=== PATIENT | male | born 1960 | race Caucasian/White ===

== ENCOUNTER 2017-12-24 01:37 | Inpatient (IN) | payer OTHER ==
[2017-12-24] MEDS ORDERED: FUROSEMIDE 40 MG/4 ML VIAL ONE ×2 (02:42→07:49)
[2017-12-24 03:15] LABS: Absolute Monocytes 1.4 K/uL (0.1-1.3); Absolute Neutrophil 9.8 K/uL (1.8-8.0); Basophils % 0.6 % (0-1.3); Eosinophils % 0.7 % (0-4.4); Hematocrit 43.9 % (39.6-49.0); Lymphocytes % 20.9 % (15.3-44.8); MPV 9.3 fL (7.6-11.3); RBC Red Blood Cell Count 5.04 M/uL (4.33-5.43)
[2017-12-24 03:17] LABS: Urine Blood TRACE (NEG); Urine Glucose 3+ (NEG); Urine Protein NEGATIVE (NEG)
[2017-12-24 03:20] LABS: Protime INR 2.37
[2017-12-24 03:31] LABS: Potassium 3.7 mmol/L (3.5-5.1)
[2017-12-24 03:34] LABS: Magnesium 1.3 mg/dL (1.8-2.4)
[2017-12-24] MEDS ORDERED: Magnesium Sulfate 2gm IVPB 2 G/50 ML BAG IV ONE (05:41)
--- NOTE | 2017-12-24 06:31 | EKG ---
Test Date: 2017-12-24 Test Time: 02:20:21 Slitter And Cutter Operator: KIA MEASUREMENT RESULTS: Intervals: Rate: 85 MA: 164 QRSD: 98 QT: 352 QTc: 418 [place]: P: 66 MA: 164 QRS: 75 T: 79 INTERPRETIVE STATEMENTS: Normal sinus rhythm Normal ECG Compared to ECG 06/19/2017 17:02:50 No significant changes Electronically Signed On 12-24-17 06:30:18 CDT by Frank Garza
--- NOTE | 2017-12-24 08:31 | ER ---
Nurse's Notes [facility] Name: Harvey Callahan Age: 57 yrs Sex: Male : 1960 Arrival Date: 12/24/2017 Time: 01:38 Bed 6 Private MD: Hubert Felder R Diagnosis: Dyspnea, unspecified Presentation: 12/24 01:48 Presenting complaint: Patient states: Increased leg swelling to bilateral legs x 5 lp1 days; Patient states weeping to bilateral lower legs; States shortness of breath when laying flat. Transition of care: patient was not received from another setting of care. Onset of symptoms was December 24, 2017. Risk Assessment: Do you want to hurt yourself or someone else? Patient reports no desire to harm self or others. Initial Sepsis Screen: Does the patient meet any 2 criteria? No. Patient's initial sepsis screen is negative. Does the patient have a suspected source of infection? No. Patient's initial sepsis screen is negative. Care prior to arrival: None. 01:48 Method Of Arrival: Wheelchair lp1 01:48 Acuity: DEYANIRA 3 lp1 Historical: - Allergies: 02:03 No Known Allergies; lp1 - Home Meds: 02:03 amiodarone 200 mg Oral tab 1 tab once daily [Active]; aspirin 81 mg Oral TbEC 1 tab lp1 once daily [Active]; atorvastatin 40 mg oral tab 1 tab once daily [Active]; carvedilol 6.25 mg oral tab 0.5 tab 2 times per day [Active]; furosemide 80 mg Oral tab 1 tab once daily [Active]; gabapentin 600 mg oral tab twice a day [Active]; insulin detemir subcutaneous subcutaneous 10 unit twice a day [Active]; levalbuterol tartrate inhalation 45 mcg inhalation 1 puff four times a day [Active]; lisinopril 5 mg Oral tab 1 tab once daily [Active]; metformin 1,000 mg Oral tab 1 tab 2 times per day [Active]; omeprazole 20 mg Oral cpDR 1 cap once daily [Active]; potassium chloride 20 mEq Oral TbER 1 tab once daily [Active]; Prednisone Oral See Instructions [Active]; sildenafil oral 100 mg tab oral 0.5 tab once daily [Active]; tiotropium bromide inhalation 18 mcg inhalation 1 cap once daily [Active]; varenicline oral 1 mg oral twice a day [Active]; warfarin 5 mg Oral tab 1 tab once daily [Active]; modafinil 200 mg oral tab twice a day [Active]; tramadol 50 mg Oral tab three times a day [Active]; - PMHx: 02:03 Arthritis; Diabetes - NIDDM; knee pain; lp1 02:31 CHF; Hyperlipidemia; Hypertension; lp1 - PSHx: 02:03 Cardiac Cath; lp1 - Immunization history:: Adult Immunizations up to date. - Social history:: Smoking status: Patient uses tobacco products, smokes two packs cigarettes per day. - Ebola Screening: : No symptoms or risks identified at this time. Screenin:24 Abuse screen: Denies threats or abuse. Denies injuries from another. Nutritional lp1 screening: No deficits noted. Tuberculosis screening: No symptoms or risk factors identified. Fall Risk None identified. Assessment: 02:20 General: Appears uncomfortable, Behavior is appropriate for age. Pain: Complains of lp1 pain in right leg and left leg Pain currently is 8 out of 10 on a pain scale. Quality of pain is described as sharp. Neuro: Level of Consciousness is awake, alert, obeys commands, Oriented to person, place, time, situation, Gait is steady. Cardiovascular: Patient's skin is warm and dry. Edema pitting to left midcalf, left ankle, left foot, left toes, right midcalf, right ankle, right foot and right toes. Respiratory: Reports shortness of breath when laying flat Airway is patent Respiratory effort is even, Respiratory pattern is regular, Breath sounds are clear bilaterally. Onset: The symptoms/episode began/occurred gradually. GI: Abdomen is obese. : No signs and/or symptoms were reported regarding the genitourinary system. EENT: No signs and/or symptoms were reported regarding the EENT system. Derm: Skin with poor turgor small skin tears to bilateral lower legs noted, minimal weeping Skin is dry, Skin is normal. Musculoskeletal: Circulation, motion, and sensation intact. 03:30 Reassessment: Patient is alert, oriented x 3, equal unlabored respirations, skin lp1 warm/dry/pink. Patient states discomfort and itching to bilateral lower legs; sitting up at bedside to relief discomfort of shoulder and back. 04:30 Reassessment: Patient sitting up in chair at bedside; resting, eyes closed, lp1 respirations unlabored. 05:30 Reassessment: Patient appears in no apparent distress at this time. No changes from lp1 previously documented assessment. Patient and/or family updated on plan of care and expected duration. Pain level reassessed. 06:38 Reassessment: Patient appears in no apparent distress at this time. No changes from lp1 previously documented assessment. 07:45 Reassessment: Patient appears in no apparent distress at this time. Patient and/or ph family updated on plan of care and expected duration. Pain level reassessed. Patient is alert, oriented x 3, equal unlabored respirations, skin warm/dry/pink. Pt asleep, sitting up in chair at bedside, awakens easily to verbal stimuli, states, " I can't sleep lying down and I kept sliding down in the bed." Stretcher removed from room and replaced with a recliner, pt now resting comfortably in recliner, VSS, awaiting possible transfer or admit to tele. 09:00 Reassessment: Patient appears in no apparent distress at this time. No changes from ph previously documented assessment. Patient and/or family updated on plan of care and expected duration. Pain level reassessed. Patient is alert, oriented x 3, equal unlabored respirations, skin warm/dry/pink. 10:35 Reassessment: Patient appears in no apparent distress at this time. Patient and/or ph family updated on plan of care and expected duration. Pain level reassessed. Patient is alert, oriented x 3, equal unlabored respirations, skin warm/dry/pink. ECHO at bedside, report called to REZA Reddy on second floor, awaiting completion of ECHO before pt transported to telemetry. Vital Signs: 01:50 BP 110 / 67; Pulse 104; Resp 18; Temp 98.6(O); Pulse Ox 96% on R/A; Weight 146.96 kg; lp1 Height 5 ft. 7 in. (170.18 cm); Pain 8/10; 02:30 BP 102 / 43; Pulse 92; Resp 16; Pulse Ox 96% on R/A; lp1 03:30 BP 117 / 79; Pulse 92; Resp 16; Pulse Ox 96% on R/A; lp1 04:30 BP 122 / 60; Pulse 91; Resp 15; Pulse Ox 94% on R/A; lp1 05:00 BP 100 / 40; Pulse 85; Resp 16; Pulse Ox 92% on R/A; lp1 05:59 BP 117 / 70; Pulse 76; Resp 19; Pulse Ox 93% on R/A; lp1 06:38 BP 111 / 81; Pulse 86; Resp 18; Pulse Ox 96% on R/A; lp1 07:30 BP 115 / 78; Pulse 81; Resp 16; Pulse Ox 98% on R/A; ph 08:21 BP 113 / 76; Pulse 87; Resp 15; Pulse Ox 96% on R/A; ph 09:30 BP 103 / 56; Pulse 77; Resp 16; Pulse Ox 98% on R/A; ph 10:16 BP 112 / 68; Pulse 80; Resp 16; Temp 98.0; Pulse Ox 97% on R/A; ph 01:50 Body Mass Index 50.75 (146.96 kg, 170.18 cm) lp1 ED Course: 01:38 Patient arrived in ED. ds1 01:39 Hubert Felder MD is Private Physician. ds1 01:48 Carly Valentino RN is Primary Nurse. lp1 01:50 Triage completed. lp1 01:50 Arm band placed on left wrist. lp1 02:16 Kristian Pal MD is Attending Physician. ps1 02:20 Inserted saline lock: 20 gauge in right antecubital area, using aseptic technique. lp1 Blood collected. 02:24 Patient has correct armband on for positive identification. Placed in gown. Bed in low lp1 position. Call light in reach. Side rails up X2. satellite project site monitor on. Pulse ox on. NIBP on. 03:14 X-ray completed. Portable x-ray completed in exam room. Patient tolerated procedure kw well. 03:15 XRAY Chest (1 view) In Process Unspecified. EDMS 05:59 No provider procedures requiring assistance completed. lp1 08:07 Primary Nurse role handed off by Carly Valentino RN ph 08:07 Esme Moran RN is Primary Nurse. ph 08:28 Attending Physician role handed off by Kristian Pal MD rn 08:28 Maulik Goodman MD is Attending Physician. rn 08:29 Hubert Felder MD is Hospitalizing Provider. rn 08:51 Santos Kramer DO is Hospitalizing Provider. rn 08:58 Primary Nurse role handed off by Esme Moran RN 09:14 Esme Moran RN is Primary Nurse. ph 10:10 Patient taken to ultrasound. via wheelchair. aa4 10:56 Patient admitted, IV remains in place. ph Administered Medications: 02:46 Not Given (Med unavailable): Bumex 1 mg IVP once lp1 02:46 Drug: Lasix 40 mg Route: IVP; Site: right antecubital; lp1 03:39 Follow up: Urine output 400 ml; Response: No adverse reaction lp1 05:45 Drug: Magnesium Sulfate 2 grams Route: IVPB; Infused Over: 2 hrs; Site: right mg2 antecubital; 06:53 Follow up: IV Status: Completed infusion lp1 08:00 Drug: Lasix 40 mg Route: IVP; Site: right antecubital; ph 10:56 Follow up: Response: No adverse reaction ph Output: 03:09 Urine: 200ml (Voided); Total: 200ml. lp1 03:30 Urine: 200ml (Voided); Total: 400ml. lp1 03:39 Urine: 400ml; Total: 800ml. lp1 05:00 Urine: 200ml (Voided); Total: 1000ml. lp1 08:00 Urine: 400ml (Voided); Total: 1400ml. ph 10:16 Urine: 400ml (Voided); Total: 1800ml. ph Outcome: 08:30 Decision to Hospitalize by Provider. rn 10:55 Admitted to Tele accompanied by tech, via wheelchair, with chart, Report called to doc Reddy RN 10:55 Condition: stable 10:55 Instructed on the need for admit. 10:56 Patient left the ED. Signatures: Dispatcher [employer] [facility] VelaArmida cruz ds1 Nataliia Peña aa4 Maulik Goodman MD MD rn Whitley, Kimberlee kw Pena, Laura, RN RN lp1 Irish Blackman Patricia, RN RN ph Singer, Phillip, MD MD ps1 [place]ose, Michele, RN RN mg2 Corrections: (The following items were deleted from the chart) 02:25 01:48 Acuity: DEYANIRA 2 lp1 lp1 02:29 02:20 Cardiovascular: Patient's skin is warm and dry. lp1 lp1
--- NOTE | 2017-12-24 08:31 | EDPHYS ---
Physician Documentation [facility] Name: Harvey Callahan Age: 57 yrs Sex: Male : 1960 Arrival Date: 12/24/2017 Time: 01:38 Bed 6 Private MD: Hubert Felder R ED Physician Maulik Goodman HPI: 12/24 02:34 This 57 yrs old Male presents to ER via Wheelchair with complaints of Leg ps1 Swelling and shortness of breath. 02:34 hx of CHF. [facility]. states that his legs have had increased swelling and pain. He ps1 states that his legs have open sores and fluid has been seeping from his wounds. He states additionally that he has had increased shortness of breath and pillow orthopnea. He reportedly takes lasix. No remitting factors otherwise. . Historical: - Allergies: 02:03 No Known Allergies; lp1 - Home Meds: 02:03 amiodarone 200 mg Oral tab 1 tab once daily [Active]; aspirin 81 mg Oral TbEC 1 tab lp1 once daily [Active]; atorvastatin 40 mg oral tab 1 tab once daily [Active]; carvedilol 6.25 mg oral tab 0.5 tab 2 times per day [Active]; furosemide 80 mg Oral tab 1 tab once daily [Active]; gabapentin 600 mg oral tab twice a day [Active]; insulin detemir subcutaneous subcutaneous 10 unit twice a day [Active]; levalbuterol tartrate inhalation 45 mcg inhalation 1 puff four times a day [Active]; lisinopril 5 mg Oral tab 1 tab once daily [Active]; metformin 1,000 mg Oral tab 1 tab 2 times per day [Active]; omeprazole 20 mg Oral cpDR 1 cap once daily [Active]; potassium chloride 20 mEq Oral TbER 1 tab once daily [Active]; Prednisone Oral See Instructions [Active]; sildenafil oral 100 mg tab oral 0.5 tab once daily [Active]; tiotropium bromide inhalation 18 mcg inhalation 1 cap once daily [Active]; varenicline oral 1 mg oral twice a day [Active]; warfarin 5 mg Oral tab 1 tab once daily [Active]; modafinil 200 mg oral tab twice a day [Active]; tramadol 50 mg Oral tab three times a day [Active]; - PMHx: 02:03 Arthritis; Diabetes - NIDDM; knee pain; lp1 02:31 CHF; Hyperlipidemia; Hypertension; lp1 - PSHx: 02:03 Cardiac Cath; lp1 - Immunization history:: Adult Immunizations up to date. - Social history:: Smoking status: Patient uses tobacco products, smokes two packs cigarettes per day. - Ebola Screening: : No symptoms or risks identified at this time. ROS: 02:38 Constitutional: Negative for fever, chills, and weight loss, Eyes: Negative for injury, ps1 pain, redness, and discharge, Cardiovascular: Negative for chest pain, palpitations, and edema, Abdomen/GI: Negative for abdominal pain, nausea, vomiting, diarrhea, and constipation, Back: Negative for injury and pain, MS/Extremity: Negative for injury and deformity, Neuro: Negative for headache, weakness, numbness, tingling, and seizure, Psych: Negative for depression, anxiety, suicide ideation, homicidal ideation, and hallucinations. 02:38 Respiratory: Positive for orthopnea, shortness of breath. 02:38 Skin: Positive for edema and weeping. Exam: 02:38 Constitutional: This is a well developed, well nourished patient who is awake, alert, ps1 and in no acute distress. Head/Face: Normocephalic, atraumatic. Eyes: Pupils equal round and reactive to light, extra-ocular motions intact. Lids and lashes normal. Conjunctiva and sclera are non-icteric and not injected. ENT: Nares patent. No nasal discharge, no septal abnormalities noted. Tympanic membranes are normal and external auditory canals are clear. Oropharynx with no redness, swelling, or masses, exudates, or evidence of obstruction, uvula midline. Mucous membranes moist. Chest/axilla: Normal chest wall appearance and motion. Nontender with no deformity. No lesions are appreciated. Cardiovascular: Regular rate and rhythm. No gallops, murmurs, or rubs. Normal PMI, no JVD. No pulse deficits. Respiratory: Lungs have equal breath sounds bilaterally, clear to auscultation and percussion. No rales, rhonchi or wheezes noted. No increased work of breathing, no retractions or nasal flaring. Abdomen/GI: Soft, non-tender, with normal bowel sounds. No distension or tympany. No guarding or rebound. No evidence of tenderness throughout. Neuro: Awake and alert, GCS 15, oriented to person, place, time, and situation. Cranial nerves II-XII grossly intact. Sensory grossly intact. Psych: Awake, alert, with orientation to person, place and time. Behavior, mood, and affect are within normal limits. 02:38 Skin: Appearance: Color: pink, Temperature: warm, swelling, noted on the left leg and right leg, serous weeping of small abrasions to anterior aspect of tibia. Vital Signs: 01:50 BP 110 / 67; Pulse 104; Resp 18; Temp 98.6(O); Pulse Ox 96% on R/A; Weight 146.96 kg; lp1 Height 5 ft. 7 in. (170.18 cm); Pain 8/10; 02:30 BP 102 / 43; Pulse 92; Resp 16; Pulse Ox 96% on R/A; lp1 03:30 BP 117 / 79; Pulse 92; Resp 16; Pulse Ox 96% on R/A; lp1 04:30 BP 122 / 60; Pulse 91; Resp 15; Pulse Ox 94% on R/A; lp1 05:00 BP 100 / 40; Pulse 85; Resp 16; Pulse Ox 92% on R/A; lp1 05:59 BP 117 / 70; Pulse 76; Resp 19; Pulse Ox 93% on R/A; lp1 06:38 BP 111 / 81; Pulse 86; Resp 18; Pulse Ox 96% on R/A; lp1 07:30 BP 115 / 78; Pulse 81; Resp 16; Pulse Ox 98% on R/A; ph 08:21 BP 113 / 76; Pulse 87; Resp 15; Pulse Ox 96% on R/A; ph 09:30 BP 103 / 56; Pulse 77; Resp 16; Pulse Ox 98% on R/A; ph 10:16 BP 112 / 68; Pulse 80; Resp 16; Temp 98.0; Pulse Ox 97% on R/A; ph 01:50 Body Mass Index 50.75 (146.96 kg, 170.18 cm) lp1 MDM: 03:11 Patient medically screened. ps1 07:53 ED course: Pt doing ok, sats down to 86% when sleeping, improves when awake, about 94%..rn 07:55 ED course: Pt here for > 6 hours, [facility], will rn have to keep here.. 08:28 Differential diagnosis: Anemia CHF exacerbation, Chronic Obstructive Pulmonary Disease rn Myocardial Infarction pneumonia, Pneumothorax pulmonary edema, reactive airway disease. Data reviewed: vital signs, nurses notes, lab test result(s), EKG, radiologic studies, plain films, and as a result, I will admit patient. Counseling: I had a detailed discussion with the patient and/or guardian regarding: the historical points, exam findings, and any diagnostic results supporting the discharge/admit diagnosis, lab results, radiology results, the need for further work-up and treatment in the hospital. 08:50 ED course: Dr. Felder called back, states hasn't seen pt in years, requests admitted to rn hospitalist service.. 12/24 02:34 Order name: Basic Metabolic Panel; Complete Time: 03:39 ps1 12/24 02:34 Order name: CBC with Diff; Complete Time: 03:39 ps1 12/24 02:34 Order name: Magnesium; Complete Time: 03:39 ps1 12/24 02:34 Order name: NT PRO-BNP; Complete Time: 03:39 ps1 12/24 02:34 Order name: PT-INR; Complete Time: 03:39 ps1 12/24 02:34 Order name: Troponin (emerg Dept Use Only); Complete Time: 03:39 ps1 12/24 02:34 Order name: XRAY Chest (1 view); Complete Time: 08:54 ps1 12/24 02:34 Order name: EKG; Complete Time: 02:35 ps1 12/24 02:34 Order name: Cardiac monitoring; Complete Time: 02:44 ps1 12/24 03:09 Order name: Urine Dipstick--Ancillary (enter results); Complete Time: 03:25 lp1 12/24 02:34 Order name: EKG - Nurse/Tech; Complete Time: 02:44 ps1 12/24 02:34 Order name: IV Saline Lock; Complete Time: 02:44 ps1 12/24 02:34 Order name: Labs collected and sent; Complete Time: 02:44 ps1 12/24 02:34 Order name: O2 Per Protocol; Complete Time: 02:45 ps1 12/24 02:34 Order name: O2 Sat Monitoring; Complete Time: 02:45 ps1 12/24 02:34 Order name: Urine Dipstick-Ancillary (obtain specimen); Complete Time: 03:09 ps1 Administered Medications: 02:46 Not Given (Med unavailable): Bumex 1 mg IVP once lp1 02:46 Drug: Lasix 40 mg Route: IVP; Site: right antecubital; lp1 03:39 Follow up: Urine output 400 ml; Response: No adverse reaction lp1 05:45 Drug: Magnesium Sulfate 2 grams Route: IVPB; Infused Over: 2 hrs; Site: right mg2 antecubital; 06:53 Follow up: IV Status: Completed infusion lp1 08:00 Drug: Lasix 40 mg Route: IVP; Site: right antecubital; ph 10:56 Follow up: Response: No adverse reaction ph Disposition: 12/24/17 08:30 Hospitalization ordered by Santos Kramer for Observation. Preliminary diagnosis is Dyspnea, unspecified. - Bed requested for Telemetry/MedSurg (observation). - Status is Observation. ph - Condition is Stable. - Problem is an ongoing problem. - Symptoms are unchanged. UTI on Admission? No Signatures: Dispatcher [employer] EDMS Maulik Goodman MD MD rn Pena, Laura, RN RN lp1 Irish Blackman Patricia, RN RN ph Kristian Pal MD MD ps1 Keagan Travis RN RN mg2 Corrections: (The following items were deleted from the chart) 08:51 08:30 Hospitalization Ordered by Hubert Felder MD for Observation. Preliminary diagnosis rn is Dyspnea, unspecified. Bed requested for Telemetry/MedSurg (observation). Status is Observation. Condition is Stable. Problem is an ongoing problem. Symptoms are unchanged. UTI on Admission? No. rn 09:23 08:51 12/24/2017 08:30 Hospitalization Ordered by Santos Kramer DO for Observation. rn Preliminary diagnosis is Dyspnea, unspecified. Bed requested for Telemetry/MedSurg (observation). Status is Observation. Condition is Stable. Problem is an ongoing problem. Symptoms are unchanged. UTI on Admission? No. 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 Preliminary diagnosis is Dyspnea, unspecified. Bed requested for Telemetry/MedSurg (observation). Status is Inpatient Admission. Condition is Stable. Problem is an ongoing problem. Symptoms are unchanged. UTI on Admission? No. rn 10:03 09:32 12/24/2017 08:30 Hospitalization Ordered by Santos Kramer DO for Observation. ag Preliminary diagnosis is Dyspnea, unspecified. Bed requested for Telemetry/MedSurg (observation). Status is Observation. Condition is Stable. Problem is an ongoing problem. Symptoms are unchanged. UTI on Admission? No. rn 10:56 10:03 12/24/2017 08:30 Hospitalization Ordered by Santos Kramer DO for Observation. ph Preliminary diagnosis is Dyspnea, unspecified. Bed requested for Telemetry/MedSurg (observation). Status is Observation. Condition is Stable. Problem is an ongoing problem. Symptoms are unchanged. UTI on Admission? No. ag
--- NOTE | 2017-12-24 08:54 | RAD REPORT ---
EXAM DESCRIPTION: RAD - Chest Single View - 12/24/2017 3:16 am CLINICAL HISTORY: chf Chest pain. COMPARISON: Chest Single View dated 06/19/2017; Chest Single View dated 06/10/2017; Chest Single View dated 06/07/2017; Chest Single View dated 06/06/2017 FINDINGS: Portable technique limits examination quality. Mild interstitial pulmonary edema is seen. The heart is moderately enlarged in size. Small pleural ef fusions are likely present. No displaced fractures. IMPRESSION: Mild CHF/ volume overload pattern suspected.
[2017-12-24] MEDS ORDERED: IPRATROPIUM BROM 0.5MG/2.5ML NEB PRN (09:40)
[2017-12-24] MEDS ORDERED: LEVALBUTEROL 1.25 MG/3 ML NEB NEB PRN (09:40)
[2017-12-24] MEDS ORDERED: D50W 25 GM/50 ML SYRINGE IV PRN (09:40)
[2017-12-24] MEDS ORDERED: ACETAMINOPHEN 500 MG TAB PO PRN (09:40)
[2017-12-24] MEDS ORDERED: GLUCAGON 1 MG/VIAL IM PRN (09:40)
[2017-12-24] MEDS ORDERED: ONDANSETRON 4 MG/2 ML VIAL IV PRN ×2 (09:40→10:56)
--- NOTE | 2017-12-24 10:02 | P.HP ---
Certification for Inpatient Patient admitted to: Observation With expected LOS: <2 Midnights Patient will require the following post-hospital care: Home Health Services Practitioner: I am a practitioner with admitting privileges, knowledge of patient current condition, hospital course, and medical plan of care. Services: Services provided to patient in accordance with Admission requirements found in Title 42 Section 412.3 of the Code of Federal Regulations Patient History Date of Service: 12/24/17 [facility] Reason for admission: Shortness of breath, edema History of Present Illness: 57-year-old male presented emergency room with increasing shortness of breath and edema to the lower extremities. Symptoms start to get worse over the last couple of days. Patient reports orthopnea, fatigue. No fever, chills noted. No cough noted. Patient with history of obstructive sleep apnea, systolic congestive heart failure, atrial fibrillation on Coumadin, hypertension , diabetes, morbid obesity, GERD, tobacco abuse and COPD. Patient is seen at the [facility]. He reports that his last evaluation for his heart was in June of 2017. He had a heart catheterization at that time. He reports no stent. Patient reports a history of congestive heart failure. No changes to his medications. In May of 2017 ejection fraction was 40%. At that time he was taking Eliquis. He now takes Coumadin. In the ER patient was most comfortable in a recliner. Oxygen saturations would desat to around 85% when with exertion. On lab white count 14.4, hemoglobin 14.6. Sodium 141, potassium 3.7. Magnesium 1.3, GFR 69. Urinalysis unremarkable. Troponin less than 0.02. BNP 21. Chest x-ray showed mild volume overload. EKG showed normal sinus rhythm 2.37. Due to nature the findings the patient was admitted for further evaluation and treatment. When I saw the patient ER, he appeared stable. He did not appear in any respiratory distress. He would desat whenever he over exerted himself. Patient on room air at this time. Edema to the lower extremities noted at bedside. Allergies No Known Allergies Allergy (Verified 06/06/17 22:23) Home medications list reviewed: Yes Home Medications: Metformin HCl [Glucophage*] 500 mg PO BIDWM 06/06/17 Apixaban [Eliquis] 5 mg PO BID #60 tablet 06/10/17 Cefuroxime Axetil [Cefuroxime] 500 mg PO BID #10 tab 06/10/17 Furosemide [Lasix] 40 mg PO DAILY #30 tab 06/10/17 Ipratropium Neb [Atrovent*] 0.5 mg NEB [id number] #60 amp 06/10/17 Levalbuterol [Xopenex*] 1.25 mg NEB [id number] PRN #60 vial 06/10/17 Lisinopril [Prinivil*] 10 mg PO DAILY #30 tab 06/10/17 Potassium Chloride 20 meq PO DAILY #30 tablet.er 06/10/17 Sotalol HCl [Betapace*] 80 mg PO TID #90 tab 06/10/17 predniSONE [Prednisone*] 10 mg PO BID #10 tab 06/10/17 - Past Medical/Surgical History Diabetic: Yes -: Diabetes mellitus type 2 -: Hypertension -: CAD -: Congestive heart failure, systolic dysfunction-EF 40% -: Obstructive sleep apnea -: Hypoventilation obesity syndrome -: Morbid obesity -: Hyperlipidemia -: COPD -: Tobacco abuse -: Atrial fibrillation, chronic anti coagulation-Coumadin -: Knee surgery -: Appendectomy -: Back surgery Psychosocial/ Personal History: Patient is a . He has 6 children. - Family History Mother -: Hypertension, Diabetes - Social History Smoking Status: Heavy Tobacco smoker (>10 cigarettes/day) Counseled patient to stop smoking for: less than 10 minutes Smoking therapy provided: Yes Patient receptive to therapy: Yes Alcohol use: Yes CD- Drugs: No Caffeine use: Yes Place of Residence: Home Review of Systems General: Weakness, Malaise, As per HPI Eyes: Unremarkable ENT: Unremarkable Respiratory: Shortness of Breath, SOB with Excertion, As per HPI Cardiovascular: Orthopnea, Paroxysmal Noc. Dyspnea, Edema, As per HPI Gastrointestinal: Unremarkable Genitourinary: Unremarkable Musculoskeletal: Back Pain, Pedal edema, As per HPI Integumentary: As per HPI Neurological: Weakness, As per HPI Lymphatics: Unremarkable Physical Examination - Physical Exam General: Alert, In no apparent distress, Oriented x3, Cooperative HEENT: Atraumatic, Normocephalic, PERRLA, Mucous membr. moist/pink Neck: Supple, No Thyromegaly Respiratory: Crackles/rales (Crackles to the bases bilateral), Expiratory wheezes (Mild wheezing bilateral) Cardiovascular: Normal pulses, Regular rate/rhythm Gastrointestinal: Normal bowel sounds, Soft and benign, Non-distended, No tenderness, No masses, No rebound, No guarding, Other (Morbid obesity) Musculoskeletal: No tenderness, No warmth Integumentary: Tenderness/swelling (2+ pitting edema to the lower extremities above the knee) Neurological: Normal speech, Normal strength at 5/5 x4 extr, Normal tone, Normal affect - Studies Laboratory Data (last 24 hrs) 12/24/17 02:15: PT 28.2 H, INR 2.37 12/24/17 02:15: WBC 14.4 H, Hgb 14.6, Hct 43.9, Plt Count 259 12/24/17 02:15: Sodium 141, Potassium 3.7, BUN 18, Creatinine 1.10, Glucose 220 H, Magnesium 1.3 L* Assessment and Plan - Problems (Diagnosis) (1) Dyspnea Current Visit: Yes Status: Acute Plan: Shortness of breath and edema likely CHF-systolic dysfunction. Will increase Lasix to 80 mg IV b.i.d.. Will place on a fluid restriction. Will continue his other home medications for atrial fibrillation, chronic anti coagulation therapy, hypertension, diabetes. Patient also morbidly obese likely with severe obstructive sleep apnea and obesity hyperventilation syndrome. Will maintain sats above 90%. Will provide CPAP at night. Will check pro calcitonin and obtain blood cultures to rule out infection. Cardiology consulted to further assess. Patient seen at [facility]. Previously had heart catheterization in June 2017 at the [facility]. No stents were placed at that time as reported by the patient. Will obtain medical records. Will discuss with cardiology about the possibility of changing his Coumadin to Eliquis as he was taking this in the past. Will treat his COPD. Patient may require home health and physical therapy at discharge. Qualifiers: Dyspnea type: shortness of breath Qualified Code(s): R06.02 - Shortness of breath; R06.00 - Dyspnea, unspecified; R06.01 - Orthopnea (2) Edema Current Visit: Yes Status: Acute Plan: Secondary to CHF. Will continue as above. Fluid restriction and IV Lasix initiated. Qualifiers: Edema type: unspecified Qualified Code(s): R60.9 - Edema, unspecified (3) CHF (congestive heart failure) Current Visit: Yes Status: Acute Plan: Acute on chronic systolic CHF noted. Previous echocardiogram in May 2017 showed an EF of 40%. Will check echocardiogram. Will continue IV Lasix and fluid restriction. Cardiology consulted. Qualifiers: Heart failure type: systolic Heart failure chronicity: acute on chronic Qualified Code(s): I50.23 - Acute on chronic systolic (congestive) heart failure (4) CAD (coronary artery disease) Current Visit: Yes Status: Chronic Plan: Patient with previous heart catheterization in June 2017 at the [facility]. Patient reports no stent placed at that time. Will obtain records. Will monitor cardiac enzymes. Echocardiogram ordered. Cardiology consulted. (5) Atrial fibrillation Current Visit: Yes Status: Chronic Plan: Patient currently on amiodarone. Will restart. Patient currently on Coumadin therapeutic at this time. Will continue Coumadin. Will discuss with cardiology about changing Coumadin to Eliquis as he was on Eliquis in the past. Qualifiers: Atrial fibrillation type: chronic Qualified Code(s): I48.2 - Chronic atrial fibrillation (6) Chronic anticoagulation Current Visit: Yes Status: Chronic Plan: Continue Coumadin. Patient therapeutic at this time. Will consider changing Coumadin to Eliquis. Will discuss with cardiology. (7) Diabetes mellitus Current Visit: Yes Status: Chronic Plan: Will check A1c. Will continue his basal insulin. Will provide sliding scale. 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 Patient taking carvedilol and lisinopril. Will monitor and adjust appropriately. (9) Hyperlipidemia Current Visit: Yes Status: Chronic Plan: Will check lipid panel. Will continue with Lipitor 80 mg. Qualifiers: Hyperlipidemia type: unspecified Qualified Code(s): E78.5 - Hyperlipidemia , unspecified (10) COPD (chronic obstructive pulmonary disease) Current Visit: Yes Status: Chronic Plan: Patient with history of COPD. Tobacco cessation addressed in detail. Patient still smokes about 1.5 packs per day. Will provide Brovana and Spiriva. Qualifiers: COPD type: chronic bronchitis Chronic bronchitis type: unspecified Qualified Code(s): J42 - Unspecified chronic bronchitis (11) Obstructive sleep apnea Current Visit: Yes Status: Suspected Plan: Suspect patient has severe obstructive sleep apnea. Patient will need sleep study as an outpatient for CPAP. (12) Obesity Current Visit: Yes Status: Chronic Plan: Will calculate BMI. Lifestyle modification education will be provided. (13) Hypomagnesemia Current Visit: Yes Status: Acute Plan: Will monitor and replace appropriately. Replacement protocol in place. (14) Obesity hypoventilation syndrome Onset Date: 11/12/16 Current Visit: No Status: Suspected Plan: Patient likely has obesity hypoventilation syndrome. Patient will need sleep study as an outpatient. Will monitor oxygen saturations. Patient may require home oxygen. Patient will likely need CPAP at night. (15) Tobacco abuse Current Visit: Yes Status: Acute Plan: Will provide nicotine patch. Tobacco cessation addressed in detail. Discharge Plan: Home Plan to discharge in: 48 Hours - Advance Directives Does patient have a Living Will: No Does patient have a Durable POA for Healthcare: No - Code Status/Comfort Care Code Status Assessed: Yes (Patient full code.) Time Spent Managing Pts Care (In Minutes): 55
[2017-12-24] MEDS ORDERED: ALBUTEROL 2.5 MG/3 ML NEB SOL NEB PRN (10:56)
--- NOTE | 2017-12-24 10:59 | RAD REPORT ---
EXAM DESCRIPTION: VAS - Extrem Venous W Compress Stefan - 12/24/2017 10:22 am CLINICAL HISTORY: Edema to lower ext., takes Coumadin-Therapeutic Bilateral leg edema and swelling. COMPARISON: No comparisons TECHNIQUE: Real-time sonographic interrogation of the left and right lower extremity deep venous sys tems was performed. FINDINGS: Normal compressibility, flow augmentation, phasic flow and spontaneous flow is identified in both the left and right lower extremity deep venous systems. 4 x 3 cm left Gonzales's cyst. IMPRESSION: No sonographic evidence of left or right lower extremity deep venous thrombosis.
--- NOTE | 2017-12-24 11:16 | ECHO ---
HEIGHT: 5 ft 7 in WEIGHT: 324 lb 0 oz DATE OF STUDY: 12/24/[address]: Santos Kramer DO 2-DIMENSIONAL: YES M.MODE: YES DOPPLER: YES COLOR FLOW: YES TDS: YES PORTABLE: NO DEFINITY: NO BUBBLE STUDY: NO DIAGNOSIS: SHORTNESS OF BREATH, EDEMA CARDIAC HISTORY: CATHERIZATION: SURGERY: PROSTHETIC VALVE: PACEMAKER: MEASUREMENTS (cm) DIASTOLIC (NORMALS) SYSTOLIC (NORMALS) IVSd 1.3 (0.6-1.2) LA Diam (1.9-4.0) LVEF 60-65% LVIDd 4.2 (3.5-5.7) LVIDs 2.5 (2.0-3.5) %FS 40% LVPWd 1.3 (0.6-1.2) Ao Diam 2.8 (2.0-3.7) 2 DIMENSIONAL ASSESSMENT: RIGHT ATRIUM: NORMAL LEFT ATRIUM: DILATED RIGHT VENTRICLE: NORMAL LEFT VENTRICLE: LEFT VENTRICULAR HYPERTROPHY TRICUSPID VALVE: NORMAL MITRAL VALVE: NORMAL PULMONIC VALVE: NORMAL AORTIC VALVE: NORMAL PERICARDIAL EFFUSION: NONE AORTIC ROOT: NORMAL LEFT VENTRICULAR WALL MOTION: NORMAL DOPPLER/COLOR FLOW: NORMAL COMMENTS: NORMAL LEFT VENTRICULAR EJECTION FRACTION. LEFT VENTRICULAR HYPERTROPHY. DILATED LEFT ATRIUM. TECHNICALLY DIFFICULT STUDY. TECHNOLOGIST: Jessica LARSEN
[2017-12-24 11:53] VITALS: BMI 50.4
[2017-12-24] MEDS: INSULIN -REGULAR HUMAN 50 UNIT/0.5 ML ML SQ SCH ×3 (12:18→21:00)
[2017-12-24] MEDS: VANCOMYCIN 2 GM in NA CHLORIDE 0.9% 500 ML IVPB SCH (12:18)
--- NOTE | 2017-12-24 12:57 | CON ---
History Of Present Illness: Mr. Callahan is 57. He came to the hospital because over the last 2 months he has been gaining a lot of weight. He says he has been gaining weight steadily since the new year , so 7 months, but it got worse 2 months ago. He came to the hospital because he is no longer able t o lay flat or breathe comfortably or exert himself at all. Since being here, he has had a Doppler st udy of his leg veins. There is no evidence of DVT. His electrocardiogram shows sinus rhythm and it is normal. An echocardiogram has left ventricular hypertrophy, hyperdynamic left ventricular ejectio n fraction. Otherwise, it is a normal study. He has had AFib in the past, but is not in AFib now an d his chest x-ray shows a mild volume overload pattern. The main place he has retained fluid is in h is abdomen, chest wall, legs, thighs, calves, ankles, shins, and feet. He takes diuretics, but we do not have the dose of diuretics. Medications: We have his medication list down as amiodarone 200 once a day, aspirin 81, atorvastatin 40, Coreg 6.25 b.i.d., Lasix 80 once a day, gabapentin, insulin, levalbuterol, and lisinopril. Social History: He continues to use tobacco. He has had a history of atrial fibrillation, has been on Coumadin in the past, but that is not listed as a medication. There are some other medications listed. In another spot, there is metformin, pre dnisone, tiotropium, and actually he may be taking Coumadin as well. Physical Examination: General: He is 5 feet 7 inches, 324 pounds. HEENT: Shows periorbital edema. Skin: He has presacral edema, abdominal wall edema. Lungs: Show minimal crackles. Abdomen: Soft, but I can't palpate any organs. Distal pulses are unpalpable because of the edema. The amount of edema is 4+. Troponin level is normal. His hemoglobin is 14, white blood cell count 14.4. His INR is 2.37. Impression: The patient has anasarca. He has edema forming, not from poor ejection fraction, but mu ltiorgan system failure is probably there, at least in some degree. His GFR is 69, so mild kidney di sease. He does not seem to have valvular heart disease or depressed ejection fraction, so large dose s of diuretics will be needed. Diuretics of necessity HAD to be given intravenously. He does not sibley ve any likelihood of being able to absorb oral diuretics. Looking it is weston skins, I think he needs to be on an antibiotic. I will leave that up to Dr. Kramer, but he definitely has cellulitis, he sibley s itching. He probably needs to have some wet cloths placed on his legs constantly. FADI/SARAHI Voice ID: [id number] Report ID: [id number]
[2017-12-24 14:02] LABS: CKMB Creatine Kinase MB 1.8 ng/mL (0.3-3.6)
[2017-12-24] MEDS: FUROSEMIDE 40 MG/4 ML VIAL IV SCH (16:44)
[2017-12-24] MEDS: WARFARIN SODIUM 5 MG TAB PO SCH (16:44)
[2017-12-24] MEDS: INSULIN DETEMIR 100 UNIT/1 ML INSULIN SQ SCH (16:45)
[2017-12-24] MEDS: PIPER/TAZO/NS 3.375gm 3.375 GM/100 ML BAG IVPB SCH (16:45)
[2017-12-24] MEDS ORDERED: WARFARIN SODIUM 5 MG TAB PO SCH (17:00)
[2017-12-24 17:32] LABS: Urine Appearance CLEAR; Urine Bilirubin NEGATIVE (NEG); Urine Blood TRACE (NEG); Urine Color YELLOW; Urine Glucose NEGATIVE (NEG); Urine Protein NEGATIVE (NEG); Urine pH 7.5 (5.0-7.0)
[2017-12-24 17:34] LABS: Urine Microscopic Reflex ORDER UMIC
[2017-12-24 17:44] LABS: Barbiturates NEGATIVE (NEGATIVE); Benzodiazepines NEGATIVE (NEGATIVE); Cocaine NEGATIVE (NEGATIVE); METHAMPHETAM NEGATIVE (NEGATIVE); Methadone NEGATIVE (NEGATIVE); Opiates NEGATIVE (NEGATIVE); Phencyclidine NEGATIVE (NEGATIVE); THC Cannibis NEGATIVE (NEGATIVE)
[2017-12-24 17:50] LABS: Urine Bacteria <20 /HPF (NONE SEEN); Urine Culture Reflex Order NOT NEEDED; Urine Mucus 2+ /HPF (NONE SEEN); Urine RBC <5 /HPF (NONE SEEN)
[2017-12-24] MEDS: ARFORMOTEROL TARTRATE 15 MCG/2 ML VIAL.NEB NEB SCH (19:41)
[2017-12-24] MEDS: LISINOPRIL 5 MG TAB PO SCH (20:48)
[2017-12-24] MEDS: CARVEDILOL 6.25 MG TAB PO SCH (20:48)
[2017-12-24] MEDS: ATORVASTATIN 80 MG TAB PO SCH (20:49)
[2017-12-24] MEDS: AMIODARONE HCL 200 MG TAB PO SCH (20:49)
[2017-12-24 20:50] LABS: CKMB Creatine Kinase MB 1.5 ng/mL (0.3-3.6); Magnesium 1.7 mg/dL (1.8-2.4)
[2017-12-24] MEDS: GABAPENTIN 100 MG CAP PO PRN (20:53)
[2017-12-24] MEDS ORDERED: MAGNESIUM SULFATE 1 gm IVPB 1 GM/100 ML BAG IV ONE (22:00)
[2017-12-24] MEDS ORDERED: Magnesium Sulfate 1gm IVPB 1 GM/50 ML BAG IV ONE (22:34)
[2017-12-25] MEDS: PIPER/TAZO/NS 3.375gm 3.375 GM/100 ML BAG IVPB SCH ×3 (01:03→16:49)
[2017-12-25] MEDS: PANTOPRAZOLE 40MG TABLET PO SCH (05:33)
[2017-12-25] MEDS: VANCOMYCIN 2 GM in NA CHLORIDE 0.9% 500 ML IVPB SCH (05:33)
[2017-12-25 06:21] LABS: Protime INR 2.75
[2017-12-25 06:23] LABS: Absolute Lymphocytes (CBC) 2.3 K/uL (0.7-4.9); Absolute Monocytes 1.2 K/uL (0.1-1.3); Absolute Neutrophil 9.3 K/uL (1.8-8.0); Basophils % 0.4 % (0-1.3); Eosinophils % 0.8 % (0-4.4); Hematocrit 42.9 % (39.6-49.0); MCH 29.4 pg (27.0-35.0); MCV 86.7 fL (80-100); Monocytes % 9.2 % (3.3-12.3); RBC Red Blood Cell Count 4.95 M/uL (4.33-5.43)
[2017-12-25 06:35] LABS: Magnesium 2.3 mg/dL (1.8-2.4); Potassium 3.8 mmol/L (3.5-5.1); Thyroid Stimulating Hormone 0.86 uIU/mL (0.36-3.74)
[2017-12-25] MEDS ORDERED: POTASSIUM 25 MEQ EFFERV TAB PO ONE (07:00)
[2017-12-25] MEDS: ARFORMOTEROL TARTRATE 15 MCG/2 ML VIAL.NEB NEB SCH ×2 (08:05→20:03)
--- NOTE | 2017-12-25 08:16 | RAD REPORT ---
EXAM DESCRIPTION: Deepa Pa And Lat (2 Views)12/25/2017 6:46 am CLINICAL HISTORY: Shortness of breath COMPARISON: December 24 FINDINGS: Mild bilateral social opacities appear mostly resolved. The heart is mildly enlarged IMPRESSION: Mild CHF has mostly resolved
[2017-12-25] MEDS: INSULIN -REGULAR HUMAN 50 UNIT/0.5 ML ML SQ SCH ×4 (08:43→20:49)
[2017-12-25] MEDS: INSULIN DETEMIR 100 UNIT/1 ML INSULIN SQ SCH ×2 (08:43→16:48)
[2017-12-25] MEDS: CARVEDILOL 6.25 MG TAB PO SCH ×2 (08:44→20:51)
[2017-12-25] MEDS: AMIODARONE HCL 200 MG TAB PO SCH ×2 (08:44→20:51)
[2017-12-25] MEDS: ASPIRIN EC 81 MG TAB PO SCH (08:44)
[2017-12-25] MEDS: GABAPENTIN 100 MG CAP PO PRN ×3 (08:44→22:28)
[2017-12-25] MEDS: NICOTINE 21 MG/PAT TD SCH (08:45)
[2017-12-25] MEDS: FUROSEMIDE 40 MG/4 ML VIAL IV SCH ×2 (08:45→16:48)
--- NOTE | 2017-12-25 10:38 | P.PN ---
Subjective Date of Service: 12/25/17 Primary Care Provider: [facility]; [facility] Chief Complaint: Shortness of breath, edema Subjective: Improving (Edema to the lower extremities improved. Patient less short of breath.) Physical Examination - Vital Signs Temperature: 96.8 F Blood Pressure: 133/76 Pulse: 77 Respirations: 18 Pulse Ox (%): 95 - Physical Exam General: Alert, In no apparent distress, Oriented x3, Cooperative HEENT: Atraumatic Neck: Supple Respiratory: Crackles/rales (Less crackles to the bases. Improved aeration.) Cardiovascular: Normal pulses, Regular rate/rhythm Gastrointestinal: Normal bowel sounds, Soft and benign, Non-distended, No tenderness, No masses, No rebound, No guarding Musculoskeletal: No erythema, No tenderness, No warmth Integumentary: No warmth, No cyanosis, Tenderness/swelling (Edema to the lower ext improved. Less erythema noted. No exudate noted. 1 plus edema to the lower ext noted. ) Neurological: Normal speech, Normal strength at 5/5 x4 extr, Normal tone, Normal affect - Studies Medications List Reviewed: Yes Assessment & Plan - Problems (Diagnosis) (1) Dyspnea Onset Date: 12/25/17 Current Visit: Yes Status: Acute Plan: Shortness of breath and edema likely CHF-diastolic dysfunction. Ejection fraction 60%. Will continue with IV Lasix 80 mg IV b.i.d.. Will continue with 1500 cc per day fluid restriction. Will monitor weight daily. Spoke with cardiology. Anticipate discharge tomorrow with more diuresis. Patient on antibiotic therapy for suspected cellulitis. This can be transition to oral medication at discharge. Patient seen at [facility]. Patient on warfarin with history of atrial fibrillation. Warfarin can be transition to Eliquis as an outpatient. Patient likely has underlying severe sleep apnea and obesity hypoventilation syndrome. Will recommend that he get a sleep study done as an outpatient for CPAP. I will turn the service over to Dr. Howell tomorrow. I will go over the plan of care with her. Qualifiers: Dyspnea type: shortness of breath Qualified Code(s): R06.02 - Shortness of breath; R06.00 - Dyspnea, unspecified; R06.01 - Orthopnea (2) Edema Onset Date: 12/25/17 Current Visit: Yes Status: Acute Plan: Secondary to CHF. Continue with fluid restriction and IV Lasix. Qualifiers: Edema type: unspecified Qualified Code(s): R60.9 - Edema, unspecified (3) CHF (congestive heart failure) Onset Date: 12/25/17 Current Visit: Yes Status: Acute Plan: Acute on chronic systolic CHF noted. Echocardiogram shows ejection fraction 60% . Will continue as above. Anticipate possible discharge tomorrow. Case discussed with cardiology. Qualifiers: Heart failure type: diastolic Heart failure chronicity: acute on chronic Qualified Code(s): I50.33 - Acute on chronic diastolic (congestive) heart failure (4) CAD (coronary artery disease) Onset Date: 12/25/17 Current Visit: Yes Status: Chronic Plan: Patient with previous heart catheterization in June 2017 at the [facility]. Patient reports no stent placed at that time. Will obtain records. Will monitor cardiac enzymes. Echocardiogram reviewed. No intervention needed. (5) Atrial fibrillation Onset Date: 12/19/17 Current Visit: Yes Status: Chronic Plan: Patient currently on amiodarone. Tsh within normal range. Continue with Coumadin. Coumadin can be changed over to Eliquis as an outpatient. Qualifiers: Atrial fibrillation type: chronic Qualified Code(s): I48.2 - Chronic atrial fibrillation (6) Chronic anticoagulation Onset Date: 12/25/17 Current Visit: Yes Status: Chronic Plan: Continue Coumadin. Patient therapeutic at this time. Will consider changing Coumadin to Eliquis. This can be done as an outpatient at the [facility]. (7) Diabetes mellitus Onset Date: 12/25/17 Current Visit: Yes Status: Chronic Plan: Continue with his basal insulin. A1c 8.1. Qualifiers: Diabetes mellitus type: type 2 Diabetes mellitus senior care insulin use: with senior care use Diabetes mellitus complication status: with other specified complication Qualified Code(s): E11.69 - Type 2 diabetes mellitus with other specified complication; Z79.4 - intermediate (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 insulin (8) Hypertension Onset Date: 12/25/17 Current Visit: Yes Status: Chronic Plan: Will continue with his medication. Patient taking carvedilol and lisinopril. Will monitor and adjust appropriately. Qualifiers: Hypertension type: essential hypertension Qualified Code(s): I10 - Essential (primary) hypertension (9) Hyperlipidemia Onset Date: 12/25/17 Current Visit: Yes Status: Chronic Plan: Continue with his medication. Qualifiers: Hyperlipidemia type: unspecified Qualified Code(s): E78.5 - Hyperlipidemia , unspecified (10) COPD (chronic obstructive pulmonary disease) Onset Date: 12/25/17 Current Visit: Yes Status: Chronic Plan: Patient with history of COPD. Tobacco cessation addressed in detail. Patient still smokes about 1.5 packs per day. Will continue with COPD medication. Will wean off oxygen. Qualifiers: COPD type: chronic bronchitis Chronic bronchitis type: unspecified Qualified Code(s): J42 - Unspecified chronic bronchitis (11) Obstructive sleep apnea Onset Date: 12/25/17 Current Visit: Yes Status: Suspected Plan: Suspect patient has severe obstructive sleep apnea. Patient will need sleep study as an outpatient for CPAP. (12) Obesity Onset Date: 12/25/17 Current Visit: Yes Status: Chronic Plan: Will continue to recommend lifestyle modification education. Qualifiers: Obesity type: due to excess calories Obesity classification: adult class 3 (BMI >= 40) Serious obesity comorbidity presence: with serious comorbidity Body mass index: BMI 50.0-59.9 Qualified Code(s): E66.01 - Morbid (severe) obesity due to excess calories; Z68.43 - Body mass index (BMI) 50-59.9 , adult (13) Hypomagnesemia Onset Date: 12/25/17 Current Visit: Yes Status: Acute Plan: Will monitor and replace appropriately. Replacement protocol in place. (14) Obesity hypoventilation syndrome Onset Date: 11/12/16 Current Visit: No Status: Suspected Plan: Patient likely has obesity hypoventilation syndrome. Patient will need sleep study as an outpatient. Will monitor oxygen saturations. Patient may require home oxygen. Patient will likely need CPAP at night. (15) Tobacco abuse Onset Date: 12/25/17 Current Visit: Yes Status: Chronic Plan: Will provide nicotine patch. Tobacco cessation addressed in detail. (16) Anasarca Current Visit: Yes Status: Acute Plan: Continue as above. (17) Cellulitis Current Visit: Yes Status: Acute Plan: Cellulitis suspected to the lower extremities. Likely from edema. Patient on IV antibiotic therapy. This can be transition to oral medication at discharge. Qualifiers: Site of cellulitis: extremity Site of cellulitis of extremity: lower extremity Discharge Plan: Home Plan to discharge in: 24 Hours Time Spent Managing Pts Care (In Minutes): 55
[2017-12-25] MEDS: TIOTROPIUM 5 SPRAYS/INHALER IH SCH (10:43)
[2017-12-25] MEDS: WARFARIN SODIUM 5 MG TAB PO SCH (16:48)
[2017-12-25] MEDS: LISINOPRIL 5 MG TAB PO SCH (20:51)
[2017-12-25] MEDS: ATORVASTATIN 80 MG TAB PO SCH (20:51)
[2017-12-26] MEDS: VANCOMYCIN 2 GM in NA CHLORIDE 0.9% 500 ML IVPB SCH ×2 (00:05→18:15)
[2017-12-26] MEDS: PIPER/TAZO/NS 3.375gm 3.375 GM/100 ML BAG IVPB SCH ×3 (00:05→17:11)
[2017-12-26 05:05] LABS: Absolute Lymphocytes (CBC) 2.8 K/uL (0.7-4.9); Absolute Monocytes 1.1 K/uL (0.1-1.3); Absolute Neutrophil 9.1 K/uL (1.8-8.0); Basophils % 0.4 % (0-1.3); Eosinophils % 1.2 % (0-4.4); Hematocrit 41.9 % (39.6-49.0); Lymphocytes % 21.4 % (15.3-44.8); MCH 29.7 pg (27.0-35.0); MCV 86.1 fL (80-100); MPV 8.8 fL (7.6-11.3); Monocytes % 8.4 % (3.3-12.3); RBC Red Blood Cell Count 4.87 M/uL (4.33-5.43)
[2017-12-26 05:09] LABS: Protime INR 2.83
[2017-12-26 05:24] LABS: Magnesium 2.2 mg/dL (1.8-2.4); Potassium 3.7 mmol/L (3.5-5.1)
[2017-12-26] MEDS ORDERED: POTASSIUM 25 MEQ EFFERV TAB PO ONE (06:00)
[2017-12-26] MEDS: PANTOPRAZOLE 40MG TABLET PO SCH (06:11)
[2017-12-26] MEDS: INSULIN -REGULAR HUMAN 50 UNIT/0.5 ML ML SQ SCH ×4 (07:30→21:29)
[2017-12-26] MEDS: ARFORMOTEROL TARTRATE 15 MCG/2 ML VIAL.NEB NEB SCH ×2 (07:40→19:36)
--- NOTE | 2017-12-26 08:04 | PN ---
Date of Progress Note: 12/25/2017 Mr. Callahan was admitted by Dr. Kramer on 12/24/2017. He was seen by Dr. Garza on 12/24/2017 because of noncardiac edema, cellulitis. Had a normal echo with ejection fraction of over 60%, left ventricu lar hypertrophy. Chest x-ray showed mild congestive heart failure. EKG was normal. The patient is given 80 mg Lasix IV b.i.d. and diuresed. the cellulitis has improved and he still has so me mild edema. His breathing is better, but still having some PND. I will continue IV Lasix and con tinue antibiotics. We will follow him along. ELISABET/SARAHI Voice ID: [id number] Report ID: [id number]
[2017-12-26] MEDS: TIOTROPIUM 5 SPRAYS/INHALER IH SCH (09:17)
[2017-12-26] MEDS: FUROSEMIDE 40 MG/4 ML VIAL IV SCH ×2 (09:23→17:10)
[2017-12-26] MEDS: ASPIRIN EC 81 MG TAB PO SCH (09:24)
[2017-12-26] MEDS: NICOTINE 21 MG/PAT TD SCH (09:24)
[2017-12-26] MEDS: INSULIN DETEMIR 100 UNIT/1 ML INSULIN SQ SCH ×2 (09:24→17:10)
[2017-12-26] MEDS: CARVEDILOL 6.25 MG TAB PO SCH ×2 (09:24→21:28)
[2017-12-26] MEDS: AMIODARONE HCL 200 MG TAB PO SCH ×2 (09:24→21:27)
--- NOTE | 2017-12-26 12:15 | P.PN ---
Subjective Date of Service: 12/26/17 [facility] Care [facility]; [facility] Chief Complaint: Shortness of breath, edema Patient seen and examined at bedside with RN. Chart reviewed. Currently patient still has swelling and erythema of the lower extremities. No c/o overnight. Has been ambulating and tolerating diet well. Review of Systems General: As per HPI Physical Examination - Vital Signs Temperature: 97.2 F Blood Pressure: 106/82 Pulse: 66 Respirations: 16 Pulse Ox (%): 93 - Physical Exam General: Alert, In no apparent distress, Oriented x3 HEENT: Atraumatic, PERRLA, EOMI Neck: Supple, JVD not distended Respiratory: Clear to auscultation bilaterally, Normal air movement Cardiovascular: Regular rate/rhythm, Normal S1 S2 Gastrointestinal: Normal bowel sounds, No tenderness Musculoskeletal: Swelling, Erythema, Tenderness Integumentary: No rashes Neurological: Normal speech, Normal tone, Normal affect Lymphatics: No axilla or inguinal lymphadenopathy - Studies Medications List Reviewed: Yes Assessment & Plan - Problems (Diagnosis) (1) Edema Onset Date: 12/25/17 Current Visit: Yes Status: Acute Plan: Edema BL LE. Most Likely 2.2 to Volume Overload 2.2 to CKD vs CHF -IV lasix for now -IV abx for Cellulites of the lower extremity -Elevate leg with WAI wrap for now -Fluid restriction Qualifiers: Edema type: unspecified Qualified Code(s): R60.9 - Edema, unspecified (2) CHF (congestive heart failure) Onset Date: 12/25/17 Current Visit: Yes Status: Acute Plan: Acute on Chronic Diastolic DF -Echo with EF of 60% with Diastolic Dysfunction -IV lasix and fluid restriction -Awaiting Improvement Qualifiers: Heart failure type: diastolic Heart failure chronicity: acute on chronic Qualified Code(s): I50.33 - Acute on chronic diastolic (congestive) heart failure (3) Cellulitis Current Visit: Yes Status: Acute Plan: BL LE cellulitis. -IV abx for now -Elevate and WAI wrap for now Qualifiers: Site of cellulitis: extremity Site of cellulitis of extremity: lower extremity (4) Atrial fibrillation Onset Date: 12/19/17 Current Visit: Yes Status: Chronic Qualifiers: Atrial fibrillation type: chronic Qualified Code(s): I48.2 - Chronic atrial fibrillation (5) CAD (coronary artery disease) Onset Date: 12/25/17 Current Visit: Yes Status: Chronic Qualifiers: Coronary Disease-Associated Artery/Lesion type: [place] artery [place] vs. 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 insulin use: with prison use Diabetes mellitus complication status: with other specified complication Qualified Code(s): E11.69 - Type 2 diabetes mellitus with other specified complication; 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 (8) Hyperlipidemia Onset Date: 12/25/17 Current Visit: Yes Status: Chronic Qualifiers: Hyperlipidemia type: unspecified Qualified Code(s): E78.5 - Hyperlipidemia , unspecified (9) Hypertension Onset Date: 12/25/17 Current Visit: Yes Status: Chronic Qualifiers: Hypertension type: essential hypertension Qualified Code(s): I10 - Essential (primary) hypertension (10) Obesity Onset Date: 12/25/17 Current Visit: Yes Status: Chronic Qualifiers: Obesity type: due to excess calories Obesity classification: adult class 3 (BMI >= 40) Serious obesity comorbidity presence: with serious comorbidity Body mass index: BMI 50.0-59.9 Qualified Code(s): E66.01 - Morbid (severe) obesity due to excess calories; Z68.43 - Body mass index (BMI) 50-59.9 , adult (11) Tobacco abuse Onset Date: 12/25/17 Current Visit: Yes Status: Chronic (12) Obstructive sleep apnea Onset Date: 12/25/17 Current Visit: Yes Status: Suspected Discharge Plan: Home Plan to discharge in: 24 Hours - Code Status/Comfort Care Code Status Assessed: Yes Critical Care: No
[2017-12-26] MEDS ORDERED: IPRATROPIUM BROM 0.5MG/2.5ML NEB PRN (14:00)
[2017-12-26] MEDS: WARFARIN SODIUM 5 MG TAB PO SCH (17:10)
[2017-12-26] MEDS: GABAPENTIN 100 MG CAP PO PRN (18:15)
[2017-12-26] MEDS: ATORVASTATIN 80 MG TAB PO SCH (21:27)
[2017-12-26] MEDS: LISINOPRIL 5 MG TAB PO SCH (21:28)
[2017-12-27] MEDS: PIPER/TAZO/NS 3.375gm 3.375 GM/100 ML BAG IVPB SCH ×2 (01:30→08:52)
[2017-12-27 05:28] LABS: Absolute Lymphocytes (CBC) 2.6 K/uL (0.7-4.9); Absolute Monocytes 1.3 K/uL (0.1-1.3); Absolute Neutrophil 9.7 K/uL (1.8-8.0); Basophils % 0.6 % (0-1.3); Eosinophils % 0.8 % (0-4.4); Hematocrit 41.1 % (39.6-49.0); Lymphocytes % 18.6 % (15.3-44.8); MCH 29.3 pg (27.0-35.0); MCV 86.9 fL (80-100); Monocytes % 9.6 % (3.3-12.3); Protime INR 2.73; RBC Red Blood Cell Count 4.73 M/uL (4.33-5.43)
[2017-12-27] MEDS: PANTOPRAZOLE 40MG TABLET PO SCH (05:39)
[2017-12-27] MEDS: GABAPENTIN 100 MG CAP PO PRN (05:40)
[2017-12-27 05:43] LABS: Magnesium 2.3 mg/dL (1.8-2.4); Potassium 3.9 mmol/L (3.5-5.1)
[2017-12-27] MEDS ORDERED: POTASSIUM CL SA 10 MEQ TAB PO ONE (05:46)
[2017-12-27] MEDS: INSULIN -REGULAR HUMAN 50 UNIT/0.5 ML ML SQ SCH ×2 (07:30→11:30)
[2017-12-27] MEDS: INSULIN DETEMIR 100 UNIT/1 ML INSULIN SQ SCH (08:00)
[2017-12-27] MEDS: ARFORMOTEROL TARTRATE 15 MCG/2 ML VIAL.NEB NEB SCH (08:12)
[2017-12-27 08:38] VITALS: O2SAT 93
[2017-12-27] MEDS ORDERED: VANCOMYCIN 2 GM in NA CHLORIDE 0.9% 500 ML IVPB SCH (09:00)
[2017-12-27] MEDS: FUROSEMIDE 40 MG/4 ML VIAL IV SCH (09:05)
[2017-12-27] MEDS: ASPIRIN EC 81 MG TAB PO SCH (09:06)
[2017-12-27] MEDS: AMIODARONE HCL 200 MG TAB PO SCH (09:06)
[2017-12-27] MEDS: NICOTINE 21 MG/PAT TD SCH (09:07)
[2017-12-27] MEDS: TIOTROPIUM 5 SPRAYS/INHALER IH SCH (09:08)
[2017-12-27 09:10] VITALS: BP 130/61
[2017-12-27 10:44] VITALS: TEMP 97
[2017-12-27] MEDS ORDERED: VANCOMYCIN 2.25 GM in NA CHLORIDE 0.9% 500 ML IVPB SCH (12:00)
--- NOTE | 2017-12-27 12:10 | P.DS ---
Admission Date: 12/25/17 Discharge Date: 12/27/17 Primary Care Provider: [facility]; [facility] Disposition: ROUTINE DISCHARGE Discharge Condition: FAIR Reason for Admission: Shortness of breath, edema Consultations: Cardiology - Problems (1) Edema Onset Date: 12/25/17 Current Visit: Yes Status: Acute Qualifiers: Edema type: unspecified Qualified Code(s): R60.9 - Edema, unspecified (2) CHF (congestive heart failure) Onset Date: 12/25/17 Current Visit: Yes Status: Acute Qualifiers: Heart failure type: diastolic Heart failure chronicity: acute on chronic Qualified Code(s): I50.33 - Acute on chronic diastolic (congestive) heart failure (3) Cellulitis Current Visit: Yes Status: Acute Qualifiers: Site of cellulitis: extremity Site of cellulitis of extremity: lower extremity (4) Atrial fibrillation Onset Date: 12/19/17 Current Visit: Yes Status: Chronic Qualifiers: Atrial fibrillation type: chronic Qualified Code(s): I48.2 - Chronic atrial fibrillation (5) CAD (coronary artery disease) Onset Date: 12/25/17 Current Visit: Yes Status: Chronic Qualifiers: Coronary Disease-Associated Artery/Lesion type: [place] artery [place] vs. transplanted heart: [place] heart Associated angina: without angina Qualified Code(s): I25.10 - Atherosclerotic heart disease of [place] coronary artery without angina pectoris (6) COPD (chronic obstructive pulmonary disease) Onset Date: 12/25/17 Current Visit: Yes Status: Chronic Qualifiers: COPD type: chronic bronchitis Chronic bronchitis type: unspecified Qualified Code(s): J42 - Unspecified chronic bronchitis (7) Diabetes mellitus Onset Date: 12/25/17 Current Visit: Yes Status: Chronic Qualifiers: Diabetes mellitus type: type 2 Diabetes mellitus prison insulin use: with intermediate card tender use Diabetes mellitus complication status: with other specified complication Qualified Code(s): E11.69 - Type 2 diabetes mellitus with other specified complication; Z79.4 - FPC (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 insulin (8) Hyperlipidemia Onset Date: 12/25/17 Current Visit: Yes Status: Chronic Qualifiers: Hyperlipidemia type: unspecified Qualified Code(s): E78.5 - Hyperlipidemia , unspecified (9) Hypertension Onset Date: 12/25/17 Current Visit: Yes Status: Chronic Qualifiers: Hypertension type: essential hypertension Qualified Code(s): I10 - Essential (primary) hypertension (10) Obesity Onset Date: 12/25/17 Current Visit: Yes Status: Chronic Qualifiers: Obesity type: due to excess calories Obesity classification: adult class 3 (BMI >= 40) Serious obesity comorbidity presence: with serious comorbidity Body mass index: BMI 50.0-59.9 Qualified Code(s): E66.01 - Morbid (severe) obesity due to excess calories; Z68.43 - Body mass index (BMI) 50-59.9 , adult (11) Tobacco abuse Onset Date: 12/25/17 Current Visit: Yes Status: Chronic (12) Obstructive sleep apnea Onset Date: 12/25/17 Current Visit: Yes Status: Suspected Brief History of Present Illness: 57-year-old male presented emergency room with increasing shortness of breath and edema to the lower extremities. Symptoms start to get worse over the last couple of days. Patient reports orthopnea, fatigue. No fever, chills noted. No cough noted. Patient with history of obstructive sleep apnea, systolic congestive heart failure, atrial fibrillation on Coumadin, hypertension , diabetes, morbid obesity, GERD, tobacco abuse and COPD. Patient is seen at the [facility]. He reports that his last evaluation for his heart was in June of 2017. He had a heart catheterization at that time. He reports no stent. Patient reports a history of congestive heart failure. No changes to his medications. In May of 2017 ejection fraction was 40%. At that time he was taking Eliquis. He now takes Coumadin. In the ER patient was most comfortable in a recliner. Oxygen saturations would desat to around 85% when with exertion. On lab white count 14.4, hemoglobin 14.6. Sodium 141, potassium 3.7. Magnesium 1.3, GFR 69. Urinalysis unremarkable. Troponin less than 0.02. BNP 21. Chest x-ray showed mild volume overload. EKG showed normal sinus rhythm 2.37. Due to nature the findings the patient was admitted for further evaluation and treatment. When I saw the patient ER, he appeared stable. He did not appear in any respiratory distress. He would desat whenever he over exerted himself. Patient on room air at this time. Edema to the lower extremities noted at bedside. Hospital Course: Overall during the hospital stay patient remained stable Patient was initially admitted to the hospital for lower left extremity edema along with profusion most likely secondary to CHF exacerbation versus lower extremity cellulitis. Patient has a history of CHF with acute diastolic dysfunction. Cardiology was consulted who recommended the patient be discontinued on Coreg and continue her on other medication. Patient initially was placed on IV Lasix. Had marked improvement overnight. Patient was also started on IV antibiotics for his cellulitis which improved markedly as well here in the hospital. Patient was put to sleep apnea here in the hospital with apneic episodes at night time and thus was placed on BiPAP. Patient improved markedly here in the hospital. On day 3 patient had overall improvement in his hospital condition and thus was discharged home under stable condition with a prescription for Lasix and antibiotics for his cellulitis. Patient was asked to stop taking his Coreg due to several PVCs and PACs noticed on his cardiac tele monitoring here in the hospital. Patient is to follow up with cardiology in about 1-2 weeks post discharge. Vital Signs/Physical Exam: Temp Pulse Resp BP Pulse Ox 97 F 65 20 130/61 91 12/27/17 08:00 12/27/17 09:05 12/27/17 08:00 12/27/17 09:05 12/27/17 08:00 General: Alert, In no apparent distress, Obese HEENT: Atraumatic, PERRLA, EOMI Neck: Supple, JVD not distended Respiratory: Clear to auscultation bilaterally, Normal air movement Cardiovascular: Regular rate/rhythm, Normal S1 S2 Gastrointestinal: Normal bowel sounds, No tenderness Musculoskeletal: Swelling Integumentary: No rashes Neurological: Normal speech, Normal tone, Normal affect Lymphatics: No axilla or inguinal lymphadenopathy Laboratory Data at Discharge: WBC 13.9 K/uL (4.3-10.9) H 12/27/17 04:23 Hgb 13.9 g/dL (13.6-17.9) 12/27/17 04:23 Hct 41.1 % (39.6-49.0) 12/27/17 04:23 Plt Count 246 K/uL (152-406) 12/27/17 04:23 PT 32.6 SECONDS (9.5-12.5) H 12/27/17 04:23 INR 2.73 12/27/17 04:23 Sodium 138 mmol/L (136-145) 12/27/17 04:23 Potassium 3.9 mmol/L (3.5-5.1) 12/27/17 04:23 BUN 19 mg/dL (7-18) H 12/27/17 04:23 Creatinine 1.00 mg/dL (0.55-1.3) 12/27/17 04:23 Glucose 224 mg/dL (74-106) H 12/27/17 04:23 Magnesium 2.3 mg/dL (1.8-2.4) 12/27/17 04:23 Troponin I < 0.02 ng/mL (0.0-0.045) 12/24/17 20:13 Triglycerides 196 mg/dL (<150) H 12/25/17 05:41 Cholesterol 119 mg/dL (<200) 12/25/17 05:41 HDL Cholesterol 27 mg/dL (40-60) L 12/25/17 05:41 Cholesterol/HDL Ratio 4.41 12/25/17 05:41 Home Medications: Amiodarone HCl [Pacerone] 200 mg PO DAILY 12/24/17 Aspirin Chewable [Aspirin Chewable*] 81 mg PO DAILY 12/24/17 Atorvastatin Calcium 40 mg PO DAILY 12/24/17 Furosemide 80 mg PO DAILY 12/24/17 Gabapentin 600 mg PO BID 12/24/17 Insulin Detemir [Levemir] 10 units SQ BID 12/24/17 Levalbuterol Tartrate [Levalbuterol Tartrate Hfa] 45 gm IH QID PRN 12/24/17 Lisinopril [Prinivil*] 5 mg PO DAILY 12/24/17 Metformin HCl 1,000 mg PO BID 12/24/17 Omeprazole 20 mg PO DAILY 12/24/17 Potassium Chloride [K-Dur] 20 meq PO DAILY 12/24/17 Prednisone [Gold] 5 mg PO DAILY 12/24/17 Sildenafil Citrate 100 mg PO DAILY PRN 12/24/17 Tiotropium Starke [Spiriva] 18 mcg IH DAILY 12/24/17 Tramadol HCl [Ultram] 50 mg PO Q6HR PRN 12/24/17 Varenicline Tartrate [Chantix] 1 mg PO BID 12/24/17 Warfarin Sodium 5 mg PO DAILY 12/24/17 Amox/Clavulanate [Augmentin 500-125 mg Tab] 500 mg PO BID #20 tab 12/27/17 New Medications: Amox/Clavulanate [Augmentin 500-125 mg Tab] 500 mg PO BID #20 tab Patient Discharge Instructions: Please f.u with PCP and Dr Pavon post discharge. -You will need to be scheduled for Sleep study. New medication. Augmentin 500mg BID. Stop Taking Medication. Coreg. Continue taking all other medication as precribed Diet: Regular Activity: Ad leonor Followup: Antoni Nair MD [ACTIVE - CAN ADMIT] - 1 Week (Sleep Study ) Anshul Merritt MD [ACTIVE - CAN ADMIT] - 1 Week (Call for appointment)
== END 2017-12-27 12:55 | disposition home or self-care (01) | DRG 292 ==
LOC: ER 01:37 → ERHOLD 08:30 → 2ND 10:46 → OBSVTOIN 12-25 11:53
PROVIDERS: ADMIT Family Medicine; ATTEND Family Medicine
PROC: 5A09557 Assistance with Respiratory Ventilation, Greater than 96 Consecutive Hours, Continuous Positive Airway Pressure (ICD-10-PCS; principal; 2017-12-24)
DX: I11.0 Hypertensive heart disease with heart failure (principal); L03.116 Cellulitis of left lower limb; L03.115 Cellulitis of right lower limb; Z68.43 Body mass index [BMI] 50.0-59.9, adult; E66.2 Morbid (severe) obesity with alveolar hypoventilation; I50.33 Acute on chronic diastolic (congestive) heart failure; I48.2 Chronic atrial fibrillation; I25.10 Atherosclerotic heart disease of native coronary artery without angina pectoris; J42 Unspecified chronic bronchitis; E11.9 Type 2 diabetes mellitus without complications; E78.5 Hyperlipidemia, unspecified; G47.33 Obstructive sleep apnea (adult) (pediatric); I49.3 Ventricular premature depolarization; I49.1 Atrial premature depolarization; Z79.01 Long term (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 anticoagulants; Z79.4 Long term (current) use of insulin; Z79.52 Long term (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 systemic steroids; E83.42 Hypomagnesemia; F17.210 Nicotine dependence, cigarettes, uncomplicated
CPT/HCPCS: 36415; 71045; 71046; 80048; 80061; 80202; 80307; 81003; 81015; 82550; 82553; 82962; 83036; 83735; 83880; 84132; 84145; 84439; 84443; 84484; 85025; 85610; 87040; 93005; 93306; 93970; 94640; 94660; 96365; 96375; 97163; 99285; G0378; J2543; J3475; J7605

== ENCOUNTER 2018-02-10 18:30 | Inpatient (IN) | payer OTHER ==
[2018-02-10] MEDS ORDERED: VANCOMYCIN 1 GM/250 ML BAG ONE (19:50)
[2018-02-10 20:12] LABS: Absolute Lymphocytes (CBC) 2.3 K/uL (0.7-4.9); Absolute Neutrophil 9.2 K/uL (1.8-8.0); Basophils % 0.8 % (0-1.3); Eosinophils % 1.1 % (0-4.4); Hematocrit 40.9 % (39.6-49.0); Lymphocytes % 17.9 % (15.3-44.8); MCH 29.1 pg (27.0-35.0); MCV 88.4 fL (80-100); MPV 8.6 fL (7.6-11.3); Monocytes % 7.8 % (3.3-12.3); RBC Red Blood Cell Count 4.62 M/uL (4.33-5.43)
[2018-02-10] MEDS ORDERED: MORPHINE 4 MG/ML SYR ONE ×2 (20:19→22:07)
[2018-02-10] MEDS ORDERED: ONDANSETRON 4 MG/2 ML VIAL ONE (20:20)
[2018-02-10 20:32] LABS: Albumin 3.3 g/dL (3.4-5.0); Bilirubin Total 0.2 mg/dL (0.2-1.0); CKMB Creatine Kinase MB < 1.0 ng/mL (0.3-3.6); NT PRO-BNP 49 pg/mL (<125); Potassium 4.1 mmol/L (3.5-5.1); Protein, Total 7.9 g/dL (6.4-8.2)
--- NOTE | 2018-02-10 20:51 | RAD REPORT ---
EXAM DESCRIPTION: RAD - Chest Single View - 02/10/2018 8:06 pm CLINICAL HISTORY: DYSPNEA Chest pain. COMPARISON: Chest Pa And Lat (2 Views) dated 12/25/2017; Chest Single View dated 12/24/2017; Chest Sin gle View dated 06/19/2017; Chest Single View dated 06/10/2017 FINDINGS: Portable technique limits examination quality. Mild asymmetric interstitial pulmonary edema noted. The heart is moderately enlarged. No displaced fr actures. IMPRESSION: Mild CHF.
--- NOTE | 2018-02-10 21:23 | EDPHYS ---
Physician Documentation [facility] Name: Harvey Callahan Age: 57 yrs Sex: Male : 1960 Arrival Date: 02/10/2018 Time: 18:32 Bed 19 Private MD: Unknown, Unknown ED Physician Ramez Stiles HPI: 02/10 20:53 This 57 yrs old Male presents to ER via Wheelchair with complaints of Wound tw4 Infection - LEG. 20:53 The patient presents with cellulitis of the right leg and left leg. Description: tw4 erythematous. Onset: The symptoms/episode began/occurred 1 week(s) ago. Possible cause(s): SCRATCH. Associated signs and symptoms: Pertinent positives: shortness of breath, swelling. Modifying factors: the symptoms are alleviated by remaining still, the symptoms are aggravated by nothing. Severity of symptoms: At their worst the symptoms were moderate, in the emergency department the symptoms are unchanged. The patient has not experienced similar symptoms in the past. Historical: - Allergies: 18:39 No Known Allergies; ch - Home Meds: 18:39 amiodarone 200 mg Oral tab 1 tab once daily [Active]; aspirin 81 mg Oral TbEC 1 tab ch once daily [Active]; atorvastatin 40 mg Oral tab 1 tab once daily [Active]; carvedilol 6.25 mg Oral tab 0.5 tab 2 times per day [Active]; furosemide 80 mg Oral tab 1 tab once daily [Active]; gabapentin 600 mg Oral tab twice a day [Active]; insulin detemir subcutaneous 10 unit twice a day [Active]; levalbuterol tartrate 45 mcg inhalation 1 puff four times a day [Active]; lisinopril 5 mg Oral tab 1 tab once daily [Active]; metformin 1,000 mg Oral tab 1 tab 2 times per day [Active]; modafinil 200 mg Oral tab twice a day [Active]; omeprazole 20 mg Oral cpDR 1 cap once daily [Active]; potassium chloride 20 mEq Oral TbER 1 tab once daily [Active]; Prednisone Oral see instructions [Active]; sildenafil 100 mg tab Oral 0.5 tab once daily [Active]; tiotropium bromide 18 mcg inhalation 1 cap once daily [Active]; tramadol 50 mg Oral tab three times a day [Active]; varenicline 1 mg Oral twice a day [Active]; warfarin 5 mg Oral tab 1 tab once daily [Active]; hydroxychloroquine 200 mg oral tab 1 tab once daily [Active]; folic acid 1 mg Oral tab 1 tab once daily [Active]; - PMHx: 18:39 Arthritis; CHF; Diabetes - NIDDM; Hyperlipidemia; Hypertension; knee pain; edema; ch - PSHx: 18:39 Cardiac Cath; ch - Immunization history:: Adult Immunizations up to date. - Social history:: Smoking status: Patient uses tobacco products, smokes two packs cigarettes per day. Patient/guardian denies using alcohol, street drugs. - Ebola Screening: : Patient negative for fever greater than or equal to 101.5 degrees Fahrenheit, and additional compatible Ebola Virus Disease symptoms Patient denies exposure to infectious person Patient denies travel to an Ebola-affected area in the 21 days before illness onset No symptoms or risks identified at this time. ROS: 20:53 Constitutional: Negative for fever, chills, and weight loss, Cardiovascular: Negative tw4 for chest pain, palpitations, and edema, Respiratory: Negative for shortness of breath, cough, wheezing, and pleuritic chest pain, Abdomen/GI: Negative for abdominal pain, nausea, vomiting, diarrhea, and constipation, Neuro: Negative for headache, weakness, numbness, tingling, and seizure, Psych: Negative for depression, anxiety, suicide ideation, homicidal ideation, and hallucinations. 20:53 MS/extremity: Positive for erythema, pain, swelling, tenderness, Negative for injury or acute deformity, abrasion, bite, contusion, decreased range of motion. 20:53 Skin: Positive for erythema. Exam: 20:53 Constitutional: This is a well developed, well nourished patient who is awake, alert, tw4 and in no acute distress. Head/Face: Normocephalic, atraumatic. Chest/axilla: Normal chest wall appearance and motion. Nontender with no deformity. No lesions are appreciated. Cardiovascular: Regular rate and rhythm with a normal S1 and S2. No gallops, murmurs, or rubs. Normal PMI, no JVD. No pulse deficits. Respiratory: Lungs have equal breath sounds bilaterally, clear to auscultation and percussion. No rales, rhonchi or wheezes noted. No increased work of breathing, no retractions or nasal flaring. Abdomen/GI: Soft, non-tender, with normal bowel sounds. No distension or tympany. No guarding or rebound. No evidence of tenderness throughout. Back: No spinal tenderness. No costovertebral tenderness. Full range of motion. 20:53 Musculoskeletal/extremity: Extremities: noted in the lateral aspect of left knee, lateral aspect of left calf, posterior aspect of left knee, left calf, medial aspect of left knee, medial aspect of left calf, left knee and left weston: erythema, swelling, tenderness, noted in the lateral aspect of right knee, lateral aspect of right calf, posterior aspect of right knee, right calf, medial aspect of right knee, medial aspect of right calf, right knee and right weston: erythema, swelling, tenderness. Vital Signs: 18:39 BP 133 / 70; Pulse 94; Resp 24; Temp 98.3; Pulse Ox 95% on R/A; Weight 145.15 kg; ch Height 5 ft. 7 in. (170.18 cm); Pain 8/10; 19:30 BP 103 / 85; Pulse 92; Resp 16; Pulse Ox 95% ; bp 21:37 BP 131 / 92; Pulse 82; Resp 14; Pulse Ox 99% ; bp 02/11 00:00 BP 135 / 74; Pulse 90; Resp 16; Pulse Ox 97% ; bp 02:00 BP 101 / 74; Pulse 85; Resp 14; Pulse Ox 96% ; bp 02/10 18:39 Body Mass Index 50.12 (145.15 kg, 170.18 cm) ch MDM: 02/10 19:20 Patient medically screened. tw4 02/11 02:34 Differential diagnosis: cellulitis. Data reviewed: vital signs, nurses notes. Data tw4 interpreted: Pulse oximetry: Interpretation: normal. Counseling: I had a detailed discussion with the patient and/or guardian regarding: the historical points, exam findings, and any diagnostic results supporting the discharge/admit diagnosis. Physician consultation: Leticia Swift MD regarding admission, to the medical/surgical unit. patient's condition, need to evaluate the patient as soon as possible, and will see patient in inpatient room. 02/10 19:30 Order name: CBC with Diff tw4 02/10 19:30 Order name: CMP tw4 02/10 19:30 Order name: CBC with Automated Diff; Complete Time: 21:20 EDMS 02/10 21:21 Interpretation: Normal except: WBC 12.7; HGB 13.5. tw4 02/10 19:30 Order name: Comprehensive Metabolic Panel; Complete Time: 21:20 EDMS 02/10 21:21 Interpretation: Normal except: CO2 33; GLUC 286; GFR 78. tw4 02/10 19:38 Order name: Lactate; Complete Time: 21:20 tw4 02/10 21:21 Interpretation: Normal except: LAC 2.5. tw4 02/10 19:38 Order name: Blood Culture Adult (2) tw4 02/10 19:40 Order name: BNP; Complete Time: 21:20 bp 02/10 21:21 Interpretation: Within normal limits: NT PRO-BNP 49. tw4 02/10 19:43 Order name: Ckmb tw4 02/10 19:43 Order name: CK tw4 02/10 19:43 Order name: Troponin (emerg Dept Use Only) tw4 02/10 19:45 Order name: CKMB Creatine Kinase MB; Complete Time: 21:20 EDMS 02/10 21:21 Interpretation: Within normal limits: CKMB < 1.0. tw4 02/10 19:45 Order name: Creatine Phosphokinase; Complete Time: 21:20 EDMS 02/10 21:22 Interpretation: Within normal limits: CPK 106. tw4 02/10 19:45 Order name: Troponin (Emerg Dept Use Only); Complete Time: 21:20 EDMS 02/10 21:22 Interpretation: Within normal limits: TROPED < 0.02. tw4 02/11 00:06 Order name: Lactate Sepsis 2 HR Follow-up EDMS 02/10 19:30 Order name: Saline Lock; Complete Time: 19:56 tw4 02/10 19:43 Order name: Chest Single View XRAY; Complete Time: 21:20 tw4 02/11 05:52 Order name: Comprehensive Metabolic Panel EDMS 02/11 05:52 Order name: Phosphorus EDMS 02/11 05:52 Order name: Magnesium EDMS 02/11 06:01 Order name: CBC with Automated Diff EDMS 02/11 06:25 Order name: Protime (+INR) EDMS 02/11 06:25 Order name: PTT, Activated Partial Thromb EDMS Administered Medications: 02/10 20:00 Drug: vancoMYCIN 1 grams Route: IVPB; Infused Over: 2 hrs; Site: right antecubital; bp 20:19 Drug: morphine 4 mg Route: IVP; Site: right antecubital; bp 21:22 Follow up: Response: No adverse reaction; Pain is decreased bp 20:19 Drug: Zofran 4 mg Route: IVP; Site: right antecubital; bp 21:22 Follow up: Response: No adverse reaction; Nausea is decreased bp 22:07 Drug: morphine 4 mg Route: IVP; Site: right antecubital; bp 02/11 02:01 Follow up: Response: No adverse reaction bp Disposition: 02/10/18 21:23 Hospitalization ordered by Leticia Swift for Inpatient Admission. Preliminary diagnosis are Cellulitis of right lower limb, Cellulitis of left lower limb. - Bed requested for Telemetry/MedSurg (Inpatient). - Status is Inpatient Admission. ph - Condition is Stable. - Problem is new. - Symptoms have improved. UTI on Admission? No Signatures: Dispatcher [employer] EDMS Peace Jarquin RN RN Summer Saucedo RN RN Esme Moran RN RN Blanca Burr RN RN tl2 Austin Romero RN RN bp Wadley, Terrence, MD MD tw4 Corrections: (The following items were deleted from the chart) 04:02/10 21:23 Hospitalization Ordered by Leticia Swift MD for Inpatient Admission. tl2 Preliminary diagnosis is Cellulitis of right lower limb; Cellulitis of left lower limb. Bed requested for Telemetry/MedSurg (Inpatient). Status is Inpatient Admission. Condition is Stable. Problem is new. Symptoms have improved. UTI on Admission? No. tw4 02/11 12:02 04:28 02/10/2018 21:23 Hospitalization Ordered by Leticia Swift MD for Inpatient ss Admission. Preliminary diagnosis is Cellulitis of right lower limb; Cellulitis of left lower limb. Bed requested for [facility] ER HOLD. Status is Inpatient Admission. Condition is Stable. Problem is new. Symptoms have improved. UTI on Admission? No. tl2 13:16 12:02 02/10/2018 21:23 Hospitalization Ordered by Leticia Swift MD for Inpatient ph Admission. Preliminary diagnosis is Cellulitis of right lower limb; Cellulitis of left lower limb. Bed requested for Telemetry/MedSurg (Inpatient). Status is Inpatient Admission. Condition is Stable. Problem is new. Symptoms have improved. UTI on Admission? No. ss
--- NOTE | 2018-02-10 21:23 | ER ---
Nurse's Notes [facility] Name: Harvey Callahan Age: 57 yrs Sex: Male : 1960 Arrival Date: 02/10/2018 Time: 18:32 Bed 19 Private MD: Unknown, Unknown Diagnosis: Cellulitis of right lower limb;Cellulitis of left lower limb Presentation: 02/10 18:36 Presenting complaint: Patient states: sienna pitting edema, I was admitted for this a ch month or so ago. I scratched my L weston with my nail and it wont heal. that was 3.5 weeks ago. it just keeps dripping. Transition of care: patient was not received from another setting of care. Onset of symptoms was January 18, 2018. Risk Assessment: Do you want to hurt yourself or someone else? Patient reports no desire to harm self or others. Initial Sepsis Screen: Does the patient meet any 2 criteria? No. Patient's initial sepsis screen is negative. Does the patient have a suspected source of infection? No. Patient's initial sepsis screen is negative. Note pt took clindamycin. Care prior to arrival: None. 18:36 Method Of Arrival: Wheelchair 18:36 Acuity: DEYANIRA 3 ch Triage Assessment: 18:39 General: Appears in no apparent distress. comfortable, Behavior is calm, cooperative, appropriate for age. Pain: Complains of pain in left weston. Historical: - Allergies: 18:39 No Known Allergies; ch - Home Meds: 18:39 amiodarone 200 mg Oral tab 1 tab once daily [Active]; aspirin 81 mg Oral TbEC 1 tab ch once daily [Active]; atorvastatin 40 mg Oral tab 1 tab once daily [Active]; carvedilol 6.25 mg Oral tab 0.5 tab 2 times per day [Active]; furosemide 80 mg Oral tab 1 tab once daily [Active]; gabapentin 600 mg Oral tab twice a day [Active]; insulin detemir subcutaneous 10 unit twice a day [Active]; levalbuterol tartrate 45 mcg inhalation 1 puff four times a day [Active]; lisinopril 5 mg Oral tab 1 tab once daily [Active]; metformin 1,000 mg Oral tab 1 tab 2 times per day [Active]; modafinil 200 mg Oral tab twice a day [Active]; omeprazole 20 mg Oral cpDR 1 cap once daily [Active]; potassium chloride 20 mEq Oral TbER 1 tab once daily [Active]; Prednisone Oral see instructions [Active]; sildenafil 100 mg tab Oral 0.5 tab once daily [Active]; tiotropium bromide 18 mcg inhalation 1 cap once daily [Active]; tramadol 50 mg Oral tab three times a day [Active]; varenicline 1 mg Oral twice a day [Active]; warfarin 5 mg Oral tab 1 tab once daily [Active]; hydroxychloroquine 200 mg oral tab 1 tab once daily [Active]; folic acid 1 mg Oral tab 1 tab once daily [Active]; - PMHx: 18:39 Arthritis; CHF; Diabetes - NIDDM; Hyperlipidemia; Hypertension; knee pain; edema; ch - PSHx: 18:39 Cardiac Cath; ch - Immunization history:: Adult Immunizations up to date. - Social history:: Smoking status: Patient uses tobacco products, smokes two packs cigarettes per day. Patient/guardian denies using alcohol, street drugs. - Ebola Screening: : Patient negative for fever greater than or equal to 101.5 degrees Fahrenheit, and additional compatible Ebola Virus Disease symptoms Patient denies exposure to infectious person Patient denies travel to an Ebola-affected area in the 21 days before illness onset No symptoms or risks identified at this time. Screenin:06 Abuse screen: Denies threats or abuse. Denies injuries from another. Nutritional bp screening: No deficits noted. Tuberculosis screening: No symptoms or risk factors identified. Fall Risk No fall in past 12 months (0 pts). Secondary diagnosis (15 points) impaired mobility, No IV (0 pts). Ambulatory Aid- None/Bed Rest/Nurse Assist (0 pts). Gait- Normal/Bed Rest/Wheelchair (0 pts) Mental Status- Oriented to own ability (0 pts). Total Reeves Fall Scale indicates No Risk (0-24 pts). Assessment: 19:00 General: Appears distressed, comfortable, obese, Behavior is calm, cooperative, bp appropriate for age. Pain: Complains of pain in left weston. Neuro: Level of Consciousness is awake, alert, obeys commands, Oriented to person, place, time, situation, Appropriate for age. Cardiovascular: Rhythm is sinus rhythm. Respiratory: Airway is patent Respiratory effort is even, labored, Respiratory pattern is symmetrical, Breath sounds with crackles bilaterally. GI: Abdomen is distended, obese. : No signs and/or symptoms were reported regarding the genitourinary system. EENT: No deficits noted. Derm: Wound noted left weston Wound is NON-HEALING WOUND. Musculoskeletal: Circulation, motion, and sensation intact. Range of motion: intact in all extremities, Swelling present in abdomen, pelvis, right foot, left foot, right leg and left leg. 21:38 Reassessment: ADMIT IN PROCESS, VS STABLE ON MONITOR. bp Vital Signs: 18:39 BP 133 / 70; Pulse 94; Resp 24; Temp 98.3; Pulse Ox 95% on R/A; Weight 145.15 kg; ch Height 5 ft. 7 in. (170.18 cm); Pain 8/10; 19:30 BP 103 / 85; Pulse 92; Resp 16; Pulse Ox 95% ; bp 21:37 BP 131 / 92; Pulse 82; Resp 14; Pulse Ox 99% ; bp 02/11 00:00 BP 135 / 74; Pulse 90; Resp 16; Pulse Ox 97% ; bp 02:00 BP 101 / 74; Pulse 85; Resp 14; Pulse Ox 96% ; bp 02/10 18:39 Body Mass Index 50.12 (145.15 kg, 170.18 cm) ED Course: 02/10 18:32 Patient arrived in ED. sb2 18:33 Unknown, Unknown is Private Physician. sb2 18:37 Triage completed. ch 18:39 Arm band placed on left wrist. Patient placed in an exam room, on a stretcher. ch 18:42 Wanda Del Cid RN is Primary Nurse. jl7 19:01 Primary Nurse role handed off by Wanda Del Cid RN bp 19:01 Austin Romero, REZA is Primary Nurse. bp 19:06 Patient has correct armband on for positive identification. Bed in low position. Call bp light in reach. Side rails up X2. 19:20 Ramez Stiles MD is Attending Physician. tw4 19:57 Inserted saline lock: 22 gauge in right antecubital area, using aseptic technique. bp Blood collected. 20:05 Chest Single View XRAY In Process Unspecified. EDMS 20:05 X-ray completed. Portable x-ray completed in exam room. Patient tolerated procedure ag1 well. 21:22 Leticia Swift MD is Hospitalizing Provider. tw4 02/11 09:12 Inserted saline lock: 20 gauge in left antecubital area, using aseptic technique. em1 09:26 IV discontinued, intact, bleeding controlled, No redness/swelling at site. Pressure em1 dressing applied. Administered Medications: 02/10 20:00 Drug: vancoMYCIN 1 grams Route: IVPB; Infused Over: 2 hrs; Site: right antecubital; bp 20:19 Drug: morphine 4 mg Route: IVP; Site: right antecubital; bp 21:22 Follow up: Response: No adverse reaction; Pain is decreased bp 20:19 Drug: Zofran 4 mg Route: IVP; Site: right antecubital; bp 21:22 Follow up: Response: No adverse reaction; Nausea is decreased bp 22:07 Drug: morphine 4 mg Route: IVP; Site: right antecubital; bp 02/11 02:01 Follow up: Response: No adverse reaction bp Outcome: 02/10 21:23 Decision to Hospitalize by Provider. tw4 02/11 13:16 Patient left the ED. ph Signatures: Dispatcher [employer] EDMS Peace Jarquin, RN RN Nolan Springer em1 Esme Moran RN RN ph Christy Alvarado ag1 Wanda Del Cid RN REZA jl7 Austin Romero RN RN Ramez Sweeney MD MD tw4 Gaby Turk sb2
[2018-02-11] MEDS ORDERED: ACETAMINOPHEN 500 MG TAB PO PRN (00:36)
[2018-02-11] MEDS ORDERED: ONDANSETRON 4 MG/2 ML VIAL IV PRN (00:36)
[2018-02-11] MEDS ORDERED: NA CHLORIDE 0.9% 1,000 ML IV SCH (01:00)
[2018-02-11] MEDS: VANCOMYCIN 2 GM in NA CHLORIDE 0.9% 500 ML IVPB SCH ×2 (02:00→14:59)
[2018-02-11] MEDS ORDERED: MORPHINE 4 MG/ML SYR ONE (02:24)
[2018-02-11] MEDS ORDERED: VANCOMYCIN 1 GM/250 ML BAG ONE (02:24)
[2018-02-11] MEDS: MORPHINE 4 MG/ML SYR IV PRN ×2 (02:27→13:27)
[2018-02-11] MEDS ORDERED: NA CHLORIDE 0.9% 1,000 ML ONE (02:52)
[2018-02-11 03:23] VITALS: BMI 50.1
[2018-02-11] MEDS ORDERED: FUROSEMIDE 40 MG/4 ML VIAL IV SCH (04:48)
[2018-02-11] MEDS ORDERED: ALBUMIN HUMAN 25% 100 ML IV ONE (04:49)
[2018-02-11] MEDS: FUROSEMIDE 40 MG/4 ML VIAL IV SCH ×3 (05:00→17:29)
[2018-02-11] MEDS ORDERED: FUROSEMIDE 40 MG/4 ML VIAL ONE (05:03)
[2018-02-11] MEDS ORDERED: PIPER/TAZO/NS 3.375gm 3.375 GM/100 ML BAG ONE (05:03)
[2018-02-11 05:43] LABS: Absolute Lymphocytes (CBC) 2.5 K/uL (0.7-4.9); Absolute Monocytes 1.1 K/uL (0.1-1.3); Absolute Neutrophil 9.7 K/uL (1.8-8.0); Basophils % 0.7 % (0-1.3); Eosinophils % 0.9 % (0-4.4); Hematocrit 39.8 % (39.6-49.0); Lymphocytes % 18.4 % (15.3-44.8); MCH 28.9 pg (27.0-35.0); MCV 88.1 fL (80-100); MPV 8.3 fL (7.6-11.3); Monocytes % 7.9 % (3.3-12.3); RBC Red Blood Cell Count 4.52 M/uL (4.33-5.43)
[2018-02-11 05:52] LABS: Bilirubin Total 0.4 mg/dL (0.2-1.0); Magnesium 1.9 mg/dL (1.8-2.4); Phosphorus 4.5 mg/dL (2.5-4.9); Protein, Total 7.4 g/dL (6.4-8.2)
[2018-02-11] MEDS ORDERED: PIPER/TAZO/NS 3.375gm 3.375 GM/100 ML BAG IVPB SCH (06:00)
[2018-02-11] MEDS ORDERED: ALBUMIN HUMAN 25% 50 ML IV ONE (06:17)
[2018-02-11 06:24] LABS: Protime INR 1.64
[2018-02-11] MEDS ORDERED: FUROSEMIDE 20 MG/ 2ML VIAL ONE (08:12)
[2018-02-11] MEDS: PIPER/TAZO/NS 3.375gm 3.375 GM/100 ML BAG IVPB SCH ×2 (09:00→17:30)
--- NOTE | 2018-02-11 09:09 | P.HP ---
Certification for Inpatient Patient admitted to: Inpatient With expected LOS: >2 Midnights Patient will require the following post-hospital care: None Practitioner: I am a practitioner with admitting privileges, knowledge of patient current condition, hospital course, and medical plan of care. Services: Services provided to patient in accordance with Admission requirements found in Title 42 Section 412.3 of the Code of Federal Regulations Patient History Date of Service: 02/11/18 Reason for admission: Bilateral lower extremity edema and cellulitis History of Present Illness: Patient is a 57-year-old gentleman who came to the hospital with significant cellulitis of the bilateral lower extremity. He also has bilateral lower extremity edema. Patient has had numerous admissions for similar complaints. Patient states he was hair about a month ago with similar issues. The edema has worsened. He also has significant abdominal swelling. His abdomen is distended. Patient was admitted to the hospital for further evaluation. Allergies No Known Allergies Allergy (Verified 06/06/17 22:23) Home Medications: Amiodarone HCl [Pacerone] 200 mg PO DAILY 12/24/17 Aspirin Chewable [Aspirin Chewable*] 81 mg PO DAILY 12/24/17 Atorvastatin Calcium 40 mg PO DAILY 12/24/17 Furosemide 80 mg PO DAILY 12/24/17 Gabapentin 600 mg PO BID 12/24/17 Insulin Detemir [Levemir] 10 units SQ BID 12/24/17 Levalbuterol Tartrate [Levalbuterol Tartrate Hfa] 1 puff IH QID PRN 12/24/17 Lisinopril [Prinivil*] 5 mg PO DAILY 12/24/17 Metformin HCl 1,000 mg PO BID 12/24/17 Omeprazole 20 mg PO DAILY 12/24/17 Potassium Chloride [K-Dur] 20 meq PO DAILY 12/24/17 Sildenafil Citrate 50 mg PO DAILY 12/24/17 Tiotropium Gilbert [Spiriva] 18 mcg IH DAILY 12/24/17 Tramadol HCl [Ultram] 50 mg PO TID 12/24/17 Varenicline Tartrate [Chantix] 1 mg PO BID 12/24/17 Warfarin Sodium 5 mg PO DAILY 12/24/17 Carvedilol [Coreg] 3.125 mg PO BID 02/11/18 Folic Acid 1 mg PO DAILY 02/11/18 Hydroxychloroquine [Plaquenil] 200 mg PO DAILY 02/11/18 Modafinil [Provigil] 200 mg PO BID 02/11/18 - Past Medical/Surgical History Diabetic: Yes -: Diabetes mellitus type 2 -: Hypertension -: CAD -: Congestive heart failure, systolic dysfunction-EF 40% -: Obstructive sleep apnea -: Hypoventilation obesity syndrome -: Morbid obesity -: Hyperlipidemia -: COPD -: Tobacco abuse -: Atrial fibrillation, chronic anti coagulation-Coumadin -: Knee surgery -: Appendectomy -: Back surgery Psychosocial/ Personal History: Patient is a . He has 6 children. - Family History Mother Medical History: Hypertension, Diabetes - Social History Smoking Status: Current every day smoker Alcohol use: No CD- Drugs: No Caffeine use: Yes Place of Residence: Home Review of Systems 10-point ROS is otherwise unremarkable Physical Examination - Vital Signs Temperature: 98 F Blood Pressure: 116/76 Pulse: 84 Respirations: 14 Pulse Ox (%): 96 - Physical Exam General: Alert, In no apparent distress, Oriented x3 HEENT: Atraumatic, Normocephalic Neck: Supple, 2+ carotid pulse no bruit, No LAD, Without JVD or thyroid abnormality Respiratory: Clear to auscultation bilaterally, Normal air movement Cardiovascular: Regular rate/rhythm, Normal S1 S2, No murmurs Gastrointestinal: Normal bowel sounds, Soft and benign, No tenderness, No rebound, No guarding, Distended Musculoskeletal: No clubbing, No tenderness, Swelling Integumentary: No rashes, Tenderness/swelling, Erythema, Warmth Neurological: Normal gait, Normal speech, Normal strength at 5/5 x4 extr, Normal tone, Sensation intact, Cranial nerves 3-12 intact, Normal affect Lymphatics: No axilla or inguinal lymphadenopathy - Studies Laboratory Data (last 24 hrs) 02/10/18 19:45: Sodium 137, Potassium 4.1, BUN 12, Creatinine 1.00, Glucose 286 H, Total Bilirubin 0.2, AST 14 L, ALT 28, Alkaline Phosphatase 77 02/10/18 19:45: WBC 12.7 H, Hgb 13.5 L, Hct 40.9, Plt Count 313 Assessment & Plan - Problems (Diagnosis) (1) Right-sided heart failure Current Visit: Yes Status: Acute (2) Hypoalbuminemia Current Visit: Yes Status: Acute (3) Anasarca Current Visit: No Status: Acute (4) Atrial fibrillation with RVR Onset Date: 06/06/17 Current Visit: No Status: Acute (5) CHF (congestive heart failure) Onset Date: 12/25/17 Current Visit: No Status: Acute Qualifiers: Heart failure type: diastolic Heart failure chronicity: acute on chronic Qualified Code(s): I50.33 - Acute on chronic diastolic (congestive) heart failure (6) Dyspnea Onset Date: 12/25/17 Current Visit: No Status: Acute Qualifiers: Dyspnea type: shortness of breath Qualified Code(s): R06.02 - Shortness of breath; R06.00 - Dyspnea, unspecified; R06.01 - Orthopnea (7) Edema Onset Date: 12/25/17 Current Visit: No Status: Acute Qualifiers: Edema type: unspecified Qualified Code(s): R60.9 - Edema, unspecified (8) Hypercapnia Onset Date: 11/12/16 Current Visit: No Status: Acute (9) Morbid obesity with BMI of 45.0-49.9, adult Onset Date: 11/12/16 Current Visit: No Status: Acute (10) Diabetes mellitus Onset Date: 12/25/17 Current Visit: No Status: Chronic Qualifiers: Diabetes mellitus type: type 2 Diabetes mellitus remote computer terminal operator insulin use: with detention use Diabetes mellitus complication status: with other specified complication Qualified Code(s): E11.69 - Type 2 diabetes mellitus with other specified complication; Z79.4 - residential (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 insulin (11) Hyperlipidemia Onset Date: 12/25/17 Current Visit: No Status: Chronic Qualifiers: Hyperlipidemia type: unspecified Qualified Code(s): E78.5 - Hyperlipidemia , unspecified (12) Tobacco abuse Onset Date: 12/25/17 Current Visit: No Status: Chronic (13) Obesity hypoventilation syndrome Onset Date: 11/12/16 Current Visit: No Status: Suspected - Plan 1. Echocardiogram to be reviewed. It was done about a month ago with no significant abnormalities 2. Gentle diuresing because patient has low blood pressure 3. Low-dose beta-scott if patient patient blood pressure tolerated it 4. Cardiology consultation if condition worsens 5. Infectious disease consultation 6. Strict I's and O's 7. Continue with antibiotic therapy 8. Abdominal ultrasound 9. Education regarding diet and treatment of congestive heart failure Discharge Plan: Home Plan to discharge in: [facility] than 2 days - Advance Directives Does patient have a Living Will: No Does patient have a Durable POA for Healthcare: No - Code Status/Comfort Care Code Status Assessed: Yes Code Status: Full Code Critical Care: No Time Spent Managing PTS Care (In Minutes): 55
[2018-02-11] MEDS ORDERED: D50W 25 GM/50 ML SYRINGE IV PRN (17:06)
[2018-02-11] MEDS ORDERED: GLUCAGON 1 MG/VIAL IM PRN (17:06)
[2018-02-11] MEDS: INSULIN -REGULAR HUMAN 50 UNIT/0.5 ML ML SQ SCH (20:43)
[2018-02-12] MEDS: PIPER/TAZO/NS 3.375gm 3.375 GM/100 ML BAG IVPB SCH ×3 (00:03→16:46)
[2018-02-12] MEDS: FUROSEMIDE 40 MG/4 ML VIAL IV SCH ×3 (00:04→16:45)
[2018-02-12] MEDS: VANCOMYCIN 2 GM in NA CHLORIDE 0.9% 500 ML IVPB SCH ×2 (01:03→15:09)
[2018-02-12] MEDS: INSULIN -REGULAR HUMAN 50 UNIT/0.5 ML ML SQ SCH ×4 (07:30→21:14)
[2018-02-12 10:08] VITALS: O2SAT 93
--- NOTE | 2018-02-12 14:21 | P.PN ---
Subjective Date of Service: 02/12/18 Chief Complaint: Bilateral lower extremity edema and cellulitis Patient seen and examined at bedside with RN. Chart reviewed. Case discussed with family at bedside -overnight no complaints to offer -this morning patient has been doing well however he states that his swelling in the lower extremity has gotten worse. Review of Systems 10-point ROS is otherwise unremarkable Physical Examination - Vital Signs Temperature: 97.3 F Blood Pressure: 130/77 Pulse: 93 Respirations: 18 Pulse Ox (%): 96 - Physical Exam General: Alert, Oriented x3, Mild distress, Obese HEENT: Atraumatic, PERRLA, EOMI Neck: Supple, JVD not distended Respiratory: Clear to auscultation bilaterally, Normal air movement Cardiovascular: Regular rate/rhythm, Normal S1 S2 Gastrointestinal: Normal bowel sounds, No tenderness, Distended Musculoskeletal: Swelling, Erythema, Tenderness, Warmth Integumentary: Skin breakdown Neurological: Normal speech, Normal tone, Normal affect Lymphatics: No axilla or inguinal lymphadenopathy - Studies Medications List Reviewed: Yes Assessment And Plan - Current Problems (Diagnosis) (1) Cellulitis Current Visit: No Status: Acute Plan: BL cellulitis -Culture pending at [facility] time -IV abx - Vanc and zosyn -Wrap and elevate leg. Qualifiers: Site of cellulitis: extremity Site of cellulitis of extremity: lower extremity (2) CHF (congestive heart failure) Onset Date: 12/25/17 Current Visit: No Status: Chronic Qualifiers: Heart failure type: diastolic Heart failure chronicity: chronic Qualified Code(s): I50.32 - Chronic diastolic (congestive) heart failure (3) Tobacco use Onset Date: 11/12/16 Current Visit: No Status: Chronic (4) Atrial fibrillation Onset Date: 12/19/17 Current Visit: No Status: Chronic Qualifiers: Atrial fibrillation type: chronic Qualified Code(s): I48.2 - Chronic atrial fibrillation (5) CAD (coronary artery disease) Onset Date: 12/25/17 Current Visit: No Status: Chronic Qualifiers: Coronary Disease-Associated Artery/Lesion type: [place] artery [place] vs. transplanted heart: [place] heart Associated angina: without angina Qualified Code(s): I25.10 - Atherosclerotic heart disease of [place] coronary artery without angina pectoris (6) COPD (chronic obstructive pulmonary disease) Onset Date: 12/25/17 Current Visit: No Status: Chronic Qualifiers: COPD type: chronic bronchitis Chronic bronchitis type: unspecified Qualified Code(s): J42 - Unspecified chronic bronchitis (7) Chronic anticoagulation Onset Date: 12/25/17 Current Visit: No Status: Chronic (8) Diabetes mellitus Onset Date: 12/25/17 Current Visit: No Status: Chronic Qualifiers: Diabetes mellitus type: type 2 Diabetes mellitus termination clerk insulin use: with termination clerk use Diabetes mellitus complication status: with other specified complication Qualified Code(s): E11.69 - Type 2 diabetes mellitus with other specified complication; Z79.4 - moth exterminator (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 insulin (9) Hyperlipidemia Onset Date: 12/25/17 Current Visit: No Status: Chronic Qualifiers: Hyperlipidemia type: unspecified Qualified Code(s): E78.5 - Hyperlipidemia , unspecified (10) Hypertension Onset Date: 12/25/17 Current Visit: No Status: Chronic Qualifiers: Hypertension type: essential hypertension Qualified Code(s): I10 - Essential (primary) hypertension (11) Obesity Onset Date: 12/25/17 Current Visit: No Status: Chronic Qualifiers: Obesity type: due to excess calories Obesity classification: adult class 3 (BMI >= 40) Serious obesity comorbidity presence: with serious comorbidity Body mass index: BMI 50.0-59.9 Qualified Code(s): E66.01 - Morbid (severe) obesity due to excess calories; Z68.43 - Body mass index (BMI) 50-59.9 , adult - Plan Currently awaiting clinical improvement. Worsening of bilateral swelling and erythema this morning. Will continue IV antibiotics at this time. Will elevate and wrap the legs for better improvement. Wound care consulted as well. Discharge Plan: Home Plan to discharge in: 72 Hours - Code Status/Comfort Care Code Status Assessed: Yes Critical Care: No
--- NOTE | 2018-02-12 19:28 | CON ---
History Of Present Illness: This is a 57-year-old male coming in with cellulitis of bilateral lower extremities secondary to stasis dermatitis and ulcers. The patient was brought into the emergency ro om. This is his third time according to the patient. Denies any headache, nausea, vomiting, chest p ain, abdominal pain, constipation, or diarrhea. The patient has multiple medical problems including congestive heart failure, diabetes mellitus, hypertension, coronary artery disease, obstructive sleep apnea, morbid obesity, hyperventilation, hyperlipidemia, COPD, tobacco use, atrial fibrillation, kne e surgery, appendectomy, back surgery. Social History: Tobacco, positive. Alcohol, occasional. Family History: Noncontributory. Medication: Amiodarone, aspirin, atorvastatin, Coreg, folic acid, Lasix, glucagon, Plaquenil, Novoli n insulin, Prinivil, morphine sulfate, Zofran, Zosyn, vancomycin. Allergies: NO KNOWN DRUG ALLERGIES. Review of Systems: A 10-point review was performed. Physical Examination: General: This is a 57-year-old male lying in easy chair, not in any acute cardiopulmonary distress. Vital Signs: Temperature 97.3, pulse 93, respiration 18, blood pressure 130/77. HEENT: Unremarkable. Neck: Supple. Lungs: Basal crackles. Heart: S1, S2. Regular. Abdomen: Soft. Bowel sounds present. Obese. Extremities: 3+ edema, erythematous changes, ulceration noted on the left leg. Laboratory Data: Shows WBC 13,500, hemoglobin 13.1, platelets are 299. Chemistry shows sodium 138, potassium 4, chloride 101, bicarb 32, BUN 15, creatinine 0.9, glucose is 180. Lactic acid 2.1, album in is 3. Micro data, blood cultures are negative for 24 hours. Assessment And Plan: A 57-year-old male with multiple medical problems, coming in with stasis dermat itis and cellulitis of lower extremity and stasis ulcers. Continue IV antibiotics, total course of 2 weeks. Can be switched to oral on prior to discharge. Thank you Dr. Howell for consult. YESSENIA/SARAHI Voice ID: [id number] Report ID: [id number]
[2018-02-12] MEDS ORDERED: HOME MED 1 EA UNK (Gabapentin [Gabapentin] 600 MG) PO SCH (21:00)
[2018-02-12] MEDS: TRAMADOL HCL 50 MG TAB PO SCH (21:12)
[2018-02-12] MEDS: ATORVASTATIN 40 MG TAB PO SCH (21:13)
[2018-02-12] MEDS: WARFARIN SODIUM 5 MG TAB PO SCH (21:13)
[2018-02-12] MEDS: CARVEDILOL 3.125 MG TAB PO SCH (21:13)
[2018-02-12] MEDS: GABAPENTIN 300 MG CAP PO SCH (21:14)
[2018-02-13] MEDS: PIPER/TAZO/NS 3.375gm 3.375 GM/100 ML BAG IVPB SCH ×3 (00:53→18:51)
[2018-02-13] MEDS: FUROSEMIDE 40 MG/4 ML VIAL IV SCH ×3 (00:53→17:56)
[2018-02-13] MEDS: VANCOMYCIN 2 GM in NA CHLORIDE 0.9% 500 ML IVPB SCH ×2 (02:51→14:35)
[2018-02-13] MEDS ORDERED: SILDENAFIL CITRATE 50 MG PO SCH (09:00)
[2018-02-13] MEDS: ASPIRIN 81 MG CHEWABLE TABLET PO SCH (09:02)
[2018-02-13] MEDS: AMIODARONE HCL 200 MG TAB PO SCH (09:02)
[2018-02-13] MEDS: HYDROXYCHLOROQUINE 200MG TAB PO SCH (09:03)
[2018-02-13] MEDS: FOLIC ACID 1 MG TABLET PO SCH (09:03)
[2018-02-13] MEDS: TRAMADOL HCL 50 MG TAB PO SCH ×3 (09:03→21:08)
[2018-02-13] MEDS: GABAPENTIN 300 MG CAP PO SCH ×2 (09:03→21:07)
[2018-02-13] MEDS: CARVEDILOL 3.125 MG TAB PO SCH ×2 (09:04→21:06)
[2018-02-13] MEDS: LISINOPRIL 5 MG TAB PO SCH (09:04)
[2018-02-13] MEDS: MODAFINIL 100 MG TAB PO SCH ×2 (09:11→21:07)
[2018-02-13] MEDS: INSULIN -REGULAR HUMAN 50 UNIT/0.5 ML ML SQ SCH ×4 (10:02→21:10)
--- NOTE | 2018-02-13 15:50 | P.PN ---
Subjective Date of Service: 02/13/18 Chief Complaint: Bilateral lower extremity edema and cellulitis Patient seen and examined at bedside with RN. Chart reviewed. Case discussed with family at bedside -overnight no complaints to offer -this morning patient has been doing well, Swelling in LE improving but still appears erythematous and Swollen Review of Systems 10-point ROS is otherwise unremarkable Physical Examination - Vital Signs Temperature: 97.4 F Blood Pressure: 115/65 Pulse: 72 Respirations: 18 Pulse Ox (%): 95 - Physical Exam General: Alert, In no apparent distress HEENT: Atraumatic, PERRLA, EOMI Neck: Supple, JVD not distended Respiratory: Clear to auscultation bilaterally, Normal air movement Cardiovascular: Regular rate/rhythm, Normal S1 S2 Gastrointestinal: Normal bowel sounds, No tenderness Musculoskeletal: Swelling, Erythema, Tenderness, Warmth Integumentary: No rashes Neurological: Normal speech, Normal tone, Normal affect Lymphatics: No axilla or inguinal lymphadenopathy - Studies Medications List Reviewed: Yes Assessment And Plan - Current Problems (Diagnosis) (1) Cellulitis Current Visit: No Status: Acute Plan: BL cellulitis. Resolving slowly. -Culture pending at this time -IV abx - Vanc and zosyn. Will continue for next 24 hrs and then switch to PO Doxy and cipro per ID reccs -Wrap and elevate legs to help with swelling -Wound care consulted. Qualifiers: Site of cellulitis: extremity Site of cellulitis of extremity: lower extremity (2) CHF (congestive heart failure) Onset Date: 12/25/17 Current Visit: No Status: Chronic Qualifiers: Heart failure type: diastolic Heart failure chronicity: chronic Qualified Code(s): I50.32 - Chronic diastolic (congestive) heart failure (3) Tobacco use Onset Date: 11/12/16 Current Visit: No Status: Chronic (4) Atrial fibrillation Onset Date: 12/19/17 Current Visit: No Status: Chronic Qualifiers: Atrial fibrillation type: chronic Qualified Code(s): I48.2 - Chronic atrial fibrillation (5) CAD (coronary artery disease) Onset Date: 12/25/17 Current Visit: No Status: Chronic Qualifiers: Coronary Disease-Associated Artery/Lesion type: [place] artery [place] vs. transplanted heart: [place] heart Associated angina: without angina Qualified Code(s): I25.10 - Atherosclerotic heart disease of [place] coronary artery without angina pectoris (6) COPD (chronic obstructive pulmonary disease) Onset Date: 12/25/17 Current Visit: No Status: Chronic Qualifiers: COPD type: chronic bronchitis Chronic bronchitis type: unspecified Qualified Code(s): J42 - Unspecified chronic bronchitis (7) Chronic anticoagulation Onset Date: 12/25/17 Current Visit: No Status: Chronic (8) Diabetes mellitus Onset Date: 12/25/17 Current Visit: No Status: Chronic Qualifiers: Diabetes mellitus type: type 2 Diabetes mellitus exterminator insulin use: with exterminator use Diabetes mellitus complication status: with other specified complication Qualified Code(s): E11.69 - Type 2 diabetes mellitus with other specified complication; Z79.4 - assisted (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 insulin (9) Hyperlipidemia Onset Date: 12/25/17 Current Visit: No Status: Chronic Qualifiers: Hyperlipidemia type: unspecified Qualified Code(s): E78.5 - Hyperlipidemia , unspecified (10) Hypertension Onset Date: 12/25/17 Current Visit: No Status: Chronic Qualifiers: Hypertension type: essential hypertension Qualified Code(s): I10 - Essential (primary) hypertension (11) Obesity Onset Date: 12/25/17 Current Visit: No Status: Chronic Qualifiers: Obesity type: due to excess calories Obesity classification: adult class 3 (BMI >= 40) Serious obesity comorbidity presence: with serious comorbidity Body mass index: BMI 50.0-59.9 Qualified Code(s): E66.01 - Morbid (severe) obesity due to excess calories; Z68.43 - Body mass index (BMI) 50-59.9 , adult - Plan Currently awaiting clinical improvement. slow Improvement of bilateral swelling and erythema this morning. Will continue IV antibiotics at this time. Will elevate and wrap the legs for better improvement. Wound care consulted as well. Discharge Plan: Home Plan to discharge in: 48 Hours - Code Status/Comfort Care Code Status Assessed: Yes Critical Care: No
[2018-02-13] MEDS: WARFARIN SODIUM 5 MG TAB PO SCH (17:56)
[2018-02-13] MEDS: ATORVASTATIN 40 MG TAB PO SCH (21:07)
--- NOTE | 2018-02-13 21:27 | PN ---
Subjective: The patient is sitting in easy chair. Denies any headache, nausea, vomiting, chest pain , abdominal pain, constipation, or diarrhea. Objective: Vital Signs: Temperature 97.4, pulse 72, respirations 18, blood pressure 115/65. Lungs: Clear to auscultation. Heart: S1, S2, regular. Abdomen: Soft, nontender. Extremities: 2+ edema, erythematous changes, increased warmth. Assessment And Plan: Cellulitis of lower extremity with stasis dermatitis with stasis ulcer and leuk ocytosis. Repeat labs. Continue antibiotic and supportive care. NF/MODL Voice ID: [id number] Report ID: [id number]
[2018-02-14] MEDS: FUROSEMIDE 40 MG/4 ML VIAL IV SCH ×2 (00:26→09:30)
[2018-02-14] MEDS: PIPER/TAZO/NS 3.375gm 3.375 GM/100 ML BAG IVPB SCH ×2 (00:33→09:00)
[2018-02-14] MEDS: VANCOMYCIN 2 GM in NA CHLORIDE 0.9% 500 ML IVPB SCH (03:00)
[2018-02-14] MEDS: INSULIN -REGULAR HUMAN 50 UNIT/0.5 ML ML SQ SCH ×2 (07:30→11:30)
[2018-02-14] MEDS: TRAMADOL HCL 50 MG TAB PO SCH ×2 (09:00→12:40)
[2018-02-14] MEDS: HYDROXYCHLOROQUINE 200MG TAB PO SCH ×2 (09:30→12:43)
[2018-02-14] MEDS: GABAPENTIN 300 MG CAP PO SCH (09:30)
[2018-02-14] MEDS: FOLIC ACID 1 MG TABLET PO SCH (09:30)
[2018-02-14] MEDS: ASPIRIN 81 MG CHEWABLE TABLET PO SCH (09:30)
[2018-02-14] MEDS: AMIODARONE HCL 200 MG TAB PO SCH (09:30)
[2018-02-14] MEDS: LISINOPRIL 5 MG TAB PO SCH (09:30)
[2018-02-14] MEDS: MODAFINIL 100 MG TAB PO SCH (09:30)
[2018-02-14] MEDS: CARVEDILOL 3.125 MG TAB PO SCH (12:41)
[2018-02-14 12:46] VITALS: BP 112/72
--- NOTE | 2018-02-14 13:23 | P.DS ---
Admission Date: 02/10/18 Discharge Date: 02/14/18 Reason for Admission: Bilateral lower extremity edema and cellulitis Consultations: ID - Problems (1) Cellulitis Current Visit: No Status: Acute Qualifiers: Site of cellulitis: extremity Site of cellulitis of extremity: lower extremity (2) CHF (congestive heart failure) Onset Date: 12/25/17 Current Visit: No Status: Chronic Qualifiers: Heart failure type: diastolic Heart failure chronicity: chronic Qualified Code(s): I50.32 - Chronic diastolic (congestive) heart failure (3) Tobacco use Onset Date: 11/12/16 Current Visit: No Status: Chronic (4) Atrial fibrillation Onset Date: 12/19/17 Current Visit: No Status: Chronic Qualifiers: Atrial fibrillation type: chronic Qualified Code(s): I48.2 - Chronic atrial fibrillation (5) CAD (coronary artery disease) Onset Date: 12/25/17 Current Visit: No Status: Chronic Qualifiers: Coronary Disease-Associated Artery/Lesion type: wrangell artery Lum[place] vs. transplanted heart: wrangell heart Associated angina: without angina Qualified Code(s): I25.10 - Atherosclerotic heart disease of wr[place] coronary artery without angina pectoris (6) COPD (chronic obstructive pulmonary disease) Onset Date: 12/25/17 Current Visit: No Status: Chronic Qualifiers: COPD type: chronic bronchitis Chronic bronchitis type: unspecified Qualified Code(s): J42 - Unspecified chronic bronchitis (7) Chronic anticoagulation Onset Date: 12/25/17 Current Visit: No Status: Chronic (8) Diabetes mellitus Onset Date: 12/25/17 Current Visit: No Status: Chronic Qualifiers: Diabetes mellitus type: type 2 Diabetes mellitus fci insulin use: with fci use Diabetes mellitus complication status: with other specified complication Qualified Code(s): E11.69 - Type 2 diabetes mellitus with other specified complication; Z79.4 - longterm (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 insulin (9) Hyperlipidemia Onset Date: 12/25/17 Current Visit: No Status: Chronic Qualifiers: Hyperlipidemia type: unspecified Qualified Code(s): E78.5 - Hyperlipidemia , unspecified (10) Hypertension Onset Date: 12/25/17 Current Visit: No Status: Chronic Qualifiers: Hypertension type: essential hypertension Qualified Code(s): I10 - Essential (primary) hypertension (11) Obesity Onset Date: 07/12/18 Current Visit: No Status: Chronic Qualifiers: Obesity type: due to excess calories Obesity classification: adult class 3 (BMI >= 40) Serious obesity comorbidity presence: with serious comorbidity Body mass index: BMI 50.0-59.9 Qualified Code(s): E66.01 - Morbid (severe) obesity due to excess calories; Z68.43 - Body mass index (BMI) 50-59.9 , adult Brief History of Present Illness: Patient is a 57-year-old gentleman who came to the hospital with significant cellulitis of the bilateral lower extremity. He also has bilateral lower extremity edema. Patient has had numerous admissions for similar complaints. Patient states he was hair about a month ago with similar issues. The edema has worsened. He also has significant abdominal swelling. His abdomen is distended. Patient was admitted to the hospital for further evaluation. Hospital Course: Overall during the hospital stay patient remained stable Patient was initially admitted to the hospital for BL LE swelling and cellulits. Patient was started on IV antibiotics and IV Lasix. Patient marked improvement in the swelling and cellulitis. Infectious disease was consulted who recommended the patient be switched over to p.o. antibiotics for 2 weeks. Patient was started on boxing [place] and with improvement was discharged home under stable condition. Vital Signs/Physical Exam: Temp Pulse Resp BP Pulse Ox 97.0 F 73 17 112/72 97 02/14/18 04:00 02/14/18 12:41 02/14/18 04:00 02/14/18 12:41 02/14/18 04:00 General: Alert, In no apparent distress HEENT: Atraumatic, PERRLA, EOMI Neck: Supple, JVD not distended Respiratory: Clear to auscultation bilaterally, Normal air movement Cardiovascular: Regular rate/rhythm, Normal S1 S2 Gastrointestinal: Normal bowel sounds, No tenderness Musculoskeletal: Swelling (Improved BL LE. But Still 2+ swelling which appear to be chronic ), Erythema, Tenderness, Warmth Integumentary: No rashes Neurological: Normal speech, Normal tone, Normal affect Lymphatics: No axilla or inguinal lymphadenopathy Laboratory Data at Discharge: WBC 13.5 K/uL (4.3-10.9) H 02/11/18 05:20 Hgb 13.1 g/dL (13.6-17.9) L 02/11/18 05:20 Hct 39.8 % (39.6-49.0) 02/11/18 05:20 Plt Count 299 K/uL (152-406) 02/11/18 05:20 PT 19.4 SECONDS (9.5-12.5) H 02/11/18 05:55 INR 1.64 02/11/18 05:55 APTT 34.3 SECONDS (24.3-36.9) 02/11/18 05:55 Sodium 138 mmol/L (136-145) 02/11/18 05:20 Potassium 4.0 mmol/L (3.5-5.1) 02/11/18 05:20 BUN 15 mg/dL (7-18) 02/11/18 05:20 Creatinine 0.90 mg/dL (0.55-1.3) 02/11/18 05:20 Glucose 186 mg/dL (74-106) H 02/11/18 05:20 Phosphorus 4.5 mg/dL (2.5-4.9) 02/11/18 05:20 Magnesium 1.9 mg/dL (1.8-2.4) 02/11/18 05:20 Total Bilirubin 0.4 mg/dL (0.2-1.0) 02/11/18 05:20 AST 18 U/L (15-37) 02/11/18 05:20 ALT 28 U/L (12-78) 02/11/18 05:20 Alkaline Phosphatase 75 U/L (45-117) 02/11/18 05:20 Home Medications: Amiodarone HCl [Pacerone] 200 mg PO DAILY 12/24/17 Aspirin Chewable [Aspirin Chewable*] 81 mg PO DAILY 12/24/17 Atorvastatin Calcium 40 mg PO DAILY 12/24/17 Furosemide 80 mg PO DAILY 12/24/17 Gabapentin 600 mg PO BID 12/24/17 Insulin Detemir [Levemir] 10 units SQ BID 12/24/17 Levalbuterol Tartrate [Levalbuterol Tartrate Hfa] 1 puff IH QID PRN 12/24/17 Lisinopril [Prinivil*] 5 mg PO DAILY 12/24/17 Metformin HCl 1,000 mg PO BID 12/24/17 Omeprazole 20 mg PO DAILY 12/24/17 Potassium Chloride [K-Dur] 20 meq PO DAILY 12/24/17 Sildenafil Citrate 50 mg PO DAILY 12/24/17 Tiotropium [place] [Spiriva] 18 mcg IH DAILY 12/24/17 Tramadol HCl [Ultram] 50 mg PO TID 12/24/17 Varenicline Tartrate [Chantix] 1 mg PO BID 12/24/17 Warfarin Sodium 5 mg PO DAILY 12/24/17 Carvedilol [Coreg] 3.125 mg PO BID 02/11/18 Folic Acid 1 mg PO DAILY 02/11/18 Hydroxychloroquine [Plaquenil] 200 mg PO DAILY 02/11/18 Modafinil [Provigil] 200 mg PO BID 02/11/18 Patient Discharge Instructions: Please fu with PCP and Dr Quesada in 1 to 2 days post discharge. New medication. Doxycycline 100mg BID for 14 days. Ciprofloacin 500mg Daily for 14 days Diet: Regular Activity: Ad leonor Followup: Wil Quesada MD [ACTIVE - CAN ADMIT] - 1 Week (please call office to set up an appointment) Cyrus Frausto MD [ACTIVE - CAN ADMIT] - 1 Week (please call office to set up an appointment)
[2018-02-14 15:17] VITALS: TEMP 97.9
== END 2018-02-14 14:23 | disposition home or self-care (01) | DRG 603 ==
LOC: ER 18:30 → ERHOLD 23:51 → 4TH 02-11 13:04
PROVIDERS: ADMIT Hospitalist; ATTEND Family Medicine
PROC: 5A09357 Assistance with Respiratory Ventilation, Less than 24 Consecutive Hours, Continuous Positive Airway Pressure (ICD-10-PCS; principal; 2018-02-12)
DX: L03.116 Cellulitis of left lower limb (principal); I50.32 Chronic diastolic (congestive) heart failure; Z68.43 Body mass index [BMI] 50.0-59.9, adult; E66.2 Morbid (severe) obesity with alveolar hypoventilation; L03.115 Cellulitis of right lower limb; I11.0 Hypertensive heart disease with heart failure; I48.2 Chronic atrial fibrillation; I25.10 Atherosclerotic heart disease of native coronary artery without angina pectoris; J44.9 Chronic obstructive pulmonary disease, unspecified; Z79.01 Long term (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 anticoagulants; E11.69 Type 2 diabetes mellitus with other specified complication; Z79.4 Long term (current) use of insulin; E78.5 Hyperlipidemia, unspecified; Z79.82 Long term (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 aspirin; I87.2 Venous insufficiency (chronic) (peripheral); E88.09 Other disorders of plasma-protein metabolism, not elsewhere classified; F17.210 Nicotine dependence, cigarettes, uncomplicated
CPT/HCPCS: 36415; 71045; 80053; 80202; 82550; 82553; 82962; 83605; 83735; 83880; 84100; 84484; 85025; 85610; 85730; 87040; 94660; 96374; 96375; 99284; J1940; J2405; J2543; J3370; J7030; P9047

== ENCOUNTER 2018-09-12 21:08 | Inpatient (IN) | payer OTHER ==
[2018-09-12] MEDS ORDERED: ACETAMINOPHEN 500 MG TAB PO PRN (21:44)
[2018-09-12] MEDS ORDERED: ONDANSETRON 4 MG/2 ML VIAL IV PRN (21:44)
--- NOTE | 2018-09-12 21:47 | ER ---
Nurse's Notes [facility] Name: Harvey Callahan Age: 58 yrs Sex: Male : 1960 Arrival Date: 09/12/2018 Time: 21:11 Bed 13 Private MD: Diagnosis: Cutaneous abscess of buttock Presentation: 09/12 21:15 Presenting complaint: EMS states: patient complaining of pain at his back area because rr5 of ulcer. Transition of care: patient was not received from another setting of care. Onset of symptoms was August 2018. Risk Assessment: Do you want to hurt yourself or someone else? Patient reports no desire to harm self or others. Care prior to arrival: None. 21:15 Method Of Arrival: EMS: [facility] rr5 21:15 Acuity: DEYANIRA 3 rr5 22:30 Initial Sepsis Screen: Does the patient meet any 2 criteria? RR > 20 per min. HR > 90 rr5 bpm. Yes Does the patient have a suspected source of infection? Yes: Skin breakdown/wound If YES to both, name of provider notified: Braulio HINTON Historical: - Allergies: 21:29 No Known Allergies; rr5 - Home Meds: 21:29 amiodarone 200 mg Oral tab 1 tab once daily [Active]; aspirin 81 mg Oral TbEC 1 tab rr5 once daily [Active]; atorvastatin 40 mg Oral tab 1 tab once daily [Active]; carvedilol 6.25 mg Oral tab 0.5 tab 2 times per day [Active]; folic acid 1 mg Oral tab 1 tab once daily [Active]; furosemide 80 mg Oral tab 1 tab once daily [Active]; gabapentin 600 mg Oral tab twice a day [Active]; hydroxychloroquine 200 mg Oral tab 1 tab once daily [Active]; insulin detemir subcutaneous 10 unit twice a day [Active]; levalbuterol tartrate 45 mcg inhalation 1 puff four times a day [Active]; lisinopril 5 mg Oral tab 1 tab once daily [Active]; metformin 1,000 mg Oral tab 1 tab 2 times per day [Active]; modafinil 200 mg Oral tab twice a day [Active]; omeprazole 20 mg Oral cpDR 1 cap once daily [Active]; potassium chloride 20 mEq Oral TbER 1 tab once daily [Active]; Prednisone Oral see instructions [Active]; sildenafil 100 mg tab Oral 0.5 tab once daily [Active]; tiotropium bromide 18 mcg inhalation 1 cap once daily [Active]; tramadol 50 mg Oral tab three times a day [Active]; varenicline 1 mg Oral twice a day [Active]; warfarin 5 mg Oral tab 1 tab once daily [Active]; - PMHx: 21:29 Arthritis; CHF; Diabetes - NIDDM; EDEMA; Hyperlipidemia; Hypertension; knee pain; rr5 - PSHx: 21:29 None; rr5 - Immunization history:: Adult Immunizations up to date. - Social history:: Smoking status: Patient uses tobacco products, smokes one-half pack cigarettes per day, smokes one pack cigarettes per day. Patient/guardian denies using alcohol, street drugs. - Ebola Screening: : Patient negative for fever greater than or equal to 101.5 degrees Fahrenheit, and additional compatible Ebola Virus Disease symptoms Patient denies exposure to infectious person Patient denies travel to an Ebola-affected area in the 21 days before illness onset. Screenin:31 Abuse screen: Denies threats or abuse. Denies injuries from another. Nutritional rr5 screening: No deficits noted. Tuberculosis screening: No symptoms or risk factors identified. Fall Risk IV access (20 points). Gait- Weak (10 pts.). Total Reeves Fall Scale indicates Low Risk Score (25-44 pts). Fall prevention measures have been instituted. Side Rails Up X 2 Placed close to Nursing Station Frequent Obs/Assesments occuring As available Patient and Family Educated on Fall Prevention Program and strategies. Assessment: 21:30 General: Appears in no apparent distress. uncomfortable, Behavior is calm, cooperative, rr5 appropriate for age. Pain: Complains of pain in buttocks Pain does not radiate. Pain currently is 10 out of 10 on a pain scale. Quality of pain is described as aching, Pain began gradually, Is intermittent. Neuro: Level of Consciousness is awake, alert, obeys commands, Oriented to person, place, time, situation, Appropriate for age. Cardiovascular: Capillary refill < 3 seconds Patient's skin is warm and dry. Respiratory: Airway is patent Respiratory effort is even, unlabored, Respiratory pattern is regular, symmetrical. GI: No signs and/or symptoms were reported involving the gastrointestinal system. : No signs and/or symptoms were reported regarding the genitourinary system. EENT: No signs and/or symptoms were reported regarding the EENT system. Derm: Abscess located on buttocks is half of each bilateral buttocks is hot to touch, is red, is raised. 21:30 Musculoskeletal: Capillary refill < 3 seconds, Swelling present in right leg and left rr5 leg. 22:30 Reassessment: Patient appears in no apparent distress at this time. explained patient rr5 for admission and agreed. no complaints made. Patient states symptoms have improved. 23:08 Reassessment: Patient appears in no apparent distress at this time. Patient is alert, rr5 oriented x 3, equal unlabored respirations, skin warm/dry/pink. awaiting for transfer. 2nd floor accepted the case. Vital Signs: 21:25 BP 96 / 40; Pulse 105; Resp 21; Temp 98.6; Pulse Ox 98% on R/A; Weight 147.42 kg; rr5 Height 5 ft. 7 in. (170.18 cm); Pain 10/10; 21:50 BP 126 / 86; Pulse 92; Resp 20; Pulse Ox 98% ; rr5 23:00 BP 125 / 85; Pulse 82; Resp 19; Pulse Ox 96% on R/A; rr5 23:30 BP 118 / 80; Pulse 89; Resp 17; Pulse Ox 99% ; rr5 21:25 Body Mass Index 50.90 (147.42 kg, 170.18 cm) rr5 ED Course: 21:11 Patient arrived in ED. bb 21:12 Braulio Carreon PA is PHCP. jr8 21:12 Darell Melgar MD is Attending Physician. jr8 21:15 Alfredo Ha, REZA is Primary Nurse. rr5 21:15 Patient has correct armband on for positive identification. Placed in gown. Bed in low rr5 position. Call light in reach. Side rails up X2. Pulse ox on. NIBP on. 21:20 Triage completed. rr5 21:30 Arm band placed on. rr5 21:45 Inserted saline lock: 20 gauge in right antecubital area, using aseptic technique. rr5 ,using aseptic technique. by technology analyst roxie Blood collected. 21:46 Leticia Swift MD is Hospitalizing Provider. jr8 21:54 Initial lab(s) drawn, by fl, sent to lab. First set of blood cultures drawn by me. lt1 22:25 Second set of blood cultures drawn by me. lt1 23:08 No provider procedures requiring assistance completed. Patient admitted, IV remains in rr5 place. intact, No redness/swelling at site. 23:36 Primary Nurse role handed off by Alfredo Ha RN rr5 Administered Medications: 22:00 Drug: Zofran 4 mg Route: IVP; Site: right antecubital; rr5 23:30 Follow up: Response: No adverse reaction rr5 22:02 Drug: fentaNYL (PF) 50 mcg Route: IVP; Site: right antecubital; rr5 23:30 Follow up: Response: No adverse reaction rr5 22:03 Drug: NS 0.9% 1000 ml Route: IV; Rate: 1000 ml; Site: right antecubital; rr5 23:30 Follow up: Response: No adverse reaction; IV Status: Completed infusion; IV Intake: rr5 1000ml 22:15 Dru.375 grams of (Zosyn 3.375 grams, NS 0.9% 100 ml) Route: IVPB; Infused Over: 60 rr5 mins; Site: right antecubital; 22:25 Follow up: change time to 2225H rr5 23:25 Follow up: Response: No adverse reaction; IV Status: Completed infusion; IV Intake: rr5 100ml 23:20 Dru grams of (vancoMYCIN 1 grams, NS 0.9% 250 ml) Route: IVPB; Infused Over: 2 hrs; rr5 Site: right antecubital; 23:30 Follow up: IV Status: Infusion continued upon admission rr5 Intake: 23:25 IV: 100ml; Total: 100ml. rr5 23:30 IV: 1000ml; Total: 1100ml. rr5 Outcome: 21:46 Decision to Hospitalize by Provider. gavi 23:08 Admitted to Med/surg accompanied by tech, via stretcher, room 215, with chart, Report rr5 called to moriah 23:08 Condition: stable 23:08 Instructed on the need for admit. 23:36 Patient left the ED. rr5 23:52 Patient left the ED. rr5 Signatures: Muriel Rudd RN RN bb Roszak, Josh, PA PA jr8 Alfredo Ha RN RN rr5 Roxie Palma lt1 Corrections: (The following items were deleted from the chart) 22:05 21:15 Initial Sepsis Screen: Does the patient meet any 2 criteria? No. Patient's rr5 initial sepsis screen is negative. Does the patient have a suspected source of infection? No. Patient's initial sepsis screen is negative. rr5
--- NOTE | 2018-09-12 21:47 | EDPHYS ---
Physician Documentation [facility] Name: Harvey Callahan Age: 58 yrs Sex: Male : 1960 Arrival Date: 09/12/2018 Time: 21:11 Bed 13 Private MD: ED Physician Darell Melgar HPI: 09/12 21:56 This 58 yrs old Male presents to ER via EMS with complaints of Skin Sore(s). jr8 21:56 the patient presents with a swollen area of the buttocks. Description: The affected jr8 area is moderate sized, poorly defined, draining, erythematous, swollen, tense, warm. Onset: The symptoms/episode began/occurred suddenly, 3 day(s) ago, and became worse and became persistent. Possible cause(s): unknown. Associated signs and symptoms: The patient has no apparent associated signs or symptoms. Modifying factors: the symptoms are alleviated by nothing, the symptoms are aggravated by movement, walking, pressure, sitting, squeezing the lesion and expressing the contents, touching. Severity of symptoms: At their worst the symptoms were moderate, in the emergency department the symptoms are unchanged. It is unknown whether or not the patient has had similar symptoms in the past. The patient has not recently seen a physician. Historical: - Allergies: 21:29 No Known Allergies; rr5 - Home Meds: 21:29 amiodarone 200 mg Oral tab 1 tab once daily [Active]; aspirin 81 mg Oral TbEC 1 tab rr5 once daily [Active]; atorvastatin 40 mg Oral tab 1 tab once daily [Active]; carvedilol 6.25 mg Oral tab 0.5 tab 2 times per day [Active]; folic acid 1 mg Oral tab 1 tab once daily [Active]; furosemide 80 mg Oral tab 1 tab once daily [Active]; gabapentin 600 mg Oral tab twice a day [Active]; hydroxychloroquine 200 mg Oral tab 1 tab once daily [Active]; insulin detemir subcutaneous 10 unit twice a day [Active]; levalbuterol tartrate 45 mcg inhalation 1 puff four times a day [Active]; lisinopril 5 mg Oral tab 1 tab once daily [Active]; metformin 1,000 mg Oral tab 1 tab 2 times per day [Active]; modafinil 200 mg Oral tab twice a day [Active]; omeprazole 20 mg Oral cpDR 1 cap once daily [Active]; potassium chloride 20 mEq Oral TbER 1 tab once daily [Active]; Prednisone Oral see instructions [Active]; sildenafil 100 mg tab Oral 0.5 tab once daily [Active]; tiotropium bromide 18 mcg inhalation 1 cap once daily [Active]; tramadol 50 mg Oral tab three times a day [Active]; varenicline 1 mg Oral twice a day [Active]; warfarin 5 mg Oral tab 1 tab once daily [Active]; - PMHx: 21:29 Arthritis; CHF; Diabetes - NIDDM; EDEMA; Hyperlipidemia; Hypertension; knee pain; rr5 - PSHx: 21:29 None; rr5 - Immunization history:: Adult Immunizations up to date. - Social history:: Smoking status: Patient uses tobacco products, smokes one-half pack cigarettes per day, smokes one pack cigarettes per day. Patient/guardian denies using alcohol, street drugs. - Ebola Screening: : Patient negative for fever greater than or equal to 101.5 degrees Fahrenheit, and additional compatible Ebola Virus Disease symptoms Patient denies exposure to infectious person Patient denies travel to an Ebola-affected area in the 21 days before illness onset. ROS: 21:56 Eyes: Negative for injury, pain, redness, and discharge, ENT: Negative for injury, jr8 pain, and discharge, Neck: Negative for injury, pain, and swelling, Cardiovascular: Negative for chest pain, palpitations, and edema, Respiratory: Negative for shortness of breath, cough, wheezing, and pleuritic chest pain, Abdomen/GI: Negative for abdominal pain, nausea, vomiting, diarrhea, and constipation, Back: Negative for injury and pain, MS/Extremity: Negative for injury and deformity, Neuro: Negative for headache, weakness, numbness, tingling, and seizure. 21:56 Skin: Positive for abscess, of the buttocks. Exam: 21:56 Eyes: Pupils equal round and reactive to light, extra-ocular motions intact. Lids and jr8 lashes normal. Conjunctiva and sclera are non-icteric and not injected. Cornea within normal limits. Periorbital areas with no swelling, redness, or edema. ENT: Nares patent. No nasal discharge, no septal abnormalities noted. Tympanic membranes are normal and external auditory canals are clear. Oropharynx with no redness, swelling, or masses, exudates, or evidence of obstruction, uvula midline. Mucous membranes moist. Neck: Trachea midline, no thyromegaly or masses palpated, and no cervical lymphadenopathy. Supple, full range of motion without nuchal rigidity, or vertebral point tenderness. No Meningismus. Cardiovascular: Regular rate and rhythm with a normal S1 and S2. No gallops, murmurs, or rubs. Normal PMI, no JVD. No pulse deficits. Respiratory: Lungs have equal breath sounds bilaterally, clear to auscultation and percussion. No rales, rhonchi or wheezes noted. No increased work of breathing, no retractions or nasal flaring. Abdomen/GI: Soft, non-tender, with normal bowel sounds. No distension or tympany. No guarding or rebound. No evidence of tenderness throughout. Back: No spinal tenderness. No costovertebral tenderness. Full range of motion. MS/ Extremity: Pulses equal, no cyanosis. Neurovascular intact. Full, normal range of motion. Neuro: Awake and alert, GCS 15, oriented to person, place, time, and situation. Cranial nerves II-XII grossly intact. Motor strength 5/5 in all extremities. Sensory grossly intact. Cerebellar exam normal. Normal gait. 21:56 Skin: abscess, that is moderate sized, approximately 6 cm(s), with drainage, that is bloody, that is purulent, with induration, with pointing, abscess located to medial right buttock extending near the perianal region and down to gluteal cleft . Vital Signs: 21:25 BP 96 / 40; Pulse 105; Resp 21; Temp 98.6; Pulse Ox 98% on R/A; Weight 147.42 kg; rr5 Height 5 ft. 7 in. (170.18 cm); Pain 10/10; 21:50 BP 126 / 86; Pulse 92; Resp 20; Pulse Ox 98% ; rr5 23:00 BP 125 / 85; Pulse 82; Resp 19; Pulse Ox 96% on R/A; rr5 23:30 BP 118 / 80; Pulse 89; Resp 17; Pulse Ox 99% ; rr5 21:25 Body Mass Index 50.90 (147.42 kg, 170.18 cm) rr5 MDM: 21:20 Patient medically screened. jr8 21:45 Data reviewed: vital signs, nurses notes, lab test result(s), and as a result, I will jr8 admit patient. Data interpreted: Pulse oximetry: on room air is 98 %. Interpretation: normal. Counseling: I had a detailed discussion with the patient and/or guardian regarding: the historical points, exam findings, and any diagnostic results supporting the discharge/admit diagnosis, lab results, the need for further work-up and treatment in the hospital. ED course: Consulted Dr. Frausto who will see patient in the AM for surgery. Dr. Siwft accepted patient . 09/12 21:35 Order name: CBC with Diff; Complete Time: 22:27 [facility] 09/12 21:35 Order name: Basic Metabolic Panel; Complete Time: 22:27 [facility] 09/12 21:35 Order name: Blood Culture Adult (2) [facility] 09/12 21:35 Order name: Procalcitonin; Complete Time: 23:07 [facility] 09/12 21:36 Order name: Wound Culture [facility] 09/12 21:41 Order name: PT-INR; Complete Time: 22:27 [facility] 09/12 21:41 Order name: Ptt, Activated; Complete Time: 22:27 [facility] 09/12 21:48 Order name: Basic Metabolic Panel [facility] 09/12 21:48 Order name: Basic Metabolic Panel [facility] 09/12 21:48 Order name: CBC with Automated Diff [facility] 09/12 21:48 Order name: CBC with Automated Diff [facility] 09/12 21:48 Order name: Protime (+INR) [facility] 09/12 21:48 Order name: Protime (+INR) [facility] 09/12 21:48 Order name: PTT, Activated Partial Thromb [facility] 09/12 21:35 Order name: IV; Complete Time: 21:52 [facility] 09/12 21:48 Order name: CONS Pharmacy Consult [facility] 09/12 21:48 Order name: CONS Pharmacy Consult [facility] 09/12 21:48 Order name: CONS Physician Consult [facility] 09/12 21:48 Order name: NPO [facility] 09/12 21:48 Order name: PTT, Activated Partial Thromb [facility] 09/12 22:51 Order name: Lactate rr5 09/12 23:16 Order name: Lactate; Complete Time: 23:23 [facility] 09/12 23:33 Order name: Urine Dipstick--Ancillary (enter results) ar5 03/30 23:37 Order name: Urine Microscopic Only rr5 Administered Medications: 22:00 Drug: Zofran 4 mg Route: IVP; Site: right antecubital; rr5 23:30 Follow up: Response: No adverse reaction rr5 22:02 Drug: fentaNYL (PF) 50 mcg Route: IVP; Site: right antecubital; rr5 23:30 Follow up: Response: No adverse reaction rr5 22:03 Drug: NS 0.9% 1000 ml Route: IV; Rate: 1000 ml; Site: right antecubital; rr5 23:30 Follow up: Response: No adverse reaction; IV Status: Completed infusion; IV Intake: rr5 1000ml 22:15 Dru.375 grams of (Zosyn 3.375 grams, NS 0.9% 100 ml) Route: IVPB; Infused Over: 60 rr5 mins; Site: right antecubital; 22:25 Follow up: change time to 2225H rr5 23:25 Follow up: Response: No adverse reaction; IV Status: Completed infusion; IV Intake: rr5 100ml 23:20 Dru grams of (vancoMYCIN 1 grams, NS 0.9% 250 ml) Route: IVPB; Infused Over: 2 hrs; rr5 Site: right antecubital; 23:30 Follow up: IV Status: Infusion continued upon admission rr5 Disposition: 09/13 00:11 Co-signature as Attending Physician, Darell Melgar MD. pk Disposition: 09/12/18 21:46 Hospitalization ordered by Leticia Swift for Inpatient Admission. Preliminary diagnosis is Cutaneous abscess of buttock. - Bed requested for Telemetry/MedSurg (Inpatient). - Status is Inpatient Admission. rr5 - Condition is Stable. - Problem is new. - Symptoms have improved. UTI on Admission? No Signatures: Dispatcher [employer] EDMS Darell Melgar MD MD pkl Braulio Carreon PA PA jr8 Alfredo Ha RN RN rr5 Cori Sesay ar5 Corrections: (The following items were deleted from the chart) 09/12 21:57 21:46 Hospitalization Ordered by Leticia Swift MD for Inpatient Admission. Preliminary ar5 diagnosis is Cutaneous abscess of buttock. Bed requested for Telemetry/MedSurg (Inpatient). Status is Inpatient Admission. Condition is Stable. Problem is new. Symptoms have improved. UTI on Admission? No. jr8 23:36 21:57 09/12/2018 21:46 Hospitalization Ordered by Leticia Swift MD for Inpatient rr5 Admission. Preliminary diagnosis is Cutaneous abscess of buttock. Bed requested for Telemetry/MedSurg (Inpatient). Status is Inpatient Admission. Condition is Stable. Problem is new. Symptoms have improved. UTI on Admission? No. ar5 23:52 23:36 09/12/2018 21:46 Hospitalization Ordered by Leticia Swift MD for Inpatient rr5 Admission. Preliminary diagnosis is Cutaneous abscess of buttock. Bed requested for Telemetry/MedSurg (Inpatient). Status is Inpatient Admission. Condition is Stable. Problem is new. Symptoms have improved. UTI on Admission? No. rr5
[2018-09-12] MEDS ORDERED: NA CHLORIDE 0.9% 1,000 ML ONE (21:53)
[2018-09-12] MEDS ORDERED: ONDANSETRON 4 MG/2 ML VIAL ONE (21:53)
[2018-09-12] MEDS ORDERED: VANCOMYCIN 1 GM/VIAL ONE (21:53)
[2018-09-12] MEDS ORDERED: FENTANYL CITR 100 MCG/2 ML ONE (21:53)
[2018-09-12] MEDS ORDERED: PIPER/TAZO/NS 3.375gm 3.375 GM/100 ML BAG ONE (21:54)
[2018-09-12] MEDS ORDERED: NA CHLORIDE 0.9% 250 ML ONE (21:55)
[2018-09-12] MEDS ORDERED: NA CHLORIDE 0.9% 1,000 ML IV SCH (22:00)
[2018-09-12 22:19] LABS: Absolute Lymphocytes (CBC) 2.4 K/uL (0.7-4.9); Absolute Monocytes 1.7 K/uL (0.1-1.3); Absolute Neutrophil 12.5 K/uL (1.8-8.0); Basophils % 0.3 % (0-1.3); Eosinophils % 0.5 % (0-4.4); Hematocrit 43.3 % (39.6-49.0); Lymphocytes % 14.5 % (15.3-44.8); MPV 9.5 fL (7.6-11.3); RBC Red Blood Cell Count 5.14 M/uL (4.33-5.43)
[2018-09-12] MEDS ORDERED: ALBUTEROL 2.5 MG/3 ML NEB SOL ONE (22:22)
[2018-09-12 22:23] LABS: Protime INR 2.16
[2018-09-12] MEDS ORDERED: IPRATROPIUM BROM 0.5MG/2.5ML ONE (22:23)
[2018-09-12 22:25] LABS: Potassium 4.1 mmol/L (3.5-5.1)
[2018-09-12 23:57] VITALS: BMI 50.4
[2018-09-13 00:14] LABS: Urine Bacteria <20 /HPF (NONE SEEN); Urine Culture Reflex Order NOT NEEDED; Urine RBC <5 /HPF (NONE SEEN)
[2018-09-13] MEDS ORDERED: VANCOMYCIN/NS 1 gm 1 GM/250 ML BAG IVPB ONE (00:30)
[2018-09-13] MEDS: HYDROMORPHONE HCL 1 MG/ML INJ IV PRN ×6 (00:52→22:33)
[2018-09-13 01:12] LABS: Urine Blood TRACE (NEG); Urine Glucose 3+ (NEG); Urine Protein TRACE (NEG); Urine Specific Gravity 1.015 (1.005-1.030)
[2018-09-13] MEDS: NA CHLORIDE 0.9% 1,000 ML IV SCH (01:54)
[2018-09-13] MEDS ORDERED: PIPER/TAZO/NS 3.375gm 3.375 GM/100 ML BAG ONE (05:40)
[2018-09-13] MEDS: PIPER/TAZO/NS 3.375gm 3.375 GM/100 ML BAG IVPB SCH ×4 (05:45→22:33)
[2018-09-13 06:22] LABS: Absolute Lymphocytes (CBC) 3.4 K/uL (0.7-4.9); Absolute Monocytes 1.5 K/uL (0.1-1.3); Absolute Neutrophil 11.2 K/uL (1.8-8.0); Basophils % 0.5 % (0-1.3); Eosinophils % 0.7 % (0-4.4); Hematocrit 43.1 % (39.6-49.0); Lymphocytes % 20.6 % (15.3-44.8); MPV 9.5 fL (7.6-11.3); Monocytes % 9.3 % (3.3-12.3); RBC Red Blood Cell Count 5.08 M/uL (4.33-5.43)
[2018-09-13 06:23] LABS: Protime INR 1.95
--- NOTE | 2018-09-13 08:34 | P.HP ---
Certification for Inpatient Patient admitted to: Inpatient With expected LOS: >2 Midnights Patient will require the following post-hospital care: None Practitioner: I am a practitioner with admitting privileges, knowledge of patient current condition, hospital course, and medical plan of care. Services: Services provided to patient in accordance with Admission requirements found in Title 42 Section 412.3 of the Code of Federal Regulations Patient History Date of Service: 09/12/18 Reason for admission: pain in the buttocks History of Present Illness: Patient is a 58-year-old gentleman who has multiple medical problems who comes into the hospital with pain in the right buttocks. Pain extends into the testicular region. On further evaluation patient was found to have a large abscess. Patient also has some surrounding cellulitis. Patient has history of atrial fibrillation and cardiac disease is on anticoagulation. We will be able to give FFP prior to surgery. If INR is under 1.5 this will be unnecessary. Will follow INR and continue with IV antibiotics. A flea once the antibiotics give built up into his systems his clinical condition will improve. Allergies No Known Allergies Allergy (Verified 09/12/18 23:48) Home Medications: Amiodarone HCl [Cordarone*] 200 mg PO DAILY 09/13/18 Aspirin Chewable [Aspirin Chewable*] 81 mg PO DAILY 09/13/18 Carvedilol [Coreg*] 3.125 mg PO BID 09/13/18 Furosemide 80 mg PO BID 09/13/18 Gabapentin [Neurontin] 600 mg PO BID 09/13/18 Insulin Detemir [Levemir] 10 units SQ BID 09/13/18 Metformin HCl [Glucophage] 1,000 mg PO BID 09/13/18 Omeprazole 20 mg PO DAILY 09/13/18 Potassium Chloride 20 meq PO DAILY 09/13/18 Warfarin Sodium [Coumadin*] 5 mg PO SEECOM 09/13/18 Warfarin Sodium [Coumadin*] 10 mg PO SEECOM 09/13/18 - Past Medical/Surgical History Has patient received pneumonia vaccine in the past: Yes Diabetic: Yes -: Diabetes mellitus type 2 -: Hypertension -: CAD -: Congestive heart failure, systolic dysfunction-EF 40% -: Obstructive sleep apnea -: Hypoventilation obesity syndrome -: Morbid obesity -: Hyperlipidemia -: COPD -: Tobacco abuse -: Atrial fibrillation, chronic anti coagulation-Coumadin -: Knee surgery -: Appendectomy -: Back surgery Psychosocial/ Personal History: Patient is a . He has 6 children. - Family History Mother Medical History: Hypertension, Diabetes - Social History Smoking Status: Current every day smoker Alcohol use: No CD- Drugs: No Caffeine use: Yes Place of Residence: Home Review of Systems 10-point ROS is otherwise unremarkable Physical Examination - Vital Signs Temperature: 98.3 F Blood Pressure: 116/59 Pulse: 91 Respirations: 18 Pulse Ox (%): 94 - Physical Exam General: Alert, In no apparent distress, Oriented x3 HEENT: Atraumatic, PERRLA, Mucous membr. moist/pink, EOMI, Sclerae nonicteric Neck: Supple, 2+ carotid pulse no bruit, No LAD, Without JVD or thyroid abnormality Respiratory: Clear to auscultation bilaterally, Normal air movement Cardiovascular: Regular rate/rhythm, Normal S1 S2, No murmurs Gastrointestinal: Normal bowel sounds, Soft and benign, Non-distended, No tenderness Musculoskeletal: No tenderness Integumentary: Skin lesion, Tenderness/swelling, Erythema, Warmth Neurological: Normal gait, Normal speech, Normal strength at 5/5 x4 extr, Normal tone, Sensation intact, Cranial nerves 3-12 intact, Normal affect Lymphatics: No axilla or inguinal lymphadenopathy Assessment & Plan - Problems (Diagnosis) (1) Atrial fibrillation with RVR Onset Date: 06/06/17 Current Visit: No Status: Acute (2) Cellulitis Current Visit: No Status: Acute (3) Morbid obesity with BMI of 45.0-49.9, adult Onset Date: 11/12/16 Current Visit: No Status: Acute (4) CAD (coronary artery disease) Onset Date: 12/25/17 Current Visit: No Status: Chronic Qualifiers: (5) CHF (congestive heart failure) Onset Date: 12/25/17 Current Visit: No Status: Chronic Qualifiers: (6) COPD (chronic obstructive pulmonary disease) Onset Date: 12/25/17 Current Visit: No Status: Chronic Qualifiers: (7) Diabetes mellitus Onset Date: 12/25/17 Current Visit: No Status: Chronic Qualifiers: (8) Hyperlipidemia Onset Date: 12/25/17 Current Visit: No Status: Chronic Qualifiers: (9) Hypertension Onset Date: 12/25/17 Current Visit: No Status: Chronic Qualifiers: (10) Obesity Onset Date: 12/25/17 Current Visit: No Status: Chronic Qualifiers: (11) Obesity hypoventilation syndrome Onset Date: 11/12/16 Current Visit: No Status: Suspected - Plan 1. Continue with IV antibiotic 2. Continue with local wound care 3. Surgical consultation 4. Gentle IV hydration 5. Monitor CBC 6. Strict blood sugar monitoring 7. Pain control 8. Reverse INR if necessary with FFPs on-call to OR if needed 9. GI and DVT prophylaxis Discharge Plan: Home Plan to discharge in: Greater than 2 days - Advance Directives Does patient have a Living Will: No Does patient have a Durable POA for Healthcare: No - Code Status/Comfort Care Code Status Assessed: Yes Code Status: Full Code Critical Care: No Time Spent Managing PTS Care (In Minutes): 45
[2018-09-13] MEDS: VANCOMYCIN 2 GM in NA CHLORIDE 0.9% 500 ML IVPB SCH ×2 (09:47→21:47)
[2018-09-13] MEDS ORDERED: NS 0.9% VIAL 10 ML ONE (10:27)
[2018-09-13] MEDS ORDERED: BUPIVACA 0.5%/EPI 0.0005%/PF 10 ML VIAL ONE (10:27)
[2018-09-13] MEDS ORDERED: SUCCINYLCHOLINE 20 MG/ML (10 ML) IV ONE (10:33)
[2018-09-13] MEDS ORDERED: MIDAZOLAM HCL 2 MG/2 ML INJ ONE (10:34)
[2018-09-13] MEDS ORDERED: FENTANYL CITR 100 MCG/2 ML ONE (10:34)
[2018-09-13] MEDS ORDERED: PROPOFOL 200 MG/20 ML VIAL IV ONE (10:34)
--- NOTE | 2018-09-13 10:59 | P.OP ---
Preoperative diagnosis: Right Buttock Abscess Postoperative diagnosis: Right Buttock Abscess Primary procedure: Incision, Drainage, and debridement of Necrotic Right Buttock Abscess Anesthesia: GETA + Local Estimated blood loss: <20cc Specimen: Cultures and tissue Findings: Small Abscess, necrotic tissue Complications: None Transferred to: Recovery Room Condition: Good
--- NOTE | 2018-09-13 12:51 | P.PN ---
Subjective Date of Service: 09/13/18 Chief Complaint: pain in the buttocks Subjective: No new changes Patient seen and examined at bedside. No family at bedside. Chart reviewed and case discussed with nursing staff. Review of Systems 10-point ROS is otherwise unremarkable Physical Examination - Vital Signs Temperature: 97.2 F Blood Pressure: 143/57 Pulse: 93 Respirations: 24 Pulse Ox (%): 94 - Physical Exam General: Alert, Oriented x3, Mild distress, Moderate distress, Obese Integumentary: Skin lesion, Erythema, Warmth Assessment And Plan - Plan Cellulitis Continue IV antibiotics. Wound care excellent surgery consultation, recommendations appreciated. Pending debridement Pending 1 unit FFP with surgery Atrial fibrillation with RVR On tele. Rate controlled Continue anticoagulation. He is weights received 1 unit FFP as INR is elevated. Continue home medication CAD (coronary artery disease) Stable Continue home medication CHF (congestive heart failure) Stable Continue home medication COPD (chronic obstructive pulmonary disease) Stable Continue home medication Breathing treatments as needed. Oxygen per protocol Diabetes mellitus Accu-Cheks and mild sliding scale insulin. Will monitor and adjust as needed Hyperlipidemia Stable, continue home medications Hypertension Stable, continue home medications Morbid obesity with BMI of 45.0-49.9, adult Obesity hypoventilation syndrome DVT prophylaxis: Will continue home anticoagulation GI prophylaxis: None Diet: NPO for surgery, then heart healthy/1800 diabetic diet Disposition: Pending debridement
--- NOTE | 2018-09-13 14:16 | CON ---
Date of Consultation: 09/13/2018 Brief History Of Present Illness: The patient is a 58-year-old gentleman with multiple medical probl ems including atrial fibrillation with RVR, maintained on Coumadin, who presents to the hospital with approximately 1-week history of pain in the right buttock area that extended to the testicular regio n and in the perianal area. He was noted to have increasing pain, swelling, and discharge over the p ast 3 days, however, and he as such came to the emergency room with the above-stated complaints. He ultimately had been worked up and found to have elevation of his white blood cell count. He denies h aving similar episodes before in the past. He has had boils before, but denies any surgical interven tion of a similar type or in a similar region. Past Medical History: Significant for hypertension, coronary artery disease, CHF with systolic dysfu nction. His ejection fraction is approximately 40%. He has obstructive sleep apnea, hypoventilation obesity syndrome, morbid obesity, hyperlipidemia, COPD, chronic tobacco use, atrial fibrillation, on chronic anticoagulation with Coumadin, diabetes. Past Surgical History: Includes knee surgery, appendectomy, back surgery, and multiple boil removals , but none required wound care by his information. Social History: He is a 20+ pack year smoker. Denies alcohol or recreational drug use. He is a wid ow. He has 6 children. Family History: Mother had hypertension and diabetes. Home Medications: Include amiodarone, aspirin, Coreg, Lasix, Neurontin, Levemir, Glucophage, omepraz ole, KCl, Coumadin 5 mg p.o. and 10 mg p.o. on interval. Allergies: NO KNOWN DRUG ALLERGIES. Review of Systems: Ten-point review of systems other than HPI, denies. Physical Examination: Vital Signs: At the time of my examination, his BMI is 50.5. Blood pressure 116/59, pulse is 91, re spiratory rate 18, temperature 98.4. He additionally has been placed on antibiotics. General: He is awake, alert, and oriented. Psychiatric: He is appropriate and conversive. HEENT: Normocephalic. His sclerae are anicteric. His mucous membranes are moist. His oropharynx i s clear. Neck: Supple with no JVD. Chest: Normal expansion and excursion. Cardiovascular: He has normal S1, S2. Abdomen: Soft, nontender, obese. Skin: He has redness and tenderness to the right gluteal region extending from the perianal region, not involving the anal sphincters. Obviously, there is some discharge. The cellulitis stretches tow nasreen the scrotum, but does not connect at this point. Neurological: He has normal speech. Assessment And Plan: This is a 58-year-old male, who comes in on anticoagulation with a right buttoc k abscess, which is spontaneously draining. 1.IV fluid hydration. 2.Antibiotic coverage. 3.I have explained the risks, benefits, and alternatives of incision and drainage of this abscess wi th culture. We will proceed with this after the patient has his coagulopathy corrected. He will be given FFP to help reverse his INR and get it to a more subtherapeutic range. I have explained the ri sks, benefits, and alternatives of having to give him these medications, which reverse his anticoagul ation, which are including, but not limited to heart attacks, blood clots, arrhythmias, strokes, othe r blood clots in his body, including pulmonary and anywhere else in his body, blood clots may develop . In addition, he may require additional surgical interventions. The patient agrees to proceed as i ndicated. JEANNETTE/SARAHI Voice ID: [id number] Report ID: [id number]
[2018-09-13] MEDS ORDERED: NA CHLORIDE 0.9% 250 ML ONE (17:34)
--- NOTE | 2018-09-13 21:57 | OP ---
Date of Procedure: 09/13/2018 Surgeon: Cyrus Frausto MD, Preoperative Diagnosis: Right buttock abscess. Postoperative Diagnosis: Right buttock abscess. Procedure Performed: Incision and drainage and debridement of necrotic right buttock abscess. Anesthesia: General endotracheal plus local. Estimated Blood Loss: Less than 20 cc. Specimen: Cultures and tissues sent. Findings: Small abscess and necrotic tissue approximately 4 cm x 3 cm into subcutaneous fat only, no t extending to perineum, not extending to anus. Complications: None. Transferred to recovery room in good condition, Procedure In Detail: After informed consent was obtained, the patient was brought to the operating r oom, prepped and draped in the usual fashion. After adequate anesthesia was achieved, an area of the right buttock along the region of the ischium was anesthetized with 0.25% Marcaine, sharply incised and the abscess was opened. Cultures were sent at this time for aerobic and anaerobic speciation. A ll necrotic tissue was sharply debrided at this point, and I removed all necrotic tissue underlying. I then proceeded to irrigate the area. There was a tunneling under the buttock towards the perineum , but not involving the perineum or the anus. After the all necrotic tissue was removed, the area wa s copiously irrigated. Hemostasis was achieved with electrocautery. We took some additional hemosta sis as the patient was on blood thinners and then the wound was packed with half-inch iodoform packin g and sterile dressing was placed over the top. Good hemostasis was achieved at the end of the proce dure. The patient tolerated the procedure well without evidence of complication and transferred to [facility] PACU in good condition. All counts were correct at the end of the case. JEANNETTE/SARAHI Voice ID: [id number] Report ID: [id number]
[2018-09-13 22:56] LABS: Protime INR 1.66
[2018-09-14] MEDS: NA CHLORIDE 0.9% 1,000 ML IV SCH (02:49)
[2018-09-14] MEDS: HYDROMORPHONE HCL 1 MG/ML INJ IV PRN ×5 (02:49→21:00)
[2018-09-14] MEDS: PIPER/TAZO/NS 3.375gm 3.375 GM/100 ML BAG IVPB SCH ×3 (06:10→23:50)
--- NOTE | 2018-09-14 08:40 | P.PN ---
Subjective Date of Service: 09/14/18 Chief Complaint: pain in the buttocks Subjective: Improving (Patient has pain at surgical site, otherwise no issues) Physical Examination - Vital Signs Temperature: 97.5 F Blood Pressure: 112/54 Pulse: 80 Respirations: 18 Pulse Ox (%): 97 - Physical Exam General: Alert, In no apparent distress, Cooperative Integumentary: Other (wound packed well, minimal to moderate drainage, cellulitis improving) Assessment And Plan - Plan - Daily dressing changes - home health consult - continue medical management
[2018-09-14] MEDS: VANCOMYCIN 2 GM in NA CHLORIDE 0.9% 500 ML IVPB SCH ×2 (09:22→21:53)
[2018-09-14] MEDS ORDERED: D50W 25 GM/50 ML SYRINGE IV PRN (12:06)
[2018-09-14] MEDS ORDERED: GLUCAGON 1 MG/VIAL IM PRN (12:06)
[2018-09-14] MEDS: COLLAGENASE 30 GM OINTMENT TOP SCH (12:51)
[2018-09-14] MEDS: INSULIN -REGULAR HUMAN 50 UNIT/0.5 ML ML SQ SCH ×2 (16:51→21:51)
--- NOTE | 2018-09-14 18:34 | P.PN ---
Subjective Date of Service: 09/14/18 Chief Complaint: pain in the buttocks Subjective: Improving Patient seen and examined at bedside. No family at bedside. Chart reviewed and case discussed with nursing staff. Still complaining of pain Review of Systems 10-point ROS is otherwise unremarkable Physical Examination - Vital Signs Temperature: 97.2 F Blood Pressure: 143/57 Pulse: 93 Respirations: 24 Pulse Ox (%): 94 - Physical Exam General: Alert, In no apparent distress, Oriented x3, Obese Respiratory: Normal air movement Cardiovascular: Regular rate/rhythm Gastrointestinal: Normal bowel sounds Integumentary: Skin lesion, Erythema, Warmth Assessment And Plan - Plan Cellulitis Continue IV antibiotics. Wound care; Surgery consultation, recommendations appreciated. Status post incision and drainage with debridement. Tolerated procedure Atrial fibrillation with RVR On tele. Rate controlled Continue anticoagulation. Status post 1 unit FFP, he did receive it after the surgery though. Continue home medications CAD (coronary artery disease) Stable Continue home medication CHF (congestive heart failure) Stable Continue home medication COPD (chronic obstructive pulmonary disease) Stable Continue home medication Breathing treatments as needed. Oxygen per protocol Diabetes mellitus Accu-Cheks and mild sliding scale insulin. Will monitor and adjust as needed Hyperlipidemia Stable, continue home medications Hypertension Stable, continue home medications Morbid obesity with BMI of 45.0-49.9, adult Obesity hypoventilation syndrome DVT prophylaxis: Will continue home anticoagulation GI prophylaxis: None Diet: heart healthy/1800 diabetic diet Disposition: Pending symptomatic improvement and cultures.
[2018-09-14] MEDS: FUROSEMIDE 40 MG TABLET PO SCH (21:02)
[2018-09-14] MEDS: CARVEDILOL 3.125 MG TAB PO SCH (21:03)
[2018-09-14] MEDS: GABAPENTIN 300 MG CAP PO SCH (21:03)
[2018-09-14] MEDS: INSULIN GLARGINE 100 UNITS/ML SQ SCH (21:53)
[2018-09-15 01:00] VITALS: O2SAT 92
[2018-09-15] MEDS: HYDROMORPHONE HCL 1 MG/ML INJ IV PRN ×2 (01:10→09:20)
[2018-09-15] MEDS: FUROSEMIDE 40 MG TABLET PO SCH (05:36)
[2018-09-15 05:58] LABS: Absolute Lymphocytes (CBC) 2.3 K/uL (0.7-4.9); Absolute Neutrophil 6.7 K/uL (1.8-8.0); Basophils % 0.5 % (0-1.3); Eosinophils % 1.5 % (0-4.4); Lymphocytes % 22.4 % (15.3-44.8); MPV 8.8 fL (7.6-11.3); Monocytes % 9.5 % (3.3-12.3); RBC Red Blood Cell Count 5.03 M/uL (4.33-5.43)
[2018-09-15] MEDS: PIPER/TAZO/NS 3.375gm 3.375 GM/100 ML BAG IVPB SCH (06:27)
[2018-09-15] MEDS ORDERED: PANTOPRAZOLE 40MG TABLET PO SCH (06:30)
[2018-09-15] MEDS ORDERED: AMIODARONE HCL 200 MG TAB PO SCH (09:00)
[2018-09-15] MEDS ORDERED: ASPIRIN 81 MG CHEWABLE TABLET PO SCH (09:00)
[2018-09-15] MEDS: COLLAGENASE 30 GM OINTMENT TOP SCH (09:00)
[2018-09-15] MEDS ORDERED: POTASSIUM CL SA 10 MEQ TAB PO SCH (09:00)
[2018-09-15] MEDS: INSULIN -REGULAR HUMAN 50 UNIT/0.5 ML ML SQ SCH (09:05)
[2018-09-15] MEDS: INSULIN GLARGINE 100 UNITS/ML SQ SCH (09:05)
[2018-09-15] MEDS: VANCOMYCIN 2 GM in NA CHLORIDE 0.9% 500 ML IVPB SCH (09:06)
[2018-09-15] MEDS: GABAPENTIN 300 MG CAP PO SCH (09:06)
[2018-09-15] MEDS: CARVEDILOL 3.125 MG TAB PO SCH (09:06)
[2018-09-15 12:54] VITALS: BP 119/63; TEMP 97.5
--- NOTE | 2018-09-16 06:10 | DS ---
Date of Discharge: 09/15/2018 Receiver/Laborer: Dr. Frausto with General Surgery. Procedures: On 09/13/2018, incision and drainage, debridement of necrotic right buttock abscess. Admitting Diagnoses: 1.Right buttock abscess and cellulitis. 2.Atrial fibrillation with RVR. 3.Morbid obesity, BMI 50. 4.Coronary artery disease, northway artery and northway heart, without angina. 5.Chronic congestive heart failure. 6.Chronic COPD. 7.Diabetes mellitus, type 2, non-insulin requiring. 8.Mixed hyperlipidemia. 9.Essential hypertension. 10.Obstructive sleep apnea. Discharge Diagnoses: 1.Cellulitis secondary to right buttock abscess, status post I and D, improving. Cultures negative. 2.Atrial fibrillation with RVR, on anticoagulation, now rate controlled. 3.Coronary artery disease, northway artery and northway heart, without angina. 4.Chronic diastolic heart failure, EF 65%, compensated. 5.COPD, chronic bronchitis. 6.Diabetes mellitus, type 2, non-insulin requiring, with hyperglycemia, stable. 7.Mixed hyperlipidemia. 8.Essential hypertension. 9.Morbid obesity, BMI 50. 10.Obstructive sleep apnea. Hospital Course: The patient is a 58-year-old male, comes in with right buttock abscess extending in to the testicular region. The patient was started on IV antibiotics. His anticoagulation was held. He was given FFP. INR was 2.16. The patient was able to tolerate surgery by Dr. Frausto. Cultures were obtained which remained negative to date. The patient's white blood cell count improved and no rmalized. He was not septic. He remained afebrile. The patient did well post surgery. Family memb ers, specifically [id number] was taught how to do wound care and dressing changes. The patient was then cleared for discharge. He did have some atrial fibrillation with RVR. His rate was now wel l controlled. He was back in sinus rhythm. The patient will need to resume his Coumadin, have an IN R check in 2 days. He will need continued wound care and to follow up with primary care physician in 2-3 days and follow up with Dr. Frausto for wound check. Diet: Diabetic. Activity: No driving or operating heavy machinery while on narcotics. Medications: List reviewed. Physical Examination: General: Awake, alert, oriented x3. Morbidly obese. No acute distress. CV: S1, S2. Regular rate and rhythm. Pulses present. Respiratory: Moving air well bilaterally. Abdomen: Soft, nontender, nondistended. Positive bowel sounds. Extremities: No clubbing, cyanosis. Trace pedal edema. Skin: Right buttock abscess bandaged, clean, dry, intact. Neuro: Nonfocal. Total time spent discharging the patient was 37 minutes. /SARAHI Voice ID: [id number] Report ID: [id number]
== END 2018-09-15 14:45 | disposition home or self-care (01) | DRG 571 ==
LOC: ER 21:08 → ERHOLD 21:51 → 2ND 23:16
PROVIDERS: ADMIT Hospitalist; ATTEND Family Medicine
PROC: 0JB90ZZ Excision of Buttock Subcutaneous Tissue and Fascia, Open Approach (ICD-10-PCS; principal; 2018-09-13 11:30)
DX: L02.31 Cutaneous abscess of buttock (principal); I50.32 Chronic diastolic (congestive) heart failure; E66.2 Morbid (severe) obesity with alveolar hypoventilation; Z68.43 Body mass index [BMI] 50.0-59.9, adult; L03.317 Cellulitis of buttock; I48.2 Chronic atrial fibrillation; Z79.01 Long term (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 anticoagulants; I25.10 Atherosclerotic heart disease of native coronary artery without angina pectoris; I11.0 Hypertensive heart disease with heart failure; J42 Unspecified chronic bronchitis; E11.65 Type 2 diabetes mellitus with hyperglycemia; Z79.84 Long term (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 oral hypoglycemic drugs; E78.2 Mixed hyperlipidemia; F17.210 Nicotine dependence, cigarettes, uncomplicated
CPT/HCPCS: 36415; 36430; 80048; 80202; 81003; 81015; 82962; 83605; 84145; 85025; 85610; 85730; 86900; 86901; 87040; 87070; 87075; 87077; 87186; 87205; 88304; 96365; 96375; 99285; J0330; J1170; J2250; J2405; J2543; J2704; J3010; J3370; J3590; J7030; P9059

== ENCOUNTER 2018-10-05 21:27 | Emergency (ER) | payer OTHER ==
--- NOTE | 2018-10-05 22:50 | ER ---
Nurse's Notes [facility] Name: Harvey Callahan Age: 58 yrs Sex: Male : 1960 Arrival Date: 10/05/2018 Time: 21:28 Bed 23 Private MD: Diagnosis: Cellulitis of buttock Presentation: 10/05 21:40 Presenting complaint: Patient states: I had a wound cut open and now it is infected and ed1 it hurts really bad. Transition of care: patient was not received from another setting of care. Onset of symptoms was October 05, 2018. Risk Assessment: Do you want to hurt yourself or someone else? Patient reports no desire to harm self or others. Initial Sepsis Screen: Does the patient meet any 2 criteria? No. Patient's initial sepsis screen is negative. Does the patient have a suspected source of infection? No. Patient's initial sepsis screen is negative. Care prior to arrival: None. 21:40 Method Of Arrival: Wheelchair ed1 21:40 Acuity: DEYANIRA 3 ed1 Triage Assessment: 21:46 General: Appears uncomfortable, Behavior is calm, cooperative. Pain: Complains of pain ed1 in right gluteus catalino Pain does not radiate. Pain currently is 9 out of 10 on a pain scale. Quality of pain is described as throbbing, Pain began 1 day ago. EENT: No signs and/or symptoms were reported regarding the EENT system. Neuro: Level of Consciousness is awake, alert, obeys commands, Oriented to person, place, time, situation. Cardiovascular: Denies chest pain, Heart tones S1 S2 present. Respiratory: Airway is patent Respiratory effort is even, unlabored, Respiratory pattern is regular, symmetrical, Breath sounds are clear bilaterally. GI: No signs and/or symptoms were reported involving the gastrointestinal system. : No signs and/or symptoms were reported regarding the genitourinary system. Derm: Skin is healthy with good turgor, Skin is dry, Skin is normal, Skin temperature is warm Reports pain that is 9 out of 10 on a pain scale. Musculoskeletal: Circulation, motion, and sensation intact. Capillary refill < 3 seconds, in bilateral fingers. Range of motion: intact in all extremities. Historical: - Allergies: 21:46 No Known Allergies; ed1 - Home Meds: 21:46 amiodarone 200 mg Oral tab 1 tab once daily [Active]; aspirin 81 mg Oral TbEC 1 tab ed1 once daily [Active]; atorvastatin 40 mg Oral tab 1 tab once daily [Active]; carvedilol 6.25 mg Oral tab 0.5 tab 2 times per day [Active]; furosemide 80 mg Oral tab 1 tab once daily [Active]; gabapentin 600 mg Oral tab twice a day [Active]; insulin detemir subcutaneous 10 unit twice a day [Active]; lisinopril 5 mg Oral tab 1 tab once daily [Active]; metformin 1,000 mg Oral tab 1 tab 2 times per day [Active]; omeprazole 20 mg Oral cpDR 1 cap once daily [Active]; potassium chloride 20 mEq Oral TbER 1 tab once daily [Active]; warfarin 5 mg Oral tab 1 tab once daily [Active]; - PMHx: 21:46 Arthritis; CHF; Diabetes - NIDDM; EDEMA; Hyperlipidemia; Hypertension; knee pain; ed1 - PSHx: 21:46 I\T\D; ed1 - Immunization history:: Adult Immunizations up to date, Flu vaccine is not up to date. - Social history:: Smoking status: Patient uses tobacco products, smokes two packs cigarettes per day. - Ebola Screening: : Patient negative for fever greater than or equal to 101.5 degrees Fahrenheit, and additional compatible Ebola Virus Disease symptoms Patient denies exposure to infectious person Patient denies travel to an Ebola-affected area in the 21 days before illness onset No symptoms or risks identified at this time. Screenin:49 Abuse screen: Denies threats or abuse. Denies injuries from another. Nutritional ed1 screening: No deficits noted. Tuberculosis screening: No symptoms or risk factors identified. Fall Risk None identified. Assessment: 21:49 General: See triage assessment. Derm: Abscess located on buttocks is quarter sized, I\T\D ed1 done 09/13. No drainage noted. 22:43 Reassessment: No changes from previously documented assessment. Patient and/or family ed1 updated on plan of care and expected duration. Pain level reassessed. Patient is alert, oriented x 3, equal unlabored respirations, skin warm/dry/pink. Pt ambulatory to bathroom with steady gait. Patient states symptoms have not improved. Vital Signs: 21:46 BP 100 / 59; Pulse 105; Resp 20; Temp 98.7; Pulse Ox 97% on R/A; Weight 145.15 kg; ed1 Height 5 ft. 7 in. (170.18 cm); Pain 9/10; 23:04 BP 107 / 64; Pulse 91; Resp 20; Pulse Ox 97% on R/A; Pain 9/10; ed1 21:46 Body Mass Index 50.12 (145.15 kg, 170.18 cm) ed1 ED Course: 21:28 Patient arrived in ED. am2 21:40 Fernanda Napoles RN is Primary Nurse. ed1 21:41 Triage completed. ed1 21:44 Terry Awan MD is Attending Physician. gs 21:46 Arm band placed on. ed1 21:49 Patient has correct armband on for positive identification. Placed in gown. Bed in low ed1 position. Call light in reach. Side rails up X 1. Adult w/ patient. Pulse ox on. NIBP on. Warm blanket given. 22:43 Patient requests pain medication. ed1 22:49 Cyrus Frausto MD is Referral Physician. 23:04 No provider procedures requiring assistance completed. Patient did not have IV access ed1 during this emergency room visit. Administered Medications: 23:04 Drug: Clindamycin 600 mg Route: PO; ed1 23:06 Follow up: Response: Medication administered at discharge. ed1 23:04 Drug: [place] 10 mg-325 mg 1 tabs Route: PO; ed1 23:05 Follow up: Response: Medication administered at discharge. ed1 Outcome: 22:49 Discharge ordered by . gs 23:04 Discharged to home ambulatory, with friend. ed1 23:04 Condition: good 23:04 Discharge instructions given to patient, Instructed on discharge instructions, follow up and referral plans. medication usage, Demonstrated understanding of instructions, follow-up care, medications, Prescriptions given X 1. 23:06 Patient left the ED. ed1 Signatures: Fernanda Napoles RN RN ed1 Nataliia Osman am2 Terry Awan MD MD
--- NOTE | 2018-10-05 22:50 | EDPHYS ---
Physician Documentation [facility] Name: Harvey Callahan Age: 58 yrs Sex: Male : 1960 Arrival Date: 10/05/2018 Time: 21:28 Bed 23 Private MD: ED Physician Terry Awan HPI: 10/06 01:59 This 58 yrs old Male presents to ER via Wheelchair with complaints of Wound gs Check. 01:59 Patient presents to ED for recheck of: abscess. The affected area is on the right gs gluteus catalino. Previous treatment: The patient was initially treated 20 day(s) ago. Progress: The patient reports decreased drainage, pain, redness. The patient has experienced similar episodes in the past, a few times. Historical: - Allergies: 10/05 21:46 No Known Allergies; ed1 - Home Meds: 21:46 amiodarone 200 mg Oral tab 1 tab once daily [Active]; aspirin 81 mg Oral TbEC 1 tab ed1 once daily [Active]; atorvastatin 40 mg Oral tab 1 tab once daily [Active]; carvedilol 6.25 mg Oral tab 0.5 tab 2 times per day [Active]; furosemide 80 mg Oral tab 1 tab once daily [Active]; gabapentin 600 mg Oral tab twice a day [Active]; insulin detemir subcutaneous 10 unit twice a day [Active]; lisinopril 5 mg Oral tab 1 tab once daily [Active]; metformin 1,000 mg Oral tab 1 tab 2 times per day [Active]; omeprazole 20 mg Oral cpDR 1 cap once daily [Active]; potassium chloride 20 mEq Oral TbER 1 tab once daily [Active]; warfarin 5 mg Oral tab 1 tab once daily [Active]; - PMHx: 21:46 Arthritis; CHF; Diabetes - NIDDM; EDEMA; Hyperlipidemia; Hypertension; knee pain; ed1 - PSHx: 21:46 I\T\D; ed1 - Immunization history:: Adult Immunizations up to date, Flu vaccine is not up to date. - Social history:: Smoking status: Patient uses tobacco products, smokes two packs cigarettes per day. - Ebola Screening: : Patient negative for fever greater than or equal to 101.5 degrees Fahrenheit, and additional compatible Ebola Virus Disease symptoms Patient denies exposure to infectious person Patient denies travel to an Ebola-affected area in the 21 days before illness onset No symptoms or risks identified at this time. ROS: 10/06 01:59 Constitutional: Negative for fever. gs All other systems are negative. Exam: 01:59 ENT: Nares patent. No nasal discharge, no septal abnormalities noted. Tympanic gs membranes are normal and external auditory canals are clear. Oropharynx with no redness, swelling, or masses, exudates, or evidence of obstruction, uvula midline. Mucous membranes moist. Cardiovascular: Regular rate and rhythm with a normal S1 and S2. No gallops, murmurs, or rubs. Normal PMI, no JVD. No pulse deficits. Respiratory: Lungs have equal breath sounds bilaterally, clear to auscultation and percussion. No rales, rhonchi or wheezes noted. No increased work of breathing, no retractions or nasal flaring. Abdomen/GI: Soft, non-tender, with normal bowel sounds. No distension or tympany. No guarding or rebound. No evidence of tenderness throughout. 01:59 Constitutional: The patient appears alert, awake. 01:59 Musculoskeletal/extremity: Exam is negative for acute changes. 01:59 Skin: cellulitis, that is minimal, on the right gluteus catalino, wound open good granulation some drainange on gauze but cannot express any pus. discussed with dr lau will put on abx and will see in am.. 01:59 Neuro: Exam negative for acute changes. Vital Signs: 10/05 21:46 BP 100 / 59; Pulse 105; Resp 20; Temp 98.7; Pulse Ox 97% on R/A; Weight 145.15 kg; ed1 Height 5 ft. 7 in. (170.18 cm); Pain 9/10; 23:04 BP 107 / 64; Pulse 91; Resp 20; Pulse Ox 97% on R/A; Pain 9/10; ed1 21:46 Body Mass Index 50.12 (145.15 kg, 170.18 cm) ed1 MDM: 22:02 Patient medically screened. gs 10/06 01:59 Differential diagnosis: cellulitis. Data reviewed: vital signs, nurses notes. Response gs to treatment: the patient's symptoms have markedly improved after treatment, and as a result, I will discharge patient. Administered Medications: 10/05 23:04 Drug: Clindamycin 600 mg Route: PO; ed1 23:06 Follow up: Response: Medication administered at discharge. ed1 23:04 Drug: [place] 10 mg-325 mg 1 tabs Route: PO; ed1 23:05 Follow up: Response: Medication administered at discharge. ed1 Disposition: 10/05/18 22:49 Discharged to Home. Impression: Cellulitis of buttock. - Condition is Stable. - Discharge Instructions: Cellulitis, Adult. - Prescriptions for Clindamycin HCl 300 mg Oral Capsule - take 1 capsule by ORAL route every 6 hours for 7 days; 28 capsule. - Medication Reconciliation Form, Thank You Letter, Antibiotic Education, Prescription Opioid Use form. - Follow up: Cyrus Lau MD; When: Tomorrow; Reason: Wound Recheck, If symptoms return. Signatures: Fernanda Napoles RN RN ed1 Terry Awan MD MD gs Corrections: (The following items were deleted from the chart) 23:06 22:49 10/05/2018 22:49 Discharged to Home. Impression: Cellulitis of buttock. Condition ed1 is Stable. Forms are Medication Reconciliation Form, Thank You Letter, Antibiotic Education, Prescription Opioid Use. Follow up: Cyrus Lau; When: Tomorrow; Reason: Wound Recheck, If symptoms return. gs
[2018-10-05] MEDS ORDERED: HYDROCODONE/APAP 10/325 TAB ONE (23:11)
[2018-10-05] MEDS ORDERED: CLINDAMYCIN HCL 150 MG CAP ONE (23:12)
[2018-10-05 23:27] VITALS: TEMP 98.7; O2SAT 97
[2018-10-05 23:29] VITALS: BP 107/64
== END 2018-10-05 23:06 | disposition home or self-care (01) ==
LOC: ER 21:27
DX: L02.31 Cutaneous abscess of buttock (principal); I11.0 Hypertensive heart disease with heart failure; I50.9 Heart failure, unspecified; E11.9 Type 2 diabetes mellitus without complications; E78.5 Hyperlipidemia, unspecified; I10 Essential (primary) hypertension; Z79.01 Long term (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 anticoagulants; Z79.82 Long term (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 aspirin; Z79.4 Long term (current) use of insulin; F17.210 Nicotine dependence, cigarettes, uncomplicated
CPT/HCPCS: 99283

== ENCOUNTER 2019-01-24 19:38 | Emergency (ER) | payer OTHER ==
[2019-01-24] MEDS ORDERED: HYDROCODONE/APAP 10/325 TAB ONE (20:08)
--- NOTE | 2019-01-24 20:55 | RAD REPORT ---
EXAM DESCRIPTION: RAD - Knee Left 3 View - 01/24/2019 8:46 pm CLINICAL HISTORY: Nontraumatic left knee pain, limited range of motion, limited weight-bearing COMPARISON: April 2014 FINDINGS: No fracture, dislocation or periosteal reaction.No acute or destructive bone process. Sarah ent has a small to moderate joint effusion. Patella femoral joint space narrowing present. There are large spurs present along the superior margin of the patella and superior margin of the femur articul ar surfaces. Medial and lateral compartment narrowing seen with moderate size marginal spurs. No fore ign body in the soft tissues. Subcutaneous fatty tissues appear edematous. Degenerative changes progressive from the 2014 study. IMPRESSION: Prominent tri compartment degenerative change progressive from 2014. Small to moderate joint effusion. No acute bone finding. Clinical concerns for internal derangement or occult bony injury could be further assessed with MR im aging.
[2019-01-24] MEDS ORDERED: TRAMADOL HCL 50 MG TAB ONE (21:12)
--- NOTE | 2019-01-24 21:14 | ER ---
Nurse's Notes [facility] Name: Harvey Callahan Age: 58 yrs Sex: Male : 1960 Arrival Date: 01/24/2019 Time: 19:43 Bed 5 Private MD: Diagnosis: Pain in left knee Presentation: 01/24 19:59 Presenting complaint: Patient states: he is having a lot of knee pain especially in the bb left knee pain has been worse since yesterday he is unable to bear weight on his left leg. Transition of care: patient was not received from another setting of care. Onset of symptoms was January 23, 2019. Risk Assessment: Do you want to hurt yourself or someone else? Patient reports no desire to harm self or others. Initial Sepsis Screen: Does the patient meet any 2 criteria? No. Patient's initial sepsis screen is negative. Does the patient have a suspected source of infection? No. Patient's initial sepsis screen is negative. Care prior to arrival: None. 19:59 Method Of Arrival: Wheelchair bb 19:59 Acuity: DEYANIRA 4 bb Historical: - Allergies: 20:03 No Known Allergies; bb - Home Meds: 20:03 amiodarone 200 mg Oral tab 1 tab once daily [Active]; aspirin 81 mg Oral TbEC 1 tab bb once daily [Active]; atorvastatin 40 mg Oral tab 1 tab once daily [Active]; carvedilol 6.25 mg Oral tab 0.5 tab 2 times per day [Active]; folic acid 1 mg Oral tab 1 tab once daily [Active]; furosemide 80 mg Oral tab 1 tab once daily [Active]; gabapentin 600 mg Oral tab twice a day [Active]; hydroxychloroquine 200 mg Oral tab 1 tab once daily [Active]; insulin detemir subcutaneous 10 unit twice a day [Active]; levalbuterol tartrate 45 mcg inhalation 1 puff four times a day [Active]; lisinopril 5 mg Oral tab 1 tab once daily [Active]; metformin 1,000 mg Oral tab 1 tab 2 times per day [Active]; modafinil 200 mg Oral tab twice a day [Active]; omeprazole 20 mg Oral cpDR 1 cap once daily [Active]; potassium chloride 20 mEq Oral TbER 1 tab once daily [Active]; Prednisone Oral see instructions [Active]; sildenafil 100 mg tab Oral 0.5 tab once daily [Active]; tiotropium bromide 18 mcg inhalation 1 cap once daily [Active]; tramadol 50 mg Oral tab three times a day [Active]; varenicline 1 mg Oral twice a day [Active]; warfarin 5 mg Oral tab 1 tab once daily [Active]; - PMHx: 20:03 Arthritis; CHF; EDEMA; Hyperlipidemia; Hypertension; knee pain; Diabetes - IDDM; bb - PSHx: 20:03 I\T\D; back surgery; Appendectomy; R hand surgery; L knee; bb - Immunization history:: Adult Immunizations up to date. - Social history:: Smoking status: Patient uses tobacco products, smokes two packs cigarettes per day. - Ebola Screening: : No symptoms or risks identified at this time. Screenin:05 Abuse screen: Denies threats or abuse. Denies injuries from another. Nutritional ak1 screening: No deficits noted. Tuberculosis screening: No symptoms or risk factors identified. Fall Risk Ambulatory Aid- Crutches/Cane/Walker (15 pts). Gait- Impaired (20 pts.). Assessment: 19:59 General: Appears in no apparent distress. obese, Behavior is calm, cooperative. Pain: ak1 Complains of pain in bilateral knees. Neuro: Level of Consciousness is awake, alert, obeys commands, Oriented to person, place, time, situation, Moves all extremities. Speech is normal. Cardiovascular: No deficits noted. Respiratory: No deficits noted. GI: No signs and/or symptoms were reported involving the gastrointestinal system. : No signs and/or symptoms were reported regarding the genitourinary system. EENT: No signs and/or symptoms were reported regarding the EENT system. Derm: No signs and/or symptoms reported regarding the dermatologic system. Musculoskeletal: Range of motion: limited in left knee and right knee Reports pain in right knee, left knee. 21:04 Reassessment: Patient appears in no apparent distress at this time. Patient and/or ak1 family updated on plan of care and expected duration. Pain level reassessed. Patient is alert, oriented x 3, equal unlabored respirations, skin warm/dry/pink. pt stated tramadol worked at home before with norco. pt informed that our providers can not prescribe norco but this nurse will ask if the provider will give a script for tramadol. ancelmo applied to left knee for comfort and support. Patient states feeling better. Vital Signs: 20:03 BP 155 / 91; Pulse 88; Resp 18 S; Temp 97.7(TE); Pulse Ox 95% on R/A; Weight 140.61 kg bb (R); Height 5 ft. 7 in. (170.18 cm) (R); Pain 10/10; 20:39 BP 140 / 88; Pulse 79; Resp 18; Pulse Ox 95% on R/A; ak1 20:53 BP 131 / 91; Pulse 84; Resp 18; Pulse Ox 95% on R/A; ak1 20:03 Body Mass Index 48.55 (140.61 kg, 170.18 cm) ED Course: 19:43 Patient arrived in ED. ds1 19:54 Kristy Franco, REZA is Primary Nurse. ak1 19:54 Kvng Elmore NP is PHCP. pm1 19:54 Terry Awan MD is Attending Physician. pm1 20:00 Triage completed. bb 20:03 Arm band placed on Patient placed in an exam room, on a stretcher, on pulse oximetry. bb Family accompanied patient. 20:47 Knee Left 3 View XRAY In Process Unspecified. EDMS 21:05 Patient has correct armband on for positive identification. Bed in low position. Call ak1 light in reach. Side rails up X 1. Adult w/ patient. Pulse ox on. NIBP on. 21:05 No provider procedures requiring assistance completed. Patient did not have IV access ak1 during this emergency room visit. Administered Medications: 20:09 Drug: [place] 10 mg-325 mg 1 tabs {Note: RASS score 0.} Route: PO; ak1 20:53 Follow up: Response: No adverse reaction; Pain is decreased; RASS: Alert and Calm (0) ak1 21:10 Drug: traMADol 50 mg {Note: RASS score 0.} Route: PO; ak1 21:26 Follow up: Response: No adverse reaction; Pain is decreased; RASS: Alert and Calm (0) ak1 Outcome: 21:06 Condition: good ak1 21:13 Discharge ordered by . pm1 21:20 Discharged to home via wheelchair, with family. ak1 21:20 Discharge instructions given to patient, family, Instructed on discharge instructions, follow up and referral plans. no drinking with medication, no driving heavy equipment, medication usage, Demonstrated understanding of instructions, follow-up care, medications, Prescriptions given X 1. 21:27 Patient left the ED. ak1 Signatures: Dispatcher [employer] [facility] VelaArmida cruz ds1 Muriel Rudd RN RN bb Kristy Franco RN RN ak1 Kvng Elmore, REED PRESS FEEDER REED PRESS FEEDER pm1
--- NOTE | 2019-01-24 21:14 | EDPHYS ---
Physician Documentation [facility] Name: Harvey Callahan Age: 58 yrs Sex: Male : 1960 Arrival Date: 01/24/2019 Time: 19:43 Bed 5 Private MD: ED Physician Terry Awan HPI: 01/24 21:03 This 58 yrs old Male presents to ER via Wheelchair with complaints of Left pm1 Knee Pain and Swelling. 21:03 The patient presents with pain, that is chronic, swelling. The complaints affect the pm1 left knee. Context: resulted from arthritis, "bone on bone" and pending bilateral knee replacement once he loses some weight. Patient with bilateral knee pain for multiple years that used to be managed with tramadol and hydrocodone but he had a change in insurance and lost his pain management MD. Patient currently without pain medications. [facility] Treatment prior to arrival includes: no previous treatment. Severity of symptoms: in the emergency department the symptoms are actually worse. The patient has experienced similar episodes in the past, chronically. The patient has not recently seen a physician, has an appointment scheduled, in 1 day(s). Historical: - Allergies: 20:03 No Known Allergies; bb - Home Meds: 20:03 amiodarone 200 mg Oral tab 1 tab once daily [Active]; aspirin 81 mg Oral TbEC 1 tab bb once daily [Active]; atorvastatin 40 mg Oral tab 1 tab once daily [Active]; carvedilol 6.25 mg Oral tab 0.5 tab 2 times per day [Active]; folic acid 1 mg Oral tab 1 tab once daily [Active]; furosemide 80 mg Oral tab 1 tab once daily [Active]; gabapentin 600 mg Oral tab twice a day [Active]; hydroxychloroquine 200 mg Oral tab 1 tab once daily [Active]; insulin detemir subcutaneous 10 unit twice a day [Active]; levalbuterol tartrate 45 mcg inhalation 1 puff four times a day [Active]; lisinopril 5 mg Oral tab 1 tab once daily [Active]; metformin 1,000 mg Oral tab 1 tab 2 times per day [Active]; modafinil 200 mg Oral tab twice a day [Active]; omeprazole 20 mg Oral cpDR 1 cap once daily [Active]; potassium chloride 20 mEq Oral TbER 1 tab once daily [Active]; Prednisone Oral see instructions [Active]; sildenafil 100 mg tab Oral 0.5 tab once daily [Active]; tiotropium bromide 18 mcg inhalation 1 cap once daily [Active]; tramadol 50 mg Oral tab three times a day [Active]; varenicline 1 mg Oral twice a day [Active]; warfarin 5 mg Oral tab 1 tab once daily [Active]; - PMHx: 20:03 Arthritis; CHF; EDEMA; Hyperlipidemia; Hypertension; knee pain; Diabetes - IDDM; bb - PSHx: 20:03 I\\T\\D; back surgery; Appendectomy; R hand surgery; L knee; bb - Immunization history:: Adult Immunizations up to date. - Social history:: Smoking status: Patient uses tobacco products, smokes two packs cigarettes per day. - Ebola Screening: : No symptoms or risks identified at this time. ROS: 21:03 Constitutional: Negative for fever, chills, and weight loss, Eyes: Negative for injury, pm1 pain, redness, and discharge, ENT: Negative for injury, pain, and discharge, Neck: Negative for injury, pain, and swelling, Cardiovascular: Negative for chest pain, palpitations, and edema, Respiratory: Negative for shortness of breath, cough, wheezing, and pleuritic chest pain, Abdomen/GI: Negative for abdominal pain, nausea, vomiting, diarrhea, and constipation, Back: Negative for injury and pain, : Negative for injury, bleeding, discharge, and swelling. 21:03 Skin: Negative for injury, rash, and discoloration, Neuro: Negative for headache, weakness, numbness, tingling, and seizure. 21:03 MS/extremity: Positive for pain, of the left knee and right knee, left greater than right, but left knee is his concern today, Negative for paresthesias, tingling. Exam: 21:03 Constitutional: This is a well developed, well nourished patient who is awake, alert, pm1 and in no acute distress. Head/Face: Normocephalic, atraumatic. Neck: Trachea midline, no thyromegaly or masses palpated, and no cervical lymphadenopathy. Supple, full range of motion without nuchal rigidity, or vertebral point tenderness. No Meningismus. Chest/axilla: Normal chest wall appearance and motion. Nontender with no deformity. No lesions are appreciated. Cardiovascular: Regular rate and rhythm with a normal S1 and S2. No gallops, murmurs, or rubs. Normal PMI, no JVD. No pulse deficits. Respiratory: Lungs have equal breath sounds bilaterally, clear to auscultation and percussion. No rales, rhonchi or wheezes noted. No increased work of breathing, no retractions or nasal flaring. Abdomen/GI: Soft, non-tender, with normal bowel sounds. No distension or tympany. No guarding or rebound. No evidence of tenderness throughout. Back: No spinal tenderness. No costovertebral tenderness. Full range of motion. Skin: Warm, dry with normal turgor. Normal color with no rashes, no lesions, and no evidence of cellulitis. 21:03 Musculoskeletal/extremity: Extremities: grossly normal except: noted in the left knee: swelling, tenderness, Circulation is intact in all extremities. Vital Signs: 20:03 BP 155 / 91; Pulse 88; Resp 18 S; Temp 97.7(TE); Pulse Ox 95% on R/A; Weight 140.61 kg bb (R); Height 5 ft. 7 in. (170.18 cm) (R); Pain 10/10; 20:39 BP 140 / 88; Pulse 79; Resp 18; Pulse Ox 95% on R/A; ak1 20:53 BP 131 / 91; Pulse 84; Resp 18; Pulse Ox 95% on R/A; ak1 20:03 Body Mass Index 48.55 (140.61 kg, 170.18 cm) bb MDM: 20:03 Patient medically screened. pm1 21:11 Data reviewed: vital signs. Data interpreted: Pulse oximetry: on room air is 95 %. pm1 Interpretation: normal. Counseling: I had a detailed discussion with the patient and/or guardian regarding: the historical points, exam findings, and any diagnostic results supporting the discharge/admit diagnosis, radiology results, the need for outpatient follow up, for definitive care, a orthopedic surgeon, to return to the emergency department if symptoms worsen or persist or if there are any questions or concerns that arise at home. 01/24 20:04 Order name: Knee Left 3 View XRAY; Complete Time: :11 pm1 01/24 21:04 Order name: Jori Wrap; Complete Time: 21:04 ak1 Administered Medications: 20:09 Drug: [place] 10 mg-325 mg 1 tabs {Note: RASS score 0.} Route: PO; ak1 20:53 Follow up: Response: No adverse reaction; Pain is decreased; RASS: Alert and Calm (0) ak1 21:10 Drug: traMADol 50 mg {Note: RASS score 0.} Route: PO; ak1 21:26 Follow up: Response: No adverse reaction; Pain is decreased; RASS: Alert and Calm (0) ak1 Disposition: 01/24/19 21:13 Discharged to Home. Impression: Pain in left knee. - Condition is Stable. - Discharge Instructions: Joint Pain, Arthritis, Knee Pain. - Prescriptions for Tramadol 50 mg Oral Tablet - take 1 tablet by ORAL route every 8 hours as needed; 20 tablet. - Medication Reconciliation Form, Thank You Letter, Antibiotic Education, Prescription Opioid Use form. - Follow up: Emergency Department; When: As needed; Reason: Worsening of condition. Follow up: Private Physician; When: 2 - 3 days; Reason: Recheck today's complaints, Continuance of care, Re-evaluation by your physician. - Problem is new. - Symptoms have improved. Addendum: 01/27/2019 03:24 Co-signature as Attending Physician, Terry Awan MD. g s Signatures: Dispatcher [employer] EDMS Muriel Rudd RN RN Kristy Franco RN RN ak1 Kvng Elmore, AIRCRAFT MECHANIC AIRCRAFT MECHANIC pm1 Terry Awan MD MD Corrections: (The following items were deleted from the chart) 01/24 21:27 21:13 01/24/2019 21:13 Discharged to Home. Impression: Pain in left knee. Condition is ak1 Stable. Forms are Medication Reconciliation Form, Thank You Letter, Antibiotic Education, Prescription Opioid Use. Follow up: Emergency Department; When: As needed; Reason: Worsening of condition. Follow up: Private Physician; When: 2 - 3 days; Reason: Recheck today's complaints, Continuance of care, Re-evaluation by your physician. Problem is new. Symptoms have improved. pm1
[2019-01-24 21:50] VITALS: TEMP 97.7; O2SAT 95
[2019-01-24 21:53] VITALS: BP 131/91
== END 2019-01-24 21:27 | disposition home or self-care (01) ==
LOC: ER 19:38
DX: M25.562 Pain in left knee (principal); I10 Essential (primary) hypertension; E11.9 Type 2 diabetes mellitus without complications; E78.5 Hyperlipidemia, unspecified; I50.9 Heart failure, unspecified; Z79.4 Long term (current) use of insulin; Z79.01 Long term (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 anticoagulants; Z79.82 Long term (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 aspirin
CPT/HCPCS: 99284

== ENCOUNTER 2019-11-14 22:46 | Emergency (ER) | payer OTHER ==
[2019-11-14 23:23] LABS: Basophils % 0.7 % (0-1.3); Hematocrit 44.7 % (39.6-49.0); Lymphocytes % 19.8 % (15.3-44.8); MPV 8.9 fL (7.6-11.3); RBC Red Blood Cell Count 5.26 M/uL (4.33-5.43)
[2019-11-14 23:37] LABS: ALT/SGPT 31 U/L (12-78); AST/SGOT 18 U/L (15-37); Albumin 2.9 g/dL (3.4-5.0); Alkaline Phosphatase 94 U/L (45-117); BUN Blood Urea Nitrogen 15 mg/dL (7-18); Bicarbonate 26 mmol/L (21-32); Bilirubin Direct < 0.1 mg/dL (0-0.2); Bilirubin Total 0.2 mg/dL (0.2-1.0); Glucose Level 238 mg/dL (74-106); Magnesium 2.1 mg/dL (1.8-2.4); NT PRO-BNP 75 pg/mL (<125); Potassium 4.4 mmol/L (3.5-5.1); Protein, Total 7.4 g/dL (6.4-8.2); Sodium Level 136 mmol/L (136-145); Troponin (Emerg Dept Use Only) < 0.02 ng/mL (0.0-0.045)
[2019-11-15] MEDS ORDERED: FUROSEMIDE 20 MG/ 2ML VIAL ONE (00:09)
[2019-11-15] MEDS ORDERED: METHYLPREDNISOLONE 125 MG INJ ONE (00:21)
[2019-11-15] MEDS ORDERED: IPRATROPIUM BROM 0.5MG/2.5ML ONE (00:21)
[2019-11-15] MEDS ORDERED: ALBUTEROL 2.5 MG/3 ML NEB SOL ONE (00:21)
[2019-11-15] MEDS ORDERED: KETOROLAC 30 MG/ML INJ ONE (00:39)
[2019-11-15 02:37] VITALS: O2SAT 99
[2019-11-15 02:38] VITALS: BP 115/70
--- NOTE | 2019-11-15 08:23 | RAD REPORT ---
EXAM DESCRIPTION: US - Extrem Venous W Compress Stefan - 11/15/2019 1:59 am CLINICAL HISTORY: Pain;Swelling, both legs COMPARISON: None. TECHNIQUE: Real-time sonographic evaluation of the bilateral lower extremity common femoral, superfi cial femoral, popliteal and posterior tibial veins was performed. FINDINGS: Normal compressibility, flow augmentation, phasic flow and spontaneous flow are identified in the left and right lower extremity common femoral, superficial femoral, popliteal and posterior t ibial veins. No intraluminal filling defects seen. A 3 centimeter left popliteal fossa cyst is present. No cyst rupture or hemorrhage findings. Preliminary findings provided at the time of the study. IMPRESSION: No DVT in either lower extremity. Left popliteal fossa a 3 centimeter cyst. No cyst rupture or hemorrhage findings.
--- NOTE | 2019-11-15 08:38 | RAD REPORT ---
EXAM DESCRIPTION: RAD - Chest Single View - 11/14/2019 11:16 pm CLINICAL HISTORY: SOB COMPARISON: Portable January 2018 TECHNIQUE: AP portable chest image was obtained 11/14/2019 11:16 pm . FINDINGS: No peripheral mass or consolidation seen. Interstitial markings are prominent. Low lung vo lumes and very large body habitus accentuate all chest findings. Cardiomegaly is present similar to c omparison. Mild vascular engorgement seen. No pneumothorax seen. No large pleural effusion. No acute bony abnormality seen. No acute aortic fin dings suspected. IMPRESSION: Shallow inspiration exam showing no focal mass or consolidation. Mild failure or volume overload can be masked in this setting.
--- NOTE | 2019-11-15 19:37 | ER ---
Nurse's Notes [facility] Name: Harvey Callahan Age: 59 yrs Sex: Male : 1960 Arrival Date: 11/14/2019 Time: 22:51 Bed 4 Private MD: Hubert Felder R Diagnosis: Acute dyspnea. Leukocytosis Presentation: 11/13 22:40 Chief complaint: EMS states: Pt reports he started feeling short of breath about an ea hour ago, reports history of CHF. EMS reported sienan upper lobe wheezing, initiated an A\T\A treatment. BP 130/76, HR 87, O2 sats 97% RA, temp 98.1, BGL 260. Coronavirus screen: Proceed with normal triage. Ebola Screen: No symptoms or risks identified at this time. Initial Sepsis Screen: Does the patient meet any 2 criteria? No. Patient's initial sepsis screen is negative. Does the patient have a suspected source of infection? No. Patient's initial sepsis screen is negative. Risk Assessment: Do you want to hurt yourself or someone else? Patient reports no desire to harm self or others. Onset of symptoms was November 14, 2019. 22:40 Method Of Arrival: EMS: [facility] ea 22:40 Acuity: DEYANIRA 3 ea Triage Assessment: 23:06 General: Appears uncomfortable, Behavior is appropriate for age. Pain: Denies pain. ea Neuro: Level of Consciousness is awake, alert, obeys commands, Oriented to person, place, time, situation. Cardiovascular: Patient's skin is warm and dry. Respiratory: Reports shortness of breath at rest on exertion Airway is patent Respiratory effort is even, labored, Respiratory pattern is tachypnea Onset: The symptoms/episode began/occurred this morning, the patient has mild shortness of breath. Derm: Skin is pale. Historical: - PMHx: 22:53 Arthritis; CHF; Diabetes - IDDM; Diabetes - NIDDM; EDEMA; Hyperlipidemia; Hypertension; mg2 knee pain; - PSHx: 22:53 I\T\D; back surgery; Appendectomy; R hand surgery; L knee; mg2 - Immunization history:: Adult Immunizations up to date. - Social history:: Smoking status: Patient reports the use of cigarette tobacco products, smokes one pack cigarettes per day. Screenin:05 Abuse screen: Denies threats or abuse. Nutritional screening: No deficits noted. ea Tuberculosis screening: No symptoms or risk factors identified. Fall Risk None identified. Assessment: 23:07 Cardiovascular: Rhythm is sinus rhythm. ea 23:07 Respiratory: Airway is patent Respiratory effort is even, Respiratory pattern is ea symmetrical, tachypnea Breath sounds are diminished. 11/14 00:23 Reassessment: Patient and/or family updated on plan of care and expected duration. Pain ea level reassessed. Patient is alert, oriented x 3, equal unlabored respirations, skin warm/dry/pink. 01:15 Reassessment: Patient and/or family updated on plan of care and expected duration. Pain ea level reassessed. Patient is alert, oriented x 3, equal unlabored respirations, skin warm/dry/pink. Ultrasound at bedside. 02:14 Reassessment: daughter in law contacted to pick the pt up. she will come in 20 mg2 [phone]. Vital Signs: 11/13 22:40 BP 121 / 79; Pulse 90; Resp 24; Temp 97.8; Pulse Ox 97% on R/A; Weight 145.15 kg; ea Height 5 ft. 7 in. (170.18 cm); 11/14 00:53 BP 137 / 66; Pulse 87; Resp 22; Pulse Ox 99% ; ea 01:21 BP 115 / 70; Pulse 80; Resp 20; Pulse Ox 99% on R/A; ea 11/13 22:40 Body Mass Index 50.12 (145.15 kg, 170.18 cm) ea ED Course: 11/13 22:51 Patient arrived in ED. mg2 22:51 Hubert Felder MD is Private Physician. mg2 22:54 [facility]. cp 22:54 Darell Melgar MD is Attending Physician. cp 23:00 Inserted saline lock: 20 gauge in left forearm, using aseptic technique. Blood mg2 collected. 23:05 Triage completed. ea 23:05 Patient has correct armband on for positive identification. potline monitor on. Pulse mg2 ox on. NIBP on. Door closed. Warm blanket given. 23:05 Arm band placed on right wrist. Patient placed in an exam room, on a stretcher, on ea pulse oximetry. 23:05 No provider procedures requiring assistance completed. mg2 23:09 Montserrat Argueta, RN is Primary Nurse. ea 23:17 XRAY Chest (1 view) In Process Unspecified. EDMS 11/14 01:59 US Extremity Venous W Compression [place] In Process Unspecified. EDMS Administered Medications: 00:00 Drug: Lasix 20 mg Route: IVP; Site: left antecubital; ea 00:30 Follow up: Response: No adverse reaction ea 00:22 Drug: SOLU-Medrol 125 mg Route: IVP; Site: left antecubital; ea 00:54 Follow up: Response: No adverse reaction ea 00:22 Drug: Albuterol - atroVENT (3:1) (2.5 mg - 0.5 mg) 3 ml Route: Nebulizer; ea 00:54 Follow up: Response: No adverse reaction ea 00:34 Drug: TORadol - Ketorolac 15 mg Route: IVP; Site: left antecubital; ea 00:55 Follow up: Response: No adverse reaction ea Outcome: 02:07 Discharge ordered by . mary 02:13 Discharge instructions given to patient, Instructed on discharge instructions, follow ea up and referral plans. medication usage, Demonstrated understanding of instructions, follow-up care, medications, Prescriptions given X 1. 02:22 Patient left the ED. sg Signatures: Dispatcher [employer] EDMS Campos Keenan RN RN sg Lam, Pin, MD MD pkl Page, Corey, PA PA cp Antunez, Elena, RN Keagan Elmore ea, RN RN mg2
--- NOTE | 2019-11-15 19:37 | EDPHYS ---
Physician Documentation [facility] Name: Harvey Callahan Age: 59 yrs Sex: Male : 1960 Arrival Date: 11/14/2019 Time: 22:51 Bed 4 Private MD: Hubert Felder R ED Physician Darell Melgar HPI: 11/13 22:55 This 59 yrs old Male presents to ER via Unassigned with complaints of cp Shortness Of Breath. 22:55 The patient has shortness of breath at rest. cp 22:55 Onset: The symptoms/episode began/occurred gradually, and became worse today. Duration: cp The symptoms are continuous, and are steadily getting worse. Associated signs and symptoms: Pertinent positives: numbness in extremities, swelling of feet and pain of lower legs, Pertinent negatives: chest pain, productive cough, diaphoresis, fever. Severity of symptoms: in the emergency department the symptoms are unchanged despite EMS interventions. The patient has experienced similar episodes in the past, multiple times. Historical: - PMHx: 22:53 Arthritis; CHF; Diabetes - IDDM; Diabetes - NIDDM; EDEMA; Hyperlipidemia; Hypertension; mg2 knee pain; - PSHx: 22:53 I\T\D; back surgery; Appendectomy; R hand surgery; L knee; mg2 - Immunization history:: Adult Immunizations up to date. - Social history:: Smoking status: Patient reports the use of cigarette tobacco products, smokes one pack cigarettes per day. ROS: 23:00 Constitutional: Negative for body aches, chills, fever, poor PO intake. cp 23:00 Eyes: Negative for injury, pain, redness, and discharge. cp 23:00 ENT: Negative for drainage from ear(s), ear pain, sore throat, difficulty swallowing, difficulty handling secretions. 23:00 Cardiovascular: Positive for edema, Negative for chest pain, palpitations. 23:00 Respiratory: Positive for shortness of breath, at rest. Negative for cough, wheezing. 23:00 Abdomen/GI: Negative for abdominal pain, nausea, vomiting, and diarrhea. 23:00 Back: Negative for pain at rest, pain with movement. 23:00 Neuro: Negative for altered mental status, headache, syncope, weakness. 23:00 All other systems are negative. Exam: 23:05 ECG was reviewed by the Attending Physician. cp 23:08 Constitutional: The patient appears in no acute distress, alert, awake, cp non-diaphoretic, non-toxic, well developed, well nourished, obese. 23:08 Head/Face: Normocephalic, atraumatic. cp 23:08 Eyes: Periorbital structures: appear normal, Conjunctiva: normal, no exudate, no injection, Lids and lashes: appear normal, bilaterally. 23:08 ENT: External ear(s): are unremarkable, Ear canal(s): are normal, clear, TM's: bulging, is not appreciated, bilaterally, erythema, is not appreciated, bilaterally, Nose: is normal, Mouth: Lips: moist, Oral mucosa: pink and intact, moist, Posterior pharynx: is normal, airway is patent, no erythema, no exudate. 23:08 Neck: ROM/movement: is normal, is supple, without pain, no range of motions limitations. 23:08 Chest/axilla: Inspection: normal, Palpation: is normal, no crepitus, no tenderness. 23:08 Cardiovascular: Rate: normal, Rhythm: regular, Edema: pedal edema, that is mild, JVD: is not appreciated. 23:08 Respiratory: the patient does not display signs of respiratory distress, Respirations: labored breathing, that is mild, intercostal retractions, are absent, Breath sounds: decreased breath sounds, that are moderate, throughout, stridor, is not appreciated, wheezing: is not appreciated. 23:08 Abdomen/GI: Inspection: obese Palpation: abdomen is soft and non-tender, in all quadrants. 23:08 Back: pain, is absent, ROM is normal. 23:08 Skin: cellulitis, is not appreciated, no rash present. 23:08 Neuro: Orientation: to person, place \T\ time. Mentation: is normal, Motor: moves all fours, strength is normal. Vital Signs: 22:40 BP 121 / 79; Pulse 90; Resp 24; Temp 97.8; Pulse Ox 97% on R/A; Weight 145.15 kg; ea Height 5 ft. 7 in. (170.18 cm); 11/14 00:53 BP 137 / 66; Pulse 87; Resp 22; Pulse Ox 99% ; ea 01:21 BP 115 / 70; Pulse 80; Resp 20; Pulse Ox 99% on R/A; ea 11/13 22:40 Body Mass Index 50.12 (145.15 kg, 170.18 cm) ea MDM: 11/13 22:57 Patient medically screened. cp 23:10 Differential diagnosis: asthma, Bronchitis CHF exacerbation, Chronic Obstructive cp Pulmonary Disease Pneumothorax pulmonary edema, Pulmonary Embolism Unstable Angina DVT. 11/14 02:00 Data reviewed: vital signs, nurses notes, lab test result(s), radiologic studies, plain pkl films, ultrasound. ED course: Patient feeling better. Discussed lab. and imaging studies with patient. Advised to follow up at [facility] in 1 to 2 days. Return if necessary. 11/13 22:59 Order name: Basic Metabolic Panel; Complete Time: 23:51 11/13 23:51 Interpretation: Normal except: GLUC 238; GFR 64. 11/13 22:59 Order name: CBC with Diff; Complete Time: 00:07 cp 11/14 00:07 Interpretation: Normal except: WBC 15.4; RDW 16.0; NEUT A 11.2. 11/13 22:59 Order name: LFT's; Complete Time: 23:51 11/13 22:59 Order name: Magnesium; Complete Time: 23:51 11/13 22:59 Order name: NT PRO-BNP; Complete Time: 23:51 11/13 23:51 Interpretation: NT PRO-BNP 75; Reviewed. 11/13 22:59 Order name: PT-INR; Complete Time: 00:44 11/13 22:59 Order name: Troponin (emerg Dept Use Only); Complete Time: 23:51 11/13 22:59 Order name: XRAY Chest (1 view) 11/14 00:24 Order name: US Extremity Venous W Compression Stefan 11/14 00:26 Order name: LAB Add On 11/14 00:32 Order name: D-Dimer; Complete Time: 00:44 EDMS 11/14 00:44 Interpretation: Reviewed. 11/13 22:59 Order name: Cardiac monitoring; Complete Time: 23:02 11/13 22:59 Order name: EKG - Nurse/Tech; Complete Time: 23:02 cp 11/13 22:59 Order name: IV Saline Lock; Complete Time: 23:02 11/13 22:59 Order name: Labs collected and sent; Complete Time: 23:02 cp 11/13 22:59 Order name: O2 Per Protocol; Complete Time: 23:02 cp 11/13 22:59 Order name: O2 Sat Monitoring; Complete Time: 23:02 cp EC/31 23:05 Rate is 81 beats/min. Rhythm is regular. MT interval is normal. QRS interval is normal. cp QT interval is normal. T waves are Inverted in lead aVR. Interpreted by me. Reviewed by me. Administered Medications: 11/14 00:00 Drug: Lasix 20 mg Route: IVP; Site: left antecubital; ea 00:30 Follow up: Response: No adverse reaction ea 00:22 Drug: SOLU-Medrol 125 mg Route: IVP; Site: left antecubital; ea 00:54 Follow up: Response: No adverse reaction ea 00:22 Drug: Albuterol - atroVENT (3:1) (2.5 mg - 0.5 mg) 3 ml Route: Nebulizer; ea 00:54 Follow up: Response: No adverse reaction ea 00:34 Drug: TORadol - Ketorolac 15 mg Route: IVP; Site: left antecubital; ea 00:55 Follow up: Response: No adverse reaction ea Disposition: 02:00 Co-signature as Attending Physician, Darell Melgar MD. pkl Disposition: 11/15/19 02:07 Discharged to Home. Impression: Acute dyspnea. Leukocytosis. - Condition is Stable. - Prescriptions for Zithromax Z- Jose L 250 mg Oral Tablet - take 1 tablet by ORAL route as directed for 5 days Day 1 - take two (2) tablets one time. Day 2, 3, 4 , 5 take one (1) tablet once daily.; 6 tablet. Tylenol- Codeine #3 300-30 mg Oral Tablet - take 1 tablet by ORAL route every 8 hours As needed; 15 tablet. - Medication Reconciliation Form, Thank You Letter, Antibiotic Education, Prescription Opioid Use form. - Follow up: Private Physician; When: 1 - 2 days; Reason: Re-evaluation by your physician. - Problem is new. - Symptoms have improved. Signatures: Dispatcher [employer] EDCampos Reyez RN RN sg Lam, MD KEENAN Lozoya pkl Jame Sharif PA PA cp Antunez, Elena, RN RN ea Gardose, Michele, RN RN mg2 Corrections: (The following items were deleted from the chart) 00:31 00:27 D-DIMER+COAG.LAB.BRZ ordered. EDMT EDMS 02:22 02:07 11/15/2019 02:07 Discharged to Home. Impression: Acute dyspnea. Leukocytosis. sg Condition is Stable. Forms are Medication Reconciliation Form, Thank You Letter, Antibiotic Education, Prescription Opioid Use. Follow up: Private Physician; When: 1 - 2 days; Reason: Re-evaluation by your physician. Problem is new. Symptoms have improved. pkl
== END 2019-11-15 02:22 | disposition home or self-care (01) ==
LOC: ER 22:46
DX: D72.829 Elevated white blood cell count, unspecified (principal); F17.210 Nicotine dependence, cigarettes, uncomplicated; I10 Essential (primary) hypertension; R60.9 Edema, unspecified
CPT/HCPCS: 85025; 80048; 36415; 83735; 85610; 85379; 80076; 84484; 83880; 71045; 93970; 94640; 96375; 96374; 99285; J1940; J2930

== ENCOUNTER 2020-11-21 14:37 | Emergency (ER) | payer OTHER ==
--- NOTE | 2020-11-21 16:27 | RAD REPORT ---
EXAM DESCRIPTION: Deepa Single View11/21/2020 4:19 pm CLINICAL HISTORY: Shortness of breath COMPARISON: 2019 FINDINGS: The lungs appear clear of acute infiltrate. The heart is mildly enlarged IMPRESSION: No acute abnormalities displayed
[2020-11-21] MEDS ORDERED: MORPHINE 4 MG/ML SYR ONE (16:29)
[2020-11-21] MEDS ORDERED: ONDANSETRON 4 MG/2 ML VIAL ONE (16:29)
[2020-11-21 16:37] LABS: Absolute Lymphocytes (CBC) 3.4 K/uL (0.7-4.9); Basophils % 1.1 % (0-1.3); Hematocrit 50.6 % (39.6-49.0); Lymphocytes % 19.3 % (15.3-44.8); MPV 9.1 fL (7.6-11.3)
[2020-11-21 16:47] LABS: Protime INR 1.01
[2020-11-21 17:12] LABS: ALT/SGPT 33 U/L (12-78); AST/SGOT 22 U/L (15-37); Albumin 3.4 g/dL (3.4-5.0); Alkaline Phosphatase 92 U/L (45-117); BUN Blood Urea Nitrogen 11 mg/dL (7-18); Bicarbonate 27 mmol/L (21-32); Bilirubin Direct < 0.1 mg/dL (0-0.2); Bilirubin Total 0.3 mg/dL (0.2-1.0); Glucose Level 230 mg/dL (74-106); Magnesium 2.4 mg/dL (1.8-2.4); NT PRO-BNP 61 pg/mL (<125); Potassium 3.8 mmol/L (3.5-5.1); Protein, Total 8.3 g/dL (6.4-8.2); Sodium Level 140 mmol/L (136-145); Troponin (Emerg Dept Use Only) < 0.02 ng/mL (0.0-0.045)
--- NOTE | 2020-11-21 17:40 | RAD REPORT ---
EXAM DESCRIPTION: USExtrem Venous W Compress Bil11/21/2020 5:07 pm CLINICAL HISTORY: Leg swelling COMPARISON: 2019 FINDINGS: The common femoral, superficial femoral, popliteal and posterior tibial veins bilaterally are compressible and demonstrate augmentation. Doppler demonstrates good flow. A 3.2 centimeter left Gonzales's cyst IMPRESSION: No evidence of deep venous thrombosis involving either lower extremity. 3.2 centimeter left Gonzales's cyst
--- NOTE | 2020-11-21 17:40 | ER ---
Nurse's Notes [facility] [place] Name: Harvey Callahan Age: 60 yrs Sex: Male : 1960 Arrival Date: 11/21/2020 Time: 14:41 Bed 17 Private MD: Diagnosis: Cellulitis of left lower limb;Cellulitis of right lower limb;Elevated white blood cell count Presentation: 11/21 14:56 Chief complaint: Patient states: Bilateral leg swelling and pain, worse on R side, ph redness noted to R [place] area, denies fever, reports hx of leg swelling but states that it has gotten progressively worse over the last week. Coronavirus screen: Client denies travel out of the [place] in the last 14 days. At this time, the client does not indicate any symptoms associated with coronavirus-19. Ebola Screen: No symptoms or risks identified at this time. Initial Sepsis Screen: Does the patient meet any 2 criteria? No. Patient's initial sepsis screen is negative. Does the patient have a suspected source of infection? No. Patient's initial sepsis screen is negative. Risk Assessment: Do you want to hurt yourself or someone else? Patient reports no desire to harm self or others. Onset of symptoms was November 21, 2020. 14:56 Method Of Arrival: Wheelchair 14:56 Acuity: DEYANIRA 3 ph Historical: - Allergies: 15:01 No Known Allergies; ph - PMHx: 15:01 Arthritis; CHF; Diabetes - IDDM; Diabetes - NIDDM; EDEMA; Hyperlipidemia; Hypertension; ph knee pain; - PSHx: 15:01 I\T\D; back surgery; Appendectomy; R hand surgery; L knee; ph - Immunization history:: Client reports receiving the 2nd dose of the Covid vaccine. - Social history:: Smoking status: Patient reports the use of cigarette tobacco products, smokes one pack cigarettes per day. Screenin:23 Abuse screen: Denies threats or abuse. Nutritional screening: No deficits noted. jd3 Tuberculosis screening: No symptoms or risk factors identified. Fall Risk Ambulatory Aid- None/Bed Rest/Nurse Assist (0 pts). Gait- Normal/Bed Rest/Wheelchair (0 pts) Mental Status- Oriented to own ability (0 pts). Total Reeves Fall Scale indicates No Risk (0-24 pts). Assessment: 16:22 General: Appears in no apparent distress. comfortable, Behavior is calm, cooperative, jd3 appropriate for age. Pain: Complains of pain in right leg and left leg Quality of pain is described as sharp, tender. Neuro: Level of Consciousness is awake, alert, obeys commands, Oriented to person, place, time, situation. Cardiovascular: Denies chest pain, Capillary refill < 3 seconds Patient's skin is warm and dry. Respiratory: Airway is patent Respiratory effort is even, unlabored, Respiratory pattern is regular, symmetrical. GI: No signs and/or symptoms were reported involving the gastrointestinal system. : No signs and/or symptoms were reported regarding the genitourinary system. EENT: No signs and/or symptoms were reported regarding the EENT system. Derm: Skin is intact, Skin is dry, Skin is normal, Skin temperature is warm. Musculoskeletal: Circulation, motion, and sensation intact. Range of motion: intact in all extremities, Swelling present in right leg and left leg. 17:35 Reassessment: Patient appears in no apparent distress at this time. Patient and/or jd3 family updated on plan of care and expected duration. Pain level reassessed. Patient is alert, oriented x 3, equal unlabored respirations, skin warm/dry/pink. 18:00 Reassessment: Patient appears in no apparent distress at this time. Patient and/or jd3 family updated on plan of care and expected duration. Pain level reassessed. Patient is alert, oriented x 3, equal unlabored respirations, skin warm/dry/pink. Patient states feeling better. Vital Signs: 14:56 BP 110 / 74; Pulse 103; Resp 18; Temp 99.8(O); Pulse Ox 96% ; Weight 131.54 kg; Height ph 5 ft. 7 in. (170.18 cm); 17:36 BP 120 / 82; Pulse 99; Resp 18 S; Pulse Ox 97% on R/A; jd3 14:56 Body Mass Index 45.42 (131.54 kg, 170.18 cm) ph ED Course: 14:41 Patient arrived in ED. ds1 14:59 Triage completed. ph 14:59 Arm band placed on right wrist. ph 15:33 [facility] Valadez [facility]-C [facility]. kb 15:33 Maulik Goodman MD is Attending Physician. kb 16:05 Shabbir Velasquez, RN is Primary Nurse. jd3 16:19 XRAY Chest (1 view) In Process Unspecified. EDMS 16:22 Inserted saline lock: 20 gauge in right forearm, using aseptic technique. Blood jd3 collected. 16:24 Patient has correct armband on for positive identification. Bed in low position. Call jd3 light in reach. Side rails up X 1. Adult w/ patient. 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 Pulse ox on. NIBP on. 17:07 US Extremity Venous W Compression Stefan In Process Unspecified. EDMS 17:59 No provider procedures requiring assistance completed. IV discontinued, intact, jd3 bleeding controlled, No redness/swelling at site. Pressure dressing applied. Administered Medications: 16:20 Drug: morphine 4 mg Route: IVP; Site: right forearm; jd3 17:20 Follow up: Response: No adverse reaction; RASS: Alert and Calm (0) jd3 16:20 Drug: Zofran (Ondansetron) 4 mg Route: IVP; Site: right forearm; jd3 17:20 Follow up: Response: No adverse reaction jd3 17:58 Drug: Bactrim (trimethoprim-sulfamethoxazole) (160 mg-800 mg (DS) 1 tablet Route: PO; jd3 17:58 Follow up: Response: Medication administered at discharge. jd3 17:58 Drug: KeFLEX (cephalexin) 500 mg Route: PO; jd3 17:58 Follow up: Response: Medication administered at discharge. jd3 17:58 Drug: [place] (HYDROcodone-acetaminophen) 10 mg-325 mg 1 tabs Route: PO; jd3 17:59 Follow up: Response: Medication administered at discharge.; RASS: Alert and Calm (0) jd3 Outcome: 17:39 Discharge ordered by . kb 17:59 Discharged to home via wheelchair, with family. jd3 17:59 Condition: stable 17:59 Discharge instructions given to patient, family, Instructed on discharge instructions, follow up and referral plans. medication usage, Demonstrated understanding of instructions, follow-up care, medications, Prescriptions given X 3. 18:00 Patient left the ED. jd3 Signatures: Dispatcher [employer] EDNY Lesly Valadez, MERLINE GARCIAP-Armida Bolaños ds1 Esme Moran RN RN Shabbir Velasquez, RN RN jd3
--- NOTE | 2020-11-21 17:40 | EDPHYS ---
Physician Documentation [facility] Name: Harvey Callahan Age: 60 yrs Sex: Male : 1960 Arrival Date: 11/21/2020 Time: 14:41 Bed 17 Private MD: ED Physician Maulik Goodman HPI: 11/21 16:43 This 60 yrs old Male presents to ER via Wheelchair with complaints of Leg kb Swelling. 16:43 The patient presents with pain, swelling. The complaints affect the right and left kb lower legs. Context: The problem was sustained at home, resulted from an unknown cause, the patient can fully bear weight, the patient is able to ambulate. Onset: The symptoms/episode began/occurred weeks ago but worse this week. Modifying factors: The symptoms are alleviated by nothing. the symptoms are aggravated by nothing. Associated signs and symptoms: Pertinent positives: swelling. Treatment prior to arrival includes: no previous treatment. Severity of symptoms: At their worst the symptoms were moderate, in the emergency department the symptoms are unchanged. The patient has experienced similar episodes in the past. The patient has not recently seen a physician. Pt reports redness, swelling and pain to bilateral lower extremities. States it started weeks ago, but the pain has been worse this week. [facility] told that [facility] couldn't administer pain medication so he came here instead. Historical: - Allergies: 15:01 No Known Allergies; ph - PMHx: 15:01 Arthritis; CHF; Diabetes - IDDM; Diabetes - NIDDM; EDEMA; Hyperlipidemia; Hypertension; ph knee pain; - PSHx: 15:01 I\T\D; back surgery; Appendectomy; R hand surgery; L knee; ph - Immunization history:: Client reports receiving the 2nd dose of the Covid vaccine. - Social history:: Smoking status: Patient reports the use of cigarette tobacco products, smokes one pack cigarettes per day. ROS: 16:42 Constitutional: Negative for fever, chills, and weight loss. kb 16:42 Respiratory: Positive for shortness of breath. 16:42 MS/extremity: Positive for pain, of the left leg and right leg. 16:42 Skin: Positive for erythema, swelling, of the right leg and left leg. 16:42 All other systems are negative. Exam: 16:37 Constitutional: This is a well developed, well nourished patient who is awake, alert, kb and in no acute distress. Head/Face: Normocephalic, atraumatic. ENT: Moist Mucous membranes Cardiovascular: Regular rate and rhythm with a normal S1 and S2. No gallops, murmurs, or rubs. No pulse deficits. Respiratory: Respirations even and unlabored. No increased work of breathing, no retractions or nasal flaring. Abdomen/GI: Soft, non-tender. No distention MS/ Extremity: Pulses equal, no cyanosis. Neurovascular intact. Full, normal range of motion. Neuro: Awake and alert, GCS 15, oriented to person, place, time, and situation. Moves all extremities. Normal gait. Psych: Awake, alert, with orientation to person, place and time. Behavior, mood, and affect are within normal limits. 16:37 Cardiovascular: Edema: pedal edema. 16:37 ECG was reviewed by the Attending Physician. 16:37 Skin: cellulitis, that is moderate, on the right leg and left leg. Vital Signs: 14:56 BP 110 / 74; Pulse 103; Resp 18; Temp 99.8(O); Pulse Ox 96% ; Weight 131.54 kg; Height ph 5 ft. 7 in. (170.18 cm); 17:36 BP 120 / 82; Pulse 99; Resp 18 S; Pulse Ox 97% on R/A; jd3 14:56 Body Mass Index 45.42 (131.54 kg, 170.18 cm) ph MDM: 15:34 Patient medically screened. kb 16:42 Data reviewed: vital signs, nurses notes. Data interpreted: Pulse oximetry: on room air kb is 96 %. Interpretation: normal. 17:38 Counseling: I had a detailed discussion with the patient and/or guardian regarding: the kb historical points, exam findings, and any diagnostic results supporting the discharge/admit diagnosis, lab results, radiology results, the need for outpatient follow up, a family practitioner, to return to the emergency department if symptoms worsen or persist or if there are any questions or concerns that arise at home. ED course: Discussed case with ERP. . 17:42 ED course: [employer] aware reviewed. Last prescription filled on 11/14/2019. kb 11/21 15:44 Order name: Basic Metabolic Panel kb 11/21 15:44 Order name: CBC with Diff kb 11/21 15:44 Order name: LFT's; Complete Time: 17:13 kb 11/21 15:44 Order name: Magnesium; Complete Time: 17:13 kb 11/21 15:44 Order name: NT PRO-BNP; Complete Time: 17:13 kb 11/21 15:44 Order name: PT-INR; Complete Time: 16:56 kb 11/21 15:44 Order name: Troponin (emerg Dept Use Only); Complete Time: 17:13 kb 11/21 15:44 Order name: XRAY Chest (1 view); Complete Time: 16:34 kb 11/21 15:44 Order name: US Extremity Venous W Compression Stefan; Complete Time: 17:42 kb 11/21 15:44 Order name: Basic Metabolic Panel; Complete Time: 17:13 EDMS 11/21 15:44 Order name: CBC with Automated Diff; Complete Time: 16:45 EDMS 11/21 15:44 Order name: EKG; Complete Time: 15:45 kb 11/21 15:44 Order name: Cardiac monitoring; Complete Time: 16:14 kb 11/21 15:44 Order name: EKG - Nurse/Tech; Complete Time: 16:05 kb 11/21 15:44 Order name: IV Saline Lock; Complete Time: 16:20 kb 11/21 15:44 Order name: Labs collected and sent; Complete Time: 16:20 kb 11/21 15:44 Order name: O2 Per Protocol; Complete Time: 16:14 kb 11/21 15:44 Order name: O2 Sat Monitoring; Complete Time: 16:14 kb EC:37 Rate is 100 beats/min. Rhythm is regular. QRS [place] is Normal. NH interval is normal at kb 166 msec. QRS interval is normal at 102 msec. QT interval is normal at 364 msec. Administered Medications: 16:20 Drug: morphine 4 mg Route: IVP; Site: right forearm; jd3 17:20 Follow up: Response: No adverse reaction; RASS: Alert and Calm (0) jd3 16:20 Drug: Zofran (Ondansetron) 4 mg Route: IVP; Site: right forearm; jd3 17:20 Follow up: Response: No adverse reaction jd3 17:58 Drug: Bactrim (trimethoprim-sulfamethoxazole) (160 mg-800 mg (DS) 1 tablet Route: PO; jd3 17:58 Follow up: Response: Medication administered at discharge. jd3 17:58 Drug: KeFLEX (cephalexin) 500 mg Route: PO; jd3 17:58 Follow up: Response: Medication administered at discharge. jd3 17:58 Drug: [place] (HYDROcodone-acetaminophen) 10 mg-325 mg 1 tabs Route: PO; jd3 17:59 Follow up: Response: Medication administered at discharge.; RASS: Alert and Calm (0) jd3 Disposition: 18:26 Co-signature as Attending Physician, Maulik Goodman MD. rn Disposition: 11/21/20 17:39 Discharged to Home. Impression: Cellulitis of left lower limb, Cellulitis of right lower limb, Elevated white blood cell count. - Condition is Stable. - Discharge Instructions: Cellulitis, Adult, [id number]. - Prescriptions for Keflex 500 mg Oral Capsule - take 1 capsule by ORAL route every 8 hours for 10 days; 30 capsule. Tramadol 50 mg Oral Tablet - take 1 tablet by ORAL route every 8 hours as needed; 12 tablet. Bactrim DS 800- 160 mg Oral Tablet - take 1 tablet by ORAL route every 12 hours for 10 days; 20 tablet. - Medication Reconciliation Form, Thank You Letter, Antibiotic Education, Prescription Opioid Use form. - Follow up: Private Physician; When: 2 - 3 days; Reason: Recheck today's complaints, Continuance of care, Re-evaluation by your physician. Follow up: Emergency Department; When: As needed; Reason: Worsening of condition. Signatures: Dispatcher [employer] EDPA Lesly Valadez, TARIFF PUBLISHING AGENT-C TARIFF PUBLISHING AGENT-Ckb Maulik Goodman ph D, MD MD rn Hall, Patricia, RN RNavies, Jonathon, RN RN jd3 Corrections: (The following items were deleted from the chart) 17:41 17:39 11/21/2020 17:39 Discharged to Home. Impression: Cellulitis of left lower limb; kb Cellulitis of right lower limb. Condition is Stable. Forms are Medication Reconciliation Form, Thank You Letter, Antibiotic Education, Prescription Opioid Use. Follow up: Private Physician; When: 2 - 3 days; Reason: Recheck today's complaints, Continuance of care, Re-evaluation by your physician. Follow up: Emergency Department; When: As needed; Reason: Worsening of condition. kb 18:00 17:41 11/21/2020 17:39 Discharged to Home. Impression: Cellulitis of left lower limb; jd3 Cellulitis of right lower limb; Elevated white blood cell count. Condition is Stable. Discharge Instructions: Cellulitis, Adult, [id number]. Prescriptions for Keflex 500 mg Oral Capsule - take 1 capsule by ORAL route every 8 hours for 10 days; 30 capsule, Tramadol 50 mg Oral Tablet - take 1 tablet by ORAL route every 8 hours as needed; 12 tablet, Bactrim DS 800-160 mg Oral Tablet - take 1 tablet by ORAL route every 12 hours for 10 days; 20 tablet. and Forms are Medication Reconciliation Form, Thank You Letter, Antibiotic Education, Prescription Opioid Use. Follow up: Private Physician; When: 2 - 3 days; Reason: Recheck today's complaints, Continuance of care, Re-evaluation by your physician. Follow up: Emergency Department; When: As needed; Reason: Worsening of condition. kb
[2020-11-21] MEDS ORDERED: CEPHALEXIN 250 MG CAP ONE (18:02)
[2020-11-21] MEDS ORDERED: HYDROCODONE/APAP 10/325 TAB ONE (18:02)
[2020-11-21] MEDS ORDERED: SMZ./TMP. 800/160 MG TABLET ONE (18:03)
[2020-11-21 18:07] VITALS: TEMP 99.8
[2020-11-21 18:09] VITALS: BP 120/82; O2SAT 97
--- NOTE | 2020-11-22 16:01 | EKG ---
Test Date: 2020-11-21 Test Time: 16:03:05 Child Support Case Officer: CACHORRO MEASUREMENT RESULTS: Intervals: Rate: 100 IA: 166 QRSD: 102 QT: 364 QTc: 469 [place]: P: 44 IA: 166 QRS: 69 T: 61 INTERPRETIVE STATEMENTS: Normal sinus rhythm Normal ECG Compared to ECG 11/14/2019 22:59:22 No significant changes Electronically Signed On 11-22-20 16:00:00 CDT by Anshul Merritt
== END 2020-11-21 18:00 | disposition home or self-care (01) ==
LOC: ER 14:37
DX: L03.116 Cellulitis of left lower limb (principal); L03.115 Cellulitis of right lower limb; D72.829 Elevated white blood cell count, unspecified; I10 Essential (primary) hypertension; F17.210 Nicotine dependence, cigarettes, uncomplicated
CPT/HCPCS: 85025; 80048; 36415; 83735; 85610; 80076; 84484; 83880; 71045; 93970; J2405; 93005; 96374; 96375; 99284

== ENCOUNTER 2020-12-13 18:09 | Emergency (ER) | payer OTHER ==
[2020-12-13 21:02] LABS: Absolute Lymphocytes (CBC) 3.5 K/uL (0.7-4.9); Basophils % 0.7 % (0-1.3); Hematocrit 45.1 % (39.6-49.0); Lymphocytes % 22.8 % (15.3-44.8); MPV 8.9 fL (7.6-11.3); RBC Red Blood Cell Count 5.33 M/uL (4.33-5.43)
[2020-12-13] MEDS ORDERED: MORPHINE 4 MG/ML SYR ONE (21:03)
[2020-12-13] MEDS ORDERED: ONDANSETRON 4 MG/2 ML VIAL ONE (21:03)
[2020-12-13] MEDS ORDERED: NA CHLORIDE 0.9% 1,000 ML ONE (21:04)
[2020-12-13] MEDS ORDERED: CLINDAMYCIN 600MG/D5W 600 MG/50 ML BAG IV ONE (21:04)
[2020-12-13 21:21] LABS: ALT/SGPT 27 U/L (12-78); AST/SGOT 19 U/L (15-37); Albumin 3.2 g/dL (3.4-5.0); Alkaline Phosphatase 74 U/L (45-117); BUN Blood Urea Nitrogen 12 mg/dL (7-18); Bicarbonate 30 mmol/L (21-32); Bilirubin Total 0.3 mg/dL (0.2-1.0); Glucose Level 157 mg/dL (74-106); Potassium 3.7 mmol/L (3.5-5.1); Protein, Total 7.7 g/dL (6.4-8.2); Sodium Level 140 mmol/L (136-145)
--- NOTE | 2020-12-13 22:20 | EDPHYS ---
[facility] Documentation [facility] Name: Harvey Callahan Age: 60 yrs Sex: Male : 1960 Arrival Date: 12/13/2020 Time: 18:12 Bed 5 Private MD: ED Physician Leticia Torres HPI: 12/13 21:13 This 60 yrs old Male presents to ER via Wheelchair with complaints of Leg ma2 Swelling, Leg Pain, Numbness Of Hand. 21:13 Onset: The symptoms/episode began/occurred gradually, 2 day(s) ago. Associated signs ma2 and symptoms: Pertinent positives: warmth, redness, Pertinent negatives nausea, swelling, vomiting, weakness. Severity of symptoms: At their worst the symptoms were moderate, in the emergency department the symptoms are unchanged. The patient has not experienced similar symptoms in the past. bilateral le redness and warmth for 1 week, has had this before . Historical: - Allergies: 18:56 No Known Allergies; jl7 - PMHx: 18:56 Arthritis; CHF; Diabetes - IDDM; Diabetes - NIDDM; EDEMA; Hyperlipidemia; Hypertension; jl7 knee pain; - PSHx: 18:56 Appendectomy; Coronary Angioplasty; jl7 - Immunization history:: Adult Immunizations up to date, Client reports receiving the 2nd dose of the Covid vaccine. - Social history:: Smoking status: Patient reports the use of cigarette tobacco products, smokes one pack cigarettes per day. - Family history:: not pertinent. ROS: 21:13 Constitutional: Negative for fever, chills, and weight loss. ma2 21:13 All other systems are negative. Exam: 21:13 Constitutional: This is a well developed, well nourished patient who is awake, alert, ma2 and in no acute distress. Neck: Trachea midline, no thyromegaly or masses palpated, and no cervical lymphadenopathy. Supple, full range of motion without nuchal rigidity, or vertebral point tenderness. No Meningismus. Chest/axilla: Normal chest wall appearance and motion. Nontender with no deformity. No lesions are appreciated. Cardiovascular: Regular rate and rhythm with a normal S1 and S2. No gallops, murmurs, or rubs. Normal PMI, no JVD. No pulse deficits. Respiratory: Lungs have equal breath sounds bilaterally, clear to auscultation and percussion. No rales, rhonchi or wheezes noted. No increased work of breathing, no retractions or nasal flaring. Abdomen/GI: Soft, non-tender, with normal bowel sounds. No distension or tympany. No guarding or rebound. No evidence of tenderness throughout. Back: No spinal tenderness. No costovertebral tenderness. Full range of motion. Skin: Warm, dry with normal turgor. Normal color with no rashes, no lesions, and no evidence of cellulitis. MS/ Extremity: LE cellulitis of both legs on both anterior leg no abscess or creps, 10x3 cm area, otherwise Pulses equal, no cyanosis. Neurovascular intact. Full, normal range of motion. Neuro: Awake and alert, GCS 15, oriented to person, place, time, and situation. Cranial nerves II-XII grossly intact. Motor strength 5/5 in all extremities. Sensory grossly intact. Cerebellar exam normal. Normal gait. Vital Signs: 18:47 BP 104 / 71; Pulse 91; Resp 17; Temp 97.1; Pulse Ox 98% on R/A; Weight 133.36 kg (R); jl7 Height 5 ft. 7 in. (170.18 cm); Pain 9/10; 18:47 Body Mass Index 46.05 (133.36 kg, 170.18 cm) 7 MDM: 20:15 Patient medically screened. [facility] 21:13 Differential diagnosis: contusion, abrasion, tendonitis, cellulitis, no abscess or ma2 necrotizing fasciitis. 22:19 Data reviewed: vital signs, nurses notes. Counseling: I had a detailed discussion with ma the patient and/or guardian regarding: the historical points, exam findings, and any diagnostic results supporting the discharge/admit diagnosis, the presence of at least one elevated blood pressure reading (>120/80) during this emergency department visit, the need for outpatient follow up. Response to treatment: the patient's symptoms have markedly improved after treatment. 12/13 20:16 Order name: CBC with Diff [facility] 12/13 20:16 Order name: CMP; Complete Time: 21:43 [facility] 12/13 20:16 Order name: CBC with Automated Diff; Complete Time: 21:43 EDMS Administered Medications: 20:55 Drug: NS 0.9% 1000 ml Route: IV; Rate: 1 bolus; Site: right forearm; ea 20:55 Drug: Clindamycin 600 mg Route: IVPB; Infused Over: 30 mins; Site: right forearm; ea 20:55 Drug: morphine 4 mg Route: IVP; Site: right forearm; ea 20:55 Drug: Zofran (Ondansetron) 4 mg Route: IVP; Site: right forearm; ea 22:24 Drug: [place] (HYDROcodone-acetaminophen) 10 mg-325 mg 1 tabs Route: PO; ea Disposition Summary: 12/13/20 22:20 Discharge Ordered Location: Home ma2 Condition: Stable ma2 Diagnosis - Cellulitis of left lower limb ma2 - Cellulitis of right lower limb ma2 Followup: ma2 - With: Private Physician - When: Tomorrow - Reason: If symptoms return, Continuance of care Discharge Instructions: - Discharge Summary Sheet ma2 - Cellulitis, Adult ma2 Forms: - Medication Reconciliation Form ma2 - Thank You Letter ma2 - Antibiotic Education ma2 - Prescription Opioid Use ma2 Prescriptions: - Clindamycin HCl 300 mg Oral Capsule - take 1 capsule by ORAL route every 6 hours for 10 days; 40 capsule; Refills: 0, ma2 Product Selection Permitted - Diclofenac Sodium 75 mg Oral Tablet Sustained Release - take 1 tablet by ORAL route 2 times per day; 30 tablet; Refills: 0, Product ma2 Selection Permitted Signatures: Dispatcher [employer] Wanda Olmos RN REZA jl7 Montserrat Argueta RN RN ea Alzahri, Mohammad, MD MD ma2
--- NOTE | 2020-12-13 22:20 | ER ---
Nurse's Notes [facility] [place] Name: Harvey Callahan Age: 60 yrs Sex: Male : 1960 Arrival Date: 12/13/2020 Time: 18:12 Bed 5 Private MD: Diagnosis: Cellulitis of left lower limb;Cellulitis of right lower limb Presentation: 12/13 18:47 Chief complaint: Patient states: Bilateral lower extremities with pain, redness and jl7 swelling, right hand swelling and pain x 1 month, was seen 11-21-20 and discharged with pain medicine and the pain is still there. Intermittent left sided CP x 2 weeks. Coronavirus screen: Client denies travel out of the [place] in the last 14 days. At this time, the client does not indicate any symptoms associated with coronavirus-19. Ebola Screen: No symptoms or risks identified at this time. Initial Sepsis Screen: Does the patient meet any 2 criteria? No. Patient's initial sepsis screen is negative. Does the patient have a suspected source of infection? No. Patient's initial sepsis screen is negative. Risk Assessment: Do you want to hurt yourself or someone else? Patient reports no desire to harm self or others. Onset of symptoms was November 21, 2020. Care prior to arrival: None. 18:47 Method Of Arrival: Wheelchair jl7 18:47 Acuity: DEYANIRA 3 jl7 Historical: - Allergies: 18:56 No Known Allergies; jl7 - PMHx: 18:56 Arthritis; CHF; Diabetes - IDDM; Diabetes - NIDDM; EDEMA; Hyperlipidemia; Hypertension; jl7 knee pain; - PSHx: 18:56 Appendectomy; Coronary Angioplasty; jl7 - Immunization history:: Adult Immunizations up to date, Client reports receiving the 2nd dose of the Covid vaccine. - Social history:: Smoking status: Patient reports the use of cigarette tobacco products, smokes one pack cigarettes per day. - Family history:: not pertinent. Screenin:40 Abuse screen: Denies threats or abuse. Nutritional screening: No deficits noted. jb4 Tuberculosis screening: No symptoms or risk factors identified. Fall Risk None identified. Assessment: 20:40 General: Appears in no apparent distress. uncomfortable, Behavior is calm, cooperative, jb4 appropriate for age. Pain: Complains of pain in right leg and left leg Pain does not radiate. Pain currently is 9 out of 10 on a pain scale. Neuro: Level of Consciousness is awake, alert, obeys commands, Oriented to person, place, time, situation. Cardiovascular: Patient's skin is warm and dry. Respiratory: Airway is patent Respiratory effort is even, unlabored, Respiratory pattern is regular, symmetrical. GI: No signs and/or symptoms were reported involving the gastrointestinal system. : No signs and/or symptoms were reported regarding the genitourinary system. EENT: Derm: Skin is intact, Skin is pink, warm \T\ dry. Musculoskeletal: Circulation, motion, and sensation intact. Range of motion: intact in all extremities, Swelling present in right foot, left foot, right leg and left leg. 20:55 Reassessment: Patient and/or family updated on plan of care and expected duration. Pain ea level reassessed. Patient is alert, oriented x 3, equal unlabored respirations, skin warm/dry/pink. Vital Signs: 18:47 BP 104 / 71; Pulse 91; Resp 17; Temp 97.1; Pulse Ox 98% on R/A; Weight 133.36 kg (R); jl7 Height 5 ft. 7 in. (170.18 cm); Pain 9/10; 18:47 Body Mass Index 46.05 (133.36 kg, 170.18 cm) jl7 ED Course: 18:12 Patient arrived in ED. as 18:56 Triage completed. 7 18:56 Arm band placed on right wrist. Patient placed in waiting room, Patient notified of jl7 wait time. 20:15 Leticia Torres MD is Attending Physician. md2 20:40 Doc Mclean, REZA is Primary Nurse. [facility] 20:40 Patient has correct armband on for positive identification. Bed in low position. Call jb4 light in reach. Side rails up X 1. Pulse ox on. NIBP on. 20:55 Inserted saline lock: 20 gauge in right forearm, using aseptic technique. Blood ea collected. Administered Medications: 20:55 Drug: NS 0.9% 1000 ml Route: IV; Rate: 1 bolus; Site: right forearm; ea 20:55 Drug: Clindamycin 600 mg Route: IVPB; Infused Over: 30 mins; Site: right forearm; ea 20:55 Drug: morphine 4 mg Route: IVP; Site: right forearm; ea 20:55 Drug: Zofran (Ondansetron) 4 mg Route: IVP; Site: right forearm; ea 22:24 Drug: [place] (HYDROcodone-acetaminophen) 10 mg-325 mg 1 tabs Route: PO; ea Outcome: 22:20 Discharge ordered by MD. melendrez 22:37 Patient left the ED. mw2 Signatures: Dang Duran James, RN RN jb4 Wanda Del Cid RN RN jl7 Montserrat Argueta RN RN ea Alzahri, Mohammad, MD MD ma2 Oscar Vega mw2
[2020-12-13] MEDS ORDERED: HYDROCODONE/APAP 10/325 TAB ONE (22:35)
[2020-12-13 23:18] VITALS: BP 104/71; TEMP 97.1; O2SAT 98
== END 2020-12-13 22:37 | disposition home or self-care (01) ==
LOC: ER 18:09
DX: L03.116 Cellulitis of left lower limb (principal); L03.115 Cellulitis of right lower limb; I10 Essential (primary) hypertension; F17.210 Nicotine dependence, cigarettes, uncomplicated
CPT/HCPCS: 85025; 36415; 80053; J7030; J2405; 93005

== ENCOUNTER 2020-12-18 22:03 | Inpatient (IN) | payer OTHER ==
[2020-12-19] MEDS ORDERED: HYDROCODONE/APAP 7.5/325 MG TAB ONE (01:56)
[2020-12-19] MEDS ORDERED: CLINDAMYCIN 600MG/D5W 600 MG/50 ML BAG IV ONE (01:57)
[2020-12-19 01:58] LABS: Absolute Lymphocytes (CBC) 3.6 K/uL (0.7-4.9); Basophils % 0.3 % (0-1.3); Hematocrit 47.4 % (39.6-49.0); Lymphocytes % 19.7 % (15.3-44.8); MPV 8.6 fL (7.6-11.3); RBC Red Blood Cell Count 5.56 M/uL (4.33-5.43)
[2020-12-19 02:11] LABS: Albumin 3.6 g/dL (3.4-5.0); Bilirubin Total 0.3 mg/dL (0.2-1.0); Potassium 4.1 mmol/L (3.5-5.1); Protein, Total 8.4 g/dL (6.4-8.2)
--- NOTE | 2020-12-19 02:19 | EDPHYS ---
Physician Documentation [facility] Name: Harvey Callahan Age: 60 yrs Sex: Male : 1960 Arrival Date: 12/18/2020 Time: 22:04 Bed 23 Private MD: ED Physician Leticia Torres HPI: 12/19 01:53 This 60 yrs old Male presents to ER via Wheelchair with complaints of Leg ma2 Swelling. 01:53 The patient presents with pain. The complaints affect the lateral aspect of left calf, ma2 left calf, medial aspect of left calf and left weston. Onset: The symptoms/episode began/occurred gradually, 1 week(s) ago. Associated signs and symptoms: Pertinent negatives nausea, swelling, vomiting, weakness. Severity of symptoms: At their worst the symptoms were moderate, in the emergency department the symptoms are unchanged. The patient has experienced a previous episode, last week given clindamycine however cellulitis is worsening . Historical: - Allergies: 12/18 23:11 No Known Allergies; bb - PMHx: 12/19 01:56 Arthritis; CHF; Diabetes - IDDM; EDEMA; Hyperlipidemia; Hypertension; knee pain; ap3 - PSHx: 01:56 Appendectomy; Coronary Angioplasty; ap3 - Immunization history:: Adult Immunizations up to date, Client reports receiving the 2nd dose of the Covid vaccine. - Social history:: Smoking status: Patient reports the use of cigarette tobacco products, smokes 1.5 packs per day. - Family history:: not pertinent. ROS: 01:53 Constitutional: Negative for fever, chills, and weight loss. ma2 01:53 All other systems are negative. Exam: 01:53 Constitutional: This is a well developed, well nourished patient who is awake, alert, ma2 and in no acute distress. Head/Face: Normocephalic, atraumatic. Eyes: Pupils equal round and reactive to light, extra-ocular motions intact. Lids and lashes normal. Conjunctiva and sclera are non-icteric and not injected. Cornea within normal limits. Periorbital areas with no swelling, redness, or edema. ENT: Nares patent. No nasal discharge, no septal abnormalities noted. Tympanic membranes are normal and external auditory canals are clear. Oropharynx with no redness, swelling, or masses, exudates, or evidence of obstruction, uvula midline. Mucous membranes moist. Neck: Trachea midline, no thyromegaly or masses palpated, and no cervical lymphadenopathy. Supple, full range of motion without nuchal rigidity, or vertebral point tenderness. No Meningismus. Chest/axilla: Normal chest wall appearance and motion. Nontender with no deformity. No lesions are appreciated. Cardiovascular: Regular rate and rhythm with a normal S1 and S2. No gallops, murmurs, or rubs. Normal PMI, no JVD. No pulse deficits. Respiratory: Lungs have equal breath sounds bilaterally, clear to auscultation and percussion. No rales, rhonchi or wheezes noted. No increased work of breathing, no retractions or nasal flaring. Abdomen/GI: Soft, non-tender, with normal bowel sounds. No distension or tympany. No guarding or rebound. No evidence of tenderness throughout. Back: No spinal tenderness. No costovertebral tenderness. Full range of motion. MS/ Extremity: Pulses equal, no cyanosis. Neurovascular intact. Full, normal range of motion. Neuro: Awake and alert, GCS 15, oriented to person, place, time, and situation. Cranial nerves II-XII grossly intact. Motor strength 5/5 in all extremities. Sensory grossly intact. Cerebellar exam normal. Normal gait. 01:55 MS/ Extremity: has bilateral LE edema and erythema and warmth and tenderness, no ma2 abscess or crepitations, Pulses equal, no cyanosis. Neurovascular intact. Full, normal range of motion. Vital Signs: 12/18 23:10 BP 105 / 69; Pulse 99; Resp 18 S; Temp 99(O); Pulse Ox 97% on R/A; Weight 133.36 kg bb (R); Height 5 ft. 7 in. (170.18 cm) (R); Pain 9/; 12/19 02:33 BP 114 / 64; Pulse 91; Resp 16; Pulse Ox 98% on R/A; Pain 9/10; ap3 02:52 BP 120 / 83; ap3 03:29 BP 110 / 78; Pulse 77; Resp 16 S; Temp 99.1(O); Pulse Ox 98% on R/A; Pain 8/10; bb 12/18 23:10 Body Mass Index 46.05 (133.36 kg, 170.18 cm) bb MDM: 01:31 Patient medically screened. ma2 01:55 Differential diagnosis: contusion, abrasion, tendonitis, cellulitis. ma2 02:18 Data reviewed: vital signs, nurses notes. Counseling: I had a detailed discussion with parvin the patient and/or guardian regarding: the historical points, exam findings, and any diagnostic results supporting the discharge/admit diagnosis, the presence of at least one elevated blood pressure reading (>120/80) during this emergency department visit. Response to treatment: the patient's symptoms have markedly improved after treatment. 12/19 01:30 Order name: CBC with Diff [facility] 12/19 01:30 Order name: CMP; Complete Time: 02:16 [facility] 12/19 01:30 Order name: Lactate; Complete Time: 02:16 [facility] 12/19 01:30 Order name: COVID-19 : Document "Date of Symptom Onset" if Symptomatic. [facility] 12/19 01:30 Order name: CBC with Automated Diff; Complete Time: 02:16 EDMS Administered Medications: 01:50 Drug: Clindamycin 600 mg Route: IVPB; Infused Over: 30 mins; Site: right antecubital; ap3 02:20 Follow up: IV Status: Completed infusion; IV Intake: 50ml bb 01:50 Drug: [place] (HYDROcodone-acetaminophen) (7.5 mg-325 mg) 1 tabs Route: PO; ap3 02:52 Follow up: Response: No adverse reaction; Pain is unchanged, physician notified ap3 02:50 Dru grams of (vancoMYCIN 1 grams, D5-1/2 NS 500 ml) {Note: Nurse spoke with ap3 provider regaurding which solution to mix the vancomycin with. Provider stated D5 1/2 NS in a 500 liter bag over 2 hours. .} Route: IVPB; Rate: 250 ml/hr; Infused Over: 2 hrs; Site: right antecubital; Delivery: Primary tubing; 03:31 Follow up: IV Status: Infusion continued upon admission bb 02:51 Drug: NS 0.9% 1000 ml Route: IV; Rate: 1 bolus; Site: right antecubital; ap3 03:30 Follow up: IV Status: Infusion continued upon admission Disposition Summary: 12/19/20 02:18 Hospitalization Ordered Hospitalization Status: Inpatient Admission va2 Provider: Santos Kramer ma2 Location: Telemetry/MedSurg (Inpatient) ma2 Condition: Stable ma2 Problem: new ma2 Symptoms: are unchanged ma2 Bed/Room Type: Standard va2 Room Assignment: 217(12/19/20 02:45) mw Diagnosis - Cellulitis of left lower limb ma2 - Cellulitis of right lower limb ma2 Forms: - Medication Reconciliation Form ma2 - SBAR form ma2 Signatures: Dispatcher [employer] EDCarolina Sanchez RN RN mw Ballard, Brenda, RN RN bb Alzahri, Mohammad, MD MD ma2 Nataliia Adams RN RN ap3 Corrections: (The following items were deleted from the chart) 02:45 02:18 ma2 mw
--- NOTE | 2020-12-19 02:19 | ER ---
Nurse's Notes [facility] Name: Harvey Callahan Age: 60 yrs Sex: Male : 1960 Arrival Date: 12/18/2020 Time: 22:04 Bed 23 Private MD: Diagnosis: Cellulitis of left lower limb;Cellulitis of right lower limb Presentation: 12/18 23:10 Chief complaint: Patient states: he was here on December 13 and diagnosed with cellulitis bb to bilateral lower extremities but symptoms are getting worse and the pain has worsened. Coronavirus screen: At this time, the client does not indicate any symptoms associated with coronavirus-19. Ebola Screen: No symptoms or risks identified at this time. Initial Sepsis Screen: Does the patient meet any 2 criteria? No. Patient's initial sepsis screen is negative. Does the patient have a suspected source of infection? No. Patient's initial sepsis screen is negative. Risk Assessment: Do you want to hurt yourself or someone else? Patient reports no desire to harm self or others. Onset of symptoms was December 18, 2020. 23:10 Method Of Arrival: Wheelchair bb 23:10 Acuity: DEYANIRA 3 bb Triage Assessment: 23:11 General: Appears in no apparent distress. uncomfortable, obese, Behavior is calm, bb cooperative. Pain: Complains of pain in right leg and left leg Pain currently is 9 out of 10 on a pain scale. Neuro: Level of Consciousness is awake, alert, obeys commands, Oriented to person, place, time, situation. Cardiovascular: Capillary refill < 3 seconds Patient's skin is warm and dry. Respiratory: Respiratory effort is even, unlabored, Respiratory pattern is regular. GI: Abdomen is round. Derm: bilateral lower extremities reddened and swollen. Musculoskeletal: Swelling present in right leg and left leg Reports pain in right leg and left leg. Historical: - Allergies: 23:11 No Known Allergies; bb - PMHx: 12/19 01:56 Arthritis; CHF; Diabetes - IDDM; EDEMA; Hyperlipidemia; Hypertension; knee pain; ap3 - PSHx: 01:56 Appendectomy; Coronary Angioplasty; ap3 - Immunization history:: Adult Immunizations up to date, Client reports receiving the 2nd dose of the Covid vaccine. - Social history:: Smoking status: Patient reports the use of cigarette tobacco products, smokes 1.5 packs per day. - Family history:: not pertinent. Screenin:54 Abuse screen: Denies threats or abuse. Nutritional screening: No deficits noted. ap3 Tuberculosis screening: No symptoms or risk factors identified. Fall Risk No fall in past 12 months (0 pts). Secondary diagnosis (15 points) impaired mobility, IV access (20 points). Ambulatory Aid- None/Bed Rest/Nurse Assist (0 pts). Gait- Weak (10 pts.). Mental Status- Oriented to own ability (0 pts). Total Reeves Fall Scale indicates High Risk Score (45 or more points). Fall prevention measures have been instituted. Side Rails Up X 2 Placed Close to Nursing Station Frequent Obs/Assessments Occuring As available patient and family educated on Fall Prevention Program and Strategies. Assessment: 01:50 General: Appears in no apparent distress. uncomfortable, Behavior is calm, cooperative, ap3 appropriate for age. Pain: Complains of pain in right leg and left leg. Neuro: Level of Consciousness is awake, alert, obeys commands, Oriented to person, place, time, situation. Cardiovascular: Denies chest pain, lightheadedness, shortness of breath, Capillary refill < 3 seconds Patient's skin is warm and dry. Respiratory: Airway is patent Respiratory effort is even, unlabored, Respiratory pattern is regular, symmetrical. GI: No signs and/or symptoms were reported involving the gastrointestinal system. : No signs and/or symptoms were reported regarding the genitourinary system. EENT: No signs and/or symptoms were reported regarding the EENT system. Derm: bilateral lower extremities are reddened in color. the left lower extremity has an abrasion. both lower extremities are swollen and the patient states they feel tight and are painful. patient is stating a 9/10 pain. 02:56 General: nurse attempted to call report. spoke with Julia on the 2nd floor. She ap3 stated that the patient does not have floor orders at this time, and the receiving nurse will return the phone call when the orders are put in. . 03:29 Reassessment: Patient is alert, oriented x 3, equal unlabored respirations, skin bb warm/dry/pink. IV site intact, patent, with fluids infusing, awaiting transfer to room 217. Vital Signs: 12/18 23:10 BP 105 / 69; Pulse 99; Resp 18 S; Temp 99(O); Pulse Ox 97% on R/A; Weight 133.36 kg bb (R); Height 5 ft. 7 in. (170.18 cm) (R); Pain 9/10; 12/19 02:33 BP 114 / 64; Pulse 91; Resp 16; Pulse Ox 98% on R/A; Pain 9/10; ap3 02:52 BP 120 / 83; ap3 03:29 BP 110 / 78; Pulse 77; Resp 16 S; Temp 99.1(O); Pulse Ox 98% on R/A; Pain 8/10; bb 12/18 23:10 Body Mass Index 46.05 (133.36 kg, 170.18 cm) bb ED Course: 12/18 22:04 Patient arrived in ED. as 23:11 Triage completed. bb 23:11 Arm band placed on Patient placed in waiting room, Patient notified of wait time. bb 12/19 01:10 Nataliia Adams, REZA is Primary Nurse. ap3 01:15 Leticia Torres MD is Attending Physician. ma2 01:45 Inserted saline lock: 20 gauge in right antecubital area, using aseptic technique. ap3 Blood collected. 01:55 Patient has correct armband on for positive identification. Placed in gown. Bed in low ap3 position. Call light in reach. Side rails up X 1. Pulse ox on. NIBP on. Door closed. Noise minimized. Warm blanket given. 02:18 Santos Kramer DO is Hospitalizing Provider. ma2 03:30 No provider procedures requiring assistance completed. Patient admitted, IV remains in bb place. Administered Medications: 01:50 Drug: Clindamycin 600 mg Route: IVPB; Infused Over: 30 mins; Site: right antecubital; ap3 02:20 Follow up: IV Status: Completed infusion; IV Intake: 50ml bb 01:50 Drug: [place] (HYDROcodone-acetaminophen) (7.5 mg-325 mg) 1 tabs Route: PO; ap3 02:52 Follow up: Response: No adverse reaction; Pain is unchanged, physician notified ap3 02:50 Dru grams of (vancoMYCIN 1 grams, D5-1/2 NS 500 ml) {Note: Nurse spoke with ap3 provider regaurding which solution to mix the vancomycin with. Provider stated D5 1/2 NS in a 500 liter bag over 2 hours. .} Route: IVPB; Rate: 250 ml/hr; Infused Over: 2 hrs; Site: right antecubital; Delivery: Primary tubing; 03:31 Follow up: IV Status: Infusion continued upon admission bb 02:51 Drug: NS 0.9% 1000 ml Route: IV; Rate: 1 bolus; Site: right antecubital; ap3 03:30 Follow up: IV Status: Infusion continued upon admission bb Intake: 02:20 IV: 50ml; Total: 50ml. bb Outcome: 02:18 Decision to Hospitalize by Provider. ma2 03:30 Admitted to Tele accompanied by nurse, via wheelchair, room 217, with chart. bb 03:30 Condition: stable 03:30 Instructed on the need for admit. 04:01 Patient left the ED. mw2 Signatures: Dang Duran Brenda, RN RN Leticia Akins MD MD tn2 Nataliia Adams RN RN ap3 Oscar Vega mw2 Corrections: (The following items were deleted from the chart) 12/18 23:11 23:09 Chief complaint: bb bb
[2020-12-19] MEDS ORDERED: VANCOMYCIN 1 GM/VIAL ONE (02:58)
[2020-12-19] MEDS ORDERED: NA CHLORIDE 0.9% 1,000 ML ONE (02:58)
[2020-12-19] MEDS ORDERED: D5 0.45 NS 500 ML IV ONE (03:02)
[2020-12-19] MEDS ORDERED: ONDANSETRON 4 MG/2 ML VIAL IV PRN (03:38)
[2020-12-19] MEDS ORDERED: ACETAMINOPHEN 500 MG TAB PO PRN (03:38)
[2020-12-19] MEDS: MORPHINE 4 MG/ML SYR IV PRN ×4 (04:46→21:21)
[2020-12-19 05:30] LABS: Urine Appearance CLEAR (Clear); Urine Bilirubin NEGATIVE (Negative); Urine Blood NEGATIVE (Negative); Urine Color YELLOW (Yellow); Urine Glucose 3+ (Negative); Urine Protein NEGATIVE (Negative); Urine Specific Gravity >=1.030 (1.005-1.030); Urine Urobilinogen 0.2 mg/dL (0.2-1.0)
[2020-12-19 05:51] LABS: Urine Bacteria <20 /HPF (NONE SEEN); Urine RBC <5 /HPF (NONE SEEN)
--- NOTE | 2020-12-19 05:51 | P.HP ---
Certification for Inpatient Patient admitted to: Inpatient With expected LOS: >2 Midnights Patient will require the following post-hospital care: None Practitioner: I am a practitioner with admitting privileges, knowledge of patient current condition, hospital course, and medical plan of care. Services: Services provided to patient in accordance with Admission requirements found in Title 42 Section 412.3 of the Code of Federal Regulations Patient History Date of Service: 12/19/20 Primary Care Provider: OLIVE Reason for admission: Cellulitis lower extremities History of Present Illness: This is a 60-year-old male patient with a history of atrial fibrillation, congestive heart failure, diabetes mellitus, hypertension, hyperlipidemia that presented to the emergency room with increased swelling and pain to lower extremities. Patient was seen approximately 1 week ago for the same symptoms and was put on clindamycin for cellulitis. Patient stated that he has been on his antibiotics as prescribed but has continued pain and discoloration of his lower extremities. Patient was worked up in the emergency room and found to h ave increased white cell count and lactate. Subsequently patient was put on IV antibiotics and medicine was consulted admission. Allergies No Known Allergies Allergy (Verified 12/19/20 04:11) Home medications list reviewed: Yes Home Medications: Amiodarone HCl [Cordarone*] 200 mg PO DAILY 09/13/18 Aspirin Chewable [Aspirin Chewable*] 81 mg PO DAILY 09/13/18 Furosemide 80 mg PO BID 09/13/18 Gabapentin [Neurontin] 600 mg PO BID 09/13/18 Metformin HCl [Glucophage] 1,000 mg PO BID 09/13/18 Omeprazole 20 mg PO DAILY 09/13/18 Potassium Chloride 20 meq PO DAILY 09/13/18 carvediloL [Coreg*] 3.125 mg PO BID 09/13/18 Tramadol HCl [Ultram ER] 100 mg PO BID PRN #10 tab.sr.24h 09/15/18 Diclofenac Sodium 2 tab PO BID 12/19/20 Insulin Aspart [Novolog Flexpen] 25 units SQ TID 12/19/20 Insulin Glargine,Hum.rec.anlog [Lantus] 50 units SQ BID 12/19/20 clindamycin HCL [Clindamycin HCl] 300 mg PO Q6H 12/19/20 - Past Medical/Surgical History Has patient received pneumonia vaccine in the past: No Diabetic: Yes -: Diabetes mellitus type 2 -: Hypertension -: CAD -: Congestive heart failure, systolic dysfunction-EF 40% -: Obstructive sleep apnea -: Hypoventilation obesity syndrome -: Morbid obesity -: Hyperlipidemia -: ARTHRITIS -: Tobacco abuse -: Atrial fibrillation, chronic anti coagulation-Coumadin -: Knee surgery -: Appendectomy -: Back surgery -: CORONARY ANGIOPALSTY -: CYST REMOVAL IN THE BUTTOCKS 2019- HAD BLOOD TRANSFUSION Psychosocial/ Personal History: Patient is a . He has 6 children. - Family History Mother -: Hypertension, Diabetes Notes: - Social History Smoking Status: Current every day smoker Counseled patient to stop smoking for: less than 10 minutes Smoking therapy provided: Yes Patient receptive to therapy: Yes Alcohol use: No CD- Drugs: Yes Caffeine use: Yes Place of Residence: Home Review of Systems General: Unremarkable Eyes: Unremarkable ENT: Unremarkable Respiratory: Unremarkable Cardiovascular: Unremarkable Gastrointestinal: Unremarkable Musculoskeletal: Leg Pain Integumentary: As per HPI Neurological: Unremarkable Lymphatics: Unremarkable Physical Examination - Vital Signs Temperature: 99.1 F Blood Pressure: 110/78 Pulse: 77 Respirations: 16 Pulse Ox (%): 96 (RA) - Physical Exam General: Alert, In no apparent distress, Oriented x3, Cooperative HEENT: PERRLA, Mucous membr. moist/pink, EOMI Neck: Supple, 2+ carotid pulse no bruit, JVD not distended, No Thyromegaly Respiratory: Clear to auscultation bilaterally, Normal air movement Cardiovascular: Normal pulses, Regular rate/rhythm, Normal S1 S2, No gallops, No rubs, No murmurs, Edema (1+ edema bilaterally lower extremities) Capillary refill: <2 Seconds Gastrointestinal: Normal bowel sounds, Soft and benign, Non-distended, No ascites, No tenderness, No masses, No rebound, No guarding Musculoskeletal: No clubbing, No contractures, Other (Bilateral lower extremi ties from the ankles to the knees have increased swelling with discoloration and slight warmth and erythema it. Tender to palpation. Left lower extremity has small seeping wound. No exudated material noted.) Integumentary: No rashes, No breakdown, No significant lesion, No cyanosis Neurological: Normal speech, Normal strength at 5/5 x4 extr, Normal tone, Sensation intact, Cranial nerves 3-12 intact, Normal affect Lymphatics: No axilla or inguinal lymphadenopathy - Studies Laboratory Data (last 24 hrs) 12/19/20 01:44: Sodium 140, Potassium 4.1, BUN 13, Creatinine 0.89, Glucose 188 H, Total Bilirubin 0.3, AST 14 L, ALT 27, Alkaline Phosphatase 78 12/19/20 01:44: WBC 18.30 H D, Hgb 15.7, Hct 47.4, Plt Count 283 Assessment and Plan - Problems (Diagnosis) (1) Cellulitis Current Visit: Yes Status: Acute Qualifiers: Site of cellulitis: extremity Site of cellulitis of extremity: lower e xtremity Laterality: unspecified laterality Qualified Code(s): L03.119 - Cellulitis of unspecified part of limb (2) Edema Onset Date: 12/25/17 Current Visit: Yes Status: Acute Qualifiers: Edema type: unspecified Qualified Code(s): R60.9 - Edema, unspecified (3) Atrial fibrillation Onset Date: 12/19/17 Current Visit: No Status: Chronic Qualifiers: Atrial fibrillation type: unspecified Qualified Code(s): I48.91 - Unspecified atrial fibrillation (4) CHF (congestive heart failure) Onset Date: 12/25/17 Current Visit: No Status: Chronic Qualifiers: Heart failure type: combined systolic and diastolic Heart failure chronicity: chronic Qualified Code(s): I50.42 - Chronic combined systolic (congestive) and diastolic (congestive) heart failure (5) Diabetes mellitus Onset Date: 12/25/17 Current Visit: No Status: Chronic Qualifiers: Diabetes mellitus type: type 2 Diabetes mellitus skilled nursing insulin use: with skilled nursing use Diabetes mellitus complication status: with neurologic complications Diabetes mellitus complication detail: with polyneuropathy Qualified Code(s): E11.42 - Type 2 diabetes mellitus with diabetic polyneuropathy; Z79.4 - superintendent terminal (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 insulin (6) Hypertension Onset Date: 12/25/17 Current Visit: No Status: Chronic Qualifiers: Hypertension type: primary hypertension Qualified Code(s): I10 - Essential (primary) hypertension - Plan 1. Patient will be admitted for lower extremity cellulitis and will be placed on antibiotics 2. We will monitor vital signs per protocol plan treat blood pressure for anything greater than 160 systolic her 90 diastolic. Will monitor patient's AFib is well and continue his antiarrhythmics. 3. Patient will have ultrasound lower extremities to make sure there is not significant arterial insufficiency 4. Labs daily. Cultures have been drawn as well as patient did have a white cell count with elevated lactate 5. Blood glucose will be monitored impatient we placed on sliding scale 6. Pain control as necessary Discharge Plan: Home Plan to discharge in: 48 Hours - Advance Directives Does patient have a Living Will: No Does patient have a Durable POA for Healthcare: No - Code Status/Comfort Care Code Status Assessed: No Critical Care: No Time Spent Managing Pts Care (In Minutes): 70
--- NOTE | 2020-12-19 05:59 | P.PN ---
Subjective Date of Service: 12/19/20 Primary Care Provider: OLIVE Chief Complaint: Cellulitis lower extremities Subjective: Other (Patient was recently treated by the ER for cellulitis. Sent home with clindamycin without improvement. [facility] Physical Examination - Vital Signs Temperature: 99.1 F Blood Pressure: 110/78 Pulse: 77 Respirations: 16 Pulse Ox (%): 96 (RA) - Studies Laboratory Data (last 24 hrs) 12/19/20 01:44: Sodium 140, Potassium 4.1, BUN 13, Creatinine 0.89, Glucose 188 H, Total Bilirubin 0.3, AST 14 L, ALT 27, Alkaline Phosphatase 78 12/19/20 01:44: WBC 18.30 H D, Hgb 15.7, Hct 47.4, Plt Count 283 Assessment & Plan Discharge Plan: Home Physician Review Additional Text: Physical exam General: Alert, In no apparent distress, Oriented x3, Cooperative HEENT: PERRLA, Mucous membr. moist/pink, EOMI Neck: Supple Respiratory: Clear to auscultation bilaterally, Normal air movement Cardiovascular: Regular rate and rhythm no focal deficits. Capillary refill: <2 Seconds Gastrointestinal: Normal bowel sounds, Soft and benign, Non-distended, No ascites, No tenderness, No masses, No rebound, No guarding Musculoskeletal: Bilateral lower extremities from the ankles to the knees have increased swelling with discoloration and slight warmth and erythema it. Tender to palpation. Left lower extremity has small seeping wound. No exudated material noted. 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 Currently on IV vancomycin and Levaquin. Will obtain arterial Doppler to further evaluate for possible underlying PVD. Will consult infectious disease for further recommendation. Anticipate improvement over the next 48 hours. Chronic atrial fibrillation on chronic anticoagulation therapy: Continue with home medication including Eliquis 5 mg 1 pill twice daily, amiodarone 200 mg daily, and carvedilol 3.125 mg 1 pill twice daily. Chronic combined systolic/diastolic CHF: Continue with IV diuresis. Currently on IV Lasix 40 mg twice daily. He takes 40 mg 1 pill twice daily at home. Continue 1500 cc/day fluid restriction. Elevate leg when sitting or lying. 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 Diabetes needs to be better controlled. Continue with basal insulin for now. Will monitor and adjust medication. Continue with gabapentin. We will also provide medication for pain. Hypertension: Restart carvedilol 3.25 mg 1 pill twice daily. Will monitor and adjust appropriately. Code status: Full code DVT prophylaxis: Ting Advanced care planning-30 min: Home at discharge. [facility] Time Spent Managing Pts Care (In Minutes): 55
[2020-12-19] MEDS ORDERED: VANCOMYCIN 1 GM in NA CHLORIDE 0.9% 250 ML IVPB ONE ×2 (06:00→09:00)
[2020-12-19] MEDS: Levofloxacin500mg IV 500 MG/100 ML BAG IV SCH (06:11)
[2020-12-19] MEDS ORDERED: D50W 25 GM/50 ML SYRINGE IV PRN (07:13)
[2020-12-19] MEDS ORDERED: TRAMADOL HCL 100 MG PO PRN (07:13)
[2020-12-19] MEDS ORDERED: GLUCAGON 1 MG/VIAL IM PRN ×2 (07:13→08:55)
[2020-12-19] MEDS ORDERED: D50W 25 GM/50 ML VIAL IV PRN ×2 (07:23→09:26)
[2020-12-19] MEDS ORDERED: HOME MED 1 EA UNK (Omeprazole [Omeprazole] 20 MG Tablet.Dr) PO SCH (09:00)
[2020-12-19] MEDS ORDERED: HOME MED 1 EA UNK (Metformin Hcl [Glucophage] 1,000 MG Tablet) PO SCH (09:00)
[2020-12-19] MEDS ORDERED: ASPIRIN 81 MG CHEWABLE TABLET PO SCH (09:00)
[2020-12-19] MEDS ORDERED: INSULIN GLARGINE 100 UNITS/ML SQ SCH (09:00)
[2020-12-19] MEDS ORDERED: HOME MED 1 EA UNK (Gabapentin [Neurontin] 600 MG Tablet) PO SCH (09:00)
[2020-12-19] MEDS: INSULIN -REGULAR HUMAN 50 UNIT/0.5 ML ML SQ SCH ×4 (09:15→21:00)
[2020-12-19] MEDS: AMIODARONE HCL 200 MG TAB PO SCH (10:30)
[2020-12-19] MEDS: APIXABAN 5 MG TABLET PO SCH ×2 (10:30→21:22)
[2020-12-19] MEDS: METFORMIN HCL 500 MG TAB PO SCH ×2 (10:31→16:52)
[2020-12-19] MEDS: GABAPENTIN 300 MG CAP PO SCH ×2 (10:31→21:22)
[2020-12-19] MEDS: INSULIN GLARGINE 100 UNITS/ML SQ SCH ×2 (10:32→21:23)
[2020-12-19] MEDS: PANTOPRAZOLE 40MG TABLET PO SCH (10:41)
[2020-12-19] MEDS: carvediloL 3.125 MG TAB PO SCH ×2 (10:47→21:22)
[2020-12-19] MEDS: FUROSEMIDE 40 MG/4 ML VIAL IV SCH ×2 (10:47→16:52)
[2020-12-19] MEDS ORDERED: INSULIN -REGULAR HUMAN 50 UNIT/0.5 ML ML SQ SCH (11:30)
--- NOTE | 2020-12-19 11:40 | P.CNS ---
Date of Consult: 12/19/20 Primary Care Provider: OLIVE Chief Complaint: Cellulitis lower extremities History of Present Illness: Patient is a 52-year-old male with a past medical history of atrial fibrillation, congestive heart failure, diabetes type 2 uncontrolled, hypertension, hyperlipidemia who presented to the emergency department due to bilateral lower extremity erythema, swelling, and pain. Patient states this is his 3rd visit to the hospital within the past month due to this complaint. Patient states that the previous visit he was seen in emergency department and prescribed oral antibiotics however feel treatment at home. Patient is now admitted for further monitoring due to recurrent cellulitis, and patient empirically started on vancomycin and Levaquin. Blood cultures and wound culture from left lower extremity pending. Imaging obtained, arterial Doppler. Of note patient has bilateral stasis dermatitis and lymphedema. Also patient's hemoglobin A1c is 11.0. Patient currently denies nausea, vomiting, diarrhea, shortness breath, chest pain. Patient reports pain to bilateral lower extremities. Allergies No Known Allergies Allergy (Verified 12/19/20 04:11) Home Medications: Amiodarone HCl [Cordarone*] 200 mg PO DAILY 09/13/18 Aspirin Chewable [Aspirin Chewable*] 81 mg PO DAILY 09/13/18 Furosemide 80 mg PO BID 09/13/18 Gabapentin [Neurontin] 600 mg PO BID 09/13/18 Metformin HCl [Glucophage] 1,000 mg PO BID 09/13/18 Omeprazole 20 mg PO DAILY 09/13/18 Potassium Chloride 20 meq PO DAILY 09/13/18 carvediloL [Coreg*] 3.125 mg PO BID 09/13/18 Tramadol HCl [Ultram ER] 100 mg PO BID PRN #10 tab.sr.24h 09/15/18 Diclofenac Sodium 2 tab PO BID 12/19/20 Insulin Aspart [Novolog Flexpen] 25 units SQ TID 12/19/20 Insulin Glargine,Hum.rec.anlog [Lantus] 50 units SQ BID 12/19/20 clindamycin HCL [Clindamycin HCl] 300 mg PO Q6H 12/19/20 - Past Medical/Surgical History Diabetic: Yes -: Diabetes mellitus type 2 -: Hypertension -: CAD -: Congestive heart failure, systolic dysfunction-EF 40% -: Obstructive sleep apnea -: Hypoventilation obesity syndrome -: Morbid obesity -: Hyperlipidemia -: ARTHRITIS -: Tobacco abuse -: Atrial fibrillation, chronic anti coagulation-Coumadin -: Knee surgery -: Appendectomy -: Back surgery -: CORONARY ANGIOPALSTY -: CYST REMOVAL IN THE BUTTOCKS 2020- HAD BLOOD TRANSFUSION Psychosocial/ Personal History: Patient is a . He has 6 children. - Family History Mother Medical History: Hypertension, Diabetes Notes: - Social History Smoking Status: Current every day smoker Alcohol use: No CD- Drugs: Yes Caffeine use: Yes Place of Residence: Home Review of Systems 10-point ROS is otherwise unremarkable Physical Examination Temp Pulse Resp BP Pulse Ox 99.1 F 90 19 134/64 98 12/19/20 08:25 12/19/20 10:47 12/19/20 10:34 12/19/20 10:47 12/19/20 10:34 General: Alert, In no apparent distress, Obese HEENT: Atraumatic, Normocephalic Neck: Supple, 2+ carotid pulse no bruit Respiratory: Clear to auscultation bilaterally, Normal air movement Cardiovascular: No edema, Regular rate/rhythm Capillary refill: <2 Seconds Gastrointestinal: Normal bowel sounds, Soft and benign Musculoskeletal: No clubbing Integumentary: Other (Bilateral lower extremity cellulitis. Bilateral lower extremity stasis dermatitis/lymphedema.) Laboratory Data (last 24 hrs) 12/19/20 01:44: Sodium 140, Potassium 4.1, BUN 13, Creatinine 0.89, Glucose 188 H, Total Bilirubin 0.3, AST 14 L, ALT 27, Alkaline Phosphatase 78 12/19/20 01:44: WBC 18.30 H D, Hgb 15.7, Hct 47.4, Plt Count 283 Conclusions/Impression: Antibiotics: Vancomycin Start: 12/19 stop: -- Levaquin Start: 12/19 stop: -- Assessment: -recurrent bilateral lower extremity cellulitis -leukocytosis with left shift -bilateral lower extremity stasis dermatitis and lymphedema -diabetes mellitus uncontrolled -CHF -a fib -hypertension and hyperlipidemia Plan: -This is patient's 3rd hospital visit within the past month due to recurrent bilateral lower extremity cellulitis, worse in right leg. Patient failed outpatient treatment with oral antibiotics. Patient empirically started on vancomycin and Levaquin. Vancomycin trough goal of 10-15, continue to monitor renal function. Blood cultures taken on 12/19: Pending. Wound culture taken on 12/19 pending. Of note this wound culture was taken from a superficial skin tear on the left lower extremity, likely will not be reliable. Imaging: Arterial Doppler pending. Recommend also obtaining a venous Doppler. -leukocytosis with left shift: Continue to monitor closely. Procalcitonin wi thin normal range. -patient noted to have bilateral stasis dermatitis and lymphedema. Educated patient on the importance of keeping legs elevated. -uncontrolled diabetes: Hemoglobin A1c 11.0. This is contributing to recurrent cellulitis. Educated patient on importance of strict glucose monitoring. -medical management per primary team -continue monitor CBC and BMP -continue to monitor signs infection Plan of care discussed with Dr. Quesada Thank you for consultation.
--- NOTE | 2020-12-19 13:52 | RAD REPORT ---
EXAM DESCRIPTION: US - Upper Lower Extrem Art Multi - 12/19/2020 10:06 am CLINICAL HISTORY: increased pain and discoloration COMPARISON: None. TECHNIQUE: Bilateral brachial artery pressure measurements were obtained. Waveforms were obtained al steve the length of each lower extremity. Ankle pressure measurements were obtained with index values c alculated. Visual inspection of the lower extremity arterial tree performed. FINDINGS: Brachials artery pressure measurements are symmetric. WATSON values are 1.44 on the right and 1.18 on the left. Toe index values are 0.74 on the right and 0.83 on the left. Exam was technically difficult due to patient body habitus. A monophasic waveform pattern was seen in the left lower extremity from the common femoral artery to the dorsalis pedis artery. Within the left leg no occlusion or focal flow restricting lesion. This wa veform pattern may indicate flow-limiting disease in the left iliac vasculature. Right lower extremity shows triphasic waveform pattern in the common femoral, proximal superficial fe moral, popliteal and dorsalis pedis arteries. A monophasic waveform pattern was seen in the mid super ficial femoral artery. An occlusion was not seen in this may be artifact of body habitus. IMPRESSION: WATSON values both measure greater than 1.00 with toe index values greater than 0.74 in roberto ue. Significant lower extremity peripheral arterial disease is doubtful. Left leg does show a monophasic waveform pattern from groin to ankle. This can be seen when there is flow limiting disease in the left iliac vasculature.
[2020-12-19] MEDS ORDERED: VANCOMYCIN/NS 1 gm 1 GM/250 ML BAG IVPB SCH (15:00)
[2020-12-19] MEDS ORDERED: ENOXAPARIN 40 MG/0.4 ML SQ SCH (17:00)
[2020-12-19] MEDS: VANCOMYCIN 2 GM in NA CHLORIDE 0.9% 500 ML IVPB SCH (21:19)
[2020-12-20] MEDS: MORPHINE 4 MG/ML SYR IV PRN ×2 (04:43→08:54)
[2020-12-20 04:57] VITALS: BMI 47.0
[2020-12-20 05:14] LABS: Absolute Lymphocytes (CBC) 2.7 K/uL (0.7-4.9); Basophils % 0.9 % (0-1.3); Hematocrit 45.9 % (39.6-49.0); Lymphocytes % 18.4 % (15.3-44.8); MPV 9.2 fL (7.6-11.3); RBC Red Blood Cell Count 5.33 M/uL (4.33-5.43)
[2020-12-20] MEDS: Levofloxacin500mg IV 500 MG/100 ML BAG IV SCH (05:20)
[2020-12-20 05:22] VITALS: TEMP 97.4
[2020-12-20 05:23] LABS: BUN Blood Urea Nitrogen 13 mg/dL (7-18); Bicarbonate 31 mmol/L (21-32); Glucose Level 192 mg/dL (74-106); Magnesium 2.1 mg/dL (1.8-2.4); Sodium Level 138 mmol/L (136-145)
--- NOTE | 2020-12-20 06:09 | P.PN ---
Subjective Date of Service: 12/20/20 Primary Care Provider: OLIVE Chief Complaint: Cellulitis lower extremities Physical Examination - Vital Signs Temperature: 97.4 F Blood Pressure: 135/64 Pulse: 72 Respirations: 16 Pulse Ox (%): 92 Assessment & Plan Discharge Plan: Home Plan to discharge in: 24 Hours Physician Review Additional Text: Arterial doppler: FINDINGS: Brachials artery pressure measurements are symmetric. WATSON values are 1.44 on the right and 1.18 on the left. Toe index values are 0.74 on the right and 0.83 on the left. Exam was technically difficult due to patient body habitus. A monophasic waveform pattern was seen in the left lower extremity from the common femoral artery to the dorsalis pedis artery. Within the left leg no occlusion or focal flow restricting lesion. This waveform pattern may indicate flow-limiting disease in the left iliac vasculature. Right lower extremity shows triphasic waveform pattern in the common femoral, proximal superficial femoral, popliteal and dorsalis pedis arteries. A monophasic waveform pattern was seen in the mid superficial femoral artery. An occlusion was not seen in this may be artifact of body habitus. IMPRESSION: WATSON values both measure greater than 1.00 with toe index values greater than 0.74 in value. Significant lower extremity peripheral arterial disease is doubtful. Left leg does show a monophasic waveform pattern from groin to ankle. This can be seen when there is flow limiting disease in the left iliac vasculature. Physical exam General: Alert, In no apparent distress, Oriented x3, Cooperative HEENT: PERRLA, Mucous membr. moist/pink, EOMI Neck: Supple Respiratory: Clear to auscultation bilaterally, Normal air movement Cardiovascular: Regular rate and rhythm no focal deficits. Capillary refill: <2 Seconds Gastrointestinal: Normal bowel sounds, Soft and benign, Non-distended, No ascites, No tenderness, No masses, No rebound, No guarding Musculoskeletal: Bilateral lower extremities from the ankles to the knees have increased swelling with discoloration and slight warmth and erythema it. Tender to palpation. Left lower extremity has small seeping wound. No exudated material noted. 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 Currently on IV vancomycin and Levaquin. Will obtain arterial Doppler to further evaluate for possible underlying PVD. Will consult infectious disease for further recommendation. Anticipate improvement over the next 48 hours. Chronic atrial fibrillation on chronic anticoagulation therapy: Continue with home medication including Eliquis 5 mg 1 pill twice daily, amiodarone 200 mg daily, and carvedilol 3.125 mg 1 pill twice daily. Chronic combined systolic/diastolic CHF: Continue with IV diuresis. Currently on IV Lasix 40 mg twice daily. He takes 40 mg 1 pill twice daily at home. Continue 1500 cc/day fluid restriction. Elevate leg when sitting or lying. 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 Diabetes needs to be better controlled. Continue with basal insulin for now. Will monitor and adjust medication. Continue with gabapentin. We will also provide medication for pain. Hypertension: Restart carvedilol 3.25 mg 1 pill twice daily. Will monitor and adjust appropriately. Code status: Full code DVT prophylaxis: Eliquis Advanced care planning-30 min: Home at discharge. Patient seen at the [place] clinic.
[2020-12-20] MEDS: GABAPENTIN 300 MG CAP PO SCH (08:56)
[2020-12-20] MEDS: APIXABAN 5 MG TABLET PO SCH (08:56)
[2020-12-20] MEDS: METFORMIN HCL 500 MG TAB PO SCH (08:56)
[2020-12-20] MEDS: AMIODARONE HCL 200 MG TAB PO SCH (08:56)
[2020-12-20] MEDS: FUROSEMIDE 40 MG/4 ML VIAL IV SCH (08:56)
[2020-12-20] MEDS: INSULIN GLARGINE 100 UNITS/ML SQ SCH (08:57)
[2020-12-20] MEDS: PANTOPRAZOLE 40MG TABLET PO SCH (08:57)
[2020-12-20] MEDS: INSULIN -REGULAR HUMAN 50 UNIT/0.5 ML ML SQ SCH (08:57)
[2020-12-20 08:58] VITALS: BP 109/59
[2020-12-20] MEDS: VANCOMYCIN 2 GM in NA CHLORIDE 0.9% 500 ML IVPB SCH (08:58)
[2020-12-20] MEDS: carvediloL 3.125 MG TAB PO SCH (08:58)
--- NOTE | 2020-12-20 09:22 | P.DS ---
Admission Date: 12/19/20 Discharge Date: 12/20/20 Primary Care Provider: OLIVE Disposition: ROUTINE DISCHARGE Discharge Condition: GOOD Reason for Admission: Cellulitis lower extremities Consultations: Infectious disease-Dr. Quesada Procedures: Arterial doppler: FINDINGS: Brachials artery pressure measurements are symmetric. WATSON values are 1.44 on the right and 1.18 on the left. Toe index values are 0.74 on the right and 0.83 on the left. Exam was technically difficult due to patient body habitus. A monophasic waveform pattern was seen in the left lower extremity from the common femoral artery to the dorsalis pedis artery. Within the left leg no occlusion or focal flow restricting lesion. This waveform pattern may indicate flow-limiting disease in the left iliac vasculature. Right lower extremity shows triphasic waveform pattern in the common femoral, proximal superficial femoral, popliteal and dorsalis pedis arteries. A monophasic waveform pattern was seen in the mid superficial femoral artery. An occlusion was not seen in this may be artifact of body habitus. IMPRESSION: WATSON values both measure greater than 1.00 with toe index values gr eater than 0.74 in value. Significant lower extremity peripheral arterial disease is doubtful. Left leg does show a monophasic waveform pattern from groin to ankle. This can be seen when there is flow limiting disease in the left iliac vasculature. 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 Patient was seen approximately 1 week ago for the same symptoms and was put on clindamycin for cellulitis. Patient stated that he has been on his antibiotics as prescribed but has continued pain and discoloration of his lower extremities. Patient was worked up in the emergency room and found to have increased white cell count and lactate. Patient was admitted for treatment. Hospital Course: Patient presented with cellulitis to the left lower extremity failed outpatient therapy. Patient recently seen in the ER and treated with clindamycin. Patient required hospitalization with IV antibiotic therapy. During the course of his stay patient received IV vancomycin and Levaquin with significant improvement. Arterial Doppler showed no significant stenosis but PVD noted. Patient was also seen by infectious disease. Blood cultures negative. Wound culture also negative. Patient was also treated for his chronic combined systolic/diastolic CHF. Patient received IV diuresis with improvement. At discharge no significant erythema noted. At discharge infectious disease recommends to continue Bactrim DS 1 pill twice daily for 7 days. Patient will continue with current wound care including applying Santyl daily. Recommend to elevate leg when sitting or lying. [facility] and continue his care. As mentioned above patient with chronic combined systolic/diastolic CHF. Patient was diuresed with IV medication. Patient has done well. At discharge patient will continue with the 1500 cc/day fluid restriction and low-salt diet. Recommend to monitor his weight daily. If his weight increases by more than 5 pounds adjustment in his medication may be required. At discharge patient will continue with Lasix 80 mg 1 pill twice daily and Klor-Con 20 mEq 1 pill twice daily. Please note losartan will be on hold as blood pressures have been stable only with carvedilol. Patient will continue with carvedilol only at discharge. Continue with recommendations below. Recommend follow-up with his PCP and cardiology to further monitor and address his condition. Patient with chronic atrial fibrillation on anticoagulation therapy, hypertension and hyperlipidemia. This appears stable at this time. Blood pressures have remained stable. At discharge will recommend to hold losartan 25 mg daily since his blood pressure is well controlled only with carvedilol. At discharge for his blood pressure patient will continue with only carvedilol 3.25 mg 1 pill twice daily. Recommend to maintain blood pressure less than 130/80. Further adjustment can be done by his PCP. If his blood pressure increases greater than 140/90 he may restart losartan 25 mg daily. Patient will continue with his other medications including amiodarone 200 mg daily, Eliquis 5 mg 1 pill twice daily, Lipitor 40 mg daily, and aspirin 81 mg daily. Recommend follow-up with his PCP and cardiology to further monitor and adjust medication. Patient with diabetes mellitus type 2 insulin-dependent with neuropathy. Hemoglobin A1c 11.0. At discharge patient will continue with his medications including Lantus 50 units subcu twice daily and flex pen NovoLog 15 units 3 times a day. Patient may also continue with Metformin at 1000 mg 1 pill twice daily. Recommend to discontinue Jardiance at this time. This may be restarted after treatment of his cellulitis. Recommend to maintain blood sugars less than 140 fasting and less than 200 after meals. Further adjustment in medication can be done by his PCP. Recommend to monitor hemoglobin A1c every 3 months to monitor his progress. For his neuropathy patient will continue with gabapentin 600 mg 1 pill twice daily. Patient takes tramadol ER 100 mg 1 pill twice daily as needed for pain. Patient will continue with his other medications including vitamin B12 and vitamin D. Vital Signs/Physical Exam: Temp Pulse Resp BP Pulse Ox 97.4 F 73 18 109/59 L 94 12/20/20 06:09 12/20/20 08:58 12/20/20 08:54 12/20/20 08:58 12/20/20 08:54 General: Alert, In no apparent distress, Oriented x3, Cooperative HEENT: Atraumatic Neck: Supple Respiratory: Clear to auscultation bilaterally, Normal air movement Cardiovascular: Normal pulses, Regular rate/rhythm Gastrointestinal: Normal bowel sounds, Soft and benign, Non-distended, No masses, No rebound, No guarding Integumentary: Other (No significant erythema to the lower extremities bilateral. Swelling improved bilateral.) Neurological: Normal speech, Normal strength at 5/5 x4 extr, Normal tone, Normal affect Laboratory Data at Discharge: WBC 14.40 K/uL (4.3-10.9) H D 12/20/20 04:31 Hgb 14.8 g/dL (13.6-17.9) 12/20/20 04:31 Hct 45.9 % (39.6-49.0) 12/20/20 04:31 Plt Count 258 K/uL (152-406) 12/20/20 04:31 Sodium 138 mmol/L (136-145) 12/20/20 04:31 Potassium 4.0 mmol/L (3.5-5.1) 12/20/20 04:31 BUN 13 mg/dL (7-18) 12/20/20 04:31 Creatinine 0.80 mg/dL (0.55-1.3) 12/20/20 04:31 Glucose 192 mg/dL (74-106) H 12/20/20 04:31 Magnesium 2.1 mg/dL (1.8-2.4) 12/20/20 04:31 Total Bilirubin 0.3 mg/dL (0.2-1.0) 12/19/20 01:44 AST 14 U/L (15-37) L 12/19/20 01:44 ALT 27 U/L (12-78) 12/19/20 01:44 Alkaline Phosphatase 78 U/L (45-117) 12/19/20 01:44 Home Medications: Amiodarone HCl [Cordarone*] 200 mg PO DAILY 09/13/18 Aspirin Chewable [Aspirin Chewable*] 81 mg PO DAILY 09/13/18 Furosemide 80 mg PO BID 09/13/18 Gabapentin [Neurontin] 600 mg PO BID 09/13/18 Metformin HCl [Glucophage] 1,000 mg PO BID 09/13/18 Omeprazole 20 mg PO DAILY 09/13/18 Potassium Chloride 20 meq PO BID 09/13/18 carvediloL [Coreg*] 3.125 mg PO BID 09/13/18 Tramadol HCl [Ultram ER] 100 mg PO BID PRN #10 tab.sr.24h 09/15/18 Insulin Glargine,Hum.rec.anlog [Lantus] 50 units SQ BID 12/19/20 Apixaban [Eliquis] 1 tab PO BID 12/20/20 Atorvastatin Calcium [Lipitor] 0.5 tab PO DAILY 12/20/20 Collagenase [Santyl Ointment*] 1 audrey TOP DAILY 12/20/20 Cyanocobalamin (Vitamin B-12) [B-12] 1 tab PO DAILY 12/20/20 Ergocalciferol (Vitamin D2) [Vitamin D2] 1 cap PO Q7D 12/20/20 Insulin Aspart [Insulin Aspart Flexpen] 15 units SQ TID 12/20/20 Lidocaine 5% [Lidocaine HCl] 1 audrey TOP BIDP PRN 12/20/20 Sulfamethoxazole/Trimethoprim [Bactrim Ds Tablet] 1 each PO BID #14 tablet 12/20/20 modafiniL [Modafinil] 1 tab PO BID 12/20/20 New Medications: Sulfamethoxazole/Trimethoprim [Bactrim Ds Tablet] 1 each PO BID #14 tablet Physician Discharge Instructions: Patient presented with cellulitis to the left lower extremity failed outpatient therapy. Patient recently seen in the ER and treated with clindamycin. Patient required hospitalization with IV antibiotic therapy. During the course of his stay patient received IV vancomycin and Levaquin with significant improvement. Arterial Doppler showed no significant stenosis but PVD noted. Patient was also seen by infectious disease. Blood cultures negative. Wound culture also negative. Patient was also treated for his chronic combined systolic/diastolic CHF. Patient received IV diuresis with improvement. At discharge no significant erythema noted. At discharge infectious disease recommends to continue Bactrim DS 1 pill twice daily for 7 days. Patient will continue with current wound care including applying Santyl daily. Recommend to elevate leg when sitting or lying. Recommend follow-up at the [place] [facility] within 1 week to follow-up his hospitalization and continue his care. As mentioned above patient with chronic combined systolic/diastolic CHF. Patient was diuresed with IV medication. Patient has done well. At discharge patient will continue with the 1500 cc/day fluid restriction and low-salt diet. Recommend to monitor his weight daily. If his weight increases by more than 5 pounds adjustment in his medication may be required. At discharge patient will continue with Lasix 80 mg 1 pill twice daily and Klor-Con 20 mEq 1 pill twice daily. Please note losartan will be on hold as blood pressures have been stable only with carvedilol. Patient will continue with carvedilol only at discharge. Continue with recommendations below. Recommend follow-up with his PCP and cardiology to further monitor and address his condition. Patient with chronic atrial fibrillation on anticoagulation therapy, hypertension and hyperlipidemia. This appears stable at this time. Blood pressures have remained stable. At discharge will recommend to hold losartan 25 mg daily since his blood pressure is well controlled only with carvedilol. At discharge for his blood pressure patient will continue with only carvedilol 3.25 mg 1 pill twice daily. Recommend to maintain blood pressure less than 130/80. Further adjustment can be done by his PCP. If his blood pressure increases greater than 140/90 he may restart losartan 25 mg daily. Patient will continue with his other medications including amiodarone 200 mg daily, Eliquis 5 mg 1 pill twice daily, Lipitor 40 mg daily, and aspirin 81 mg daily. Recommend follow-up with his PCP and cardiology to further monitor and adjust medication. Patient with diabetes mellitus type 2 insulin-dependent with neuropathy. Hemoglobin A1c 11.0. At discharge patient will continue with his medications including Lantus 50 units subcu twice daily and flex pen NovoLog 15 units 3 times a day. Patient may also continue with Metformin at 1000 mg 1 pill twice daily. Recommend to discontinue Jardiance at this time. This may be restarted after treatment of his cellulitis. Recommend to maintain blood sugars less than 140 fasting and less than 200 after meals. Further adjustment in medication can be done by his PCP. Recommend to monitor hemoglobin A1c every 3 months to monitor his progress. For his neuropathy patient will continue with gabapentin 600 mg 1 pill twice daily. Patient takes tramadol ER 100 mg 1 pill twice daily as needed for pain. Patient will continue with his other medications including vitamin B12 and vitamin D. Diet: ADA Activity: Ad leonor Followup: NONE,NONE [Primary Care Provider] - Time spent managing pt's care (in minutes): 55
[2020-12-20 09:53] VITALS: O2SAT 99
--- NOTE | 2020-12-20 10:45 | P.PN ---
Subjective Date of Service: 12/20/20 Primary Care Provider: OLIVE Chief Complaint: Cellulitis lower extremities Patient seen examined at bedside, I am bilateral lower extremity erythema and swelling improving. Review of Systems 10-point ROS is otherwise unremarkable Physical Examination - Vital Signs Temperature: 97.4 F Blood Pressure: 109/59 Pulse: 73 Respirations: 18 Pulse Ox (%): 94 - Studies Laboratory Last Values WBC 18.30 K/uL (4.3-10.9) H D 12/19/20 01:44 RBC 5.56 M/uL (4.33-5.43) H 12/19/20 01:44 Hgb 15.7 g/dL (13.6-17.9) 12/19/20 01:44 Hct 47.4 % (39.6-49.0) 12/19/20 01:44 MCV 85.3 fL (80-100) 12/19/20 01:44 MCH 28.3 pg (27.0-35.0) 12/19/20 01:44 MCHC 33.2 g/dL (32.0-36.0) 12/19/20 01:44 RDW 15.2 % (12.1-15.2) 12/19/20 01:44 Plt Count 283 K/uL (152-406) 12/19/20 01:44 MPV 8.6 fL (7.6-11.3) 12/19/20 01:44 Neutrophils % 71.7 % (41.7-73.7) 12/19/20 01:44 Lymphocytes % 19.7 % (15.3-44.8) 12/19/20 01:44 Monocytes % 7.6 % (3.3-12.3) 12/19/20 01:44 Eosinophils % 0.7 % (0-4.4) 12/19/20 01:44 Basophils % 0.3 % (0-1.3) 12/19/20 01:44 Absolute Neutrophils 13.1 K/uL (1.8-8.0) H 12/19/20 01:44 Absolute Lymphocytes 3.6 K/uL (0.7-4.9) 12/19/20 01:44 Absolute Monocytes 1.4 K/uL (0.1-1.3) H 12/19/20 01:44 Absolute Eosinophils 0.1 K/uL (0-0.5) 12/19/20 01:44 Absolute Basophils 0.1 K/uL (0-0.5) 12/19/20 01:44 Sodium 140 mmol/L (136-145) 12/19/20 01:44 Potassium 4.1 mmol/L (3.5-5.1) 12/19/20 01:44 Chloride 102 mmol/L (98-107) 12/19/20 01:44 Carbon Dioxide 34 mmol/L (21-32) H 12/19/20 01:44 BUN 13 mg/dL (7-18) 12/19/20 01:44 Creatinine 0.89 mg/dL (0.55-1.3) 12/19/20 01:44 Estimated GFR 88 mL/min (=/>90) L 12/19/20 01:44 Glucose 188 mg/dL (74-106) H 12/19/20 01:44 Hemoglobin A1c 11.0 % (4.2-6.3) H 12/19/20 01:44 Lactic Acid 2.2 mmol/L (0.4-2.0) H 12/19/20 01:44 Calcium 9.5 mg/dL (8.5-10.1) 12/19/20 01:44 Total Bilirubin 0.3 mg/dL (0.2-1.0) 12/19/20 01:44 AST 14 U/L (15-37) L 12/19/20 01:44 ALT 27 U/L (12-78) 12/19/20 01:44 Alkaline Phosphatase 78 U/L (45-117) 12/19/20 01:44 Serum Total Protein 8.4 g/dL (6.4-8.2) H 12/19/20 01:44 Albumin 3.6 g/dL (3.4-5.0) 12/19/20 01:44 Globulin 4.8 g/dL (2.3-3.5) H 12/19/20 01:44 Albumin/Globulin Ratio 0.8 (1.1-1.8) L 12/19/20 01:44 Assessment And Plan - Plan General: Alert, In no apparent distress, Obese HEENT: Atraumatic, Normocephalic Neck: Supple, 2+ carotid pulse no bruit Respiratory: Clear to auscultation bilaterally, Normal air movement Cardiovascular: No edema, Regular rate/rhythm Capillary refill: <2 Seconds Gastrointestinal: Normal bowel sounds, Soft and benign Musculoskeletal: No clubbing Integumentary: Other (Bilateral lower extremity cellulitis. Bilateral lower extremity stasis dermatitis/lymphedema.) Laboratory Data (last 24 hrs) 12/19/20 01:44: Sodium 140, Potassium 4.1, BUN 13, Creatinine 0.89, Glucose 188 H, Total Bilirubin 0.3, AST 14 L, ALT 27, Alkaline Phosphatase 78 12/19/20 01:44: WBC 18.30 H D, Hgb 15.7, Hct 47.4, Plt Count 283 Conclusions/Impression: Antibiotics: Vancomycin Start: 12/19 stop: -- Levaquin Start: 12/19 stop: -- Assessment: -recurrent bilateral lower extremity cellulitis -leukocytosis with left shift -bilateral lower extremity stasis dermatitis and lymphedema -diabetes mellitus uncontrolled -CHF -a fib -hypertension and hyperlipidemia Plan: -This is patient's 3rd hospital visit within the past month due to recurrent bilateral lower extremity cellulitis, worse in right leg. Patient failed outpatient treatment with oral antibiotics. Patient empirically started on vancomycin and Levaquin. Vancomycin trough goal of 10-15, continue to monitor renal function. Blood cultures taken on 12/19: NGTD. Wound culture taken on 12/19: No growth, squamous epithelial cells noted. Of note this wound culture was taken from a superficial skin tear on the left lower extremity, likely will not be reliable. Consent patient home on oral Bactrim for total antibiotic duration of 2 weeks. Recommend patient follow up outpatient with PCP for repeat labs to monitor kidney function. -leukocytosis with left shift: Continue to monitor closely. Procalcitonin within normal range. -patient noted to have bilateral stasis dermatitis and lymphedema. Educated patient on the importance of keeping legs elevated. -uncontrolled diabetes: Hemoglobin A1c 11.0. This is contributing to recurrent cellulitis. Educated patient on importance of strict glucose monitoring. -medical management per primary team -continue monitor CBC and BMP -continue to monitor signs infection Plan of care discussed with Dr. Quesada Thank you for consultation.
== END 2020-12-20 11:30 | disposition home or self-care (01) | DRG 603 ==
LOC: ER 22:03 → ERHOLD 12-19 03:19 → 2ND 12-19 03:48
PROVIDERS: ADMIT Family Medicine; ATTEND Family Medicine
DX: L03.116 Cellulitis of left lower limb (principal); I50.42 Chronic combined systolic (congestive) and diastolic (congestive) heart failure; I48.20 Chronic atrial fibrillation, unspecified; Z68.42 Body mass index [BMI] 45.0-49.9, adult; I11.0 Hypertensive heart disease with heart failure; Z79.01 Long term (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 anticoagulants; E11.40 Type 2 diabetes mellitus with diabetic neuropathy, unspecified; E78.5 Hyperlipidemia, unspecified; I73.9 Peripheral vascular disease, unspecified; E66.9 Obesity, unspecified; I25.10 Atherosclerotic heart disease of native coronary artery without angina pectoris; Z95.5 Presence of coronary angioplasty implant and graft
CPT/HCPCS: 36415; 80048; 80053; 81001; 82947; 83036; 83605; 83735; 84145; 85025; 87040; 87070; 87077; 87186; 87205; 93923; 96365; 96367; 99285; J1815; J1940; J3370; J7030; J7040; J7050; J7799

== ENCOUNTER 2020-12-26 13:23 | Emergency (ER) | payer OTHER ==
[2020-12-26] MEDS ORDERED: HYDROCODONE/APAP 10/325 TAB ONE (14:17)
[2020-12-26] MEDS ORDERED: FUROSEMIDE 40 MG/4 ML VIAL ONE (14:17)
[2020-12-26 14:26] LABS: Absolute Lymphocytes (CBC) 2.9 K/uL (0.7-4.9); Basophils % 0.8 % (0-1.3); Hematocrit 48.7 % (39.6-49.0); Lymphocytes % 21.2 % (15.3-44.8); MPV 8.8 fL (7.6-11.3); RBC Red Blood Cell Count 5.69 M/uL (4.33-5.43)
[2020-12-26 14:41] LABS: Potassium 4.1 mmol/L (3.5-5.1)
[2020-12-26] MEDS ORDERED: MEPERIDINE HCL 50 MG/ML ONE (16:13)
--- NOTE | 2020-12-26 16:32 | ER ---
Nurse's Notes [facility] Name: Harvey Callahan Age: 60 yrs Sex: Male : 1960 Arrival Date: 12/26/2020 Time: 13:26 Bed 18 Private MD: Diagnosis: Lymphedema, not elsewhere classified;Hyperglycemia, unspecified Presentation: 12/26 13:30 Chief complaint: Bilateral lower leg pain, swelling, and redness x 2 days. Right leg hb weeping. Coronavirus screen: At this time, the client does not indicate any symptoms associated with coronavirus-19. Ebola Screen: No symptoms or risks identified at this time. Initial Sepsis Screen: Does the patient meet any 2 criteria? No. Patient's initial sepsis screen is negative. Does the patient have a suspected source of infection? No. Patient's initial sepsis screen is negative. Risk Assessment: Do you want to hurt yourself or someone else? Patient reports no desire to harm self or others. Onset of symptoms was December 25, 2020. 13:30 Method Of Arrival: Wheelchair hb 13:30 Acuity: DEYANIRA 3 hb Historical: - Allergies: 13:32 No Known Allergies; hb - PMHx: 13:32 Hyperlipidemia; Diabetes - IDDM; Diabetes - NIDDM; Hypertension; EDEMA; CHF; Arthritis; hb knee pain; - PSHx: 13:32 Appendectomy; Coronary Angioplasty; hb - Immunization history:: Client reports receiving the 2nd dose of the Covid vaccine. - Social history:: Smoking status: Patient reports the use of cigarette tobacco products, smokes one pack cigarettes per day. - Family history:: not pertinent. - Hospitalizations: : The patient was recently seen at [facility]. Screenin:51 Abuse screen: Denies threats or abuse. Denies injuries from another. Nutritional tr6 screening: No deficits noted. Tuberculosis screening: No symptoms or risk factors identified. Fall Risk None identified. Assessment: 13:51 General: Appears in no apparent distress. uncomfortable, Behavior is calm, cooperative, tr6 appropriate for age. Pain: Complains of pain in right leg and left leg Pain does not radiate. Pain currently is 8 out of 10 on a pain scale. Quality of pain is described as pressure, throbbing, Pain began 2-3 days ago. Is continuous. Neuro: Level of Consciousness is awake, alert, obeys commands, Oriented to person, place, time, situation. Cardiovascular: Capillary refill < 3 seconds Patient's skin is warm and dry. Respiratory: Airway is patent Respiratory effort is even, unlabored, Respiratory pattern is regular, symmetrical. GI: Abdomen is flat, non-distended. : No signs and/or symptoms were reported regarding the genitourinary system. EENT: No signs and/or symptoms were reported regarding the EENT system. Derm: Rash noted that is draining pus, on right leg and left leg. Musculoskeletal: No signs and/or symptoms reported regarding the musculoskeletal system. Vital Signs: 13:30 BP 110 / 78; Pulse 56; Resp 18; Temp 97.7; Pulse Ox 100% on R/A; Weight 136.08 kg; hb Height 5 ft. 7 in. (170.18 cm); Pain 9/10; 13:51 BP 122 / 82; Pulse 60; Resp 18; Pulse Ox 99% on R/A; Pain 8/10; tr6 13:30 Body Mass Index 46.99 (136.08 kg, 170.18 cm) hb ED Course: 13:26 Patient arrived in ED. as 13:32 Triage completed. hb 13:32 Arm band placed on. hb 13:33 Maulik Goodman MD is Attending Physician. rn 13:49 Guerda Rivera RN is Primary Nurse. tr6 13:51 Patient has correct armband on for positive identification. Bed in low position. Call tr6 light in reach. Side rails up X2. Pulse ox on. NIBP on. 13:51 No provider procedures requiring assistance completed. tr6 14:08 Inserted saline lock: 20 gauge in right antecubital area, using aseptic technique. tr6 Blood collected. 16:40 IV discontinued, intact, bleeding controlled, No redness/swelling at site. Pressure tr6 dressing applied. Administered Medications: 14:07 Drug: Lasix (furosemide) 80 mg Route: IVP; Site: right antecubital; tr6 14:07 Drug: [place] (HYDROcodone-acetaminophen) 10 mg-325 mg 1 tabs Route: PO; tr6 15:57 Drug: Demerol (meperidine) 25 mg Route: IVP; Site: right antecubital; tr6 16:55 Follow up: Response: No adverse reaction; Pain is decreased tr6 Outcome: 16:31 Discharge ordered by . rn 16:40 Discharged to home ambulatory. tr6 16:40 Condition: stable 16:40 Discharge instructions given to patient, Instructed on discharge instructions, follow up and referral plans. medication usage, safety practices, Demonstrated understanding of instructions, follow-up care, medications. 16:55 Patient left the ED. tr6 Signatures: Dang Duran Roman, MD MD rn Baxter, Heather, RN RN Guerda Rivera RN RN tr6
--- NOTE | 2020-12-26 16:32 | EDPHYS ---
Physician Documentation [facility] Name: Harvey Callahan Age: 60 yrs Sex: Male : 1960 Arrival Date: 12/26/2020 Time: 13:26 Bed 18 Private MD: ED Physician Maulik Goodman HPI: 12/26 15:36 This 60 yrs old Male presents to ER via Wheelchair with complaints of Leg rn Swelling, Leg Pain. 15:36 The patient presents with swelling. rn 16:23 The complaints affect the right leg and left leg. Onset: The symptoms/episode rn began/occurred at an unknown time. Modifying factors: The symptoms are alleviated by nothing. the symptoms are aggravated by nothing. Associated signs and symptoms: Pertinent positives: swelling. Severity of symptoms: At their worst the symptoms were moderate, in the emergency department the symptoms are unchanged. The patient has experienced similar episodes in the past. The patient has been recently been admitted at [facility]. Reports leg swelling and weeping, unclear onset, has been dealing with it for about 4 years now, + recent admission this week for possible cellulitis, still taking bactrim and redness improving, states taking his lasix, has appt with pcp at [place] tomorrow. No fever. No sob. . Historical: - Allergies: 13:32 No Known Allergies; hb - PMHx: 13:32 Hyperlipidemia; Diabetes - IDDM; Diabetes - NIDDM; Hypertension; EDEMA; CHF; Arthritis; hb knee pain; - PSHx: 13:32 Appendectomy; Coronary Angioplasty; hb - Immunization history:: Client reports receiving the 2nd dose of the Covid vaccine. - Social history:: Smoking status: Patient reports the use of cigarette tobacco products, smokes one pack cigarettes per day. - Family history:: not pertinent. - Hospitalizations: : The patient was recently seen at [facility]. ROS: 16:25 Constitutional: Negative for fever, chills, and weight loss, Eyes: Negative for injury, rn pain, redness, and discharge, Neck: Negative for injury, pain, and swelling, Cardiovascular: Negative for chest pain, palpitations Respiratory: Negative for shortness of breath, cough, wheezing, and pleuritic chest pain, Abdomen/GI: Negative for abdominal pain, nausea, vomiting, diarrhea, and constipation, Back: Negative for injury and pain, MS/Extremity: + bilateral leg swelling Skin: Negative for injury Neuro: Negative for headache, weakness, numbness, tingling, and seizure. 16:25 All other systems are negative. Exam: 16:25 Constitutional: This is a well developed, well nourished patient who is awake, alert, rn and in no acute distress. Head/Face: Normocephalic, atraumatic. Cardiovascular: Regular rate and rhythm. No pulse deficits. Respiratory: No increased work of breathing, no retractions or nasal flaring. Abdomen/GI: Soft, non-tender Back: No spinal tenderness. Skin: Warm, dry, 2 areas of punctate weeping of serous fluid, no purulence. MS/ Extremity: Pulses equal, no cyanosis. Neuro: Awake and alert, GCS 15 Vital Signs: 13:30 BP 110 / 78; Pulse 56; Resp 18; Temp 97.7; Pulse Ox 100% on R/A; Weight 136.08 kg; hb Height 5 ft. 7 in. (170.18 cm); Pain 9/10; 13:51 BP 122 / 82; Pulse 60; Resp 18; Pulse Ox 99% on R/A; Pain 8/10; tr6 13:30 Body Mass Index 46.99 (136.08 kg, 170.18 cm) hb MDM: 13:33 Patient medically screened. rn 16:29 Differential diagnosis: lymphedema. Data reviewed: vital signs, nurses notes, old rn medical records, lab test result(s), and as a result, I will discharge patient. Counseling: I had a detailed discussion with the patient and/or guardian regarding: the historical points, exam findings, and any diagnostic results supporting the discharge/admit diagnosis, lab results, the need for outpatient follow up, to return to the emergency department if symptoms worsen or persist or if there are any questions or concerns that arise at home. Response to treatment: the patient's symptoms have mildly improved after treatment, and as a result, I will discharge patient. Special discussion: I discussed with the patient/guardian in detail that at this point there is no indication for admission to the hospital. It is understood, however, that if the symptoms persist or worsen the patient needs to return immediately for re-evaluation. ED course: Neg Procal, WBC improving, already on bactrim, given lasix here and has urinated 2 urinals of urine, will dc home with doubling his lasix for 3 days, and has appt with pcp tomorrow. Return precautions given and understood. . 12/26 13:49 Order name: CBC with Diff rn 12/26 13:49 Order name: Basic Metabolic Panel rn 12/26 13:49 Order name: Procalcitonin; Complete Time: 15:13 rn 12/26 13:49 Order name: CBC with Automated Diff; Complete Time: 15:13 EDMS 12/26 13:49 Order name: Basic Metabolic Panel; Complete Time: 15:13 EDMS 12/26 14:16 Order name: Glucose, Ancillary Testing; Complete Time: 15:13 EDMS 12/26 13:49 Order name: IV Start; Complete Time: 14:08 rn 12/26 13:49 Order name: Glucose Level; Complete Time: 14:08 rn Administered Medications: 14:07 Drug: Lasix (furosemide) 80 mg Route: IVP; Site: right antecubital; tr6 14:07 Drug: Florence (HYDROcodone-acetaminophen) 10 mg-325 mg 1 tabs Route: PO; tr6 15:57 Drug: Demerol (meperidine) 25 mg Route: IVP; Site: right antecubital; tr6 16:55 Follow up: Response: No adverse reaction; Pain is decreased tr6 Disposition Summary: 12/26/20 16:31 Discharge Ordered Location: Home rn Problem: chronic rn Symptoms: have improved rn Condition: Stable rn Diagnosis - Lymphedema, not elsewhere classified rn - Hyperglycemia, unspecified rn Followup: rn - With: Private Physician - When: Tomorrow - Reason: Recheck today's complaints, Re-evaluation by your physician Discharge Instructions: - Discharge Summary Sheet rn - Hyperglycemia rn - Lymphedema rn Forms: - Medication Reconciliation Form rn - Thank You Letter rn - Antibiotic statistics intern - Prescription Opioid Use rn Signatures: Dispatcher [employer] Maulik Schreiber MD MD rn Baxter, Heather, RN RN hb Ramnanan, Tiffany, RN RN tr6
[2020-12-26 17:03] VITALS: TEMP 97.7
[2020-12-26 17:04] VITALS: BP 122/82; O2SAT 99
== END 2020-12-26 16:55 | disposition home or self-care (01) ==
LOC: ER 13:23
DX: I89.0 Lymphedema, not elsewhere classified (principal); E11.65 Type 2 diabetes mellitus with hyperglycemia; I10 Essential (primary) hypertension; F17.210 Nicotine dependence, cigarettes, uncomplicated
CPT/HCPCS: 85025; 80048; 36415; 82947; 84145; 96375; 96374; 99284; J1940; J2175

== ENCOUNTER 2021-03-02 16:42 | Inpatient (IN) | payer OTHER ==
[2021-03-02] MEDS ORDERED: LIDOCAINE 1% MPF 5 ML VIAL ONE (17:55)
[2021-03-02 17:56] LABS: Absolute Lymphocytes (CBC) 2.3 K/uL (0.7-4.9); Basophils % 0.9 % (0-1.3); Hematocrit 48.1 % (39.6-49.0); MPV 8.4 fL (7.6-11.3); RBC Red Blood Cell Count 5.63 M/uL (4.33-5.43)
[2021-03-02 17:57] LABS: Protime INR 1.09
--- NOTE | 2021-03-02 18:19 | RAD REPORT ---
EXAM DESCRIPTION: Deepa Single View03/02/2021 5:53 pm CLINICAL HISTORY: Chest pain COMPARISON: November 2020 FINDINGS: An area of subsegmental atelectasis is present the left lung base. Right lung appears clear. Heart is borderline enlarged
[2021-03-02 18:22] LABS: ALT/SGPT 23 U/L (12-78); AST/SGOT 14 U/L (15-37); Albumin 3.4 g/dL (3.4-5.0); Alkaline Phosphatase 83 U/L (45-117); BUN Blood Urea Nitrogen 12 mg/dL (7-18); Bicarbonate 28 mmol/L (21-32); Bilirubin Direct 0.1 mg/dL (0-0.2); Bilirubin Total 0.4 mg/dL (0.2-1.0); Glucose Level 179 mg/dL (74-106); Magnesium 2.3 mg/dL (1.8-2.4); NT PRO-BNP 52 pg/mL (<125); Potassium 4.2 mmol/L (3.5-5.1); Protein, Total 7.8 g/dL (6.4-8.2); Sodium Level 138 mmol/L (136-145); Troponin (Emerg Dept Use Only) < 0.02 ng/mL (0.0-0.045)
[2021-03-02] MEDS ORDERED: ONDANSETRON 4 MG/2 ML VIAL ONE (19:25)
[2021-03-02] MEDS ORDERED: MORPHINE 4 MG/ML SYR ONE ×2 (19:25→20:55)
--- NOTE | 2021-03-02 20:27 | ER ---
Nurse's Notes [facility] Name: Harvey Callahan Age: 60 yrs Sex: Male : 1960 Arrival Date: 03/02/2021 Time: 16:43 Bed 5 Private MD: Diagnosis: Cellulitis of left lower limb;Cellulitis of right lower limb Presentation: 03/02 16:53 Chief complaint: Patient states: burning sensation to sienna legs, redness/swelling to sienna aa5 legs. Pt also reports right arm numbness that began 1 month ago and chest pain x 2 days ago. Coronavirus screen: At this time, the client does not indicate any symptoms associated with coronavirus-19. Ebola Screen: Patient negative for fever greater than or equal to 101.5 degrees Fahrenheit, and additional compatible Ebola Virus Disease symptoms. Initial Sepsis Screen: Does the patient meet any 2 criteria? No. Patient's initial sepsis screen is negative. Does the patient have a suspected source of infection? No. Patient's initial sepsis screen is negative. Risk Assessment: Do you want to hurt yourself or someone else? Patient reports no desire to harm self or others. Onset of symptoms was February 2021. 16:53 Method Of Arrival: Wheelchair aa5 16:53 Acuity: DEYANIRA 3 aa5 Triage Assessment: 17:47 General: Appears Behavior is calm, cooperative. ll1 Historical: - Allergies: 16:55 No Known Allergies; aa5 - PMHx: 16:55 Arthritis; CHF; EDEMA; Diabetes - IDDM; Hyperlipidemia; Hypertension; knee pain; aa5 - PSHx: 16:55 Appendectomy; Coronary Angioplasty; aa5 - Immunization history:: Client reports receiving the 2nd dose of the Covid vaccine. - Social history:: Smoking status: Patient reports the use of cigarette tobacco products, smokes two packs cigarettes per day. Screenin:21 Abuse screen: Denies threats or abuse. Nutritional screening: No deficits noted. ll1 Tuberculosis screening: No symptoms or risk factors identified. Fall Risk Gait- Impaired (20 pts.). Assessment: 17:16 Pain: Complains of pain in right leg and left leg Goal of pain control is to pt reports ll1 BLE pain and swelling x 1 month, states he was in the hospital a month ago for the same sx, they gave him diruetics and abx. rate BLE pain 10/10 at this time, took tylenol, states he did not get any relief. Cardiovascular: Reports BLE swelling. Derm: Abscess located on back of left leg is approximately size of small lemon. 18:15 Reassessment: No changes from previously documented assessment. Patient and/or family ll1 updated on plan of care and expected duration. Pain level reassessed. Vital Signs: 16:53 BP 112 / 63; Pulse 99; Resp 20 S; Temp 98.2(TE); Pulse Ox 94% on R/A; Weight 133.81 kg aa5 (R); Height 5 ft. 7 in. (170.18 cm); 17:20 BP 119 / 73; Pulse 96; Resp 19; Pulse Ox 95% ; ll1 16:53 Body Mass Index 46.20 (133.81 kg, 170.18 cm) aa5 Brooks Coma Score: 17:20 Eye Response: spontaneous(4). Verbal Response: oriented(5). Motor Response: obeys ll1 commands(6). Total: 15. ED Course: 16:43 Patient arrived in ED. as 16:53 Arm band placed on. aa5 16:55 Triage completed. aa5 16:59 Arm band placed on Patient placed in an exam room, on a stretcher. ll1 17:06 Lesyl Valadez FNP-C is [facility]. kb 17:06 Rex Solares MD is Attending Physician. kb 17:16 Marisa Montiel, REZA is Primary Nurse. ll1 17:45 Patient has correct armband on for positive identification. ll1 17:45 Inserted saline lock: 20 gauge in right forearm, using aseptic technique. Blood ll1 collected. 17:53 XRAY Chest (1 view) In Process Unspecified. EDMS 19:05 Dressings: 4X4s X 2; back of left leg secured with ancelmo wrap. ll1 20:27 Alfredo Goodman MD is Hospitalizing Provider. kb 20:46 No provider procedures requiring assistance completed. Patient admitted, IV remains in ea place. Administered Medications: 18:50 Drug: Lidocaine (1 %) 1 vials {Note: by Merissa Valadez NP during I\T\D procedure. .} Volume: ll1 5 ml; Route: Infiltration; 19:05 Follow up: Response: No adverse reaction ll1 18:59 Drug: morphine 4 mg {Note: rass 0.} Route: IVP; Site: right forearm; ll1 18:59 Drug: Zofran (Ondansetron) 4 mg Route: IVP; Site: right forearm; ll1 20:46 Drug: morphine 4 mg Route: IVP; Site: right antecubital; ea 20:46 Drug: Cefepime 2 grams Route: IVPB; Rate: 200 ml/hr; Infused Over: 30 mins; Site: right ea antecubital; 20:46 Drug: vancoMYCIN 1 grams Route: IVPB; Infused Over: 2 hrs; Site: right antecubital; ea Outcome: 17:47 Condition: stable ll1 20:27 Decision to Hospitalize by Provider. kb 20:46 Instructed on the need for admit, Demonstrated understanding of instructions. ea 03/03 07:00 Admitted to ER Hold. [facility]. ea 17:15 Patient left the ED. 5 Signatures: Dispatcher [employer] EDMS Lesly Valadez, JASON-C HAND SHAKER-Dang Sen Audri, RN RN aa5 Montserrat Argueta RN RN ea Lewis, Lynsay, RN RN 1 Durga Tompkins, REZA RN 5 Corrections: (The following items were deleted from the chart) 03/02 17:46 17:45 Inserted saline lock: 20 gauge in right forearm, using aseptic technique. 1 1
--- NOTE | 2021-03-02 20:28 | EDPHYS ---
Physician Documentation [facility] Name: Harvey Callahan Age: 60 yrs Sex: Male : 1960 Arrival Date: 03/02/2021 Time: 16:43 Bed 5 Private MD: ED Physician Rex Solares HPI: 03/02 21:30 This 60 yrs old Male presents to ER via Wheelchair with complaints of Leg kb Pain, Numbness Of Hand. 21:30 The patient presents with cellulitis of the right leg and left leg. Description: kb erythematous, swollen, warm. Onset: The symptoms/episode began/occurred 4 day(s) ago. Possible cause(s): unknown. Associated signs and symptoms: Pertinent positives: erythema, swelling. Modifying factors: the symptoms are alleviated by nothing, the symptoms are aggravated by touching. Severity of symptoms: At their worst the symptoms were moderate, in the emergency department the symptoms are unchanged. The patient has experienced similar episodes in the past. The patient has not recently seen a physician. Pt reports cellulitis to bilateral lower extremities for 4 days. States he has had this multiple times in the past and normally needs IV antibiotics. States he has also had chest pain for a few days, but believes "that's from smoking and coughing.". Historical: - Allergies: 16:55 No Known Allergies; aa5 - PMHx: 16:55 Arthritis; CHF; EDEMA; Diabetes - IDDM; Hyperlipidemia; Hypertension; knee pain; aa5 - PSHx: 16:55 Appendectomy; Coronary Angioplasty; aa5 - Immunization history:: Client reports receiving the 2nd dose of the Covid vaccine. - Social history:: Smoking status: Patient reports the use of cigarette tobacco products, smokes two packs cigarettes per day. ROS: 21:30 Constitutional: Negative for fever, chills, and weight loss. kb 21:30 Cardiovascular: Positive for chest pain, Negative for edema, orthopnea, palpitations, paroxysmal nocturnal dyspnea. 21:30 Skin: Positive for cellulitis, erythema, swelling, of the right leg and left leg. 21:30 All other systems are negative. Exam: 17:36 Constitutional: This is a well developed, well nourished patient who is awake, alert, kb and in no acute distress. Head/Face: Normocephalic, atraumatic. ENT: Moist Mucous membranes Cardiovascular: Regular rate and rhythm with a normal S1 and S2. No gallops, murmurs, or rubs. No pulse deficits. Respiratory: Respirations even and unlabored. No increased work of breathing, no retractions or nasal flaring. Abdomen/GI: Soft, non-tender. No distention MS/ Extremity: Pulses equal, no cyanosis. Neurovascular intact. Full, normal range of motion. Neuro: Awake and alert, GCS 15, oriented to person, place, time, and situation. Moves all extremities. Normal gait. Psych: Awake, alert, with orientation to person, place and time. Behavior, mood, and affect are within normal limits. 17:36 Skin: cellulitis, that is moderate, on the right leg and left leg. 17:37 Skin: abscess, that is moderate sized, of the left hamstring, with fluctuance, that is kb moderate. 17:37 ECG was reviewed by the Attending Physician. kb Vital Signs: 16:53 BP 112 / 63; Pulse 99; Resp 20 S; Temp 98.2(TE); Pulse Ox 94% on R/A; Weight 133.81 kg aa5 (R); Height 5 ft. 7 in. (170.18 cm); 17:20 BP 119 / 73; Pulse 96; Resp 19; Pulse Ox 95% ; ll1 16:53 Body Mass Index 46.20 (133.81 kg, 170.18 cm) aa5 Brooks Coma Score: 17:20 Eye Response: spontaneous(4). Verbal Response: oriented(5). Motor Response: obeys ll1 commands(6). Total: 15. Procedures: 19:01 I \\T\\ D: Incision and drainage was performed for an abscess of the left left hamstring kb Prepped with Betadine, Anesthetized with 3 ml's 1% Lidocaine. Incised with #11 blade. Drained moderate amount bloody fluid. Packed with iodoform gauze, Dressing: sterile 4x4 gauze, the patient tolerated the procedure well. MDM: 17:07 Patient medically screened. kb 17:38 Data reviewed: vital signs, nurses notes. Data interpreted: Pulse oximetry: on room air kb is 95 %. Interpretation: normal. 20:50 Counseling: I had a detailed discussion with the patient and/or guardian regarding: the kb historical points, exam findings, and any diagnostic results supporting the discharge/admit diagnosis, lab results, radiology results, the need for further work-up and treatment in the hospital. Physician consultation: Josh RICK was called at 20:51, regarding admission, to the medical/surgical unit. patient's condition, and will see patient in ED, shortly. 20:51 ED course: Pt would like to stay in the hospital for IV antibiotics because he has had kb this in the past and oral antibiotics have never worked. States he normally has to come back for IV antibiotics after a couple of days. 03/02 17:18 Order name: Basic Metabolic Panel kb 03/02 17:18 Order name: CBC with Diff kb 03/02 17:18 Order name: LFT's kb 03/02 17:18 Order name: Magnesium; Complete Time: 18:23 kb 03/02 17:18 Order name: NT PRO-BNP; Complete Time: 18:23 kb 03/02 17:18 Order name: PT-INR; Complete Time: 18:05 kb 03/02 17:18 Order name: Troponin (emerg Dept Use Only); Complete Time: 18:23 kb 03/02 17:18 Order name: Lactate; Complete Time: 18:22 kb 03/02 17:18 Order name: Procalcitonin; Complete Time: 19:41 kb 03/02 17:18 Order name: Blood Culture Adult (2) kb 03/02 17:18 Order name: Basic Metabolic Panel; Complete Time: 18:23 EDMS 03/02 17:18 Order name: CBC with Automated Diff; Complete Time: 18:05 EDMS 03/02 17:18 Order name: Liver (Hepatic) Function; Complete Time: 18:23 EDMS 03/03 00:14 Order name: Glucose, Ancillary Testing; Complete Time: 00:19 EDMS 03/02 17:18 Order name: XRAY Chest (1 view); Complete Time: 18:22 kb 03/02 20:26 Order name: US Extremity Venous W Compression Stefan kb 03/02 21:53 Order name: US; Complete Time: 21:56 EDMS 03/03 03:31 Order name: CBC with Automated Diff; Complete Time: 15:00 EDMS 03/03 03:52 Order name: Comprehensive Metabolic Panel; Complete Time: 15:00 EDMS 03/03 03:52 Order name: T4 Free; Complete Time: 15:00 EDMS 03/03 03:52 Order name: Thyroid Stimulating Hormone; Complete Time: 15:00 EDMS 03/03 04:21 Order name: Hemoglobin A1c; Complete Time: 15:00 EDMS 03/03 06:27 Order name: COVID-19 : Document "Date of Symptom Onset" if Symptomatic. eb 03/03 06:53 Order name: CORONAVIRUS EDMS 03/03 07:13 Order name: C-Reactive Protein; Complete Time: 15:00 EDMS 03/03 07:53 Order name: SARS-COV-2 RT PCR; Complete Time: 15:00 EDMS 03/03 08:18 Order name: Glucose, Ancillary Testing; Complete Time: 15:00 EDMS 03/03 12:38 Order name: Glucose, Ancillary Testing; Complete Time: 15:00 EDMS 03/03 16:45 Order name: Glucose, Ancillary Testing; Complete Time: 16:52 EDMS 03/02 17:18 Order name: EKG; Complete Time: 17:19 kb 03/02 17:18 Order name: Cardiac monitoring; Complete Time: 17:24 kb 03/02 17:18 Order name: EKG - Nurse/Tech; Complete Time: 17:43 kb 03/02 17:18 Order name: IV Saline Lock; Complete Time: 17:43 kb 03/02 17:18 Order name: Labs collected and sent; Complete Time: 17:43 kb 03/02 17:18 Order name: O2 Per Protocol; Complete Time: 17:43 kb 03/02 17:18 Order name: O2 Sat Monitoring; Complete Time: 17:24 kb 03/02 17:18 Order name: I\\T\\D Setup; Complete Time: 17:43 kb EC:37 Rate is 92 beats/min. Rhythm is regular. QRS [place] is Normal. ND interval is normal at kb 184 msec. QRS interval is normal at 102 msec. QT interval is normal at 382 msec. Administered Medications: 18:50 Drug: Lidocaine (1 %) 1 vials {Note: by Merissa Valadez NP during I\\T\\D procedure. .} Volume: ll1 5 ml; Route: Infiltration; 19:05 Follow up: Response: No adverse reaction ll1 18:59 Drug: morphine 4 mg {Note: rass 0.} Route: IVP; Site: right forearm; ll1 18:59 Drug: Zofran (Ondansetron) 4 mg Route: IVP; Site: right forearm; ll1 20:46 Drug: morphine 4 mg Route: IVP; Site: right antecubital; ea 20:46 Drug: Cefepime 2 grams Route: IVPB; Rate: 200 ml/hr; Infused Over: 30 mins; Site: right ea antecubital; 20:46 Drug: vancoMYCIN 1 grams Route: IVPB; Infused Over: 2 hrs; Site: right antecubital; ea Disposition Summary: 03/02/21 20:27 Hospitalization Ordered Hospitalization Status: Inpatient Admission kb Provider: Alfredo Goodman Condition: Stable kb Problem: new kb Symptoms: are unchanged kb Bed/Room Type: Standard kb Location: Telemetry/MedSurg (Inpatient)(03/03/21 15:17) Room Assignment: [facility](03/03/21 15:17) Diagnosis - Cellulitis of left lower limb kb - Cellulitis of right lower limb kb Forms: - Medication Reconciliation Form kb - SBAR form kb Addendum: 03/05/2021 10:03 Co-signature as Attending Physician, Rex Solares MD I agree with the assessment and k dr plan of care. Signatures: Dispatcher [employer] EDLesly Valles, FLOOR SPECIALIST-C FLOOR SPECIALIST-Ckb Rex Solares MD MD [facility] [place] RN RN Susan Jolley RN RN cg Antunez, Elena, RN RN ea Botello, Elizabeth eb Lewis, Lynsay RN RN ll1 Corrections: (The following items were deleted from the chart) 03/02 21:48 20:27 Telemetry/MedSurg (Inpatient) kb cg 21:48 20:27 kb cg 03/03 15:17 03/02 21:48 [facility] ER HOLD cg eb 03/03 15:03/02 21:48 ERHOLD- cg eb
[2021-03-02] MEDS ORDERED: NA CHLORIDE 0.9% 250 ML ONE (20:55)
[2021-03-02] MEDS ORDERED: VANCOMYCIN 1 GM/VIAL ONE (20:55)
[2021-03-02] MEDS ORDERED: CEFEPIME/SWI 1gm 20 ML ONE (20:55)
--- NOTE | 2021-03-02 21:04 | P.HP ---
Certification for Inpatient Patient admitted to: Inpatient With expected LOS: >2 Midnights Patient will require the following post-hospital care: None Practitioner: I am a practitioner with admitting privileges, knowledge of patient current condition, hospital course, and medical plan of care. Services: Services provided to patient in accordance with Admission requirements found in Title 42 Section 412.3 of the Code of Federal Regulations Patient History Date of Service: 03/02/21 Primary Care Provider: OLIVE Reason for admission: Bilateral lower extremity cellulitis History of Present Illness: 60-year-old male with history of chronic diastolic needs of heart failure, atrial fibrillation on chronic anticoagulation therapy, diabetes mellitus type 2, hypertension, hyperlipidemia, PVD, obesity, tobacco abuse presents emerged department for bilateral lower extremity erythema. Patient reports increasing over the course last 3 to 4 days. Patient was evaluated the emergency department labs are significant for white blood cell count 13.6 procalcitonin 0.06 glucose 179 ultrasound bilateral lower extremities pending, patient noted to have abscess with fluctuance to the back of the left leg which was incised and drained in the emergency department with primarily bloody drainage noted. Patient started vancomycin/cefepime, ED progress to admit for further evaluation and management of cellulitis of bilateral lower extremities. Allergies No Known Allergies Allergy (Verified 12/19/20 04:11) Home Medications: Amiodarone HCl [Cordarone*] 200 mg PO DAILY 09/13/18 Aspirin Chewable [Aspirin Chewable*] 81 mg PO DAILY 09/13/18 Furosemide 80 mg PO BID 09/13/18 Gabapentin [Neurontin] 600 mg PO BID 09/13/18 Metformin HCl [Glucophage] 1,000 mg PO BID 09/13/18 Omeprazole 20 mg PO DAILY 09/13/18 Potassium Chloride 20 meq PO BID 09/13/18 carvediloL [Coreg*] 3.125 mg PO BID 09/13/18 Tramadol HCl [Ultram ER] 100 mg PO BID PRN #10 tab.sr.24h 09/15/18 Insulin Glargine,Hum.rec.anlog [Lantus] 50 units SQ BID 12/19/20 Apixaban [Eliquis] 1 tab PO BID 12/20/20 Atorvastatin Calcium [Lipitor] 0.5 tab PO DAILY 12/20/20 Collagenase [Santyl Ointment*] 1 audrey TOP DAILY 12/20/20 Cyanocobalamin (Vitamin B-12) [B-12] 1 tab PO DAILY 12/20/20 Ergocalciferol (Vitamin D2) [Vitamin D2] 1 cap PO Q7D 12/20/20 Insulin Aspart [Insulin Aspart Flexpen] 15 units SQ TID 12/20/20 Lidocaine 5% [Lidocaine HCl] 1 audrey TOP BIDP PRN 12/20/20 Sulfamethoxazole/Trimethoprim [Bactrim Ds Tablet] 1 each PO BID #14 tablet 12/20/20 modafiniL [Modafinil] 1 tab PO BID 12/20/20 - Past Medical/Surgical History Diabetic: Yes -: Diabetes mellitus type 2 -: Hypertension -: CAD -: Congestive heart failure, systolic dysfunction-EF 40% -: Obstructive sleep apnea -: Hypoventilation obesity syndrome -: Morbid obesity -: Hyperlipidemia -: ARTHRITIS -: Tobacco abuse -: Atrial fibrillation, chronic anti coagulation-Coumadin -: Knee surgery -: Appendectomy -: Back surgery -: CORONARY ANGIOPALSTY -: CYST REMOVAL IN THE BUTTOCKS 2019- HAD BLOOD TRANSFUSION Psychosocial/ Personal History: Patient is a . He has 6 children. - Family History Mother -: Hypertension, Diabetes Notes: - Social History Smoking Status: Current every day smoker Counseled patient to stop smoking for: less than 10 minutes Smoking therapy provided: Yes Alcohol use: No CD- Drugs: Yes Caffeine use: Yes Place of Residence: Home Review of Systems 10-point ROS is otherwise unremarkable General: Weakness Integumentary: Rash, As per HPI Physical Examination - Physical Exam General: Alert, In no apparent distress, Oriented x3, Obese HEENT: Atraumatic, PERRLA, EOMI Neck: Supple, 2+ carotid pulse no bruit, No LAD, Without JVD or thyroid abnormality Respiratory: Clear to auscultation bilaterally, Normal air movement Cardiovascular: Normal S1 S2, Edema (1+ non-pitting edema bilateral lower extremity), Irregular heart rate/rhythm (A. fib rate controlled) Capillary refill: <2 Seconds Gastrointestinal: Normal bowel sounds, No tenderness Musculoskeletal: No tenderness Integumentary: No rashes Neurological: Normal speech, Normal strength at 5/5 x4 extr, Normal tone, Normal affect - Studies Laboratory Data (last 24 hrs) 03/02/21 17:39: PT 12.5, INR 1.09 03/02/21 17:39: WBC 13.60 H, Hgb 15.5, Hct 48.1, Plt Count 273 03/02/21 17:33: Sodium 138, Potassium 4.2, BUN 12, Creatinine 0.87, Glucose 179 H, Magnesium 2.3, Total Bilirubin 0.4, AST 14 L, ALT 23, Alkaline Phosphatase 83 Assessment and Plan - Plan Assessment: Cellulitis bilateral lower extremity Chronic systolic congestive heart failure Diabetes type 2 with hyperglycemia Hypertension Hyperlipidemia Obesity PVD Tobacco abuse Plan: Cellulitis bilateral lower extremity: Continue broad-spectrum robotics vancomycin/cefepime, ultrasound bilateral lower extremity pending. Patient also noted to have reported abscess by ED staff to the left hamstring area, this was drained in the emergency department but returned primarily bloody discharge: Pressure dressing currently in place as patient is on Eliquis. Patient with previous hospitalizations for similar requires typically 2 to 3 days of IV antibiotics. Chronic systolic congestive heart failure: Continue diuresis with Lasix, last documented ejection fraction was 40%, previous echocardiogram available for review from 2018 demonstrates normal ejection fraction. No dyspnea at this time, will consult cardiology if this becomes necessary. Diabetes type 2 with hyperglycemia: Continue long-acting insulin, aggressive sliding scale, ACH is Accu-Chek. A1c with morning labs Hypertension: Obtain and continue medications Hyperlipidemia:Obtain and continue medications Obesity: Address lifestyle changes PVD:Obtain and continue medications Tobacco abuse: Provide with NicoDerm patch DVT PPX: Continue Eliquis Code status: Full code Discharge Plan: Home Plan to discharge in: 48 Hours - Advance Directives Does patient have a Living Will: No Does patient have a Durable POA for Healthcare: No - Code Status/Comfort Care Code Status Assessed: Yes (Full code) Critical Care: No Time Spent Managing Pts Care (In Minutes): 55
--- NOTE | 2021-03-02 21:52 | RAD REPORT ---
EXAM DESCRIPTION: USExtrem Venous W Compress Bil03/02/2021 9:42 pm CLINICAL HISTORY: Leg swelling COMPARISON: 2018 FINDINGS: The common femoral, superficial femoral, popliteal and posterior tibial veins bilaterally are compressible and demonstrate augmentation. Doppler demonstrates good flow. A 2.4 centimeter left Gonzales's cyst 1.4 centimeter heterogeneous complex cystic mass left thigh IMPRESSION: No evidence of deep venous thrombosis involving either lower extremity. 2.4 centimeter left Gonzales's cyst 1.4 centimeter heterogeneous complex cystic mass left thigh likely benign. It is recommended that the patient have a followup ultrasound 3 months to assess stability
[2021-03-02] MEDS ORDERED: HYDROCODONE/APAP 7.5/325 MG TAB PO PRN (23:44)
[2021-03-02] MEDS ORDERED: GLUCAGON 1 MG/VIAL IM PRN (23:44)
[2021-03-02] MEDS ORDERED: CEFEPIME 1 GM/VIAL IV SCH (23:44)
[2021-03-02] MEDS: INSULIN -REGULAR HUMAN 50 UNIT/0.5 ML ML SQ SCH (23:44)
[2021-03-02] MEDS: ATORVASTATIN 40 MG TAB PO SCH (23:44)
[2021-03-02] MEDS ORDERED: D50W 25 GM/50 ML SYRINGE IV PRN (23:44)
[2021-03-02] MEDS: APIXABAN 5 MG TABLET PO SCH (23:44)
[2021-03-02] MEDS ORDERED: ONDANSETRON 4 MG/2 ML VIAL IV PRN (23:44)
[2021-03-02] MEDS ORDERED: VANCOMYCIN/NS 1 gm 1 GM/250 ML BAG IVPB SCH (23:44)
[2021-03-02] MEDS: INSULIN GLARGINE 100 UNITS/ML SQ SCH (23:44)
[2021-03-03] MEDS ORDERED: INSULIN GLARGINE 100 UNITS/ML SQ ONE ×2 (00:18→08:47)
[2021-03-03] MEDS ORDERED: ATORVASTATIN 20 MG TAB ONE (00:19)
[2021-03-03] MEDS ORDERED: APIXABAN 5 MG TABLET ONE ×2 (00:19→08:19)
[2021-03-03] MEDS ORDERED: HYDROCODONE/APAP 7.5/325 MG TAB ONE (00:19)
[2021-03-03 00:44] VITALS: BMI 46.2
[2021-03-03] MEDS: MORPHINE 2 MG/ML SYR IV PRN ×3 (01:13→19:21)
[2021-03-03] MEDS ORDERED: MORPHINE 2 MG/ML SYR ONE ×2 (01:31→09:54)
[2021-03-03] MEDS ORDERED: VANCOMYCIN 1 GM in NA CHLORIDE 0.9% 250 ML IVPB ONE (02:00)
[2021-03-03 03:26] LABS: Absolute Lymphocytes (CBC) 2.2 K/uL (0.7-4.9); Basophils % 0.6 % (0-1.3); Hematocrit 45.4 % (39.6-49.0); MPV 8.1 fL (7.6-11.3); RBC Red Blood Cell Count 5.36 M/uL (4.33-5.43)
[2021-03-03] MEDS ORDERED: NA CHLORIDE 0.9% 250 ML ONE (03:44)
[2021-03-03] MEDS ORDERED: VANCOMYCIN 1 GM/VIAL ONE ×2 (03:44→15:00)
[2021-03-03 03:51] LABS: ALT/SGPT 19 U/L (12-78); AST/SGOT 13 U/L (15-37); Albumin 3.3 g/dL (3.4-5.0); Alkaline Phosphatase 79 U/L (45-117); BUN Blood Urea Nitrogen 12 mg/dL (7-18); Bicarbonate 28 mmol/L (21-32); Bilirubin Total 0.5 mg/dL (0.2-1.0); Glucose Level 170 mg/dL (74-106); Potassium 4.2 mmol/L (3.5-5.1); Protein, Total 7.5 g/dL (6.4-8.2); Sodium Level 138 mmol/L (136-145)
--- NOTE | 2021-03-03 06:48 | P.PN ---
Subjective Date of Service: 03/03/21 Primary Care Provider: OLIVE Chief Complaint: Bilateral lower extremity cellulitis Subjective: Improving (No big changes since yesterday, feels like slight improvement. Reports having some pain in his lower extremities, still warm and red) Review of Systems 10-point ROS is otherwise unremarkable Physical Examination - Vital Signs Temperature: 98 F Blood Pressure: 114/77 Pulse: 90 Respirations: 16 Pulse Ox (%): 97 - Studies Laboratory Data (last 24 hrs) 03/02/21 17:39: PT 12.5, INR 1.09 03/02/21 17:39: WBC 13.60 H, Hgb 15.5, Hct 48.1, Plt Count 273 03/02/21 17:33: Sodium 138, Potassium 4.2, BUN 12, Creatinine 0.87, Glucose 179 H, Magnesium 2.3, Total Bilirubin 0.4, AST 14 L, ALT 23, Alkaline Phosphatase 83 Assessment & Plan Physician Review Additional Text: Physical exam GEN: Alert, oriented, NAD HEENT: Normal conjunctiva, sclera anicteric CV: Irregularly irregular rhythm, 1-2+ edema b/l lower extremities Pulm: Nonlabored respiration on 2L NC ABD: Soft, nontender, nondistended Integumentary: b/l lower extremities with warmth and erythema from ankle to mid lower leg Neuro: Normal speech, normal affect Assessment: Cellulitis bilateral lower extremity Chronic systolic congestive heart failure Diabetes type 2 with hyperglycemia Hypertension Hyperlipidemia Obesity PVD Tobacco abuse Cellulitis bilateral lower extremity: Continue broad-spectrum antibioticscefepime and vancomycin for now Follow-up cultures Bilateral lower extremity ultrasound negative for DVT He is also noted to have an abscess by ED staff to the left hamstring area, was drained in the ED and noted primarily bloody discharge. Pressure dressing in place as patient is on Eliquis Patient with recurrent cellulitis in bilateral lower extremities Pain medication as needed Chronic systolic congestive heart failure: Does not appear to have an acute exacerbation, but does have lower extremity edema likely secondary to cellulitis and CHF Continue IV Lasix, higher than home dose Diabetes type 2 with hyperglycemia: Continue long-acting insulin, aggressive sliding scale, ACH is Accu-Chek. A1c: 9 Hypertension: Obtain and continue medications Hyperlipidemia:Obtain and continue medications Obesity: Address lifestyle changes PVD:Obtain and continue medications Tobacco abuse: Provide with NicoDerm patch Dispo: Anticipate DC home in 2 days Time Spent Managing Pts Care (In Minutes): 35
[2021-03-03] MEDS: INSULIN -REGULAR HUMAN 50 UNIT/0.5 ML ML SQ SCH ×4 (07:30→21:57)
[2021-03-03] MEDS ORDERED: AMIODARONE HCL 200 MG TAB ONE (08:19)
[2021-03-03] MEDS ORDERED: NICOTINE 21 MG/PAT TD ONE (08:19)
[2021-03-03] MEDS ORDERED: FUROSEMIDE 20 MG/ 2ML VIAL ONE ×2 (08:20→17:27)
[2021-03-03] MEDS ORDERED: FUROSEMIDE 40 MG/4 ML VIAL ONE ×2 (08:20→17:26)
[2021-03-03] MEDS: NICOTINE 21 MG/PAT TD SCH (09:00)
[2021-03-03] MEDS: FUROSEMIDE 40 MG/4 ML VIAL IV SCH ×2 (09:00→17:00)
[2021-03-03] MEDS: AMIODARONE HCL 200 MG TAB PO SCH (09:34)
[2021-03-03] MEDS: APIXABAN 5 MG TABLET PO SCH ×2 (09:34→21:58)
[2021-03-03] MEDS: INSULIN GLARGINE 100 UNITS/ML SQ SCH ×2 (09:35→21:56)
[2021-03-03] MEDS ORDERED: INSULIN -REGULAR HUMAN 50 UNIT/0.5 ML ML ONE ×2 (13:12→17:01)
[2021-03-03] MEDS: CEFEPIME/SWI 1gm 10 ML IVP SCH ×2 (14:03→21:58)
[2021-03-03] MEDS ORDERED: CEFEPIME/SWI 1gm 10 ML ONE ×2 (14:23→22:12)
[2021-03-03] MEDS: VANCOMYCIN 2 GM in NA CHLORIDE 0.9% 500 ML IVPB SCH (14:49)
[2021-03-03] MEDS ORDERED: NA CHLORIDE 0.9% 500 ML ONE (15:01)
[2021-03-03] MEDS: ATORVASTATIN 40 MG TAB PO SCH (21:58)
[2021-03-03] MEDS: HYDROCODONE/APAP 5/325 MG TAB PO PRN (22:03)
[2021-03-03] MEDS ORDERED: CETIRIZINE HCL 5 MG TABLET PO ONE (23:30)
[2021-03-04] MEDS: VANCOMYCIN 2 GM in NA CHLORIDE 0.9% 500 ML IVPB SCH ×2 (01:15→14:50)
[2021-03-04] MEDS: MORPHINE 2 MG/ML SYR IV PRN ×4 (01:20→21:06)
[2021-03-04] MEDS ORDERED: VANCOMYCIN 1 GM/VIAL ONE (01:32)
[2021-03-04] MEDS ORDERED: NA CHLORIDE 0.9% 500 ML ONE (01:32)
[2021-03-04] MEDS: HYDROCODONE/APAP 5/325 MG TAB PO PRN (05:18)
[2021-03-04 06:03] LABS: Absolute Lymphocytes (CBC) 2.3 K/uL (0.7-4.9); Basophils % 0.5 % (0-1.3); Hematocrit 45.2 % (39.6-49.0); Lymphocytes % 19.6 % (15.3-44.8); MPV 8.5 fL (7.6-11.3); RBC Red Blood Cell Count 5.32 M/uL (4.33-5.43)
--- NOTE | 2021-03-04 06:05 | P.PN ---
Subjective Date of Service: 03/04/21 Primary Care Provider: OLIVE Chief Complaint: Bilateral lower extremity cellulitis Subjective: No new changes (Feels his legs are little bit more painful today, feels like 100 little mosquito bites throughout. Erythema remains the same, swelling he feels is about the same as well. limited in how long he can keep elevated due to discomfort) Review of Systems 10-point ROS is otherwise unremarkable Physical Examination - Vital Signs Temperature: 97 F Blood Pressure: 101/56 Pulse: 76 Respirations: 16 Pulse Ox (%): 96 Assessment & Plan Physician Review Additional Text: Physical exam GEN: Alert, oriented, NAD HEENT: Normal conjunctiva, sclera anicteric CV: Irregularly irregular rhythm, 1-2+ edema b/l lower extremities Pulm: Nonlabored respiration on RA ABD: Soft, nontender, nondistended Integumentary: b/l lower extremities with warmth and circumferential circumferential erythema from ankle to mid lower leg Neuro: Normal speech, normal affect Assessment: Cellulitis bilateral lower extremity Chronic systolic congestive heart failure Diabetes type 2 with hyperglycemia, insulin-dependent Hypertension Hyperlipidemia Obesity PVD Tobacco abuse Cellulitis bilateral lower extremity: Continue broad-spectrum antibioticscefepime and vancomycin for now Follow-up cultures No obvious superficial wounds, no drainage Bilateral lower extremity ultrasound negative for DVT He is also noted to have an abscess by ED staff to the left hamstring area, was drained in the ED and noted primarily bloody discharge. Pressure dressing in place as patient is on Eliquis Patient with recurrent cellulitis in bilateral lower extremities Consult infectious disease Pain medication as needed Chronic systolic congestive heart failure: Does not appear to have an acute exacerbation, but does have lower extremity edema likely secondary to cellulitis and CHF Continue IV Lasix at higher than home dose Diabetes type 2 with hyperglycemia: Continue long-acting insulin, aggressive sliding scale, ACH is Accu-Chek. A1c: 9 HTN, HLD, Obesity, PVD, tobacco abuse: continue home medications; hold antihypertensives as patient has been having low blood pressure. Restart home gabapentin Dispo: Anticipate DC home in ~2 days Time Spent Managing Pts Care (In Minutes): 35
[2021-03-04 06:14] LABS: Urine Appearance CLEAR (Clear); Urine Bilirubin NEGATIVE (Negative); Urine Blood TRACE (Negative); Urine Color YELLOW (Yellow); Urine Glucose 3+ (Negative); Urine Protein NEGATIVE (Negative); Urine Specific Gravity >=1.030 (1.005-1.030); Urine Urobilinogen 0.2 mg/dL (0.2-1.0)
[2021-03-04 06:27] LABS: ALT/SGPT 21 U/L (12-78); AST/SGOT 12 U/L (15-37); Albumin 3.2 g/dL (3.4-5.0); Alkaline Phosphatase 77 U/L (45-117); BUN Blood Urea Nitrogen 13 mg/dL (7-18); Bicarbonate 29 mmol/L (21-32); Bilirubin Total 0.4 mg/dL (0.2-1.0); Glucose Level 189 mg/dL (74-106); Magnesium 2.3 mg/dL (1.8-2.4); Potassium 3.9 mmol/L (3.5-5.1); Protein, Total 7.5 g/dL (6.4-8.2); Sodium Level 141 mmol/L (136-145)
[2021-03-04 06:33] LABS: Urine Microscopic Reflex ORDER UMIC
[2021-03-04 06:46] LABS: Urine Bacteria <20 /HPF (NONE SEEN)
[2021-03-04] MEDS: AMIODARONE HCL 200 MG TAB PO SCH (09:25)
[2021-03-04] MEDS: APIXABAN 5 MG TABLET PO SCH ×2 (09:25→21:07)
[2021-03-04] MEDS: INSULIN -REGULAR HUMAN 50 UNIT/0.5 ML ML SQ SCH ×4 (09:25→21:07)
[2021-03-04] MEDS: INSULIN GLARGINE 100 UNITS/ML SQ SCH ×2 (09:26→21:07)
[2021-03-04] MEDS: FUROSEMIDE 40 MG/4 ML VIAL IV SCH ×2 (09:26→18:19)
[2021-03-04] MEDS: CETIRIZINE HCL 5 MG TABLET PO SCH (09:26)
[2021-03-04] MEDS: NICOTINE 21 MG/PAT TD SCH (09:27)
[2021-03-04] MEDS: CEFEPIME/SWI 1gm 10 ML IVP SCH ×2 (10:00→21:05)
[2021-03-04] MEDS: HYDROCODONE/APAP 7.5/325 MG TAB PO PRN ×2 (12:36→18:21)
[2021-03-04] MEDS: GABAPENTIN 300 MG CAP PO SCH ×2 (12:44→21:05)
[2021-03-04] MEDS: LIDOCAINE 5% OINT 30 GM TUBE TOP SCH ×2 (14:50→21:00)
[2021-03-04] MEDS: ATORVASTATIN 40 MG TAB PO SCH (21:05)
[2021-03-05] MEDS: VANCOMYCIN 2 GM in NA CHLORIDE 0.9% 500 ML IVPB SCH ×2 (01:27→13:00)
[2021-03-05] MEDS: HYDROCODONE/APAP 7.5/325 MG TAB PO PRN ×4 (01:29→20:36)
[2021-03-05 05:41] LABS: Absolute Lymphocytes (CBC) 2.6 K/uL (0.7-4.9); Basophils % 0.5 % (0-1.3); Hematocrit 46.3 % (39.6-49.0); Lymphocytes % 19.9 % (15.3-44.8); MPV 8.4 fL (7.6-11.3); RBC Red Blood Cell Count 5.43 M/uL (4.33-5.43)
[2021-03-05 05:54] LABS: ALT/SGPT 24 U/L (12-78); AST/SGOT 13 U/L (15-37); Albumin 3.3 g/dL (3.4-5.0); Alkaline Phosphatase 78 U/L (45-117); BUN Blood Urea Nitrogen 16 mg/dL (7-18); Bicarbonate 27 mmol/L (21-32); Bilirubin Total 0.4 mg/dL (0.2-1.0); Glucose Level 173 mg/dL (74-106); Potassium 4.1 mmol/L (3.5-5.1); Protein, Total 7.8 g/dL (6.4-8.2); Sodium Level 140 mmol/L (136-145)
--- NOTE | 2021-03-05 07:30 | P.PN ---
Subjective Date of Service: 03/05/21 Primary Care Provider: OLIVE Chief Complaint: Bilateral lower extremity cellulitis Subjective: Improving (Feels swelling and redness is slightly improved today. States he was able to walk down the [place] after receiving pain medication. No new complaints) Review of Systems 10-point ROS is otherwise unremarkable Physical Examination - Vital Signs Temperature: 96.9 F Blood Pressure: 104/62 Pulse: 61 Respirations: 16 Pulse Ox (%): 100 Assessment & Plan Physician Review Additional Text: Physical exam GEN: Alert, oriented, NAD HEENT: Normal conjunctiva, sclera anicteric CV: Irregularly irregular rhythm, 1-2+ nonpitting edema b/l lower extremities Pulm: Nonlabored respiration on RA ABD: Soft, nontender, nondistended Integumentary: b/l lower extremities with warmth and circumferential c ircumferential erythema from ankle to mid lower leg Neuro: Normal speech, normal affect Assessment: Cellulitis bilateral lower extremity Chronic systolic congestive heart failure Diabetes type 2 with hyperglycemia, insulin-dependent Hypertension Hyperlipidemia Obesity PVD Tobacco abuse Cellulitis bilateral lower extremity: Discontinue cefepime, continue vancomycin for now. Follow-up cultures No obvious superficial wounds, no drainage Bilateral lower extremity ultrasound negative for DVT He is also noted to have an abscess/fluid collection by ED staff to the left hamstring area, was drained in the ED and noted primarily bloody discharge. Pressure dressing in place as patient is on Eliquis Patient with recurrent cellulitis in bilateral lower extremities Consult infectious disease Pain medication as needed Chronic systolic congestive heart failure: Does not appear to have an acute exacerbation, but does have lower extremity edema likely secondary to cellulitis and CHF Continue IV Lasix at higher than home dose Diabetes type 2 with hyperglycemia: Continue long-acting insulin, aggressive sliding scale, ACH is Accu-Chek. A1c: 9 HTN, HLD, Obesity, PVD, tobacco abuse: continue home medications; hold antihypertensives as patient has been having low blood pressure. Restart home gabapentin Dispo: Anticipate DC home in ~24hrs Time Spent Managing Pts Care (In Minutes): 35
[2021-03-05] MEDS: INSULIN -REGULAR HUMAN 50 UNIT/0.5 ML ML SQ SCH ×4 (08:00→21:47)
[2021-03-05] MEDS: GABAPENTIN 300 MG CAP PO SCH ×2 (08:41→20:33)
[2021-03-05] MEDS: APIXABAN 5 MG TABLET PO SCH ×2 (08:42→20:33)
[2021-03-05] MEDS: NICOTINE 21 MG/PAT TD SCH (08:42)
[2021-03-05] MEDS: AMIODARONE HCL 200 MG TAB PO SCH (08:43)
[2021-03-05] MEDS: FUROSEMIDE 40 MG/4 ML VIAL IV SCH ×2 (08:43→16:00)
[2021-03-05] MEDS: INSULIN GLARGINE 100 UNITS/ML SQ SCH ×2 (08:44→21:47)
[2021-03-05] MEDS: CEFEPIME/SWI 1gm 10 ML IVP SCH (08:45)
[2021-03-05] MEDS: LIDOCAINE 5% OINT 30 GM TUBE TOP SCH ×2 (08:45→21:48)
[2021-03-05] MEDS: CETIRIZINE HCL 5 MG TABLET PO SCH (08:46)
[2021-03-05] MEDS: MORPHINE 2 MG/ML SYR IV PRN ×3 (12:08→23:56)
--- NOTE | 2021-03-05 13:14 | P.CNS ---
Date of Consult: 03/05/21 Primary Care Provider: OLIVE Chief Complaint: Bilateral lower extremity cellulitis History of Present Illness: Patient is a 52-year-old male with a past medical history of chronic diastolic heart failure, AFib on anticoagulant therapy, diabetes, hypertension, hy perlipidemia, PVD, obesity, tobacco abuse presented to the emergency department due to increasing lower extremity swelling, erythema, and pain. Patient has history of bilateral lower extremity stasis dermatitis and lymphedema and has been hospitalized in the past for cellulitis. Ultrasound negative for DVT, left hamstring abscess was drained in the ED, however no cultures were sent. Blood culture showed no growth, and urinalysis normal. Can be hemoglobin A1c at 9.0. Infectious disease has been consulted to manage the patient's antibiotic regimen. Patient empirically placed on vancomycin and cefepime, cefepime has been discontinued. Vancomycin trough goal of 10-15. Patient denies nausea, vomiting, diarrhea, shortness breath. Patient reports tenderness to bilateral lower extremities. Allergies No Known Allergies Allergy (Verified 12/19/20 04:11) Home Medications: Amiodarone HCl [Cordarone*] 200 mg PO DAILY 09/13/18 Aspirin Chewable [Aspirin Chewable*] 81 mg PO DAILY 09/13/18 Furosemide 80 mg PO BID 09/13/18 Gabapentin [Neurontin] 600 mg PO BID 09/13/18 Metformin HCl [Glucophage] 1,000 mg PO BID 09/13/18 Omeprazole 20 mg PO DAILY 09/13/18 Potassium Chloride 20 meq PO BID 09/13/18 Insulin Glargine,Hum.rec.anlog [Lantus] 55 units SQ BID 12/19/20 Apixaban [Eliquis] 1 tab PO BID 12/20/20 Atorvastatin Calcium [Lipitor] 0.5 tab PO DAILY 12/20/20 Cyanocobalamin (Vitamin B-12) [B-12] 1 tab PO DAILY 12/20/20 Ergocalciferol (Vitamin D2) [Vitamin D2] 1 cap PO Q7D 12/20/20 Insulin Aspart [Insulin Aspart Flexpen] 30 units SQ TID 12/20/20 Lidocaine 5% [Lidocaine HCl] 1 audrey TOP BIDP PRN 12/20/20 modafiniL [Modafinil] 1 tab PO BID 12/20/20 - Past Medical/Surgical History Diabetic: Yes -: Diabetes mellitus type 2 -: Hypertension -: CAD -: Congestive heart failure, systolic dysfunction-EF 40% -: Obstructive sleep apnea -: Hypoventilation obesity syndrome -: Morbid obesity -: Hyperlipidemia -: ARTHRITIS -: Tobacco abuse -: Atrial fibrillation, chronic anti coagulation-Coumadin -: Knee surgery -: Appendectomy -: Back surgery -: CORONARY ANGIOPALSTY -: CYST REMOVAL IN THE BUTTOCKS 2019- HAD BLOOD TRANSFUSION Psychosocial/ Personal History: Patient is a . He has 6 children. - Family History Mother Medical History: Hypertension, Diabetes Notes: - Social History Smoking Status: Current every day smoker Alcohol use: No CD- Drugs: Yes Caffeine use: Yes Place of Residence: Home Review of Systems 10-point ROS is otherwise unremarkable Physical Examination Temp Pulse Resp BP Pulse Ox 97.5 F 67 16 114/60 100 03/05/21 08:00 03/05/21 08:43 03/05/21 12:38 03/05/21 08:43 03/05/21 12:38 General: Alert, In no apparent distress, Obese HEENT: Atraumatic, Normocephalic Neck: Supple, 2+ carotid pulse no bruit Respiratory: Clear to auscultation bilaterally, Normal air movement Cardiovascular: No edema, Normal pulses, Regular rate/rhythm Gastrointestinal: Normal bowel sounds, Soft and benign Musculoskeletal: No clubbing, No swelling, No contractures Integumentary: Other (Bilateral lower extremity stasis dermatitis and lymphedema. Legs have red/purple discoloration.) Conclusions/Impression: Antibiotics Vancomycin Start: 03/03 Soft:-- Assessment/plan Bilateral lower extremity stasis dermatitis/lymphedema with possible cellulitis Difficult to determine if patient has actual cellulitis based on clinical picture due to coexisting stasis dermatitis and lymphedema. Will treat as cellulitis due to elevation WBC and procalcitonin. Continue IV vancomycin for duration of hospital stay. Diabetes Hemoglobin A1c 9.0, on continue strict glucose monitoring. Protein caloric malnutrition Recommend supplemental Ensure protein drinks Medical management per primary team Plan of care discussed with Dr. Quesada Thank you for consultation
[2021-03-05] MEDS: ATORVASTATIN 40 MG TAB PO SCH (20:33)
[2021-03-06] MEDS: VANCOMYCIN 2 GM in NA CHLORIDE 0.9% 500 ML IVPB SCH ×2 (02:00→14:00)
[2021-03-06] MEDS: HYDROCODONE/APAP 7.5/325 MG TAB PO PRN ×3 (02:44→13:20)
[2021-03-06 04:35] LABS: Absolute Lymphocytes (CBC) 2.7 K/uL (0.7-4.9); Basophils % 0.7 % (0-1.3); Hematocrit 44.9 % (39.6-49.0); Lymphocytes % 22.4 % (15.3-44.8); MPV 8.4 fL (7.6-11.3)
[2021-03-06 04:43] LABS: ALT/SGPT 24 U/L (12-78); AST/SGOT 11 U/L (15-37); Albumin 3.2 g/dL (3.4-5.0); Alkaline Phosphatase 71 U/L (45-117); BUN Blood Urea Nitrogen 14 mg/dL (7-18); Bicarbonate 30 mmol/L (21-32); Bilirubin Total 0.3 mg/dL (0.2-1.0); Glucose Level 238 mg/dL (74-106); Potassium 3.7 mmol/L (3.5-5.1); Protein, Total 7.3 g/dL (6.4-8.2); Sodium Level 139 mmol/L (136-145)
[2021-03-06] MEDS: INSULIN -REGULAR HUMAN 50 UNIT/0.5 ML ML SQ SCH ×3 (07:30→16:08)
[2021-03-06] MEDS: FUROSEMIDE 40 MG/4 ML VIAL IV SCH ×2 (07:51→16:07)
[2021-03-06] MEDS: GABAPENTIN 300 MG CAP PO SCH (07:51)
[2021-03-06] MEDS: AMIODARONE HCL 200 MG TAB PO SCH (07:51)
[2021-03-06] MEDS: CETIRIZINE HCL 5 MG TABLET PO SCH (07:52)
[2021-03-06] MEDS: NICOTINE 21 MG/PAT TD SCH (07:52)
[2021-03-06] MEDS: APIXABAN 5 MG TABLET PO SCH (07:53)
[2021-03-06] MEDS: INSULIN GLARGINE 100 UNITS/ML SQ SCH (07:54)
[2021-03-06] MEDS: LIDOCAINE 5% OINT 30 GM TUBE TOP SCH (07:56)
[2021-03-06 08:11] VITALS: O2SAT 96
[2021-03-06] MEDS ORDERED: POTASSIUM CL SA 10 MEQ TAB PO ONE (09:00)
[2021-03-06] MEDS: MORPHINE 2 MG/ML SYR IV PRN (10:01)
--- NOTE | 2021-03-06 11:35 | P.PN ---
Subjective Date of Service: 03/06/21 Primary Care Provider: OLIVE Chief Complaint: Bilateral lower extremity cellulitis Patient seen examined at bedside, WBC down trending. Afebrile. Review of Systems 10-point ROS is otherwise unremarkable Physical Examination - Vital Signs Temperature: 97.0 F Blood Pressure: 121/67 Pulse: 60 Respirations: 16 Pulse Ox (%): 96 - Studies Laboratory Last Values WBC 13.60 K/uL (4.3-10.9) H 03/02/21 17:39 RBC 5.63 M/uL (4.33-5.43) H 03/02/21 17:39 Hgb 15.5 g/dL (13.6-17.9) 03/02/21 17:39 Hct 48.1 % (39.6-49.0) 03/02/21 17:39 MCV 85.4 fL (80-100) 03/02/21 17:39 MCH 27.6 pg (27.0-35.0) 03/02/21 17:39 MCHC 32.3 g/dL (32.0-36.0) 03/02/21 17:39 RDW 14.8 % (12.1-15.2) 03/02/21 17:39 Plt Count 273 K/uL (152-406) 03/02/21 17:39 MPV 8.4 fL (7.6-11.3) 03/02/21 17:39 Neutrophils % 73.0 % (41.7-73.7) 03/02/21 17:39 Lymphocytes % 17.0 % (15.3-44.8) 03/02/21 17:39 Monocytes % 8.4 % (3.3-12.3) 03/02/21 17:39 Eosinophils % 0.7 % (0-4.4) 03/02/21 17:39 Basophils % 0.9 % (0-1.3) 03/02/21 17:39 Absolute Neutrophils 10.0 K/uL (1.8-8.0) H 03/02/21 17:39 Absolute Lymphocytes 2.3 K/uL (0.7-4.9) 03/02/21 17:39 Absolute Monocytes 1.1 K/uL (0.1-1.3) 03/02/21 17:39 Absolute Eosinophils 0.1 K/uL (0-0.5) 03/02/21 17:39 Absolute Basophils 0.1 K/uL (0-0.5) 03/02/21 17:39 PT 12.5 SECONDS (9.5-12.5) 03/02/21 17:39 INR 1.09 03/02/21 17:39 Sodium 138 mmol/L (136-145) 03/02/21 17:33 Potassium 4.2 mmol/L (3.5-5.1) 03/02/21 17:33 Chloride 105 mmol/L (98-107) 03/02/21 17:33 Carbon Dioxide 28 mmol/L (21-32) 03/02/21 17:33 BUN 12 mg/dL (7-18) 03/02/21 17:33 Creatinine 0.87 mg/dL (0.55-1.3) 03/02/21 17:33 Estimated GFR > 90 mL/min (=/>90) 03/02/21 17:33 Glucose 179 mg/dL (74-106) H 03/02/21 17:33 Lactic Acid 2.0 mmol/L (0.4-2.0) 03/02/21 17:45 Calcium 9.6 mg/dL (8.5-10.1) 03/02/21 17:33 Magnesium 2.3 mg/dL (1.8-2.4) 03/02/21 17:33 Total Bilirubin 0.4 mg/dL (0.2-1.0) 03/02/21 17:33 Direct Bilirubin 0.1 mg/dL (0-0.2) 03/02/21 17:33 AST 14 U/L (15-37) L 03/02/21 17:33 ALT 23 U/L (12-78) 03/02/21 17:33 Alkaline Phosphatase 83 U/L (45-117) 03/02/21 17:33 Rapid Troponin I < 0.02 ng/mL (0.0-0.045) 03/02/21 17:33 NT-Pro-B Natriuret Pep 52 pg/mL (<125) 03/02/21 17:33 Serum Total Protein 7.8 g/dL (6.4-8.2) 03/02/21 17:33 Albumin 3.4 g/dL (3.4-5.0) 03/02/21 17:33 Globulin 4.4 g/dL (2.3-3.5) H 03/02/21 17:33 Albumin/Globulin Ratio 0.8 (1.1-1.8) L 03/02/21 17:33 Procalcitonin 0.06 ng/mL (<0.050) H 03/02/21 17:39 Assessment And Plan - Plan Physical Exam: General: Alert, In no apparent distress, Obese HEENT: Atraumatic, Normocephalic Neck: Supple, 2+ carotid pulse no bruit Respiratory: Clear to auscultation bilaterally, Normal air movement Cardiovascular: No edema, Normal pulses, Regular rate/rhythm Gastrointestinal: Normal bowel sounds, Soft and benign Musculoskeletal: No clubbing, No swelling, No contractures Integumentary: Other (Bilateral lower extremity stasis dermatitis and lymphedema. Legs have red/purple discoloration.) Conclusions/Impression: Antibiotics Vancomycin Start: 03/03 Soft:-- Assessment/plan Bilateral lower extremity stasis dermatitis/lymphedema with possible cellulitis Difficult to determine if patient has actual cellulitis based on clinical picture due to coexisting stasis dermatitis and lymphedema. Will treat as cellulitis due to elevation WBC and procalcitonin. Continue IV vancomycin for duration of hospital stay. Can Dc home on five-day course of oral doxycycline 100 mg p.o. b.i.d.. Diabetes Hemoglobin A1c 9.0, on continue strict glucose monitoring. Protein caloric malnutrition Recommend supplemental Ensure protein drinks Medical management per primary team Plan of care discussed with Dr. Quesada Thank you for consultation
--- NOTE | 2021-03-06 12:39 | P.DS ---
Admission Date: 03/02/21 Discharge Date: 03/06/21 Primary Care Provider: OLIVE Disposition: ROUTINE DISCHARGE Discharge Condition: FAIR Reason for Admission: Bilateral lower extremity cellulitis - Problems (1) Chronic diastolic heart failure Current Visit: Yes Status: Acute (2) Chronic atrial fibrillation Current Visit: Yes Status: Acute (3) Cellulitis Current Visit: No Status: Acute Qualifiers: Site of cellulitis: extremity Site of cellulitis of extremity: lower extremity Laterality: unspecified laterality Qualified Code(s): L03.119 - Cellulitis of unspecified part of limb (4) Edema Onset Date: 12/25/17 Current Visit: No Status: Acute Qualifiers: Edema type: unspecified Qualified Code(s): R60.9 - Edema, unspecified (5) Morbid obesity with BMI of 45.0-49.9, adult Onset Date: 11/12/16 Current Visit: No Status: Acute (6) Right-sided heart failure Onset Date: 02/11/18 Current Visit: No Status: Acute (7) COPD (chronic obstructive pulmonary disease) Onset Date: 12/25/17 Current Visit: No Status: Chronic Qualifiers: (8) Diabetes mellitus Onset Date: 12/25/17 Current Visit: No Status: Chronic Qualifiers: Diabetes mellitus type: type 2 Diabetes mellitus buttermaker helper insulin use: with buttermaker helper use Diabetes mellitus complication status: with neurologic complications Diabetes mellitus complication detail: with polyneuropathy Qualified Code(s): E11.42 - Type 2 diabetes mellitus with diabetic polyneuropathy; Z79.4 - shelter (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 insulin (9) Hyperlipidemia Onset Date: 12/25/17 Current Visit: No Status: Chronic Qualifiers: (10) Hypertension Onset Date: 12/25/17 Current Visit: No Status: Chronic Qualifiers: Hypertension type: primary hypertension Qualified Code(s): I10 - Essential (primary) hypertension (11) Obesity hypoventilation syndrome Onset Date: 11/12/16 Current Visit: No Status: Suspected Brief History of Present Illness: 60-year-old man with history of chronic diastolic heart failure, atrial fibrillation on chronic anticoagulation therapy, diabetes mellitus type 2, hypertension, hyperlipidemia, PVD, obesity, tobacco abuse presented to the ER for bilateral lower extremity erythema. Patient reports increasing redness over the course of 3 to 4 days. In the ED, white blood cell count 13.6 procalcitonin 0.06 glucose 179. Patient noted to have a blister with fluctuance to the back of the left leg which was incised and drained in the emergency department with primarily bloody drainage noted. Patient started vancomycin/cefepime and admitted for further management. Hospital Course: Patient admitted to the medical floor and treated for bilateral lower extremity cellulitis with IV cefepime and vancomycin. Blood cultures yielded no growth. He was also treated for CHF with increased lower extremity edema with IV Lasix. Noted patient is on oral Lasix 80 mg twice a day at home. Patient seen by infectious disease for the bilateral lower extremity cellulitis. His leg redness is likely secondary to venostasis dermatitis rather than cellulitis. He did diuresed well with IV Lasix. The lower extremity edema improved. Patient clinically stable for discharge. He is prescribed oral Augmentin to continue treatment for cellulitis. Noted patient has been noncompliant with his CPAP which could be contributing to the lower extremity edema. His home dose Lasix is resumed on discharge. Vital Signs/Physical Exam: Temp Pulse Resp BP Pulse Ox 97.0 F 60 16 121/67 96 03/06/21 11:36 03/06/21 11:36 03/06/21 11:36 03/06/21 11:36 03/06/21 11:36 General: Alert, In no apparent distress, Oriented x3 HEENT: Mucous membr. moist/pink Neck: JVD not distended Respiratory: Clear to auscultation bilaterally, Normal air movement Cardiovascular: Regular rate/rhythm, Normal S1 S2, Edema (Bilateral lower extremities) Gastrointestinal: Normal bowel sounds, Soft and benign, Non-distended, No tenderness Musculoskeletal: Erythema (Bilateral leg) Neurological: Normal strength at 5/5 x4 extr Laboratory Data at Discharge: WBC 12.20 K/uL (4.3-10.9) H 03/06/21 03:58 Hgb 14.5 g/dL (13.6-17.9) 03/06/21 03:58 Hct 44.9 % (39.6-49.0) 03/06/21 03:58 Plt Count 263 K/uL (152-406) 03/06/21 03:58 PT 12.5 SECONDS (9.5-12.5) 03/02/21 17:39 INR 1.09 03/02/21 17:39 Sodium 139 mmol/L (136-145) 03/06/21 03:58 Potassium 3.7 mmol/L (3.5-5.1) 03/06/21 03:58 BUN 14 mg/dL (7-18) 03/06/21 03:58 Creatinine 0.79 mg/dL (0.55-1.3) 03/06/21 03:58 Glucose 238 mg/dL (74-106) H 03/06/21 03:58 Magnesium 2.3 mg/dL (1.8-2.4) 03/04/21 05:01 Total Bilirubin 0.3 mg/dL (0.2-1.0) 03/06/21 03:58 AST 11 U/L (15-37) L 03/06/21 03:58 ALT 24 U/L (12-78) 03/06/21 03:58 Alkaline Phosphatase 71 U/L (45-117) 03/06/21 03:58 Home Medications: Amiodarone HCl [Cordarone*] 200 mg PO DAILY 09/13/18 Aspirin Chewable [Aspirin Chewable*] 81 mg PO DAILY 09/13/18 Furosemide 80 mg PO BID 09/13/18 Gabapentin [Neurontin] 600 mg PO BID 09/13/18 Metformin HCl [Glucophage] 1,000 mg PO BID 09/13/18 Omeprazole 20 mg PO DAILY 09/13/18 Potassium Chloride 20 meq PO BID 09/13/18 Insulin Glargine,Hum.rec.anlog [Lantus] 55 units SQ BID 12/19/20 Apixaban [Eliquis] 1 tab PO BID 12/20/20 Atorvastatin Calcium [Lipitor] 0.5 tab PO DAILY 12/20/20 Cyanocobalamin (Vitamin B-12) [B-12] 1 tab PO DAILY 12/20/20 Ergocalciferol (Vitamin D2) [Vitamin D2] 1 cap PO Q7D 12/20/20 Insulin Aspart [Insulin Aspart Flexpen] 30 units SQ TID 12/20/20 Lidocaine 5% [Lidocaine HCl] 1 audrey TOP BIDP PRN 12/20/20 modafiniL [Modafinil] 1 tab PO BID 12/20/20 Amox/Clavulanate [Augmentin 875-125 Tab] 1 each PO BID #14 tab 03/06/21 Cetirizine HCl [Zyrtec*] 10 mg PO DAILY #20 tablet 03/06/21 Hydrocodone 7.5/APAP 325 [[place] 7.5/325 mg*] 1 tab PO Q6H PRN #20 tab 03/06/21 New Medications: Amox/Clavulanate [Augmentin 875-125 Tab] 1 each PO BID #14 tab Hydrocodone 7.5/APAP 325 [[place] 7.5/325 mg*] 1 tab PO Q6H PRN #20 tab PRN Reason: Pain Scale 5-7 (Moderate) Cetirizine HCl [Zyrtec*] 10 mg PO DAILY #20 tablet Diet: ADA Activity: Ad leonor Followup: Cody Nair [ASSOCIATE-COURTESY - CAN ADMIT] - 1-2 Weeks NONE,NONE [Primary Care Provider] - Time spent managing pt's care (in minutes): 36
[2021-03-06 16:09] VITALS: BP 117/64
[2021-03-06 17:12] VITALS: TEMP 97.7
== END 2021-03-06 17:52 | disposition home or self-care (01) | DRG 603 ==
LOC: ER 16:42 → ERHOLD 21:16 → 2ND 03-03 16:58
PROVIDERS: ADMIT Hospitalist; ATTEND Hospitalist
PROC: 0H9JXZZ Drainage of Left Upper Leg Skin, External Approach (ICD-10-PCS; principal; 2021-03-02)
DX: L03.116 Cellulitis of left lower limb (principal); Z68.42 Body mass index [BMI] 45.0-49.9, adult; E66.2 Morbid (severe) obesity with alveolar hypoventilation; E46 Unspecified protein-calorie malnutrition; I50.22 Chronic systolic (congestive) heart failure; L03.115 Cellulitis of right lower limb; I48.91 Unspecified atrial fibrillation; J44.9 Chronic obstructive pulmonary disease, unspecified; E78.5 Hyperlipidemia, unspecified; I25.10 Atherosclerotic heart disease of native coronary artery without angina pectoris; I87.2 Venous insufficiency (chronic) (peripheral); I11.0 Hypertensive heart disease with heart failure; I73.9 Peripheral vascular disease, unspecified; L02.416 Cutaneous abscess of left lower limb; F17.210 Nicotine dependence, cigarettes, uncomplicated; E11.65 Type 2 diabetes mellitus with hyperglycemia; Z79.01 Long term (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 anticoagulants; Z20.822 Contact with and (suspected) exposure to COVID-19
CPT/HCPCS: 36415; 71045; 80048; 80053; 80076; 80202; 81003; 81015; 82947; 83036; 83605; 83735; 83880; 84145; 84439; 84443; 84484; 85025; 85610; 86140; 87040; 93005; 93970; 99285; J0692; J1815; J1940; J2270; J2405; J3370; J7040; J7050; U0003

== ENCOUNTER 2021-03-30 19:43 | Emergency (ER) | payer OTHER ==
[2021-03-30 21:00] LABS: Urine Blood 1+ (Negative); Urine Glucose 2+ (Negative); Urine Protein Negative (Negative); Urine pH 5.5 (5.0-7.0)
--- NOTE | 2021-03-30 21:45 | RAD REPORT ---
EXAM DESCRIPTION: [facility]Stone Protocol - 03/30/2021 9:26 pm CLINICAL HISTORY: right flank pain COMPARISON: CTSTONE PROTOCOL dated 09/26/2013; CT ABD PELVIS W CONTRAST dated 07/20/2008; CTABD PELVIS W CONTRAST dated 03/25/2002 TECHNIQUE: CT of the abdomen and pelvis was performed. All CT scans are performed using dose optimization technique as appropriate and may include automated exposure control or mA/KV adjustment according to patient size. FINDINGS: Lower chest: Scattered coronary artery calcifications. Liver: No acute abnormality or suspicious lesions. Biliary: No biliary ductal dilatation. Stomach: No significant focal abnormality. Duodenum: No significant focal abnormality. Pancreas: No significant abnormality. Spleen: No significant abnormality. Adrenal: No suspicious lesions. Kidney/ureter: No hydronephrosis. Nonobstructing punctate bilateral renal calculi. Too small to hilda cterize renal lesions are noted. No ureteral calculi are identified. Retroperitoneum: No retroperitoneal adenopathy. Vascular: No aneurysm. Bowel: No significant focal abnormality. Peritoneum: No ascites or free air. Bladder: Grossly unremarkable. Reproductive: No adnexal masses. Bones: No acute fracture. Mild anterolisthesis of L4 on L5. Multilevel degenerative changes are prese nt in the spine. Other: n/a IMPRESSION: No acute intra-abdominal or pelvic finding. Nonobstructive bilateral nephrolithiasis. No ureteral calculi. Appendectomy.
[2021-03-30] MEDS ORDERED: FENTANYL CITR 100 MCG/2 ML ONE (22:21)
[2021-03-30 22:50] LABS: Absolute Lymphocytes (CBC) 2.9 K/uL (0.7-4.9); Basophils % 0.6 % (0-1.3); Hematocrit 48.3 % (39.6-49.0); Lymphocytes % 19.5 % (15.3-44.8); MPV 8.6 fL (7.6-11.3); RBC Red Blood Cell Count 5.79 M/uL (4.33-5.43)
[2021-03-30 22:51] LABS: Protime INR 1.04
[2021-03-30 22:59] LABS: ALT/SGPT 25 U/L (12-78); AST/SGOT 11 U/L (15-37); Albumin 3.4 g/dL (3.4-5.0); Alkaline Phosphatase 84 U/L (45-117); BUN Blood Urea Nitrogen 14 mg/dL (7-18); Bicarbonate 33 mmol/L (21-32); Bilirubin Direct < 0.1 mg/dL (0-0.2); Bilirubin Total 0.3 mg/dL (0.2-1.0); Glucose Level 194 mg/dL (74-106); Lipase 114 U/L (73-393); Potassium 3.9 mmol/L (3.5-5.1); Sodium Level 140 mmol/L (136-145)
[2021-03-30 23:09] LABS: Urine Bacteria <20 /HPF (NONE SEEN); Urine Mucus 1+ /HPF (NONE SEEN)
[2021-03-31] MEDS ORDERED: FENTANYL CITR 100 MCG/2 ML ONE (00:32)
--- NOTE | 2021-03-31 00:55 | ER ---
Nurse's Notes [facility] Name: Harvey Callahan Age: 60 yrs Sex: Male : 1960 Arrival Date: 03/30/2021 Time: 19:47 Bed 20 Private MD: Diagnosis: Low back pain;Epididymitis-right;Calculus of kidney Presentation: 03/30 20:06 Chief complaint: Patient states: RT LOW BACK THAT RADIATES TO RT GROIN AND RT TESTICLE, sj1 HX OF KIDNEY STONES, ALSO C/O DIZZINESS. Coronavirus screen: Vaccine status: Patient reports receiving the 2nd dose of the covid vaccine. Date September 30, 2020. Ebola Screen: Patient negative for fever greater than or equal to 101.5 degrees Fahrenheit, and additional compatible Ebola Virus Disease symptoms Patient denies exposure to infectious person. Patient denies travel to an Ebola-affected area in the 21 days before illness onset. Initial Sepsis Screen: Does the patient meet any 2 criteria? No. Patient's initial sepsis screen is negative. Does the patient have a suspected source of infection? No. Patient's initial sepsis screen is negative. Risk Assessment: Do you want to hurt yourself or someone else? Patient reports no desire to harm self or others. Onset of symptoms was March 27, 2021. 20:06 Method Of Arrival: Wheelchair sj1 20:06 Acuity: DEYANIRA 3 sj1 Triage Assessment: 20:11 General: Appears in no apparent distress. General: Behavior is calm, cooperative, sj1 appropriate for age. Pain: Complains of pain in RT LOWER BACK, BILAT KNEES Pain radiates to RT GROIN AND RT TESTICLE. EENT: No deficits noted. Neuro: Reports dizziness. Cardiovascular: No deficits noted. Respiratory: No deficits noted. GI: No deficits noted. : No deficits noted. Musculoskeletal: Reports pain in BILAT KNEE PAIN. Historical: - Allergies: 20:11 No Known Allergies; sj1 - PMHx: 20:11 Arthritis; CHF; EDEMA; Hyperlipidemia; Diabetes - NIDDM; knee pain; Diabetes - IDDM; sj1 Hypertension; - Immunization history:: Adult Immunizations up to date. - Social history:: Smoking status: Patient reports the use of cigarette tobacco products, smokes two packs cigarettes per day. Patient/guardian denies using alcohol, street drugs. Screenin:14 Abuse screen: Denies threats or abuse. Denies injuries from another. Nutritional sj1 screening: No deficits noted. Tuberculosis screening: No symptoms or risk factors identified. Fall Risk. Assessment: 20:43 General: Appears uncomfortable, Behavior is calm, cooperative. Pain: Complains of pain cc4 in back and pelvis Pain radiates to pelvis Reports pain of right flank radiating into right testicle x 3 days. Pain currently is 10 out of 10 on a pain scale. Quality of pain is described as crampy, sharp, Pain began 2-3 days ago. Is intermittent. Neuro: No deficits noted. Level of Consciousness is awake, alert, obeys commands, Oriented to person, place, time, situation. Cardiovascular: No deficits noted. Denies chest pain. Respiratory: No deficits noted. Airway is patent Trachea midline Breath sounds are clear bilaterally. GI: No deficits noted. No signs and/or symptoms were reported involving the gastrointestinal system. Abdomen is obese, Bowel sounds present X 4 quads. : Reports "Shooting" pain into right testicle from right flank. EENT: No signs and/or symptoms were reported regarding the EENT system. Derm: No deficits noted. Skin is intact. Musculoskeletal: Reports pain in back and pelvis since 3 days that is worsening.. 22:24 Reassessment: No changes from previously documented assessment. Reassessment: Returned cc4 from CT and ultrasound via w/c with con't c/o right flank pain radiating into right testicle; # 20 g saline lock started right AC x1 attempt with no difficulty; bld drawn \\T\\ sent to lab; fentanyl 50 mcg given slow IVP as ordered; resting on stretcher. 03/31 00:10 Reassessment: No changes from previously documented assessment. Reports pain returning cc4 to a level 10/10 of right flank \\T\\ right testicle with C. JAMAAL Sharif notified \\T\\ fentanyl 50 mcg repeated slow IVP. 01:10 Reassessment: Patient appears in no apparent distress at this time. Reports right cc4 flank/right testicle pain decreasing to 8/10; meds given as ordered. Vital Signs: 03/30 20:06 BP 104 / 79; Pulse 95; Resp 19 S; Temp 98.7; Pulse Ox 95% on R/A; Weight 127.46 kg (R); sj1 Height 5 ft. 7 in. (170.18 cm) (R); Pain 03/25; 20:43 BP 121 / 83; Pulse 93; Resp 20; Temp 98.1; Pulse Ox 96% on R/A; cc4 22:49 BP 119 / 81; Pulse 88; Resp 20; Pulse Ox 97% on R/A; cc4 03/31 00:09 BP 120 / 91; Pulse 89; Resp 20; Pulse Ox 97% on R/A; cc4 01:20 BP 123 / 70; Pulse 87; Resp 20; Temp 98.2; Pulse Ox 100% on R/A; cc4 03/30 20:06 Body Mass Index 44.01 (127.46 kg, 170.18 cm) sj1 ED Course: 03/30 19:47 Patient arrived in ED. ja2 20:11 Triage completed. sj1 20:11 Arm band placed on right wrist. sj1 20:14 Patient has correct armband on for positive identification. sj1 20:43 No provider procedures requiring assistance completed. cc4 20:51 Jame Sharif PA is PHCP. cp 20:51 Kristian Pal MD is Attending Physician. cp 21:27 CT Stone Protocol In Process Unspecified. EDMS 21:51 Michelle Donaldson, RN is Primary Nurse. cc4 22:07 US Scrotum Testicles In Process Unspecified. EDMS 22:24 PT-INR Sent. cc4 22:25 Basic Metabolic Panel Sent. cc4 22:25 CBC with Diff Sent. cc4 22:25 Hepatic Function Sent. cc4 22:25 Lipase Sent. cc4 22:25 Urine Microscopic Only Sent. cc4 03/31 01:20 IV discontinued, intact, bleeding controlled, No redness/swelling at site. Pressure cc4 dressing applied. Administered Medications: 03/30 22:24 Drug: fentaNYL (PF) 50 mcg Route: IVP; Site: right antecubital; cc4 23:30 Follow up: Response: No adverse reaction; Pain is decreased cc4 03/31 00:10 Drug: fentaNYL (PF) 50 mcg Route: IVP; Site: right antecubital; cc4 00:45 Follow up: Response: No adverse reaction; Pain is decreased cc4 01:10 Drug: Rocephin (cefTRIAXone) 1 grams Route: IV; Rate: calculated rate; Site: right cc4 antecubital; 01:20 Follow up: Urine output 800 ml; Response: No adverse reaction cc4 01:10 Drug: Zithromax (azithromycin) 1 grams Route: PO; cc4 01:20 Follow up: Response: No adverse reaction cc4 01:15 Drug: Ketorolac 15 mg Route: IVP; Site: right antecubital; cc4 01:20 Follow up: Response: No adverse reaction; Pain is decreased cc4 01:15 Drug: Lidoderm Patch 5 % (700 mg/patch) 1 patches Route: Topical; Site: affected area; cc4 01:20 Follow up: Response: No adverse reaction cc4 Output: 01:20 Urine: 800ml; Total: 800ml. cc4 Outcome: 00:54 Discharge ordered by MD. cp 01:20 Discharged to home via wheelchair, with family. cc4 01:20 Condition: improved 01:20 Discharge instructions given to patient, Instructed on discharge instructions, follow up and referral plans. medication usage, Demonstrated understanding of instructions, follow-up care, medications. 01:48 Patient left the ED. cc4 Signatures: Dispatcher [employer] EDMS Jame Sharif PA PA cp Alexander, Jessica jaMichelle Rehman RN RN cc4 Lila Olsen RN RN sj1 Corrections: (The following items were deleted from the chart) 03/30 20:14 20:06 Chief complaint: Patient states: RT LOW BACK THAT RADIATES TO RT GROIN AND RT sj1 TESTICLE sj1 20:15 20:06 Acuity: DEYANIRA 4 sj1 sj1
--- NOTE | 2021-03-31 00:55 | EDPHYS ---
Physician Documentation [facility] Name: Harvey Callahan Age: 60 yrs Sex: Male : 1960 Arrival Date: 03/30/2021 Time: 19:47 Bed 20 Private MD: ED Physician Kristian Pal HPI: 03/30 21:10 This 60 yrs old Male presents to ER via Wheelchair with complaints of Back cp Pain, Knee Pain. 21:10 The patient presents with pain that is acute, with no known mechanism of injury. The cp symptoms are located in the right lower back. Historical: - Allergies: 20:11 No Known Allergies; sj1 - PMHx: 20:11 Arthritis; CHF; EDEMA; Hyperlipidemia; Diabetes - NIDDM; knee pain; Diabetes - IDDM; sj1 Hypertension; - Immunization history:: Adult Immunizations up to date. - Social history:: Smoking status: Patient reports the use of cigarette tobacco products, smokes two packs cigarettes per day. Patient/guardian denies using alcohol, street drugs. ROS: 21:15 Constitutional: Negative for body aches, chills, fever, poor PO intake. cp 21:15 Eyes: Negative for injury, pain, redness, and discharge. cp 21:15 ENT: Negative for ear pain, sore throat, difficulty swallowing, difficulty handling secretions. 21:15 Cardiovascular: Positive for edema, Negative for chest pain, palpitations. 21:15 Respiratory: Negative for cough, shortness of breath, wheezing. 21:15 Abdomen/GI: Positive for abdominal pain, of the right flank and right lower abdomen. 21:15 Back: Positive for right lower back pain. 21:15 : Positive for testicular pain 21:15 Neuro: Negative for altered mental status, headache, syncope, weakness. 21:15 All other systems are negative. Exam: 21:20 Constitutional: The patient appears in no acute distress, alert, awake, cp non-diaphoretic, non-toxic, well developed, well nourished, obese, uncomfortable. 21:20 Head/Face: Normocephalic, atraumatic. cp 21:20 Eyes: Periorbital structures: appear normal, Conjunctiva: normal, no exudate, no injection, Sclera: no appreciated abnormality, Lids and lashes: appear normal, bilaterally. 21:20 ENT: External ear(s): are unremarkable, Nose: is normal, Mouth: Lips: moist, Oral mucosa: moist, Posterior pharynx: Airway: no evidence of obstruction, patent. 21:20 Chest/axilla: Inspection: normal, Palpation: is normal, no crepitus, no tenderness. 21:20 Cardiovascular: Rate: normal, Rhythm: regular, Edema: ankle edema, that is mild, JVD: is not appreciated. 21:20 Respiratory: the patient does not display signs of respiratory distress, Respirations: normal, no use of accessory muscles, no retractions, labored breathing, is not present, Breath sounds: are clear throughout, no decreased breath sounds. 21:20 Abdomen/GI: Inspection: obese Bowel sounds: active, all quadrants, Palpation: soft, in all quadrants, moderate abdominal tenderness, in the anterior aspect of right lateral abdomen, posterior aspect of right lateral abdomen and right lower quadrant, rebound tenderness, is not appreciated, voluntary guarding, is elicited in the anterior aspect of right lateral abdomen, posterior aspect of right lateral abdomen and right lower quadrant. 21:20 Back: pain, that is moderate, of the right low back, ROM is painful. 21:20 : Male external genitalia: erythema, is absent, swelling, is not appreciated, tenderness, of the right testicle is noted, is palpated in the right inguinal area, of the epididymis area. 21:20 Skin: cellulitis, is not appreciated, no rash present. 21:20 Neuro: Orientation: to person, place \T\ time. Mentation: is normal, Motor: moves all fours, strength is normal, Sensation: is normal, Gait: is steady. Vital Signs: 20:06 BP 104 / 79; Pulse 95; Resp 19 S; Temp 98.7; Pulse Ox 95% on R/A; Weight 127.46 kg (R); sj1 Height 5 ft. 7 in. (170.18 cm) (R); Pain 10/10; 20:43 BP 121 / 83; Pulse 93; Resp 20; Temp 98.1; Pulse Ox 96% on R/A; cc4 22:49 BP 119 / 81; Pulse 88; Resp 20; Pulse Ox 97% on R/A; cc4 16 00:09 BP 120 / 91; Pulse 89; Resp 20; Pulse Ox 97% on R/A; cc4 01:20 BP 123 / 70; Pulse 87; Resp 20; Temp 98.2; Pulse Ox 100% on R/A; cc4 03/30 20:06 Body Mass Index 44.01 (127.46 kg, 170.18 cm) sj1 MDM: 03/30 20:56 Patient medically screened. 03/31 00:53 Data reviewed: vital signs, nurses notes, lab test result(s), radiologic studies, CT cp scan, ultrasound. 00:53 Counseling: I had a detailed discussion with the patient and/or guardian regarding: the cp historical points, exam findings, and any diagnostic results supporting the discharge/admit diagnosis, lab results, radiology results, the need for outpatient follow up, a family practitioner, to return to the emergency department if symptoms worsen or persist or if there are any questions or concerns that arise at home. Response to treatment: the patient's symptoms have markedly improved after treatment, VSS. Pain improved with meds. Will discharge to home for continued monitoring. 03/30 20:51 Order name: Urine Microscopic Only; Complete Time: 23:22 cp 03/30 23:22 Interpretation: Normal except: URBC 5-10; SQEPI 5-10. 03/30 21:00 Order name: Urine Dipstick-Ancillary; Complete Time: 21:06 EDMS 03/30 23:30 Interpretation: Normal except: UGLUC 2+; UKET Trace; UBLD 1+. 03/30 21:08 Order name: Basic Metabolic Panel; Complete Time: 23:22 cp 03/30 23:30 Interpretation: Normal except: CO2 33; GLUC 194; GFR 80. 03/30 21:08 Order name: CBC with Diff; Complete Time: 23:22 cp 03/30 23:30 Interpretation: Normal except: WBC 14.70; RBC 5.79; NEUT A 10.6. 03/30 21:08 Order name: Hepatic Function; Complete Time: 23:22 cp 03/30 23:31 Interpretation: Normal except: AST 11; GLOB 4.6; A/G 0.7. cp 03/30 21:08 Order name: Lipase; Complete Time: 23:22 cp 03/30 21:08 Order name: US Scrotum Testicles cp 03/30 21:08 Order name: PT-INR; Complete Time: 23:22 cp 03/30 21:08 Order name: CT Stone Protocol; Complete Time: 23:22 cp 03/30 22:33 Order name: Glucose, Ancillary Testing; Complete Time: 23:22 EDMS 03/31 00:27 Order name: Glucose, Ancillary Testing; Complete Time: 00:28 EDMS 03/31 00:29 Interpretation: Reviewed. cp 03/30 20:51 Order name: Urine Dipstick-Ancillary (obtain specimen); Complete Time: 01:12 cp 03/30 21:08 Order name: IV Saline Lock; Complete Time: 22:25 cp 03/30 21:08 Order name: Labs collected and sent; Complete Time: 22:25 cp 03/30 21:08 Order name: Accucheck Blood Glucose; Complete Time: 22:24 cp Administered Medications: 03/30 22:24 Drug: fentaNYL (PF) 50 mcg Route: IVP; Site: right antecubital; cc4 23:30 Follow up: Response: No adverse reaction; Pain is decreased cc4 03/31 00:10 Drug: fentaNYL (PF) 50 mcg Route: IVP; Site: right antecubital; cc4 00:45 Follow up: Response: No adverse reaction; Pain is decreased cc4 01:10 Drug: Rocephin (cefTRIAXone) 1 grams Route: IV; Rate: calculated rate; Site: right cc4 antecubital; 01:20 Follow up: Urine output 800 ml; Response: No adverse reaction cc4 01:10 Drug: Zithromax (azithromycin) 1 grams Route: PO; cc4 01:20 Follow up: Response: No adverse reaction cc4 01:15 Drug: Ketorolac 15 mg Route: IVP; Site: right antecubital; cc4 01:20 Follow up: Response: No adverse reaction; Pain is decreased cc4 01:15 Drug: Lidoderm Patch 5 % (700 mg/patch) 1 patches Route: Topical; Site: affected area; cc4 01:20 Follow up: Response: No adverse reaction cc4 Disposition: 04:46 Co-signature as Attending Physician, Kristian Pal MD Did not see or evaluate patient. ps1 Signature is for administrative purposes and not an endorsement of care provided. . Disposition Summary: 03/31/21 00:54 Discharge Ordered Location: Home cp Problem: new cp Symptoms: have improved cp Condition: Stable cp Diagnosis - Low back pain cp - Epididymitis - right cp - Calculus of kidney cp Followup: cp - With: Private Physician - When: 2 - 3 days - Reason: Recheck today's complaints Discharge Instructions: - Discharge Summary Sheet cp - Acute Back Pain, Adult cp - Epididymitis cp - Kidney Stones cp - Heat Therapy cp Forms: - Medication Reconciliation Form cp - Thank You Letter cp - Antibiotic Education cp - Prescription Opioid Use cp Prescriptions: - Lidoderm 5 % Topical adhesive patch,medicated - apply 1 patch by TOPICAL route once daily; 1 box; Refills: 0, Product Selection cp Permitted - Cipro 500 mg Oral Tablet - take 1 tablet by ORAL route every 12 hours for 7 days; 14 tablet; Refills: 0, cp Product Selection Permitted - Tramadol 50 mg Oral Tablet - take 1 tablet by ORAL route every 8 hours as needed; 12 tablet; Refills: 0, cp Product Selection Permitted Signatures: Dispatcher [employer] EDMS Jame Sharif PA PA cp Kristian Pal MD MD ps1 Michelle Donaldson RN RN cc4 Lila Olsen RN RN sj1 Corrections: (The following items were deleted from the chart) 04:27 03/30 21:00 This 60 yrs old Male presents to ER via Wheelchair with cp complaints of Back Pain, Knee Pain. cp
[2021-03-31] MEDS ORDERED: CEFTRIAXONE 1000 MG/VIAL ONE (01:36)
[2021-03-31] MEDS ORDERED: AZITHROMYCIN 250 MG TAB ONE (01:36)
[2021-03-31] MEDS ORDERED: KETOROLAC 30 MG/ML INJ ONE (01:37)
[2021-03-31] MEDS ORDERED: LIDOCAINE 4% PATCH ONE (01:37)
[2021-03-31 02:00] VITALS: BP 123/70; TEMP 98.2; O2SAT 100
--- NOTE | 2021-03-31 14:45 | RAD REPORT ---
EXAM DESCRIPTION: US - Scrotum Testicles - 03/30/2021 10:08 pm CLINICAL HISTORY: 60 years, Male, testicle pain COMPARISON: None. FINDINGS: Multiple grayscale images of the testicles were performed. Color Doppler imaging was used to assess vascular flow. The right testicle measures 3.6 x 2.5 x 2.7 cm, the right epididymis measured 0.6 x 0.7 cm. There is a epididymal head cyst measuring 0.3 x 0.2 x 0.3 cm. There is normal flow within the right testicle a nd right epididymis. There is a small trace of hydrocele. There is no evidence for varicocele. There is no evidence for significant abnormal masses. The left testicle measured 2.1 x 2.1 x 2.8 cm, the left epididymis measured 0.7 x 1.0 cm. There is no rmal testicular flow and epididymal flow. There is a tubular structure within the left scrotal sac sa c adjacent to the testicle with increase flow after Valsalva maneuver corresponding to the varicocele . The left testicle demonstrate no abnormal masses. IMPRESSION: RIGHT EPIDIDYMAL HEAD CYST. LEFT VARICOCELE. OTHERWISE UNREMARKABLE TESTICULAR ULTRASOUND. NO EVIDENCE FOR ABNORMAL MASSES/OR ABNORMAL VASCULAR FLOW. Electronically signed by: Richard Maloney MD 03/30/2021 11:49 PM CDT Due to temporary technical issues with the PACS/Fluency reporting system, reports are being signed by the in house radiologists without review as a courtesy to insure prompt reporting. The interpreting radiologist is fully responsible for the content of the report.
== END 2021-03-31 01:48 | disposition home or self-care (01) ==
LOC: ER 19:43
DX: N45.1 Epididymitis (principal); N20.0 Calculus of kidney; I10 Essential (primary) hypertension; F17.210 Nicotine dependence, cigarettes, uncomplicated
CPT/HCPCS: 85025; 80048; 36415; 85610; 82947 ×2; 80076; 83690; 76377; 74176; 76870; 96375; 96374; 99284; J3010 ×2; 81003; 81015

== ENCOUNTER 2021-04-06 16:12 | Emergency (ER) | payer OTHER ==
--- NOTE | 2021-04-06 19:26 | RAD REPORT ---
EXAM DESCRIPTION: RAD - Chest Single View - 04/06/2021 7:01 pm CLINICAL HISTORY: COUGH Chest pain. COMPARISON: <Comparisons> FINDINGS: Portable technique limits examination quality. Mild interstitial prominence is seen which may represent a viral infection or interstitial pulmonary edema. The heart is mildly enlarged in size. No displaced fractures.
[2021-04-06] MEDS ORDERED: MORPHINE 4 MG/ML SYR ONE (19:52)
[2021-04-06] MEDS ORDERED: ONDANSETRON 4 MG/2 ML VIAL ONE (19:52)
[2021-04-06] MEDS ORDERED: LEVALBUTEROL 1.25 MG/3 ML NEB ONE (19:53)
[2021-04-06] MEDS ORDERED: IPRATROPIUM BROM 0.5MG/2.5ML ONE (19:53)
[2021-04-06] MEDS ORDERED: NA CHLORIDE 0.9% 0 ML ONE (19:53)
--- NOTE | 2021-04-06 19:57 | RAD REPORT ---
EXAM DESCRIPTION: CT - Spine Lumbar Wo Con - 04/06/2021 7:43 pm CLINICAL HISTORY: Radiculopathy. LOWER BACK PAIN COMPARISON: <Comparisons> TECHNIQUE: Axial noncontrast CT imaging of the lumbar spine was performed with coronal and sagittal re-formatted images. All CT scans are performed using dose optimization technique as appropriate and may include automated exposure control or mA/KV adjustment according to patient size. FINDINGS: No acute lumbar spine fracture seen. No aggressive marrow pattern or malalignment. Paraspinal tissues are normal in thickness. No paraspinal abscess or hematoma seen. 5 mm degenerative anterolisthesis of L4 on 5 is present. Vacuum disc degeneration with 4 mm degenerat leanne retrolisthesis of L5 on S1 present. IMPRESSION: No acute lumbar spine abnormality is seen. Moderate lower lumbar degenerative spondylosis is present.
--- NOTE | 2021-04-06 19:57 | RAD REPORT ---
EXAM DESCRIPTION: US - Extrem Venous W Compress Stefan - 04/06/2021 7:37 pm CLINICAL HISTORY: PAIN Bilateral leg edema and swelling. COMPARISON: <Comparisons> TECHNIQUE: Real-time sonographic interrogation of the left and right lower extremity deep venous sys tems was performed. FINDINGS: Normal compressibility, flow augmentation, phasic flow and spontaneous flow is identified in both the left and right lower extremity deep venous systems. 2 cm left Gonzales's cyst. IMPRESSION: No sonographic evidence of left or right lower extremity deep venous thrombosis.
[2021-04-06] MEDS ORDERED: FUROSEMIDE 40 MG/4 ML VIAL ONE (20:31)
[2021-04-06 20:44] LABS: Absolute Lymphocytes (CBC) 3.1 K/uL (0.7-4.9); Basophils % 0.4 % (0-1.3); Hematocrit 50.4 % (39.6-49.0); Lymphocytes % 19.8 % (15.3-44.8); MPV 8.3 fL (7.6-11.3); RBC Red Blood Cell Count 6.04 M/uL (4.33-5.43)
[2021-04-06 20:45] LABS: Protime INR 1.11
[2021-04-06 21:02] LABS: Urine Blood Negative (Negative); Urine Glucose 3+ (Negative); Urine Protein Negative (Negative); Urine Specific Gravity <=1.005 (1.005-1.030)
[2021-04-06 21:33] LABS: ALT/SGPT 24 U/L (12-78); AST/SGOT 11 U/L (15-37); Albumin 3.6 g/dL (3.4-5.0); Alkaline Phosphatase 87 U/L (45-117); BUN Blood Urea Nitrogen 15 mg/dL (7-18); Bicarbonate 30 mmol/L (21-32); Bilirubin Direct 0.1 mg/dL (0-0.2); Bilirubin Total 0.4 mg/dL (0.2-1.0); Glucose Level 183 mg/dL (74-106); Lipase 115 U/L (73-393); Magnesium 2.5 mg/dL (1.8-2.4); Potassium 4.2 mmol/L (3.5-5.1); Protein, Total 8.6 g/dL (6.4-8.2); Sodium Level 141 mmol/L (136-145); Troponin (Emerg Dept Use Only) < 0.02 ng/mL (0.0-0.045)
[2021-04-06 21:40] LABS: NT PRO-BNP 24 pg/mL (<125)
--- NOTE | 2021-04-06 21:49 | ER ---
Nurse's Notes [facility] Name: Harvey Callahan Age: 60 yrs Sex: Male : 1960 Arrival Date: 04/06/2021 Time: 16:14 Bed 13 Private MD: Diagnosis: Type 1 diabetes mellitus with hyperglycemia;Venous insufficiency (chronic) (peripheral);Tobacco abuse counseling;Tobacco use;Obesity, unspecified;Edema, unspecified;Systolic (congestive) heart failure Presentation: 04/06 16:29 Chief complaint: Patient states: chronic ada lower extremity pain that got worse about aa5 1 week ago. Pt also reports right knee pain and back pain. Pt reports he was seen here recently. 16:29 Method Of Arrival: Wheelchair aa5 16:29 Coronavirus screen: At this time, the client does not indicate any symptoms associated aa5 with coronavirus-19. Ebola Screen: No symptoms or risks identified at this time. Initial Sepsis Screen: Does the patient meet any 2 criteria? No. Patient's initial sepsis screen is negative. Does the patient have a suspected source of infection? No. Patient's initial sepsis screen is negative. Risk Assessment: Do you want to hurt yourself or someone else? Patient reports no desire to harm self or others. Onset of symptoms was March 2021. 16:29 Acuity: DEYANIRA 3 aa5 Historical: - Allergies: 16:32 No Known Allergies; aa5 - PMHx: 16:31 Arthritis; CHF; Diabetes - IDDM; EDEMA; Hyperlipidemia; Hypertension; knee pain; aa5 - PSHx: 16:31 Appendectomy; Coronary Angioplasty; aa5 - Immunization history:: Client reports receiving the 2nd dose of the Covid vaccine. - Social history:: Smoking status: Patient reports the use of cigarette tobacco products, smokes two packs cigarettes per day. - Family history:: not pertinent. Screenin:33 Abuse screen: Denies threats or abuse. Nutritional screening: No deficits noted. vg1 Tuberculosis screening: No symptoms or risk factors identified. Fall Risk No fall in past 12 months (0 pts). No secondary diagnosis (0 pts). IV access (20 points). Ambulatory Aid- None/Bed Rest/Nurse Assist (0 pts). Gait- Normal/Bed Rest/Wheelchair (0 pts) Mental Status- Oriented to own ability (0 pts). Total Reeves Fall Scale indicates No Risk (0-24 pts). Assessment: 20:00 General: Appears in no apparent distress. uncomfortable, Behavior is calm, cooperative. vg1 Pain: Complains of pain in left leg and right leg Pain currently is 10 out of 10 on a pain scale. Quality of pain is described as aching. Neuro: Level of Consciousness is awake, alert, obeys commands, Oriented to person, place, time, situation. Cardiovascular: Patient's skin is warm and dry. Respiratory: Airway is patent Respiratory effort is even, unlabored. GI: No signs and/or symptoms were reported involving the gastrointestinal system. : No signs and/or symptoms were reported regarding the genitourinary system. EENT: No signs and/or symptoms were reported regarding the EENT system. Derm: Skin is intact, Pt ADA feet appear to be blue in color. Pedial pulses are present in ADA feet. Musculoskeletal: Circulation, motion, and sensation intact. Vital Signs: 16:29 BP 106 / 71; Pulse 89; Resp 18 S; Temp 98.4(TE); Pulse Ox 97% on R/A; Weight 127.46 kg aa5 (R); Height 5 ft. 7 in. (170.18 cm) (R); 20:00 BP 114 / 71; Pulse 80; Resp 16; Pulse Ox 99% ; vg1 21:00 BP 127 / 85; Pulse 88; Resp 17; Pulse Ox 95% on R/A; vg1 16:29 Body Mass Index 44.01 (127.46 kg, 170.18 cm) aa5 ED Course: 16:14 Patient arrived in ED. as 16:29 Arm band placed on. aa5 16:31 Triage completed. aa5 18:39 Jame Torres MD is Attending Physician. [facility] 19:01 XRAY Chest (1 view) In Process Unspecified. EDMS 19:16 Ban Tsai, RN is Primary Nurse. vg1 19:37 US Extremity Venous W Compression Ada In Process Unspecified. EDMS 19:43 CT Lumbar Spine Wo Con In Process Unspecified. EDMS 20:15 Initial lab(s) drawn, by me, sent to lab. Inserted saline lock: 20 gauge in right vg1 antecubital area, using aseptic technique. Blood collected. 20:33 Bed in low position. Call light in reach. Side rails up X 1. vg1 21:04 Basic Metabolic Panel Sent. wg 21:04 LFT's Sent. wg 21:04 Magnesium Sent. wg 21:04 NT PRO-BNP Sent. wg 21:04 Troponin (emerg Dept Use Only) Sent. wg 21:04 Basic Metabolic Panel Sent. wg 21:48 Anshul Merritt MD is Referral Physician. kb 21:49 No provider procedures requiring assistance completed. vg1 22:00 IV discontinued, intact, bleeding controlled, No redness/swelling at site. Pressure vg1 dressing applied. Administered Medications: 19:44 Not Given (Duplicate Order): NS 0.9% 1000 ml IV at 125 ml/hr continuous janet 20:17 Drug: Lasix (furosemide) 40 mg Route: IVP; Site: right antecubital; vg1 22:01 Follow up: Response: No adverse reaction vg1 20:19 Drug: Zofran (Ondansetron) 4 mg Route: IVP; Site: right antecubital; vg1 22:01 Follow up: Response: No adverse reaction vg1 20:21 Drug: morphine 4 mg Route: IVP; Site: right antecubital; vg1 22:01 Follow up: Response: No adverse reaction; Pain is decreased vg1 20:31 Drug: Xopenex (levalbuterol) 1.25 mg Route: Inhalation; vg1 21:10 Follow up: Response: No adverse reaction vg1 20:31 Drug: AtroVENT (ipratropium) Aerosol 0.5 mg Route: Inhalation; vg1 21:10 Follow up: Response: No adverse reaction vg1 Outcome: 21:48 Discharge ordered by . kb 22:00 Discharged to home ambulatory. vg1 22:00 Condition: stable 22:00 Discharge instructions given to patient, Instructed on discharge instructions, follow up and referral plans. medication usage, Demonstrated understanding of instructions, follow-up care, medications, Prescriptions given X 4. 22:00 Patient left the ED. vg1 Signatures: Dispatcher [employer] EDMS Lesly Valadez, JASON-C ROAD ENGINEER-Jame Rabago MD MD cha Martinez, Amelia as Calderon, Audri, RN RN aa5 Garcia, Victoria, RN RN vg1 Julius Melendez RN Corrections: (The following items were deleted from the chart) 16:33 16:29 BP 106 / 71; Pulse 89bpm; Resp 18bpm; Spontaneous; Pulse Ox 97% RA; Temp 98.4F aa5 Temporal; aa5 16:34 16:29 Chief complaint: Patient states: ada lower extremity pain that began 1 week ago. aa5 Pt also reports right knee pain and back pain. Pt reports he was seen here recently. aa5 21:12 21:06 CORONAVIRUS+MR.LAB.DYLAN drawn and sent. wg EDMS
--- NOTE | 2021-04-06 21:50 | EDPHYS ---
Physician Documentation [facility] Name: Harvey Callahan Age: 60 yrs Sex: Male : 1960 Arrival Date: 04/06/2021 Time: 16:14 Bed 13 Private MD: RAGHAV Physician Jame Torres HPI: 04/06 18:51 This 60 yrs old Male presents to ER via Wheelchair with complaints of Back janet Pain, Knee Pain, Leg Pain. 18:51 The patient presents with pain and decreased range of motion. The symptoms are located janet in the low back. Onset: The symptoms/episode began/occurred 1 week(s) ago. The pain does not radiate. Associated signs and symptoms: Pertinent positives: none. The problem was sustained venous stasis. Modifying factors: The patient symptoms are alleviated by remaining still, the patient symptoms are aggravated by lifting, movement. Severity of symptoms: At their worst the symptoms were moderate, in the emergency department the symptoms are unchanged. The patient has experienced similar episodes in the past, multiple times. Historical: - Allergies: 16:32 No Known Allergies; aa5 - PMHx: 16:31 Arthritis; CHF; Diabetes - IDDM; EDEMA; Hyperlipidemia; Hypertension; knee pain; aa5 - PSHx: 16:31 Appendectomy; Coronary Angioplasty; aa5 - Immunization history:: Client reports receiving the 2nd dose of the Covid vaccine. - Social history:: Smoking status: Patient reports the use of cigarette tobacco products, smokes two packs cigarettes per day. - Family history:: not pertinent. ROS: 18:51 Constitutional: Negative for fever, chills, and weight loss, Eyes: Negative for injury, janet pain, redness, and discharge, ENT: Negative for injury, pain, and discharge, Neck: Negative for injury, pain, and swelling, Cardiovascular: Negative for chest pain, palpitations, and edema, : Negative for injury, bleeding, discharge, and swelling, Skin: Negative for injury, rash, and discoloration, Neuro: Negative for headache, weakness, numbness, tingling, and seizure. 18:51 Respiratory: Positive for cough, "sounds productive". 18:51 Abdomen/GI: Positive for abdominal distension. 18:51 MS/extremity: Positive for erythema, pain, of the right leg and left leg. 18:51 Skin: Positive for erythema, venous stasis. Exam: 18:51 Constitutional: This is a well developed, well nourished patient who is awake, alert, janet and in no acute distress. Head/Face: Normocephalic, atraumatic. Eyes: Pupils equal round and reactive to light, extra-ocular motions intact. Lids and lashes normal. Conjunctiva and sclera are non-icteric and not injected. Cornea within normal limits. Periorbital areas with no swelling, redness, or edema. ENT: Nares patent. No nasal discharge, no septal abnormalities noted. Tympanic membranes are normal and external auditory canals are clear. Oropharynx with no redness, swelling, or masses, exudates, or evidence of obstruction, uvula midline. Mucous membranes moist. Neck: Trachea midline, no thyromegaly or masses palpated, and no cervical lymphadenopathy. Supple, full range of motion without nuchal rigidity, or vertebral point tenderness. No Meningismus. Chest/axilla: Normal chest wall appearance and motion. Nontender with no deformity. No lesions are appreciated. Cardiovascular: Regular rate and rhythm with a normal S1 and S2. No gallops, murmurs, or rubs. Normal PMI, no JVD. No pulse deficits. Abdomen/GI: Soft, non-tender, with normal bowel sounds. No distension or tympany. No guarding or rebound. No evidence of tenderness throughout. Male : Normal genitalia with no discharge or lesions. Neuro: Awake and alert, GCS 15, oriented to person, place, time, and situation. Cranial nerves II-XII grossly intact. Motor strength 5/5 in all extremities. Sensory grossly intact. Cerebellar exam normal. Normal gait. Psych: Awake, alert, with orientation to person, place and time. Behavior, mood, and affect are within normal limits. 18:51 Respiratory: the patient does not display signs of respiratory distress, Respirations: normal, Breath sounds: bronchial sounds, that are mild, are scattered, rhonchi, that are mild, are scattered, Respiratory rate: 18 18:51 Musculoskeletal/extremity: ROM: full active range of motion, full passive range of motion, Circulation is intact in all extremities. Sensation intact. Compartment Syndrome exam of affected extremity: is normal. DVT Exam: negative Homans' sign noted on exam, no appreciated bluish discoloration, pain, swelling, tenderness, erythema, that is mild, of the right leg and left leg, increased warmth. Vital Signs: 16:29 BP 106 / 71; Pulse 89; Resp 18 S; Temp 98.4(TE); Pulse Ox 97% on R/A; Weight 127.46 kg aa5 (R); Height 5 ft. 7 in. (170.18 cm) (R); 20:00 BP 114 / 71; Pulse 80; Resp 16; Pulse Ox 99% ; vg1 21:00 BP 127 / 85; Pulse 88; Resp 17; Pulse Ox 95% on R/A; vg1 16:29 Body Mass Index 44.01 (127.46 kg, 170.18 cm) aa5 MDM: 18:39 Patient medically screened. janet 18:54 Differential diagnosis: chronic back pain, Fracture Obesity Osteoarthritis ruptured janet disc, sprain. Data reviewed: vital signs, nurses notes, lab test result(s), EKG, radiologic studies, CT scan, plain films. Data interpreted: crusher assembler: rate is 89 beats/min, rhythm is regular, Pulse oximetry: on room air is 97 %. Test interpretation: by ED physician or midlevel provider: ECG, plain radiologic studies. Counseling: I had a detailed discussion with the patient and/or guardian regarding: the historical points, exam findings, and any diagnostic results supporting the discharge/admit diagnosis, lab results, the need for outpatient follow up, for definitive care, a tank stave assembler, a family practitioner, a mainspring strip inspector. 04/06 18:48 Order name: Basic Metabolic Panel [facility] 04/06 18:48 Order name: CBC with Diff; Complete Time: 21:10 [facility] 04/06 18:48 Order name: LFT's; Complete Time: 21:48 [facility] 04/06 18:48 Order name: Magnesium; Complete Time: 21:48 [facility] 04/06 18:48 Order name: NT PRO-BNP; Complete Time: 21:48 [facility] 04/06 18:48 Order name: PT-INR; Complete Time: 21:10 [facility] 04/06 18:48 Order name: Troponin (emerg Dept Use Only); Complete Time: 21:48 [facility] 04/06 18:48 Order name: XRAY Chest (1 view); Complete Time: 19:42 [facility] 04/06 18:48 Order name: Lipase; Complete Time: 21:48 [facility] 04/06 18:48 Order name: CT Lumbar Spine Wo Con; Complete Time: 19:58 [facility] 04/06 18:48 Order name: Basic Metabolic Panel; Complete Time: 21:48 [facility]AL 04/06 21:02 Order name: Urine Dipstick-Ancillary; Complete Time: 21:10 [facility] 04/06 21:12 Order name: SARS-COV-2 RT PCR EDMS 04/06 18:48 Order name: EKG; Complete Time: 18:49 [facility] 04/06 18:48 Order name: Cardiac monitoring; Complete Time: 20:32 [facility] 04/06 18:48 Order name: EKG - Nurse/Tech; Complete Time: 20:32 [facility] 04/06 18:48 Order name: IV Saline Lock; Complete Time: 20:32 [facility] 04/06 18:48 Order name: Labs collected and sent; Complete Time: 20:32 [facility] 04/06 18:48 Order name: O2 Per Protocol; Complete Time: 20:32 [facility] 04/06 18:48 Order name: O2 Sat Monitoring; Complete Time: 20:32 [facility] 04/06 18:48 Order name: US Extremity Venous W Compression Stefan; Complete Time: 19:58 [facility] 04/06 18:48 Order name: Urine Dipstick-Ancillary (obtain specimen); Complete Time: 21:04 [facility] Administered Medications: 19:44 Not Given (Duplicate Order): NS 0.9% 1000 ml IV at 125 ml/hr continuous janet 20:17 Drug: Lasix (furosemide) 40 mg Route: IVP; Site: right antecubital; vg1 22:01 Follow up: Response: No adverse reaction vg1 20:19 Drug: Zofran (Ondansetron) 4 mg Route: IVP; Site: right antecubital; vg1 22:01 Follow up: Response: No adverse reaction vg1 20:21 Drug: morphine 4 mg Route: IVP; Site: right antecubital; vg1 22:01 Follow up: Response: No adverse reaction; Pain is decreased vg1 20:31 Drug: Xopenex (levalbuterol) 1.25 mg Route: Inhalation; vg1 21:10 Follow up: Response: No adverse reaction vg1 20:31 Drug: AtroVENT (ipratropium) Aerosol 0.5 mg Route: Inhalation; vg1 21:10 Follow up: Response: No adverse reaction vg1 Disposition Summary: 04/06/21 21:48 Discharge Ordered Location: Home kb Problem: new kb Symptoms: have improved kb Condition: Stable kb Diagnosis - Type 1 diabetes mellitus with hyperglycemia kb - Venous insufficiency (chronic) (peripheral) kb - Tobacco abuse counseling kb - Tobacco use kb - Obesity, unspecified kb - Edema, unspecified kb - Systolic (congestive) heart failure kb Followup: janet - With: Private Physician - When: 2 - 3 days - Reason: Recheck today's complaints, Continuance of care, Re-evaluation by your physician Followup: janet - With: - When: 2 - 3 days - Reason: Recheck today's complaints, Re-evaluation by your physician Discharge Instructions: - Discharge Summary Sheet janet - Heart Failure, Diagnosis janet - Edema janet - Hyperglycemia janet - Obesity, Adult janet - Steps to Quit Smoking janet - Health Risks of Smoking janet - Diabetic Nephropathy janet - Edema, [id number] janet - Blood Glucose Monitoring, Adult janet - Steps to Quit Smoking, [id number] janet - Obesity, Adult, [id number] janet - Peripheral Edema janet - Heart Failure, Self Care, [id number] janet - Heart Failure Eating Plan janet Forms: - Medication Reconciliation Form kb - Thank You Letter kb - Antibiotic Education kb - Prescription Opioid Use kb Prescriptions: - Pepcid 20 mg Oral Tablet - take 1 tablet by ORAL route every 12 hours for 15 days; 30 tablet; Refills: 0, [facility] Product Selection Permitted - Bactrim DS 800-160 mg Oral Tablet - take 1 tablet by ORAL route every 12 hours for 10 days; 20 tablet; Refills: 0, [facility] Product Selection Permitted - Tylenol-Codeine #3 300 mg-30 mg Oral - take 2 tablet by ORAL route every 4-6 hours; 15 tablet; Refills: 0, Product janet Selection Permitted - albuterol sulfate 90 mcg/actuation Inhalation HFA aerosol inhaler - inhale 2 puff by INHALATION route every 4-6 hours; 1 Pump; Refills: 0, Product janet Selection Permitted Signatures: Dispatcher [employer] Lesly Mcgee, MERLINE GOMEZ-Jame Rabago MD MD cha Calderon, Audri, RN RN aa5 Ban Tsai RN RN vg1 Corrections: (The following items were deleted from the chart) 21:12 19:44 CORONAVIRUS+MR.LAB.BRZ ordered. EDMS EDMS
[2021-04-06 22:17] VITALS: TEMP 98.4
[2021-04-06 22:20] VITALS: BP 127/85; O2SAT 95
== END 2021-04-06 22:00 | disposition home or self-care (01) ==
LOC: ER 16:12
DX: E10.65 Type 1 diabetes mellitus with hyperglycemia (principal); I87.2 Venous insufficiency (chronic) (peripheral); I50.20 Unspecified systolic (congestive) heart failure; R60.9 Edema, unspecified; E66.9 Obesity, unspecified; Z72.0 Tobacco use; Z71.6 Tobacco abuse counseling; Z20.822 Contact with and (suspected) exposure to COVID-19
CPT/HCPCS: 93005; 85025; 80048; 36415; 83735; 85610; 80076; 81003; 84484; 83690; 83880; 72131; 71045; 93970; 96375; 96374; 99284; U0003; J1940; J2405; J7030

== ENCOUNTER 2021-04-25 16:52 | Emergency (ER) | payer OTHER ==
--- NOTE | 2021-04-25 19:51 | EDPHYS ---
Physician Documentation [facility] Name: Harvey Callahan Age: 60 yrs Sex: Male : 1960 Arrival Date: 04/25/2021 Time: 17:17 Bed 2 Private MD: ED Physician Alana Howell HPI: 04/25 19:47 This 60 yrs old Male presents to ER via Wheelchair with complaints of Leg sp3 Pain. 19:47 60-year-old male with history of diabetes, hyperlipidemia, hypertension, chronic and sp3 multiple episodes of cellulitis in the lower extremities, peripheral vascular disease presents for redness of bilateral feet which started 2 days ago and is a recurrent symptom. Patient has an appointment at the [facility] for evaluation of his arterial system on Friday of next week. Patient denies any groin pain, chest pain, shortness of breath, abdominal pain, nausea, vomiting, diarrhea, fever, any redness proximal to the shins. There are no cracks in the skin and patient reports no discharge.. Historical: - Allergies: 17:33 No Known Allergies; ss - PMHx: 17:33 Diabetes - IDDM; EDEMA; Hyperlipidemia; Hypertension; knee pain; CHF; Arthritis; ss - PSHx: 17:33 Appendectomy; Coronary Angioplasty; ss - Immunization history:: Client reports receiving the 2nd dose of the Covid vaccine. - Social history:: Smoking status: Patient reports the use of cigarette tobacco products, smokes one pack cigarettes per day. ROS: 19:48 Constitutional: Negative for fever, chills, and weight loss, Eyes: Negative for injury, sp3 pain, redness, and discharge, Neck: Negative for injury, pain, and swelling, Cardiovascular: Negative for chest pain, palpitations, and edema, Respiratory: Negative for shortness of breath, cough, wheezing, and pleuritic chest pain, Abdomen/GI: Negative for abdominal pain, nausea, vomiting, diarrhea, and constipation, Back: Negative for injury and pain, Neuro: Negative for headache, weakness, numbness, tingling, and seizure, Psych: Negative for depression, anxiety, suicide ideation, homicidal ideation, and hallucinations, Allergy/Immunology: Negative for hives, rash, and allergies, Endocrine: Negative for neck swelling, polydipsia, polyuria, polyphagia, and marked weight changes. 19:48 All other systems are negative. Exam: 19:48 Constitutional: This is a well developed, well nourished patient who is awake, alert, sp3 and in no acute distress. Head/Face: Normocephalic, atraumatic. Neck: Trachea midline, no thyromegaly or masses palpated, and no cervical lymphadenopathy. Supple, full range of motion without nuchal rigidity, or vertebral point tenderness. No Meningismus. Chest/axilla: Normal chest wall appearance and motion. Nontender with no deformity. No lesions are appreciated. Cardiovascular: Regular rate and rhythm with a normal S1 and S2. No gallops, murmurs, or rubs. Normal PMI, no JVD. No pulse deficits. Respiratory: Lungs have equal breath sounds bilaterally, clear to auscultation and percussion. No rales, rhonchi or wheezes noted. No increased work of breathing, no retractions or nasal flaring. Abdomen/GI: Soft, non-tender, with normal bowel sounds. No distension or tympany. No guarding or rebound. No evidence of tenderness throughout. Skin: Warm, dry with normal turgor. Patient has mild erythema bilateral lower extremities with normal cap refill, negative Nikolsky sign, and no signs of abscess or discharge. Neuro: Awake and alert, GCS 15, oriented to person, place, time, and situation. Cranial nerves II-XII grossly intact. Motor strength 5/5 in all extremities. Sensory grossly intact. Cerebellar exam normal. Normal gait. Psych: Awake, alert, with orientation to person, place and time. Behavior, mood, and affect are within normal limits. Vital Signs: 17:33 BP 114 / 75; Pulse 92; Resp 17; Temp 98.9(TE); Pulse Ox 98% on R/A; Weight 129.27 kg; ss Height 5 ft. 7 in. (170.18 cm); Pain 10/10; 20:00 BP 105 / 71; Pulse 86; Resp 17; Pulse Ox 100% on R/A; Pain 8/10; dc2 17:33 Body Mass Index 44.64 (129.27 kg, 170.18 cm) ss MDM: 19:49 Data reviewed: vital signs, nurses notes. ED course: 60-year-old male with recurrent sp3 cellulitis. Patient is not critically ill and I am not highly suspicious for sepsis. Will prescribe antibiotics and administer [place] 2 tabs p.o. here in the ED prior to discharge. Patient be discharged on clindamycin and Bactrim p.o. and will follow up with the [place] [facility] with his primary team.. 19:50 Patient medically screened. sp3 Administered Medications: 19:57 Drug: HYDROcodone-acetaminophen 5 mg-325 mg 2 tabs Route: PO; dc2 20:21 Follow up: Response: Medication administered at discharge. dc2 Disposition Summary: 04/25/21 19:50 Discharge Ordered Location: Home sp3 Condition: Stable sp3 Diagnosis - Cellulitis, unspecified sp3 Followup: sp3 - With: Private Physician - When: - Reason: Recheck today's complaints Discharge Instructions: - Discharge Summary Sheet sp3 - Cellulitis, Adult sp3 Forms: - Medication Reconciliation Form sp3 - Thank You Letter sp3 - Antibiotic Education sp3 - Prescription Opioid Use sp3 Prescriptions: - Clindamycin HCl 300 mg Oral Capsule - take 1 capsule by ORAL route every 6 hours for 7 days; 28 capsule; Refills: 0, sp3 Product Selection Permitted - Bactrim DS 800-160 mg Oral Tablet - take 1 tablet by ORAL route every 12 hours for 7 days; 14 tablet; Refills: 0, sp3 Product Selection Permitted Signatures: Summer Saucedo RN RN ss Alana Howell MD MD sp3 ValCelina RN RN dc2
--- NOTE | 2021-04-25 19:51 | ER ---
Nurse's Notes [facility] Name: Harvey Callahan Age: 60 yrs Sex: Male : 1960 Arrival Date: 04/25/2021 Time: 17:17 Bed 2 Private MD: Diagnosis: Cellulitis, unspecified Presentation: 04/25 17:31 Coronavirus screen: Client denies travel out of the [place] in the last 14 days. Ebola ss Screen: Patient denies exposure to infectious person. Patient denies travel to an Ebola-affected area in the 21 days before illness onset. Initial Sepsis Screen: Does the patient meet any 2 criteria? No. Patient's initial sepsis screen is negative. Does the patient have a suspected source of infection? No. Patient's initial sepsis screen is negative. Risk Assessment: Do you want to hurt yourself or someone else? Patient reports no desire to harm self or others. Onset of symptoms is unknown. 17:31 Method Of Arrival: Wheelchair ss 17:31 Acuity: DEYANIRA 3 ss Historical: - Allergies: 17:33 No Known Allergies; ss - PMHx: 17:33 Diabetes - IDDM; EDEMA; Hyperlipidemia; Hypertension; knee pain; CHF; Arthritis; ss - PSHx: 17:33 Appendectomy; Coronary Angioplasty; ss - Immunization history:: Client reports receiving the 2nd dose of the Covid vaccine. - Social history:: Smoking status: Patient reports the use of cigarette tobacco products, smokes one pack cigarettes per day. Vital Signs: 17:33 BP 114 / 75; Pulse 92; Resp 17; Temp 98.9(TE); Pulse Ox 98% on R/A; Weight 129.27 kg; ss Height 5 ft. 7 in. (170.18 cm); Pain 10/10; 20:00 BP 105 / 71; Pulse 86; Resp 17; Pulse Ox 100% on R/A; Pain 8/10; dc2 17:33 Body Mass Index 44.64 (129.27 kg, 170.18 cm) ss ED Course: 17:17 Patient arrived in ED. mr 17:33 Triage completed. ss 17:33 Arm band placed on right wrist. ss 19:35 Alana Howell MD is Attending Physician. sp3 19:46 Sunshine Edmondson is Primary Nurse. df1 20:20 Patient did not have IV access during this emergency room visit. dc2 Administered Medications: 19:57 Drug: HYDROcodone-acetaminophen 5 mg-325 mg 2 tabs Route: PO; dc2 20:21 Follow up: Response: Medication administered at discharge. dc2 Outcome: 19:50 Discharge ordered by . sp3 20:07 Discharged to home ambulatory. dc2 20:07 Condition: stable 20:07 Discharge instructions given to patient, Instructed on discharge instructions, follow up and referral plans. Demonstrated understanding of instructions, follow-up care, medications, Prescriptions given X 2. 20:21 Patient left the ED. dc2 Signatures: Dolores Hodgson mr Summer Saucedo RN RN Alana Howell MD MD sp3 Sunshine Edmondson df1 Celina Neal RN RN dc2 Corrections: (The following items were deleted from the chart) 19:56 17:31 Chief complaint: Patient states: "I'm here for cellulitis." Pt c/o pain and df1 swelling to bilateral lower extremities that has been off and on since last admission in March
[2021-04-25] MEDS ORDERED: HYDROCODONE/APAP 5/325 MG TAB ONE (19:58)
[2021-04-25 20:26] VITALS: BP 114/75; TEMP 98.9; O2SAT 98
== END 2021-04-25 20:21 | disposition home or self-care (01) ==
LOC: ER 16:52
DX: L03.119 Cellulitis of unspecified part of limb (principal); M19.90 Unspecified osteoarthritis, unspecified site; E11.9 Type 2 diabetes mellitus without complications; I11.0 Hypertensive heart disease with heart failure; I50.9 Heart failure, unspecified; E78.5 Hyperlipidemia, unspecified; F17.210 Nicotine dependence, cigarettes, uncomplicated
CPT/HCPCS: 99283

== ENCOUNTER 2021-09-13 15:01 | Emergency (ER) | payer OTHER ==
[2021-09-13] MEDS ORDERED: ONDANSETRON 4 MG/2 ML VIAL ONE (15:59)
[2021-09-13] MEDS ORDERED: CLINDAMYCIN 900MG/D5W 900 MG/50 ML IVPB IV ONE (15:59)
[2021-09-13] MEDS ORDERED: MORPHINE 4 MG/ML SYR ONE (15:59)
--- NOTE | 2021-09-13 16:15 | EDPHYS ---
Physician Documentation [facility] Name: Harvey Callahan Age: 61 yrs Sex: Male : 1960 Arrival Date: 09/13/2021 Time: 15:04 Bed 14 Private MD: RAGHAV Physician Maulik Goodman HPI: 09/13 15:36 This 61 yrs old Unknown Male presents to ER via Wheelchair with complaints of Leg Pain. jmm 15:36 The patient presents with pain, that is acute, swelling. Onset: The symptoms/episode jmm began/occurred gradually, 1 week(s) ago. Modifying factors: The symptoms are alleviated by nothing. the symptoms are aggravated by nothing. Associated signs and symptoms: Pertinent positives: swelling, Pertinent negatives fever. The patient has experienced similar episodes in the past. This is a 61-year-old male with history of chronic knee pain, hypertension, hyperlipidemia, diabetes mellitus, peripheral edema the presents emerged part with complaints of bilateral leg swelling and redness beginning approximately a week ago. Patient does take diuretics. Denies any fever or chills. Patient has had similar episodes in the past.. Historical: - PMHx: 15:30 knee pain; Hypertension; EDEMA; Hyperlipidemia; Diabetes - IDDM; Arthritis; CHF; ap3 - PSHx: 15:30 Appendectomy; Coronary Angioplasty; ap3 - Immunization history:: Client reports receiving the 2nd dose of the Covid vaccine, and booster Pneumococcal vaccine is up to date, Flu vaccine is up to date. - Social history:: Smoking status: Patient reports the use of cigarette tobacco products, smokes two packs cigarettes per day. ROS: 15:36 Constitutional: Negative for fever, chills, and weight loss, Cardiovascular: Negative jmm for chest pain, palpitations, and edema, Respiratory: Negative for shortness of breath, cough, wheezing, and pleuritic chest pain. 15:36 MS/extremity: Positive for pain, swelling. 15:36 All other systems are negative. Exam: 15:36 Constitutional: This is a well developed, well nourished patient who is awake, alert, jmm and in no acute distress. Head/Face: atraumatic. Eyes: EOMI, no conjunctival erythema appreciated ENT: Moist Mucus Membranes Neck: Trachea midline, Supple Chest/axilla: Normal chest wall appearance and motion. Cardiovascular: Regular rate and rhythm. No edema appreciated Respiratory: Normal respirations, no respiratory distress appreciated Abdomen/GI: Non distended, soft Back: Normal ROM 15:36 Musculoskeletal/extremity: Mild edema noted to the legs bilaterally, full dorsalis pedis pulse bilaterally, compartments are soft, neurovascular intact. 15:36 Skin: cellulitis, that is mild, on the right leg and left leg. 15:36 Neuro: Orientation: is normal, Mentation: is normal, Memory: is normal. 15:36 Psych: Behavior/mood is pleasant, cooperative. Vital Signs: 15:28 BP 105 / 56 LA; Pulse 95; Resp 19; Temp 98.8; Pulse Ox 98% ; Weight 127.01 kg; Height 5 ap3 ft. 7 in. (170.18 cm); Pain 10/10; 15:28 Body Mass Index 43.85 (127.01 kg, 170.18 cm) ap3 MDM: 15:36 Patient medically screened. [facility] 16:12 Data reviewed: vital signs, nurses notes. Counseling: I had a detailed discussion with cordelia the patient and/or guardian regarding: the historical points, exam findings, and any diagnostic results supporting the discharge/admit diagnosis, the need for outpatient follow up, to return to the emergency department if symptoms worsen or persist or if there are any questions or concerns that arise at home. ED course: Patient is alert nontoxic in appearance NAD. Symptoms are similar to previous episodes of cellulitis. I do not currently suspect DVT, sepsis. Patient advised follow-up PCP and otherwise given strict return precautions. Patient understood and agrees plan of care peer. Administered Medications: 16:13 Drug: morphine 4 mg Route: IVP; Site: right antecubital; ab2 16:30 Follow up: Response: No adverse reaction ab2 16:13 Drug: Zofran (Ondansetron) 4 mg Route: IVP; Site: right antecubital; ab2 16:30 Follow up: Response: No adverse reaction ab2 16:13 Drug: Clindamycin 900 mg Route: IVPB; Infused Over: 30 mins; Site: right antecubital; ab2 16:30 Follow up: Response: No adverse reaction; IV Status: Completed infusion ab2 Disposition: 18:48 Co-signature as Attending Physician, Maulik Goodman MD. rn Disposition Summary: 09/13/21 16:14 Discharge Ordered Location: Home [facility] Condition: Stable [facility] Diagnosis - Cellulitis of the lower legs bilaterally [facility] Followup: [facility] - With: Private Physician - When: 2 - 3 days - Reason: Recheck today's complaints, Continuance of care, Re-evaluation by your physician Discharge Instructions: - Discharge Summary Sheet [facility] - Cellulitis, Adult [facility] Forms: - Medication Reconciliation Form [facility] - Thank You Letter [facility] - Antibiotic Education [facility] - Prescription Opioid Use [facility] Prescriptions: - Clindamycin HCl 300 mg Oral Capsule - take 1 capsule by ORAL route every 6 hours for 10 days; 40 capsule; Refills: 0, [facility] Product Selection Permitted - Bactrim DS 800-160 mg Oral Tablet - take 1 tablet by ORAL route every 12 hours for 10 days; 20 tablet; Refills: 0, [facility] Product Selection Permitted Signatures: Low Dominguez PA PA [facility] Maulik Goodman MD MD rn Nataliia Adams RN RN ap3 Maico Dee ab2 Corrections: (The following items were deleted from the chart) 15:31 15:30 PMHx: Diabetes - NIDDM; ap3 ap3
--- NOTE | 2021-09-13 16:15 | ER ---
Nurse's Notes [facility] Name: Harvey Callahan Age: 61 yrs Sex: Male : 1960 Arrival Date: 09/13/2021 Time: 15:04 Bed 14 Private MD: Diagnosis: Cellulitis of the lower legs bilaterally Presentation: 09/13 15:28 Chief complaint: Patient states: he is here to be evaluated for redness and swelling in ap3 his bilateral lower extremities. He also complains of excruciating pain in the effected areas. Coronavirus screen: At this time, the client does not indicate any symptoms associated with coronavirus-19. Ebola Screen: No symptoms or risks identified at this time. Initial Sepsis Screen: Does the patient meet any 2 criteria? No. Patient's initial sepsis screen is negative. Does the patient have a suspected source of infection? No. Patient's initial sepsis screen is negative. Risk Assessment: Do you want to hurt yourself or someone else? Patient reports no desire to harm self or others. Onset of symptoms was September 06, 2021. 15:28 Method Of Arrival: Wheelchair ap3 15:28 Acuity: DEYANIRA 3 ap3 Triage Assessment: 15:32 General: Appears in no apparent distress. uncomfortable, Behavior is calm, cooperative, ap3 appropriate for age. Pain: Complains of pain in right leg and left leg Pain currently is 10 out of 10 on a pain scale. Pain began gradually, approx one week ago. Neuro: Level of Consciousness is awake, alert, obeys commands, Oriented to person, place, time, situation, Appropriate for age. Cardiovascular: Patient's skin is warm and dry. Respiratory: Airway is patent Respiratory effort is even, unlabored. Derm: Wound noted right leg and left leg Wound is redness, swelling with blisters. blisters are present on the right lower extremity only. Musculoskeletal: Swelling present in right leg and left leg. Historical: - PMHx: 15:30 knee pain; Hypertension; EDEMA; Hyperlipidemia; Diabetes - IDDM; Arthritis; CHF; ap3 - PSHx: 15:30 Appendectomy; Coronary Angioplasty; ap3 - Immunization history:: Client reports receiving the 2nd dose of the Covid vaccine, and booster Pneumococcal vaccine is up to date, Flu vaccine is up to date. - Social history:: Smoking status: Patient reports the use of cigarette tobacco products, smokes two packs cigarettes per day. Screenin:32 Abuse screen: Denies threats or abuse. Nutritional screening: No deficits noted. ap3 Tuberculosis screening: No symptoms or risk factors identified. 16:16 Fall Risk None identified. ab2 Assessment: 16:14 General: Appears in no apparent distress. uncomfortable, Behavior is calm, cooperative, ab2 appropriate for age. Pain: Complains of pain in left leg and right leg Pain currently is 6 out of 10 on a pain scale. Neuro: Level of Consciousness is awake, alert, obeys commands, Oriented to person, place, time, situation, Appropriate for age Manager Forms are equal bilaterally Moves all extremities. Gait is steady, Speech is normal, Facial symmetry appears normal. Cardiovascular: No deficits noted. Denies chest pain, shortness of breath, Heart tones S1 S2 present Patient's skin is warm and dry. Respiratory: Airway is patent Respiratory effort is even, unlabored, Respiratory pattern is regular, symmetrical. GI: No deficits noted. Abdomen is round obese. : No deficits noted. No signs and/or symptoms were reported regarding the genitourinary system. EENT: No deficits noted. No signs and/or symptoms were reported regarding the EENT system. Derm: Wound noted right leg Other: blister noted. Derm: Skin is fragile, is thin, Skin is dry. Vital Signs: 15:28 BP 105 / 56 LA; Pulse 95; Resp 19; Temp 98.8; Pulse Ox 98% ; Weight 127.01 kg; Height 5 ap3 ft. 7 in. (170.18 cm); Pain 10/10; 15:28 Body Mass Index 43.85 (127.01 kg, 170.18 cm) ap3 ED Course: 15:04 Patient arrived in ED. ds1 15:30 Triage completed. ap3 15:33 Arm band placed on right wrist. ap3 15:35 Low Dominguez PA is PHCP. jmm 15:35 Maulik Goodman MD is Attending Physician. jmdebbie 15:51 Maico Dee is Primary Nurse. ab2 16:13 Inserted saline lock: 20 gauge in right antecubital area, using aseptic technique. ab2 16:16 Patient has correct armband on for positive identification. Bed in low position. Call ab2 light in reach. Side rails up X2. 16:16 No provider procedures requiring assistance completed. ab2 16:31 IV discontinued, intact, bleeding controlled, No redness/swelling at site. Pressure ab2 dressing applied. Administered Medications: 16:13 Drug: morphine 4 mg Route: IVP; Site: right antecubital; ab2 16:30 Follow up: Response: No adverse reaction ab2 16:13 Drug: Zofran (Ondansetron) 4 mg Route: IVP; Site: right antecubital; ab2 16:30 Follow up: Response: No adverse reaction ab2 16:13 Drug: Clindamycin 900 mg Route: IVPB; Infused Over: 30 mins; Site: right antecubital; ab2 16:30 Follow up: Response: No adverse reaction; IV Status: Completed infusion ab2 Outcome: 16:14 Discharge ordered by . cordelia 16:31 Discharged to home ambulatory. ab2 16:31 Condition: good 16:31 Discharge instructions given to patient, Instructed on discharge instructions, follow up and referral plans. Demonstrated understanding of instructions, follow-up care, medications, Prescriptions given X 2. 16:31 Patient left the ED. ab2 Signatures: Low Dominguez PA PA jmm Sanford, Demi ds1 Nataliia Adams RN RN ap3 Maico Dee ab2 Corrections: (The following items were deleted from the chart) 15:31 15:30 PMHx: Diabetes - NIDDM; ap3 ap3
[2021-09-13 16:38] VITALS: BP 105/56; TEMP 98.8; O2SAT 98
== END 2021-09-13 16:31 | disposition home or self-care (01) ==
LOC: ER 15:01
DX: L03.116 Cellulitis of left lower limb (principal); L03.115 Cellulitis of right lower limb; E11.9 Type 2 diabetes mellitus without complications; I10 Essential (primary) hypertension; F17.210 Nicotine dependence, cigarettes, uncomplicated
CPT/HCPCS: 96365; 96375; 99283; J2405

== ENCOUNTER 2022-01-13 20:51 | Emergency (ER) | payer OTHER ==
--- NOTE | 2022-01-13 21:03 | EDPHYS ---
Physician Documentation [facility] Name: Harvey Callahan Age: 61 yrs Sex: Male : 1960 Arrival Date: 01/13/2022 Time: 20:56 Bed Waiting Private MD: ED Physician Rex Solares Historical: - Allergies: 01/13 21:03 No Known Allergies; aa9 - PMHx: 21:03 Arthritis; CHF; Diabetes - IDDM; EDEMA; Hyperlipidemia; Hypertension; knee pain; aa9 - PSHx: 21:03 Appendectomy; Coronary Angioplasty; aa9 - Immunization history:: Flu vaccine is up to date. - Social history:: Smoking status: Patient reports the use of cigarette tobacco products, smokes two packs cigarettes per day. Vital Signs: 20:58 BP 120 / 72; Pulse 88; Resp 15 S; Temp 97; Pulse Ox 96% on R/A; Weight 130.18 kg; aa9 Height 5 ft. 7 in. (170.18 cm); Pain 10/10; 20:58 Body Mass Index 44.95 (130.18 kg, 170.18 cm) aa9 MDM: 20:58 Patient medically screened. kb Administered Medications: 21:13 Drug: Augmentin (Amoxicillin-Clavulanate) 875 mg Route: PO; aa9 21:13 Follow up: Response: No adverse reaction; Medication administered at discharge. aa9 21:14 Drug: [place] (HYDROcodone-acetaminophen) 10 mg-325 mg 1 tabs Route: PO; aa9 21:14 Follow up: Response: No adverse reaction; Medication administered at discharge.; RASS: aa9 Alert and Calm (0) Disposition Summary: 01/13/22 21:03 Discharge Ordered Location: Home kb Condition: Stable kb Diagnosis - Other specified disorders of teeth and supporting structures kb Followup: kb - With: Emergency Department - When: As needed - Reason: Worsening of condition Followup: kb - With: Private Physician - When: 2 - 3 days - Reason: Recheck today's complaints, Continuance of care, Re-evaluation by your physician Discharge Instructions: - Discharge Summary Sheet kb - Dental Pain, [id number] kb - Dental Abscess, [id number] kb Forms: - Medication Reconciliation Form kb - Thank You Letter kb - Antibiotic Education kb - Prescription Opioid Use kb Prescriptions: - Augmentin 875-125 mg Oral Tablet - take 1 tablet by ORAL route every 12 hours for 10 days; 20 tablet; Refills: 0, kb Product Selection Permitted - Diclofenac Sodium 75 mg Oral tablet,delayed release (DR/EC) - take 1 tablet by ORAL route 2 times per day As needed; 30 tablet; Refills: 0, kb Product Selection Permitted Signatures: Lesly Valadez FNP-C FNP-Ckb Avalos, Aylin, RN RN aa9
[2022-01-13] MEDS ORDERED: HYDROCODONE/APAP 10/325 TAB ONE (21:15)
[2022-01-13] MEDS ORDERED: AMOX/K CLAV 875 MG TAB ONE (21:16)
--- NOTE | 2022-01-13 21:16 | ER ---
Nurse's Notes [facility] Name: Harvey Callahan Age: 61 yrs Sex: Male : 1960 Arrival Date: 01/13/2022 Time: 20:56 Bed Waiting Private MD: Diagnosis: Other specified disorders of teeth and supporting structures Presentation: 01/13 20:58 Chief complaint: Patient states: "severe and severe toothache.". Coronavirus screen: aa9 Vaccine status: Patient reports receiving the 2nd dose of the covid vaccine. fizer. Ebola Screen: Patient negative for fever greater than or equal to 101.5 degrees Fahrenheit, and additional compatible Ebola Virus Disease symptoms Patient denies exposure to infectious person. Patient denies travel to an Ebola-affected area in the 21 days before illness onset. No symptoms or risks identified at this time. Initial Sepsis Screen: Does the patient meet any 2 criteria? No. Patient's initial sepsis screen is negative. Does the patient have a suspected source of infection? Yes: Other: possible abcess. Risk Assessment: Do you want to hurt yourself or someone else? Patient reports no desire to harm self or others. Onset of symptoms was January 11, 2022. 20:58 Method Of Arrival: Wheelchair aa9 20:58 Acuity: DEYANIRA 5 aa9 Triage Assessment: 21:03 General: Appears uncomfortable, obese, Behavior is calm, cooperative, appropriate for aa9 age. Pain: Complains of pain in mouth Pain currently is 10 out of 10 on a pain scale. EENT: Reports pain in mouth. Historical: - Allergies: 21:03 No Known Allergies; aa9 - PMHx: 21:03 Arthritis; CHF; Diabetes - IDDM; EDEMA; Hyperlipidemia; Hypertension; knee pain; aa9 - PSHx: 21:03 Appendectomy; Coronary Angioplasty; aa9 - Immunization history:: Flu vaccine is up to date. - Social history:: Smoking status: Patient reports the use of cigarette tobacco products, smokes two packs cigarettes per day. Screenin:05 Abuse screen: Denies threats or abuse. Denies injuries from another. Nutritional aa9 screening: No deficits noted. Tuberculosis screening: No symptoms or risk factors identified. Fall Risk None identified. Vital Signs: 20:58 BP 120 / 72; Pulse 88; Resp 15 S; Temp 97; Pulse Ox 96% on R/A; Weight 130.18 kg; aa9 Height 5 ft. 7 in. (170.18 cm); Pain 10/10; 20:58 Body Mass Index 44.95 (130.18 kg, 170.18 cm) aa9 ED Course: 20:56 Patient arrived in ED. ja2 20:58 Lesly Valadez FNP-C is [facility]. kb 20:58 Rex Solares MD is Attending Physician. kb 21:03 Triage completed. aa9 21:03 Arm band placed on. aa9 21:05 Patient has correct armband on for positive identification. aa9 21:05 No provider procedures requiring assistance completed. Patient did not have IV access aa9 during this emergency room visit. Administered Medications: 21:13 Drug: Augmentin (Amoxicillin-Clavulanate) 875 mg Route: PO; aa9 21:13 Follow up: Response: No adverse reaction; Medication administered at discharge. aa9 21:14 Drug: [place] (HYDROcodone-acetaminophen) 10 mg-325 mg 1 tabs Route: PO; aa9 21:14 Follow up: Response: No adverse reaction; Medication administered at discharge.; RASS: aa9 Alert and Calm (0) Medication: 21:15 VIS not applicable for this client. aa9 Outcome: 21:03 Discharge ordered by . kb 21:14 Discharged to home via wheelchair. aa9 21:14 Condition: stable 21:14 Discharge instructions given to patient, Instructed on discharge instructions, follow up and referral plans. medication usage, Demonstrated understanding of instructions, follow-up care, medications, Prescriptions given X 2. 21:15 Patient left the ED. aa9 Signatures: Lesly Valadez FNP-C FNP-Toya Mcdonough 2 Marion Carrillo, RN RN aa9
[2022-01-13 22:28] VITALS: BP 120/72; TEMP 97; O2SAT 96
== END 2022-01-13 21:15 | disposition home or self-care (01) ==
LOC: ER 20:51
DX: K08.89 Other specified disorders of teeth and supporting structures (principal); I10 Essential (primary) hypertension; F17.210 Nicotine dependence, cigarettes, uncomplicated
CPT/HCPCS: 99283

== ENCOUNTER 2022-02-18 19:43 | Emergency (ER) | payer OTHER ==
[2022-02-18] MEDS ORDERED: METHYLPREDNISOLONE 125 MG INJ ONE (21:34)
[2022-02-18] MEDS ORDERED: IPRATROPIUM BROM 0.5MG/2.5ML ONE (21:35)
[2022-02-18] MEDS ORDERED: HYDROCODONE/APAP 10/325 TAB ONE (21:35)
--- NOTE | 2022-02-18 21:42 | RAD REPORT ---
EXAM DESCRIPTION: RAD - Chest Single View - 02/18/2022 9:36 pm CLINICAL HISTORY: Cough COMPARISON: Chest Single View dated 04/06/2021; Chest Single View dated 03/02/2021; Chest Single View dated 11/21/2020; Chest Single View dated 11/14/2019 FINDINGS: Lines: None. Lungs: Similar diffuse prominence of the pulmonary interstitium. Pleural: No significant pleural effusions or pneumothorax. Cardiac: The heart size is within normal limits. Mediastinum: Within normal limits. Bones: No acute fractures. Other: None IMPRESSION: Diffuse prominence of the pulmonary interstitium could reflect vascular congestion. No c onsolidative airspace disease or evidence of alveolar edema.
[2022-02-18 22:04] LABS: Absolute Lymphocytes (CBC) 3.2 K/uL (0.7-4.9); Hematocrit 49.1 % (39.6-49.0); Lymphocytes % 20.7 % (15.3-44.8); MCV 83.7 fL (80-100); MPV 8.2 fL (7.6-11.3); RBC Red Blood Cell Count 5.87 M/uL (4.33-5.43)
[2022-02-18 22:24] LABS: Albumin 3.2 g/dL (3.4-5.0); Bilirubin Direct 0.1 mg/dL (0-0.2); Bilirubin Total 0.3 mg/dL (0.2-1.0); Magnesium 2.2 mg/dL (1.8-2.4); Potassium 3.8 mmol/L (3.5-5.1); Protein, Total 7.7 g/dL (6.4-8.2)
[2022-02-18 22:50] LABS: Protime INR 1.02
--- NOTE | 2022-02-18 23:58 | ER ---
Nurse's Notes [facility] Name: Harvey Callahan Age: 61 yrs Sex: Male : 1960 Arrival Date: 02/18/2022 Time: 19:47 Bed 10 Private MD: Diagnosis: Acute bronchitis, unspecified;Pain in right lower leg;Pain in left lower leg;Leg Laceration/ Open wound of lower leg Presentation: 02/18 20:25 Chief complaint: Patient states: Pt reports bilateral lower extremity pain, swelling kb3 with a sore on his left lower weston x1 week. Also states cough/congestion. chills, body aches since yesterday. Coronavirus screen: Vaccine status: Patient reports receiving the 2nd dose of the covid vaccine. Ebola Screen: Patient negative for fever greater than or equal to 101.5 degrees Fahrenheit, and additional compatible Ebola Virus Disease symptoms Patient denies exposure to infectious person. Patient denies travel to an Ebola-affected area in the 21 days before illness onset. No symptoms or risks identified at this time. Resp Distress? No respiratory distress is noted at this time. Initial Sepsis Screen: Does the patient meet any 2 criteria? No. Patient's initial sepsis screen is negative. Does the patient have a suspected source of infection? No. Patient's initial sepsis screen is negative. Risk Assessment: Do you want to hurt yourself or someone else? Patient reports no desire to harm self or others. Onset of symptoms was February 12, 2022. 20:25 Method Of Arrival: Wheelchair kb3 20:25 Acuity: DEYANIRA 3 kb3 Triage Assessment: 20:28 General: Appears in no apparent distress. Behavior is calm, cooperative. Pain: kb3 Complains of pain in right leg and left leg. Historical: - Allergies: 20:28 No Known Allergies; kb3 - PMHx: 20:28 CHF; Diabetes - IDDM; EDEMA; Hypertension; Arthritis; Hyperlipidemia; knee pain; kb3 - Immunization history:: Adult Immunizations up to date, Client reports receiving the 2nd dose of the Covid vaccine, Last tetanus immunization: up to date. - Social history:: Smoking status: Patient reports the use of cigarette tobacco products, smokes two packs cigarettes per day. Screenin:51 Abuse screen: Denies threats or abuse. Denies injuries from another. Nutritional tw5 screening: No deficits noted. Tuberculosis screening: No symptoms or risk factors identified. Fall Risk None identified. Assessment: 21:51 General: Appears in no apparent distress. obese, Behavior is calm, cooperative, tw5 appropriate for age, Reports "I have just been feeling short of breath and my legs are killing me. Cardiovascular: Heart tones Capillary refill < 3 seconds Rhythm is sinus rhythm. Respiratory: Airway is patent Trachea midline Breath sounds are coarse bilaterally. Breath sounds are diminished in left posterior lower lobe, right posterior middle lobe and right posterior lower lobe. : Urine is clear. 02/19 00:49 Reassessment: Patient states feeling better. Patient states symptoms have improved. tw5 Vital Signs: 02/18 20:25 BP 115 / 71; Pulse 94; Resp 20; Temp 97.4; Pulse Ox 100% ; Weight 131.54 kg; Height 5 kb3 ft. 7 in. (170.18 cm); Pain 8/10; 21:51 BP 116 / 78; Pulse 78; Resp 18; Pulse Ox 100% on R/A; tw5 23:07 Pain 7/10; tw5 20:25 Body Mass Index 45.42 (131.54 kg, 170.18 cm) kb3 ED Course: 19:47 Patient arrived in ED. ja2 20:12 Jame Sharif PA is PHCP. cp 20:12 Jame Torres MD is Attending Physician. cp 20:28 Triage completed. kb3 20:28 Arm band placed on right wrist. kb3 20:56 Guerda Fernandez is Primary Nurse. tw5 21:38 XRAY Chest (1 view) In Process Unspecified. EDMS 21:51 Awaiting lab results. tw5 21:51 Patient has correct armband on for positive identification. Call light in reach. Side tw5 rails up X 1. Pulse ox on. NIBP on. Door closed. Noise minimized. Lights dimmed. Verbal reassurance given. 21:51 Initial lab(s) drawn, by me, sent to lab. COVID swab sent to lab. Flu and/or RSV swab tw5 sent to lab. Inserted saline lock: 20 gauge in right antecubital area, using aseptic technique. Blood collected. 21:53 COVID-19 SARS RT PCR (Document "Date of Onset" if Symptomatic) Sent. tw5 21:53 Influenza Screen (a \\T\\ B) Sent. tw 21:53 Basic Metabolic Panel Sent. 21:53 CBC with Diff Sent. 21:53 LFT's Sent. 21:53 Magnesium Sent. 21:53 NT PRO-BNP Sent. 21:53 PT-INR Sent. 21:53 Troponin HS Sent. tw5 23:19 US Extremity Venous W Compression Stefan In Process Unspecified. EDMS 02/19 00:49 No provider procedures requiring assistance completed. IV discontinued, intact, tw5 bleeding controlled, No redness/swelling at site. Pressure dressing applied. Administered Medications: 02/18 21:08 CANCELLED (Physician Discretion): Tussionex Pennkinetic ER cp (chlorpheniramine-hydrocodone) Suspension 5 ml PO once 21:08 CANCELLED (Physician Discretion): Tylenol 1000 mg PO once cp 21:53 Drug: SOLU-Medrol (methylPrednisoLONE) 125 mg Route: IVP; Site: right antecubital; tw5 23:07 Follow up: Response: No adverse reaction 21:53 Drug: Albuterol - atroVENT (ipratropium) (3:1) (2.5 mg - 0.5 mg) 3 ml Route: Nebulizer; tw 23:07 Follow up: Response: No adverse reaction 21:53 Drug: HYDROcodone-acetaminophen 10 mg-325 mg 1 tabs Route: PO; tw 23:07 Follow up: Pain 7/10 Adult; Response: No adverse reaction; Pain is decreased; RASS: tw5 Alert and Calm (0) 02/19 00:48 Drug: Ketorolac 30 mg Route: IVP; Site: right antecubital; tw5 00:49 Follow up: Response: No adverse reaction; Medication administered at discharge. tw5 Medication: 02/18 21:51 VIS not applicable for this client. tw5 Outcome: 23:58 Discharge ordered by MD. marquez 02/19 00:49 Discharged to home via wheelchair. tw5 Condition: good Discharge instructions given to patient, Instructed on discharge instructions, follow up and referral plans. Demonstrated understanding of instructions, follow-up care, medications, Prescriptions given X 4. 00:49 Patient left the ED. tw5 Signatures: Dispatcher [employer] EDKS Jame Sharif PA PA cp Alexander, Jessica ja2 Wood, Tiffany tw5 Fe Acevedo, RN RN kb3 Corrections: (The following items were deleted from the chart) 02/18 20:30 20:28 Home Meds: Prednisone Oral see instructions; kb3 kb3 20:30 20:28 Home Meds: levalbuterol tartrate 45 mcg inhalation 1 puff four times a day; kb3 kb3 20:30 20:28 Home Meds: tiotropium bromide 18 mcg inhalation 1 cap once daily; kb3 kb3
--- NOTE | 2022-02-18 23:59 | EDPHYS ---
Physician Documentation [facility] Name: Harvey Callahan Age: 61 yrs Sex: Male : 1960 Arrival Date: 02/18/2022 Time: 19:47 Bed 10 Private MD: ED Physician Jame Torres HPI: 02/18 21:15 This 61 yrs old Male presents to ER via Wheelchair with complaints of Leg Problems, cp Congestion. 21:15 The patient or guardian reports cough, that is intermittent, flu symptoms, arthralgias, cp myalgias. Onset: The symptoms/episode began/occurred 2 day(s) ago. 21:15 Associated signs and symptoms: Pertinent negatives: chest pain, diarrhea, fever, cp vomiting. Severity of symptoms: in the emergency department the symptoms are unchanged despite home interventions. 21:15 Patient also c/o lower leg pain and swelling times 1 week. Reports non-healing wound to cp left lower leg times 1 week. Historical: - Allergies: 20:28 No Known Allergies; kb3 - PMHx: 20:28 CHF; Diabetes - IDDM; EDEMA; Hypertension; Arthritis; Hyperlipidemia; knee pain; kb3 - Immunization history:: Adult Immunizations up to date, Client reports receiving the 2nd dose of the Covid vaccine, Last tetanus immunization: up to date. - Social history:: Smoking status: Patient reports the use of cigarette tobacco products, smokes two packs cigarettes per day. ROS: 21:20 Constitutional: Positive for body aches, Negative for chills, fever, poor PO intake. cp 21:20 Eyes: Negative for injury, pain, redness, and discharge. cp 21:20 ENT: Negative for drainage from ear(s), ear pain, sore throat, difficulty swallowing, difficulty handling secretions. 21:20 Cardiovascular: Positive for edema, Negative for chest pain, palpitations. 21:20 Respiratory: Positive for cough, "sounds productive", shortness of breath. 21:20 Abdomen/GI: Negative for abdominal pain, nausea, vomiting, and diarrhea. 21:20 MS/extremity: Positive for pain, of the left leg and right leg, Negative for injury or acute deformity, decreased range of motion, paresthesias. 21:20 Neuro: Negative for altered mental status, dizziness, headache, syncope, weakness. 21:20 All other systems are negative. Exam: 21:25 Constitutional: The patient appears in no acute distress, alert, awake, cp non-diaphoretic, non-toxic, well developed, well nourished, obese. 21:25 Head/Face: Normocephalic, atraumatic. cp 21:25 Eyes: Periorbital structures: appear normal, Conjunctiva: normal, no exudate, no injection, Sclera: no appreciated abnormality, Lids and lashes: appear normal, bilaterally. 21:25 ENT: External ear(s): are unremarkable, Ear canal(s): are normal, TM's: dullness, bilaterally, Nose: is normal, Mouth: Lips: moist, Oral mucosa: pink and intact, moist, Posterior pharynx: Airway: no evidence of obstruction, patent, Tonsils: are normal in appearance, swelling, is not appreciated, erythema, that is mild, exudate, is not appreciated. 21:25 Neck: ROM/movement: is normal, is supple, without pain, no range of motions limitations, no meningismus. 21:25 Chest/axilla: Inspection: normal, Palpation: is normal, no crepitus, no tenderness. 21:25 Cardiovascular: Rate: normal, Rhythm: regular, Edema: ankle edema, that is mild, JVD: is not appreciated. 21:25 Respiratory: the patient does not display signs of respiratory distress, Respirations: labored breathing, that is mild, Breath sounds: bronchial sounds, that are mild, are heard diffusely, stridor, is not appreciated, + upper airway congestion. wheezing: is not appreciated. 21:25 Abdomen/GI: Inspection: obese Bowel sounds: active, all quadrants, Palpation: abdomen is soft and non-tender, in all quadrants. 21:25 Skin: cellulitis, is not appreciated, quarter size superficial wound noted anterior left lower leg. 21:25 Neuro: Orientation: to person, place \\T\\ time. Mentation: is normal, Motor: moves all fours, strength is normal, Sensation: is normal. 21:45 ECG was reviewed by the Attending Physician. cp Vital Signs: 20:25 BP 115 / 71; Pulse 94; Resp 20; Temp 97.4; Pulse Ox 100% ; Weight 131.54 kg; Height 5 kb3 ft. 7 in. (170.18 cm); Pain 8/10; 21:51 BP 116 / 78; Pulse 78; Resp 18; Pulse Ox 100% on R/A; tw5 23:07 Pain 7/10; tw5 20:25 Body Mass Index 45.42 (131.54 kg, 170.18 cm) kb3 MDM: 20:56 Patient medically screened. cp 23:58 Data reviewed: vital signs, nurses notes, lab test result(s), EKG, radiologic studies, cp plain films, ultrasound. 23:58 Differential diagnosis: bronchitis, flu, COVID-19, pneumonia, CHF. Test interpretation: cp by ED physician or midlevel provider: ECG, plain radiologic studies. Counseling: I had a detailed discussion with the patient and/or guardian regarding: the historical points, exam findings, and any diagnostic results supporting the discharge/admit diagnosis, lab results, radiology results, the need for outpatient follow up, a family practitioner, to return to the emergency department if symptoms worsen or persist or if there are any questions or concerns that arise at home. Response to treatment: the patient's symptoms have markedly improved after treatment, and as a result, I will discharge patient. ED course: VSS. Patient appears non-toxic and no signs of respiratory distress. Will discharge to home for continued monitoring. 02/18 21:07 Order name: Basic Metabolic Panel; Complete Time: 22:34 cp /05 22:34 Interpretation: Normal except: GLUC 230; GFR 77. cp / 21:07 Order name: CBC with Diff; Complete Time: 22:34 cp 05 22:35 Interpretation: Normal except: WBC 15.40; RBC 5.87; HCT 49.1; NEUT A 10.9. cp 02/18 21:07 Order name: LFT's; Complete Time: 22:34 cp / 23:50 Interpretation: Normal except: AST 10; ALB 3.2; GLOB 4.5; A/G 0.7. cp / 21:07 Order name: Magnesium; Complete Time: 22:34 cp 02/18 21:07 Order name: NT PRO-BNP; Complete Time: 22:34 cp 02/18 21:07 Order name: PT-INR; Complete Time: 23:50 cp 02/18 23:50 Interpretation: Reviewed. cp 02/18 21:07 Order name: Troponin HS; Complete Time: 22:34 cp 02/18 21:07 Order name: XRAY Chest (1 view); Complete Time: 22:34 cp 02/18 22:35 Interpretation: Report review. cp 02/18 21:07 Order name: Influenza Screen (a \\T\\ B); Complete Time: 23:50 cp 02/18 23:50 Interpretation: Reviewed. cp 02/18 21:07 Order name: COVID-19 SARS RT PCR (Document "Date of Onset" if Symptomatic); Complete cp Time: 23:50 02/18 23:50 Interpretation: Reviewed. cp 02/18 21:07 Order name: US Extremity Venous W Compression Stefan cp 02/18 21:07 Order name: EKG; Complete Time: 21:10 cp 02/18 21:07 Order name: EKG - Nurse/Tech; Complete Time: 21:53 cp 02/18 21:07 Order name: IV Saline Lock; Complete Time: 21:53 cp 02/18 21:07 Order name: Labs collected and sent; Complete Time: 21:53 cp 02/18 21:07 Order name: O2 Per Protocol; Complete Time: 21:53 cp 02/18 21:07 Order name: O2 Sat Monitoring; Complete Time: 21:53 cp 02/18 22:23 Order name: Labs - recollect needed: blue top needed; Complete Time: 23:06 mw2 EC:45 Rate is 80 beats/min. Rhythm is regular. VT interval is normal. QRS interval is normal. cp QT interval is normal. T waves are Inverted in lead aVR. Interpreted by me. Reviewed by me. Administered Medications: 21:08 CANCELLED (Physician Discretion): Tussionex Pennkinetic ER cp (chlorpheniramine-hydrocodone) Suspension 5 ml PO once 21:08 CANCELLED (Physician Discretion): Tylenol 1000 mg PO once cp 21:53 Drug: SOLU-Medrol (methylPrednisoLONE) 125 mg Route: IVP; Site: right antecubital; tw5 23:07 Follow up: Response: No adverse reaction tw5 21:53 Drug: Albuterol - atroVENT (ipratropium) (3:1) (2.5 mg - 0.5 mg) 3 ml Route: Nebulizer; tw 23:07 Follow up: Response: No adverse reaction tw5 :53 Drug: HYDROcodone-acetaminophen 10 mg-325 mg 1 tabs Route: PO; tw5 23:07 Follow up: Pain 7/10 Adult; Response: No adverse reaction; Pain is decreased; RASS: tw5 Alert and Calm (0) 02/19 00:48 Drug: Ketorolac 30 mg Route: IVP; Site: right antecubital; tw5 00:49 Follow up: Response: No adverse reaction; Medication administered at discharge. tw5 Disposition Summary: 02/18/22 23:58 Discharge Ordered Location: Home cp Problem: new cp Symptoms: have improved cp Condition: Stable cp Diagnosis - Acute bronchitis, unspecified cp - Pain in right lower leg cp - Pain in left lower leg cp - Leg Laceration/ Open wound of lower leg cp Followup: cp - With: Private Physician - When: 2 - 3 days - Reason: Recheck today's complaints Discharge Instructions: - Discharge Summary Sheet cp - Acute Bronchitis, Adult cp - Musculoskeletal Pain cp Forms: - Medication Reconciliation Form cp - Thank You Letter cp - Antibiotic Education cp - Prescription Opioid Use cp Prescriptions: - Bromfed DM 2-30-10 mg/5 mL Oral syrup - take 10 milliliter by ORAL route every 6 hours; 200 milliliter; Refills: 0, cp Product Selection Permitted - Albuterol Sulfate 2.5 mg /3 mL (0.083 %) Inhalation Solution for Nebulization - inhale 1 unit by NEBULIZATION route every 8 hours As needed; 1 box; Refills: 0, cp Product Selection Permitted - mupirocin 2 % Topical ointment - apply 1 application by TOPICAL route 2-3 times daily; 30 gram; Refills: 0, cp Product Selection Permitted - Zithromax Z-Jose L 250 mg Oral Tablet - take 1 tablet by ORAL route as directed for 5 days Day 1 - take two (2) tablets cp one time. Day 2, 3, 4 , 5 take one (1) tablet once daily.; 6 tablet; Refills: 0, Product Selection Permitted - Medrol (Jose L) 4 mg Oral Tablets, Dose Pack - take 1 tablet by ORAL route as directed - follow package instructions; 1 cp packet; Refills: 0, Product Selection Permitted - Diclofenac Sodium 75 mg Oral Tablet Sustained Release - take 1 tablet by ORAL route 2 times per day; 30 tablet; Refills: 0, Product cp Selection Permitted Signatures: Dispatcher [employer] EDOK Jame Sharif PA PA cp Oscar Vega mw2 Sagar Fernandezfany tw5 Fe Acevedo, RN RN kb3 Corrections: (The following items were deleted from the chart) 02/19 20: 20:28 Home Meds: Prednisone Oral see instructions; kb3 kb3 20:28 Home Meds: levalbuterol tartrate 45 mcg inhalation 1 puff four times a day; kb3 kb3 20:28 Home Meds: tiotropium bromide 18 mcg inhalation 1 cap once daily; kb3 kb3 : 21:07 Tussionex Pennkinetic ER (chlorpheniramine-hydrocodone) Suspension 5 ml PO once cp ordered. cp 21:07 Tylenol 1000 mg PO once ordered. cp cp 02/20 00:02/18 21:25 Skin: cellulitis, is not appreciated, quarter size superficial wound noted cp anterior right lower leg. cp 02/20 00:02/18 21:15 Patient also c/o lower leg pain and swelling times 1 week. Reports cp non-healing wound to right lower leg times 1 week. cp
[2022-02-19] MEDS ORDERED: KETOROLAC 30 MG/ML INJ ONE (00:49)
[2022-02-19 03:52] VITALS: TEMP 97.4; O2SAT 100
[2022-02-19 03:54] VITALS: BP 116/78
--- NOTE | 2022-02-19 06:35 | RAD REPORT ---
EXAM DESCRIPTION: US - Extrem Venous W Compress Stefan - 02/18/2022 11:17 pm CLINICAL HISTORY: PAIN COMPARISON: None. TECHNIQUE: Real-time sonographic evaluation of the bilateral lower extremity common femoral, superfi cial femoral, popliteal and posterior tibial veins was performed. FINDINGS: Normal compressibility, flow augmentation, phasic flow and spontaneous flow are identified in the left and right lower extremity common femoral, superficial femoral, popliteal and posterior t ibial veins. No intraluminal filling defects seen. A 2.6 centimeter left popliteal fossa cyst is present. No cyst rupture or hemorrhage. IMPRESSION: No DVT in either lower extremity. Left popliteal fossa cyst 2.6 cm in size. No cyst rupture or hemorrhage.
--- NOTE | 2022-02-19 14:32 | EKG ---
Test Date: 2022-02-18 Test Time: 21:38:14 Drapery Hanger: MEASUREMENT RESULTS: Intervals: Rate: 80 W[place]: 176 QRSD: 100 QT: 378 QTc: 435 [place]: P: 59 WY: 176 QRS: 80 T: 68 INTERPRETIVE STATEMENTS: Normal sinus rhythm Normal ECG Compared to ECG 04/06/2021 20:14:26 No significant changes Electronically Signed On 02-19-22 14:29:40 CDT by Adam Perales
== END 2022-02-19 00:49 | disposition home or self-care (01) ==
LOC: ER 19:43
DX: S81.812A Laceration without foreign body, left lower leg, initial encounter (principal); M79.662 Pain in left lower leg; M79.661 Pain in right lower leg; J20.9 Acute bronchitis, unspecified; I10 Essential (primary) hypertension; F17.210 Nicotine dependence, cigarettes, uncomplicated; Z20.822 Contact with and (suspected) exposure to COVID-19
CPT/HCPCS: 93005; 85025; 80048; 36415; 83735; 85610; 80076; 84484; 83880; 87804 ×2; 71045; 93970; U0003; J2930; 94640; 96374; 96375; 99285

== ENCOUNTER 2022-05-31 17:32 | Inpatient (IN) | payer OTHER ==
[2022-05-31 18:55] LABS: Absolute Lymphocytes (CBC) 3.4 K/uL (0.7-4.9); Hematocrit 45.7 % (39.6-49.0); Lymphocytes % 18.7 % (15.3-44.8); MCV 83.8 fL (80-100); MPV 8.4 fL (7.6-11.3); RBC Red Blood Cell Count 5.45 M/uL (4.33-5.43)
[2022-05-31 18:58] LABS: Protime INR 1.05
[2022-05-31 19:10] LABS: Magnesium 2.1 mg/dL (1.6-2.4); Potassium 3.6 mmol/L (3.5-5.1)
[2022-05-31] MEDS ORDERED: HYDROCODONE/CHLORPHEN 5 ML/OSYR ONE (19:12)
[2022-05-31 19:13] LABS: SARS-COV-2 RT PCR NEGATIVE (NEGATIVE)
[2022-05-31] MEDS ORDERED: ALBUTEROL 2.5 MG/3 ML NEB SOL ONE (19:13)
[2022-05-31] MEDS ORDERED: FENTANYL CITR 100 MCG/2 ML ONE ×2 (19:13→22:25)
[2022-05-31] MEDS ORDERED: IPRATROPIUM BROM 0.5MG/2.5ML ONE (19:13)
[2022-05-31 19:14] LABS: Troponin High Sensitivity 7.1 pg/mL (<58.9)
--- NOTE | 2022-05-31 20:10 | RAD REPORT ---
EXAM DESCRIPTION: RAD - Chest Pa And Lat (2 Views) - 05/31/2022 7:51 pm CLINICAL HISTORY: COUGH Chest pain. COMPARISON: Chest Single View dated 02/18/2022; Chest Single View dated 04/06/2021; Chest Single View dated 03/02/2021; Chest Single View dated 11/21/2020 FINDINGS: Bilateral interstitial prominence is seen which probably represents viral infection. Anoth er possibility would be mild pulmonary edema. The heart is mildly enlarged in size. No displaced frac tures. IMPRESSION: Mild CHF versus viral infection.
--- NOTE | 2022-05-31 21:33 | RAD REPORT ---
EXAM DESCRIPTION: US - Extrem Venous W Compress Stefan - 05/31/2022 8:54 pm CLINICAL HISTORY: PAIN Bilateral leg edema and swelling. COMPARISON: Extrem Venous W Compress Stefan dated 02/18/2022 TECHNIQUE: Real-time sonographic interrogation of the left and right lower extremity deep venous sys tems was performed. FINDINGS: Normal compressibility, flow augmentation, phasic flow and spontaneous flow is identified in both the left and right lower extremity deep venous systems. IMPRESSION: No sonographic evidence of left or right lower extremity deep venous thrombosis.
--- NOTE | 2022-05-31 21:34 | RAD REPORT ---
EXAM DESCRIPTION: US - Lower Extremity Arterial Bilat - 05/31/2022 8:54 pm CLINICAL HISTORY: PAIN Pain, claudication COMPARISON: No comparisons TECHNIQUE: Bilateral lower extremity arterial Doppler examination was performed with waveform tracin g and velocity measurements. FINDINGS: Diffuse monophasic waveforms are seen throughout both lower extremity arterial systems. This likely i ndicates inflow stenosis is present. No occlusion is seen. IMPRESSION: Diffusely monophasic waveforms involving both lower extremity arterial systems present, likely indicating inflow stenosis.
--- NOTE | 2022-05-31 21:48 | ER ---
Nurse's Notes [facility] Name: Harvey Callahan Age: 61 yrs Sex: Male : 1960 Arrival Date: 05/31/2022 Time: 17:37 Bed 20 Private MD: Diagnosis: Cellulitis of left lower limb;Cellulitis of right lower limb Presentation: 05/31 17:57 Chief complaint: Patient states: cough, congestion, body aches, sore throat, bilateral kb3 ear pain x10 days. Coronavirus screen: Vaccine status: Patient reports receiving the 2nd dose of the covid vaccine. Client denies travel out of the [place] in the last 14 days. Ebola Screen: Patient negative for fever greater than or equal to 101.5 degrees Fahrenheit, and additional compatible Ebola Virus Disease symptoms Patient denies exposure to infectious person. Patient denies travel to an Ebola-affected area in the 21 days before illness onset. Initial Sepsis Screen: Does the patient meet any 2 criteria? No. Patient's initial sepsis screen is negative. Does the patient have a suspected source of infection? No. Patient's initial sepsis screen is negative. Risk Assessment: Do you want to hurt yourself or someone else? Patient reports no desire to harm self or others. Onset of symptoms was May 21, 2022. 17:57 Method Of Arrival: Wheelchair kb3 17:57 Acuity: DEYANIRA 3 kb3 Triage Assessment: 17:58 General: Appears in no apparent distress. uncomfortable, Behavior is calm, cooperative. kb3 Pain: Complains of pain in right ear, left ear, chest, left aspect of posterior pharynx and right aspect of posterior pharynx Pain does not radiate. Pain currently is 10 out of 10 on a pain scale. Respiratory: Reports cough that is productive, non-productive, Airway is patent Breath sounds are coarse bilaterally. the patient has mild shortness of breath. Historical: - Allergies: 17:58 No Known Allergies; kb3 - Home Meds: 23:05 amiodarone 200 mg Oral tab 1 tab once daily [Active]; folic acid 1 mg Oral tab 1 tab kd3 once daily [Active]; gabapentin 600 mg Oral tab twice a day [Active]; carvedilol 6.25 mg Oral tab 0.5 tab 2 times per day [Active]; atorvastatin 40 mg Oral tab 1 tab once daily [Active]; levalbuterol tartrate 45 mcg inhalation 1 puff four times a day [Active]; lisinopril 5 mg Oral tab 1 tab once daily [Active]; modafinil 200 mg Oral tab twice a day [Active]; metformin 1,000 mg Oral tab 1 tab 2 times per day [Active]; insulin detemir subcutaneous 10 unit twice a day [Active]; furosemide 80 mg Oral tab 1 tab once daily [Active]; potassium chloride 20 mEq Oral TbER 1 tab once daily [Active]; Prednisone Oral see instructions [Active]; sildenafil 100 mg oral tab 0.5 tab once daily [Active]; tiotropium bromide 18 mcg inhalation 1 cap once daily [Active]; hydroxychloroquine 200 mg Oral tab 1 tab once daily [Active]; tramadol 50 mg Oral tab three times a day [Active]; varenicline 1 mg Oral twice a day [Active]; omeprazole 20 mg Oral cpDR 1 cap once daily [Active]; aspirin 81 mg Oral TbEC 1 tab once daily [Active]; warfarin 5 mg Oral tab 1 tab once daily [Active]; - PMHx: 17:58 Arthritis; CHF; Diabetes - IDDM; EDEMA; Hyperlipidemia; Hypertension; knee pain; Atrial kb3 fibrillation; Cellulitis; - PSHx: 17:58 Appendectomy; Coronary Angioplasty; kb3 - Immunization history:: Adult Immunizations up to date, Client reports receiving the 2nd dose of the Covid vaccine. - Social history:: Smoking status: Patient reports the use of cigarette tobacco products, smokes two packs cigarettes per day. Screenin:20 Abuse screen: Denies threats or abuse. Denies injuries from another. kd3 23:04 [facility] ED Fall Risk Assessment (Adult) History of falling in the last 3 months, kd3 including since admission No falls in past 3 months (0 pts) Confusion or Disorientation No (0 pts) Intoxicated or Sedated No (0 pts) Impaired Gait No (0 pts) Mobility Assist Device Used No (0 pt) Altered Elimination No (0 pt) Score/Fall Risk Level 0 - 2 = Low Risk. Geoffreypty Dumpty Scale Fall Assessment Tool (age< 18yrs) Age 13 years and above (1 pt) Gender Male (2 pts) Diagnosis Other diagnosis (1 pt) Cognitive Impairments Oriented to own ability (1 pt) Environmental Factors Patient placed in bed (2 pts) Response to Surgery/Sedation/Anesthesia More than 48 hours/ None (1 pt) Medication Usage Other medications/ None (1 pt) Fall Risk Score/ Level Low Fall Risk: </= 11 points. Nutritional screening: No deficits noted. Tuberculosis screening: No symptoms or risk factors identified. Fall Risk No fall in past 12 months (0 pts). No secondary diagnosis (0 pts). IV access (20 points). Ambulatory Aid- None/Bed Rest/Nurse Assist (0 pts). Gait- Normal/Bed Rest/Wheelchair (0 pts) Mental Status- Oriented to own ability (0 pts). Total Reeves Fall Scale indicates No Risk (0-24 pts). Assessment: 18:56 General: Appears in no apparent distress. uncomfortable, Behavior is calm, cooperative, kc6 appropriate for age. Pain: Complains of pain in right leg and left leg and mouth and left ear Pain does not radiate. Pain currently is 9 out of 10 on a pain scale. Quality of pain is described as sharp, Pain began gradually, Is continuous, Alleviated by nothing. Also complains of no other associated symptoms. Neuro: Snowden Agitation-Sedation Scale (RASS): 0 - Alert and Calm Level of Consciousness is awake, alert, obeys commands, Oriented to person, place, time, situation, Appropriate for age. Cardiovascular: Heart tones S1 S2 present Capillary refill < 3 seconds. Respiratory: Airway is patent Trachea midline Respiratory effort is even, labored, Respiratory pattern is regular, symmetrical, Breath sounds with wheezes bilaterally. GI: No signs and/or symptoms were reported involving the gastrointestinal system. : No signs and/or symptoms were reported regarding the genitourinary system. EENT: Reports nasal congestion. Derm: Skin is intact, Skin is pink, warm \T\ dry. Musculoskeletal: No signs and/or symptoms reported regarding the musculoskeletal system. Circulation, motion, and sensation intact. Capillary refill < 3 seconds, Range of motion: intact in all extremities. 19:19 General: Appears in no apparent distress. uncomfortable, Behavior is calm, cooperative. kd3 Neuro: Level of Consciousness is awake, alert, obeys commands, Oriented to person, place, time, situation. Respiratory: Airway is patent Trachea midline Respiratory effort is even, labored, Respiratory pattern is regular, symmetrical. 22:38 Pain: Complains of pain in left leg and right leg Pain currently is 9 out of 10 on a ke1 pain scale. at worst was 10 out of 10 on a pain scale. Vital Signs: 17:57 BP 104 / 70; Pulse 83; Resp 20; Temp 97.7; Pulse Ox 97% ; Weight 123.38 kg; Height 5 kb3 ft. 7 in. (170.18 cm); Pain 10/10; 18:55 BP 102 / 54; Pulse 83; Resp 20 S; Pulse Ox 94% on R/A; Pain 9/10; kc6 19:19 BP 106 / 52; Pulse 80; Resp 16; Pulse Ox 100% on Nebulizer Mask; kd3 20:23 BP 109 / 63; Pulse 80; Resp 17; Pulse Ox 95% on R/A; kd3 23:13 BP 131 / 76; Pulse 102; Resp 19; Pulse Ox 98% on R/A; kd3 17:57 Body Mass Index 42.60 (123.38 kg, 170.18 cm) kb3 ED Course: 17:37 Patient arrived in ED. mr 17:38 Jame Sharif PA is PHCP. cp 17:38 Dayne Schwartz MD is Attending Physician. cp 17:58 Triage completed. kb3 17:58 Arm band placed on right wrist. kb3 18:02 Tri Neri, RN is Primary Nurse. kc6 18:25 COVID-19/FLU A+B Sent. mm9 18:49 Basic Metabolic Panel Sent. mm9 18:49 CBC with Diff Sent. mm9 18:49 Magnesium Sent. mm9 18:49 NT PRO-BNP Sent. mm9 18:49 PT-INR Sent. mm9 18:49 Troponin HS Sent. mm9 18:49 Initial lab(s) drawn, by me, sent to lab. EKG done, by ED staff, reviewed by Dayne Schwartz MD COVID swab sent to lab. Flu and/or RSV swab sent to lab. Inserted saline lock: 20 gauge in left antecubital area, using aseptic technique. Blood collected. 18:50 Patient has correct armband on for positive identification. Bed in low position. Call mm9 light in reach. Side rails up X2. environmental monitoring technician on. Pulse ox on. NIBP on. 18:51 COVID-19/FLU A+B Sent. mm9 19:01 Placed in gown. Pillow given. mm9 19:52 XRAY Chest Pa And Lat (2 Views) In Process Unspecified. EDMS 20:56 US Extremity Venous W Compression Stefan In Process Unspecified. EDMS 20:56 US LE Arterial Bilateral In Process Unspecified. EDMS 21:05 Primary Nurse role handed off by Tri Neri RN wm 21:46 Rosa Isela Powers PA-C is Hospitalizing Provider. cp 22:12 Barbara Lewis, REZA is Primary Nurse. ke1 22:57 No provider procedures requiring assistance completed. Patient admitted, IV remains in kd3 place. Administered Medications: 19:18 Drug: Albuterol - atroVENT (ipratropium) (3:1) (2.5 mg - 0.5 mg) 3 ml Route: Nebulizer; kd3 23:13 Follow up: Response: No adverse reaction kd3 19:18 Drug: Tussionex Pennkinetic ER (chlorpheniramine-hydrocodone) Suspension 5 ml Route: PO;kd3 23:12 Follow up: Response: No adverse reaction kd3 19:18 Drug: fentaNYL (PF) 25 mcg Route: IVP; Site: left antecubital; kd3 23:12 Follow up: Response: No adverse reaction; Pain is decreased kd3 22:38 Drug: Cefepime 1 grams Route: IVPB; Rate: 200 ml/hr; Infused Over: 30 mins; Site: left ke1 antecubital; 23:11 Follow up: Response: No adverse reaction; IV Status: Completed infusion kd3 22:38 Drug: Velarde (HYDROcodone-acetaminophen) (7.5 mg-325 mg) 1 tabs Route: PO; ke1 23:12 Follow up: Response: No adverse reaction; Pain is decreased kd3 22:39 Drug: fentaNYL (PF) 25 mcg Route: IVP; Site: left antecubital; ke1 23:12 Follow up: Response: No adverse reaction; Pain is decreased kd3 23:12 Drug: vancoMYCIN 1.5 grams Route: IVPB; Rate: calculated rate; Site: left antecubital; kd3 Medication: 23:11 VIS not applicable for this client. kd3 Outcome: 21:48 Decision to Hospitalize by Provider. cp 22:58 Condition: stable kd3 23:04 Admitted to Med/surg kd3 23:04 Discharge instructions given to patient, Instructed on the need for admit, Demonstrated understanding of instructions. 23:53 Patient left the ED. kd3 Signatures: Dispatcher [employer] EDMS Dolores Hodgson mr Jame Sharif PA PA cp Marsh, Wendy wm Doucette, Kyli, RN RN kd3 Barbara Lewis RN RN sherie1 Tri Neri RN RN kc6 Fe Acevedo RN RN kenny3 Gloria Duran mm9
--- NOTE | 2022-05-31 21:48 | EDPHYS ---
Physician Documentation [facility] Name: Harvey Callahan Age: 61 yrs Sex: Male : 1960 Arrival Date: 05/31/2022 Time: 17:37 Bed 20 Private MD: ED Physician Dayne Schwartz HPI: 05/31 18:10 This 61 yrs old Male presents to ER via Wheelchair with complaints of Cough, cp Congestion, Ear Pain, Sore Throat. 18:10 The patient or guardian reports cough, that is intermittent, chest congestion, ear cp pain, sore throat. Onset: The symptoms/episode began/occurred 10 day(s) ago. Severity of symptoms: in the emergency department the symptoms are unchanged, despite home interventions. 18:10 Associated signs and symptoms: Pertinent positives: chest pain, Pertinent negatives: cp diarrhea, fever, vomiting. Patient also c/o pain, erythema, swelling to bilateral lower legs. Historical: - Allergies: 17:58 No Known Allergies; kb3 - Home Meds: 23:05 amiodarone 200 mg Oral tab 1 tab once daily [Active]; folic acid 1 mg Oral tab 1 tab kd3 once daily [Active]; gabapentin 600 mg Oral tab twice a day [Active]; carvedilol 6.25 mg Oral tab 0.5 tab 2 times per day [Active]; atorvastatin 40 mg Oral tab 1 tab once daily [Active]; levalbuterol tartrate 45 mcg inhalation 1 puff four times a day [Active]; lisinopril 5 mg Oral tab 1 tab once daily [Active]; modafinil 200 mg Oral tab twice a day [Active]; metformin 1,000 mg Oral tab 1 tab 2 times per day [Active]; insulin detemir subcutaneous 10 unit twice a day [Active]; furosemide 80 mg Oral tab 1 tab once daily [Active]; potassium chloride 20 mEq Oral TbER 1 tab once daily [Active]; Prednisone Oral see instructions [Active]; sildenafil 100 mg oral tab 0.5 tab once daily [Active]; tiotropium bromide 18 mcg inhalation 1 cap once daily [Active]; hydroxychloroquine 200 mg Oral tab 1 tab once daily [Active]; tramadol 50 mg Oral tab three times a day [Active]; varenicline 1 mg Oral twice a day [Active]; omeprazole 20 mg Oral cpDR 1 cap once daily [Active]; aspirin 81 mg Oral TbEC 1 tab once daily [Active]; warfarin 5 mg Oral tab 1 tab once daily [Active]; - PMHx: 17:58 Arthritis; CHF; Diabetes - IDDM; EDEMA; Hyperlipidemia; Hypertension; knee pain; Atrial kb3 fibrillation; Cellulitis; - PSHx: 17:58 Appendectomy; Coronary Angioplasty; kb3 - Immunization history:: Adult Immunizations up to date, Client reports receiving the 2nd dose of the Covid vaccine. - Social history:: Smoking status: Patient reports the use of cigarette tobacco products, smokes two packs cigarettes per day. ROS: 18:15 Constitutional: Negative for fever, poor PO intake. cp 18:15 Eyes: Negative for injury, pain, redness, and discharge. cp 18:15 ENT: Positive for ear pain, sore throat, Negative for drainage from ear(s), difficulty swallowing, difficulty handling secretions. 18:15 Cardiovascular: Negative for chest pain, palpitations. 18:15 Respiratory: Positive for cough, shortness of breath, Negative for hemoptysis. 18:15 Abdomen/GI: Negative for abdominal pain, vomiting, diarrhea, constipation. 18:15 MS/extremity: Positive for erythema, pain, swelling, tenderness, of the right foot and left foot and right lower leg and left lower leg. 18:15 Neuro: Negative for altered mental status, syncope, weakness. 18:15 All other systems are negative. Exam: 18:20 Constitutional: The patient appears in no acute distress, alert, awake, cp non-diaphoretic, non-toxic, well developed, well nourished, obese. 18:20 Head/Face: Normocephalic, atraumatic. cp 18:20 Eyes: Periorbital structures: appear normal, Conjunctiva: normal, no exudate, no injection, Sclera: no appreciated abnormality, Lids and lashes: appear normal, bilaterally. 18:20 ENT: External ear(s): are unremarkable, Ear canal(s): are normal, clear, TM's: not visable, because of cerumen, Nose: is normal, Mouth: Lips: moist, Oral mucosa: moist, Posterior pharynx: Airway: no evidence of obstruction, patent, Tonsils: no enlargement, no exudate, swelling, is not appreciated, erythema, that is mild, exudate, is not appreciated. 18:20 Neck: ROM/movement: is normal, is supple, without pain, no range of motions limitations, no meningismus, Lymph nodes: no appreciated lymphadenopathy. 18:20 Chest/axilla: Inspection: normal, Palpation: is normal, no crepitus, no tenderness. 18:20 Cardiovascular: Rate: normal, Rhythm: regular, JVD: is not appreciated. 18:20 Respiratory: the patient does not display signs of respiratory distress, Respirations: labored breathing, that is mild, Breath sounds: bronchial sounds, that are moderate, are heard diffusely, stridor, is not appreciated, + upper airway congestion. wheezing: that is mild, is heard diffusely. 18:20 Abdomen/GI: Inspection: obese Palpation: abdomen is soft and non-tender, in all quadrants. 18:20 Back: pain, is absent, ROM is normal. 18:20 Musculoskeletal/extremity: Extremities: noted in the right lower leg and left lower leg: noted excoriated skin, circumferential erythema, marked tenderness to palpation, mild swelling, Pulses: weak dorsalis pedis pulse bilaterally. 18:20 Neuro: Orientation: to person, place \T\ time. Mentation: is normal, Motor: moves all fours, strength is normal. 19:02 ECG was reviewed by the Attending Physician. cp Vital Signs: 17:57 BP 104 / 70; Pulse 83; Resp 20; Temp 97.7; Pulse Ox 97% ; Weight 123.38 kg; Height 5 kb3 ft. 7 in. (170.18 cm); Pain 10/10; 18:55 BP 102 / 54; Pulse 83; Resp 20 S; Pulse Ox 94% on R/A; Pain 9/10; kc6 19:19 BP 106 / 52; Pulse 80; Resp 16; Pulse Ox 100% on Nebulizer Mask; kd3 20:23 BP 109 / 63; Pulse 80; Resp 17; Pulse Ox 95% on R/A; kd3 23:13 BP 131 / 76; Pulse 102; Resp 19; Pulse Ox 98% on R/A; kd3 17:57 Body Mass Index 42.60 (123.38 kg, 170.18 cm) kb3 MDM: 18:05 Patient medically screened. cp 19:00 Differential Diagnosis: Bronchitis Influenza Otitis Media Viral Syndrome Pneumonia cp Other CHF, COPD, asthma. 21:50 Data reviewed: vital signs, nurses notes, lab test result(s), EKG, radiologic studies, cp plain films, ultrasound. 21:50 Test interpretation: by ED physician or midlevel provider: ECG, plain radiologic cp studies. Counseling: I had a detailed discussion with the patient and/or guardian regarding: the historical points, exam findings, and any diagnostic results supporting the discharge/admit diagnosis, lab results, radiology results, the need for further work-up and treatment in the hospital. Physician consultation: Rosa Isela Powers PA-C was contacted at 21:45, regarding admission, to the telemetry unit. patient's condition. 05/31 18:04 Order name: Basic Metabolic Panel; Complete Time: 19:19 16 19:19 Interpretation: Normal except: NA 135; GLUC 244. 05/31 18:04 Order name: CBC with Diff; Complete Time: 19:19 16 19:19 Interpretation: Normal except: WBC 17.90; RBC 5.45; NEUT A 12.6; MNA 1.6. 05/31 18:04 Order name: Magnesium; Complete Time: 19:19 05/31 18:04 Order name: NT PRO-BNP; Complete Time: 19:19 16 19:20 Interpretation: Abnormal: NT PRO-BNP 54. /16 18:04 Order name: PT-INR; Complete Time: 19:19 12/16 18:04 Order name: Troponin HS; Complete Time: 19:19 16 20:23 Interpretation: Reviewed. 05/31 18:04 Order name: COVID-19/FLU A+B; Complete Time: 19:19 1216 20:23 Interpretation: Reviewed. 05/31 18:50 Order name: US Extremity Venous W Compression Stefan; Complete Time: 21:49 16 18:50 Order name: US LE Arterial Bilateral; Complete Time: 21:49 /16 19:20 Order name: XRAY Chest Pa And Lat (2 Views); Complete Time: 20:22 /16 21:31 Order name: Lactate w/ 2H reflex if indic.; Complete Time: 23:03 05/31 21:31 Order name: Blood Culture Adult (2) 16 21:31 Order name: Procalcitonin; Complete Time: 23:03 cp 05/31 23:03 Interpretation: Abnormal: Procalcitonin 0.09. cp 05/31 18:04 Order name: EKG; Complete Time: 18:05 cp 05/31 18:04 Order name: Cardiac monitoring; Complete Time: 18:09 cp 16 18:04 Order name: EKG - Nurse/Tech; Complete Time: 18:25 cp 12 18:04 Order name: IV Saline Lock; Complete Time: 18:49 cp 05/31 18:04 Order name: Labs collected and sent; Complete Time: 18:49 cp 05/31 18:04 Order name: O2 Per Protocol; Complete Time: 18:09 cp 05/31 18:04 Order name: O2 Sat Monitoring; Complete Time: 18:09 cp EC:02 Rate is 86 beats/min. Rhythm is regular. SD interval is normal. QRS interval is cp prolonged at 108 msec. QT interval is normal. T waves are Inverted in leads aVL, aVR. Interpreted by me. Reviewed by me. Administered Medications: 19:18 Drug: Albuterol - atroVENT (ipratropium) (3:1) (2.5 mg - 0.5 mg) 3 ml Route: Nebulizer; kd3 23:13 Follow up: Response: No adverse reaction kd3 19:18 Drug: Tussionex Pennkinetic ER (chlorpheniramine-hydrocodone) Suspension 5 ml Route: PO;kd3 23:12 Follow up: Response: No adverse reaction kd3 19:18 Drug: fentaNYL (PF) 25 mcg Route: IVP; Site: left antecubital; kd3 23:12 Follow up: Response: No adverse reaction; Pain is decreased kd3 22:38 Drug: Cefepime 1 grams Route: IVPB; Rate: 200 ml/hr; Infused Over: 30 mins; Site: left ke1 antecubital; 23:11 Follow up: Response: No adverse reaction; IV Status: Completed infusion kd3 22:38 Drug: Blunt (HYDROcodone-acetaminophen) (7.5 mg-325 mg) 1 tabs Route: PO; ke1 23:12 Follow up: Response: No adverse reaction; Pain is decreased kd3 22:39 Drug: fentaNYL (PF) 25 mcg Route: IVP; Site: left antecubital; ke1 23:12 Follow up: Response: No adverse reaction; Pain is decreased kd3 23:12 Drug: vancoMYCIN 1.5 grams Route: IVPB; Rate: calculated rate; Site: left antecubital; kd3 Disposition Summary: 05/31/22 21:48 Hospitalization Ordered Hospitalization Status: Inpatient Admission cp Provider: Rosa Isela Powers cp Location: Telemetry/MedSurg (Inpatient) cp Condition: Stable cp Problem: new cp Symptoms: have improved cp Bed/Room Type: Standard cp Room Assignment: 421(05/31/22 22:54) mw Diagnosis - Cellulitis of left lower limb cp - Cellulitis of right lower limb cp Forms: - Medication Reconciliation Form cp - SBAR form cp Addendum: 06/05/2022 07:12 Co-signature as Attending Physician, Dayne Schwartz MD I agree with the assessment and r t plan of care. Signatures: Dispatcher [employer] EDMS Carolina Burrows RN RN mw Page, Corey, PA PA cp Doucette, Kyli RN RN kd3 Barbara Lewis RN RN ke1 Fe Acevedo RN RN kb3 Rosa Isela Powers, PA-C PA-C sb4 Dayne Schwartz MD MD rt Corrections: (The following items were deleted from the chart) 05/31 19:19 19:19 Normal except: WBC 17.90; RBC 5.45. cp cp 22:54 21:48 cp mw
--- NOTE | 2022-05-31 22:26 | P.HP ---
Certification for Inpatient Patient admitted to: Inpatient With expected LOS: >2 Midnights Patient will require the following post-hospital care: None Practitioner: I am a practitioner with admitting privileges, knowledge of patient current condition, hospital course, and medical plan of care. Services: Services provided to patient in accordance with Admission requirements found in Title 42 Section 412.3 of the Code of Federal Regulations Patient History Date of Service: 05/31/22 Primary Care Provider: OLIVE Reason for admission: Cellulitus BLE History of Present Illness: Patient is a 61-year-old male with history of chronic diastolic congestive heart failure, atrial fibrillation on chronic anticoagulation therapy, insulin d ependent diabetes mellitus type 2, hypertension, hyperlipidemia, PVD, obesity, and tobacco abuse who presented to the emergency department with complaints of flu like symptoms. His workup was negative. However, he was noted to have bilateral lower extremity edema and cellulitus. WBC 19, procal 0.09. Lactate negative. Venous ultrasound negative for DVT. Arterial doppler showed " Diffusely monophasic waveforms involving both lower extremity arterial systems present, likely indicating inflow stenosis." Chest xray showed mild CHF vs viral infection. He was started on vancomycin and cefepime in the ED and is admitted for further evaluation and management of cellulitis of bilateral lower extremities. Allergies No Known Allergies Allergy (Verified 12/19/20 04:11) Home medications list reviewed: Yes Home Medications: Amiodarone HCl [Cordarone*] 200 mg PO DAILY 09/13/18 Aspirin Chewable [Aspirin Chewable*] 81 mg PO DAILY 09/13/18 Furosemide 80 mg PO BID 09/13/18 Gabapentin [Neurontin] 600 mg PO BID 09/13/18 Metformin HCl [Glucophage] 1,000 mg PO BID 09/13/18 Omeprazole 20 mg PO DAILY 09/13/18 Potassium Chloride 20 meq PO BID 09/13/18 Insulin Glargine,Hum.rec.anlog [Lantus] 55 units SQ BID 12/19/20 Apixaban [Eliquis] 1 tab PO BID 12/20/20 Atorvastatin Calcium [Lipitor] 0.5 tab PO DAILY 12/20/20 Cyanocobalamin (Vitamin B-12) [B-12] 1 tab PO DAILY 12/20/20 Ergocalciferol (Vitamin D2) [Vitamin D2] 1 cap PO Q7D 12/20/20 Insulin Aspart [Insulin Aspart Flexpen] 30 units SQ TID 12/20/20 Lidocaine 5% [Lidocaine HCl] 1 audrey TOP BIDP PRN 12/20/20 modafiniL [Modafinil] 1 tab PO BID 12/20/20 Amox/Clavulanate [Augmentin 875-125 Tab] 1 each PO BID #14 tab 03/06/21 Cetirizine HCl [Zyrtec*] 10 mg PO DAILY #20 tablet 03/06/21 Hydrocodone 7.5/APAP 325 [[place] 7.5/325 mg*] 1 tab PO Q6H PRN #20 tab 03/06/21 - Past Medical/Surgical History Diabetic: Yes -: Diabetes mellitus type 2 -: Hypertension -: CAD -: Congestive heart failure, systolic dysfunction-EF 40% -: Obstructive sleep apnea -: Hypoventilation obesity syndrome -: Morbid obesity -: Hyperlipidemia -: ARTHRITIS -: Tobacco abuse -: Atrial fibrillation, chronic anti coagulation-Coumadin -: Knee surgery -: Appendectomy -: Back surgery -: CORONARY ANGIOPALSTY -: CYST REMOVAL IN THE BUTTOCKS 2019- HAD BLOOD TRANSFUSION Psychosocial/ Personal History: Patient is a . He has 6 children. - Family History Mother -: Hypertension, Diabetes Notes: - Social History Smoking Status: Current every day smoker Alcohol use: No CD- Drugs: Yes Caffeine use: Yes Place of Residence: Home Review of Systems General: Fever ENT: Ear Pain, Throat Pain Respiratory: Cough, Shortness of Breath Musculoskeletal: Leg Pain Integumentary: Other (Cellulitus) Physical Examination - Physical Exam General: Alert, In no apparent distress, Obese HEENT: Atraumatic, PERRLA, EOMI, Sclerae nonicteric Neck: Supple, 2+ carotid pulse no bruit, No LAD, Without JVD or thyroid abnormality Respiratory: Crackles/rales Cardiovascular: Regular rate/rhythm, Normal S1 S2, Edema Gastrointestinal: Normal bowel sounds, No tenderness Musculoskeletal: No tenderness Integumentary: Other (Cellulitus BLE) Neurological: Normal speech, Normal strength at 5/5 x4 extr, Normal tone, Normal affect - Studies Laboratory Data (last 24 hrs) 05/31/22 18:43: PT 11.5, INR 1.05 05/31/22 18:43: WBC 17.90 H, Hgb 15.1, Hct 45.7, Plt Count 258 12/16/22 18:43: Sodium 135 L, Potassium 3.6, BUN 11, Creatinine 0.95, Glucose 244 H, Magnesium 2.1 Assessment and Plan - Problems (Diagnosis) (1) Cellulitis Current Visit: Yes Status: Chronic Qualifiers: Site of cellulitis: extremity Site of cellulitis of extremity: lower extremity Laterality: unspecified laterality Qualified Code(s): L03.119 - Cellulitis of unspecified part of limb (2) Chronic atrial fibrillation Current Visit: Yes Status: Chronic (3) Morbid obesity with BMI of 45.0-49.9, adult Current Visit: Yes Status: Chronic (4) CAD (coronary artery disease) Current Visit: Yes Status: Chronic Qualifiers: Coronary Disease-Associated Artery/Lesion type: bypass graft [place] vs. transplanted heart: [place] heart Associated angina: without angina Qualified Code(s): I25.810 - Atherosclerosis of coronary artery bypass graft(s) without angina pectoris (5) CHF (congestive heart failure) Current Visit: Yes Status: Chronic Qualifiers: Heart failure type: diastolic Heart failure chronicity: acute on chronic Qualified Code(s): I50.33 - Acute on chronic diastolic (congestive) heart failure (6) COPD (chronic obstructive pulmonary disease) Current Visit: Yes Status: Chronic Qualifiers: COPD type: unspecified COPD Qualified Code(s): J44.9 - Chronic obstructive pulmonary disease, unspecified (7) Diabetes mellitus Current Visit: Yes Status: Chronic Qualifiers: Diabetes mellitus type: type 2 Diabetes mellitus fdc insulin use: with termite inspector use Diabetes mellitus complication status: with hyperglycemia Qualified Code(s): E11.65 - Type 2 diabetes mellitus with hyperglycemia; Z79.4 - residential (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 insulin (8) Hyperlipidemia Current Visit: Yes Status: Chronic Qualifiers: Hyperlipidemia type: unspecified Qualified Code(s): E78.5 - Hyperlipidemia, unspecified (9) Hypertension Current Visit: Yes Status: Chronic Qualifiers: Hypertension type: primary hypertension Qualified Code(s): I10 - Essential (primary) hypertension (10) Tobacco abuse Current Visit: Yes Status: Chronic - Plan Patient is admitted for further management of bilateral lower extremity cellulitus. Continue broad-spectrum antibiotics with vancomycin and cefepime. Patient with previous hospitalizations for similar presentation and typically requires 2-3 days of IV antibiotics. Continue diuresis with Lasix. No dyspnea at this time, will consult cardiology if this becomes necessary. Continue long-acting insulin, aggressive sliding scale, ACHS Accu-Chek. A1c with morning labs Tobacco cessation counseling. Monitor and replete electrolytes per protocol. Reconcile and continue home medications. Home eliquis for VTE prophylaxis. Full code. Discharge Plan: Home Plan to discharge in: Greater than 2 days - Advance Directives Does patient have a Living Will: No Does patient have a Durable POA for Healthcare: No - Code Status/Comfort Care Code Status Assessed: Yes Code Status: Full Code Physician Review: Patient Assessed, Agree with Above Assessment and Plan Critical Care: No Time Spent Managing Pts Care (In Minutes): 50
[2022-05-31] MEDS ORDERED: NA CHLORIDE 0.9% 500 ML ONE (22:28)
[2022-05-31] MEDS ORDERED: VANCOMYCIN 500 MG/VIAL ONE (22:28)
[2022-05-31] MEDS ORDERED: VANCOMYCIN 1 GM/VIAL ONE (22:28)
[2022-05-31] MEDS ORDERED: HYDROCODONE/APAP 7.5/325 MG TAB ONE (22:28)
[2022-05-31] MEDS ORDERED: CEFEPIME 1 GM/VIAL ONE (22:29)
[2022-05-31] MEDS ORDERED: NA CHLORIDE 0.9% 100 ML IV ONE (22:29)
[2022-05-31] MEDS ORDERED: VANCOMYCIN 1 GM in NA CHLORIDE 0.9% 250 ML IVPB SCH (23:57)
[2022-05-31] MEDS ORDERED: FUROSEMIDE 40 MG/4 ML VIAL IV ONE (23:57)
[2022-05-31] MEDS ORDERED: ONDANSETRON 4 MG/2 ML VIAL IV PRN (23:57)
[2022-06-01 00:35] VITALS: BMI 43.0
[2022-06-01 00:44] LABS: Specific Gravity > 1.030 (1.005-1.030); Urine Bacteria None Seen /HPF (<20); Urine Bilirubin NEGATIVE (Negative); Urine Blood Trace (Negative); Urine Clarity Clear (Clear); Urine Color Light-Yellow (Yellow); Urine Glucose 4+ (Over) (Negative); Urine Mucus Slight /HPF (None Seen); Urine Protein NEGATIVE (Negative); Urine RBC <5 /HPF (None Seen); Urine Urobilinogen Normal (Normal); Urine pH 5.5 (5.0-7.0)
[2022-06-01] MEDS: HYDROCODONE/APAP 7.5/325 MG TAB PO PRN ×5 (00:57→20:53)
[2022-06-01] MEDS ORDERED: HYDROCODONE/APAP 7.5/325 MG TAB ONE (00:58)
[2022-06-01] MEDS ORDERED: ALBUTEROL 2.5 MG/3 ML NEB SOL NEB PRN (01:32)
[2022-06-01] MEDS ORDERED: VANCOMYCIN 500 MG in NA CHLORIDE 0.9% 100 ML IVPB SCH (01:45)
[2022-06-01] MEDS ORDERED: VANCOMYCIN 500 MG in NA CHLORIDE 0.9% 100 ML IVPB ONE (01:45)
[2022-06-01 04:19] LABS: Absolute Lymphocytes (CBC) 4.7 K/uL (0.7-4.9); Hematocrit 48.1 % (39.6-49.0); Lymphocytes % 26.3 % (15.3-44.8); MCV 84.9 fL (80-100); MPV 8.2 fL (7.6-11.3); RBC Red Blood Cell Count 5.66 M/uL (4.33-5.43)
[2022-06-01 04:38] LABS: BUN Blood Urea Nitrogen 11 mg/dL (7-18); Bicarbonate 30 mmol/L (21-32); Glomerular Filtration Rate 87 ml/min (=/>90); Glucose Level 266 mg/dL (74-106); HDL Cholesterol 25 mg/dL (40-60); Magnesium 2.1 mg/dL (1.6-2.4); Potassium 3.7 mmol/L (3.5-5.1); Sodium Level 136 mmol/L (136-145)
[2022-06-01 05:11] LABS: LDL, Direct 76 mg/dL (100-129)
[2022-06-01] MEDS: INSULIN -REGULAR HUMAN 50 UNIT/0.5 ML ML SQ SCH ×4 (07:30→20:52)
[2022-06-01] MEDS ORDERED: POTASSIUM CL SA 10 MEQ TAB PO ONE (09:00)
[2022-06-01] MEDS: APIXABAN 5 MG TABLET PO SCH ×2 (09:00→20:54)
[2022-06-01] MEDS: CEFEPIME 2 GM in NA CHLORIDE 0.9% 100 ML IV SCH ×2 (09:04→20:54)
[2022-06-01] MEDS: VANCOMYCIN 2 GM in NA CHLORIDE 0.9% 500 ML IVPB SCH (13:49)
--- NOTE | 2022-06-01 13:49 | P.PN ---
Subjective Date of Service: 06/01/22 Primary Care Provider: AK Chief Complaint: Cellulitus BLE Patient is complaining of pain in bilateral leg. No change in leukocytosis. Physical Examination - Vital Signs Temperature: 97.1 F Blood Pressure: 114/72 Pulse: 83 Respirations: 18 Pulse Ox (%): 100 - Studies Laboratory Data (last 24 hrs) 05/31/22 18:43: PT 11.5, INR 1.05 05/31/22 18:43: WBC 17.90 H, Hgb 15.1, Hct 45.7, Plt Count 258 05/31/22 18:43: Sodium 135 L, Potassium 3.6, BUN 11, Creatinine 0.95, Glucose 244 H, Magnesium 2.1 Assessment And Plan - Current Problems (Diagnosis) (1) Venous stasis dermatitis Current Visit: Yes Status: Acute (2) Acute on chronic diastolic heart failure Current Visit: Yes Status: Acute (3) Chronic atrial fibrillation Current Visit: Yes Status: Chronic (4) Hypertension Current Visit: Yes Status: Chronic Qualifiers: Hypertension type: primary hypertension Qualified Code(s): I10 - Essential (primary) hypertension (5) Morbid obesity with BMI of 45.0-49.9, adult Current Visit: Yes Status: Chronic (6) Obesity hypoventilation syndrome Current Visit: Yes Status: Chronic (7) Leukocytosis Onset Date: 11/12/16 Current Visit: No Status: Acute (8) Diabetes mellitus Current Visit: Yes Status: Chronic Qualifiers: Diabetes mellitus type: type 2 Diabetes mellitus group home insulin use: with superintendent terminal use Diabetes mellitus complication status: with hyperglycemia Qualified Code(s): E11.65 - Type 2 diabetes mellitus with hyperglycemia; Z79.4 - watermaster (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 insulin - Plan Physical Exam General: Alert, In no apparent distress, Obese Neck: Supple, JVD not distended Respiratory: Diminished breath sounds bilaterally, no crackles Cardiovascular: Regular rate/rhythm, Normal S1 S2, 2+ edema bilateral legs Gastrointestinal: Normal bowel sounds, No tenderness Musculoskeletal: No tenderness Integumentary: Venous stasis dermatitis bilateral legs. Neurological: No focal motor deficit Plan: Continue IV Lasix. Bilateral lower extremity erythema likely secondary to venous stasis. Continue antibiotics for now. Monitor CBC to follow leukocytosis Follow blood culture Pain management as needed. Continue Eliquis for A. fib. Holding Coreg due to borderline low blood pressure. Continue amiodarone Monitor renal function Insulin sliding scale for glucose management. Resume home dose Lantus.
[2022-06-01] MEDS ORDERED: LIDOCAINE 5% TOP PRN (14:10)
[2022-06-01] MEDS: FUROSEMIDE 40 MG/4 ML VIAL IV SCH (16:41)
[2022-06-01] MEDS: INSULIN GLARGINE 100 UNIT/ML SQ SCH (20:53)
[2022-06-01] MEDS: POTASSIUM CL SA 10 MEQ TAB PO SCH (20:54)
[2022-06-01] MEDS ORDERED: ATORVASTATIN 40 MG TAB PO SCH (21:00)
[2022-06-01] MEDS ORDERED: HOME MED 1 EA UNK (Potassium Chloride [Potassium Chloride] 20 MEQ Tablet.Er) PO SCH (21:00)
[2022-06-01] MEDS ORDERED: HOME MED 1 EA UNK (Gabapentin [Neurontin] 600 MG Tablet) PO SCH (21:00)
[2022-06-01] MEDS: GABAPENTIN 300 MG CAP PO SCH (21:03)
[2022-06-01] MEDS: GUAIFENESIN/DM 5 ML UCUP PO PRN (22:02)
[2022-06-02] MEDS: VANCOMYCIN 2 GM in NA CHLORIDE 0.9% 500 ML IVPB SCH (02:11)
[2022-06-02] MEDS: HYDROCODONE/APAP 7.5/325 MG TAB PO PRN (04:41)
[2022-06-02 05:26] LABS: Absolute Lymphocytes (CBC) 3.1 K/uL (0.7-4.9); Hematocrit 46.4 % (39.6-49.0); Lymphocytes % 17.8 % (15.3-44.8); MCV 84.5 fL (80-100); MPV 8.6 fL (7.6-11.3); RBC Red Blood Cell Count 5.48 M/uL (4.33-5.43)
[2022-06-02 05:40] LABS: Potassium 3.7 mmol/L (3.5-5.1)
[2022-06-02] MEDS: CEFEPIME 2 GM in NA CHLORIDE 0.9% 100 ML IV SCH (08:25)
[2022-06-02] MEDS: FUROSEMIDE 40 MG/4 ML VIAL IV SCH (08:26)
[2022-06-02] MEDS: APIXABAN 5 MG TABLET PO SCH (08:27)
[2022-06-02] MEDS: POTASSIUM CL SA 10 MEQ TAB PO SCH (08:27)
[2022-06-02] MEDS: GABAPENTIN 300 MG CAP PO SCH (08:27)
[2022-06-02] MEDS: GUAIFENESIN/DM 5 ML UCUP PO PRN (08:28)
[2022-06-02] MEDS: INSULIN GLARGINE 100 UNIT/ML SQ SCH (08:28)
[2022-06-02] MEDS: INSULIN -REGULAR HUMAN 50 UNIT/0.5 ML ML SQ SCH (08:29)
[2022-06-02 08:39] VITALS: BP 108/64
[2022-06-02] MEDS ORDERED: CYANOCOBALAMIN 1,000 MCG TAB PO SCH (09:00)
[2022-06-02] MEDS ORDERED: ASPIRIN 81 MG CHEWABLE TABLET PO SCH (09:00)
[2022-06-02] MEDS ORDERED: POTASSIUM CL SA 10 MEQ TAB PO ONE (09:00)
[2022-06-02] MEDS ORDERED: HOME MED 1 EA UNK (Omeprazole [Omeprazole] 20 MG Tablet.Dr) PO SCH (09:00)
[2022-06-02] MEDS ORDERED: AMIODARONE HCL 200 MG TAB PO SCH (09:00)
[2022-06-02] MEDS ORDERED: PANTOPRAZOLE 40MG TABLET PO SCH (09:00)
[2022-06-02 09:25] VITALS: TEMP 97
--- NOTE | 2022-06-02 09:56 | P.DS ---
Admission Date: 05/31/22 Discharge Date: 06/02/22 Primary Care Provider: OLIVE Disposition: ROUTINE DISCHARGE Discharge Condition: FAIR Reason for Admission: Cellulitus BLE - Problems (1) Venous stasis dermatitis Current Visit: Yes Status: Acute (2) Acute on chronic diastolic heart failure Current Visit: Yes Status: Acute (3) Chronic atrial fibrillation Current Visit: Yes Status: Chronic (4) Hypertension Current Visit: Yes Status: Chronic Qualifiers: Hypertension type: primary hypertension Qualified Code(s): I10 - Essential (primary) hypertension (5) Morbid obesity with BMI of 45.0-49.9, adult Current Visit: Yes Status: Chronic (6) Obesity hypoventilation syndrome Current Visit: Yes Status: Chronic (7) Leukocytosis Onset Date: 11/12/16 Current Visit: No Status: Acute (8) Diabetes mellitus Current Visit: Yes Status: Chronic Qualifiers: Diabetes mellitus type: type 2 Diabetes mellitus oysterman insulin use: with oysterman use Diabetes mellitus complication status: with hyperglycemia Qualified Code(s): E11.65 - Type 2 diabetes mellitus with hyperglycemia; Z79.4 - [facility] (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 insulin Brief History of Present Illness: Patient is a 61-year-old male with history of chronic diastolic congestive heart failure, atrial fibrillation on chronic anticoagulation therapy, insulin dependent diabetes mellitus type 2, hypertension, hyperlipidemia, PVD, obesity, and tobacco abuse who presented to the emergency department with complaints of flu like symptoms. His workup was negative. However, he was noted to have bilateral lower extremity edema and cellulitus. WBC 19, procal 0.09. Lactate negative. Venous ultrasound negative for DVT. Arterial doppler showed " Diffusely monophasic waveforms involving both lower extremity arterial systems present, likely indicating inflow stenosis." Chest xray showed mild CHF vs viral infection. He was started on vancomycin and cefepime in the ED and is admitted for further evaluation and management of cellulitis of bilateral lower extremities. Hospital Course: Patient admitted to the medical floor and treated with IV antibiotics-cefepime and vancomycin for possible lower extremity cellulitis and IV Lasix for lymphedema and acute diastolic heart failure. Patient's symptoms significantly improved with treatment. He has leukocytosis which is chronic. Patient has undergone extensive work-up as an outpatient for leukocytosis and according to patient is considered benign. He has had no fever, no loss of appetite. Patient is clinically stable for discharge. He is prescribed antibiotics and increase his home Lasix dose for at least 1 week and then continue with regular dosing of 80 mg twice a day. He is informed to follow-up with a vascular surgeon regarding peripheral arterial disease. Vital Signs/Physical Exam: Temp Pulse Resp BP Pulse Ox 97 F 75 18 108/64 96 06/02/22 08:00 06/02/22 08:26 06/02/22 08:00 06/02/22 08:26 06/02/22 08:00 General: Alert, In no apparent distress, Oriented x3 HEENT: Mucous membr. moist/pink Neck: Supple, JVD not distended Respiratory: Clear to auscultation bilaterally, Normal air movement Cardiovascular: Regular rate/rhythm, Normal S1 S2, Edema Gastrointestinal: Soft and benign, Non-distended Integumentary: Other (Venous stasis dermatitis-bilateral legs) Neurological: Normal strength at 5/5 x4 extr Lymphatics: Other (Bilateral lower extremity lymphedema) Laboratory Data at Discharge: WBC 17.20 K/uL (4.3-10.9) H 06/02/22 04:16 Hgb 15.0 g/dL (13.6-17.9) 06/02/22 04:16 Hct 46.4 % (39.6-49.0) 06/02/22 04:16 Plt Count 298 K/uL (152-406) 06/02/22 04:16 PT 11.5 SECONDS (9.5-12.5) 05/31/22 18:43 INR 1.05 05/31/22 18:43 Sodium 135 mmol/L (136-145) L 06/02/22 04:16 Potassium 3.7 mmol/L (3.5-5.1) 06/02/22 04:16 BUN 13 mg/dL (7-18) 06/02/22 04:16 Creatinine 0.78 mg/dL (0.70-1.30) 06/02/22 04:16 Glucose 189 mg/dL (74-106) H 06/02/22 04:16 Phosphorus 4.0 mg/dL (2.5-4.9) 06/01/22 03:57 Magnesium 2.1 mg/dL (1.6-2.4) 06/01/22 03:57 Triglycerides 415 mg/dL (<150) H 06/01/22 03:57 Cholesterol 139 mg/dL (<200) 06/01/22 03:57 LDL Cholesterol Direct 76 mg/dL (100-129) L 06/01/22 03:57 HDL Cholesterol 25 mg/dL (40-60) L 06/01/22 03:57 Cholesterol/HDL Ratio 5.56 06/01/22 03:57 Home Medications: Amiodarone HCl [Cordarone*] 200 mg PO DAILY 09/13/18 Aspirin Chewable [Aspirin Chewable*] 81 mg PO DAILY 09/13/18 Gabapentin [Neurontin] 600 mg PO BID 09/13/18 Metformin HCl [Glucophage] 1,000 mg PO BID 09/13/18 Omeprazole 20 mg PO DAILY 09/13/18 Potassium Chloride 20 meq PO BID 09/13/18 Insulin Glargine,Hum.rec.anlog [Lantus] 60 units SQ BID 12/19/20 Apixaban [Eliquis] 1 tab PO BID 12/20/20 Atorvastatin Calcium [Lipitor] 0.5 tab PO DAILY 12/20/20 Cyanocobalamin (Vitamin B-12) [B-12] 2 tab PO DAILY 12/20/20 Ergocalciferol (Vitamin D2) [Vitamin D2] 1 cap PO Q7D 12/20/20 Insulin Aspart [Insulin Aspart Flexpen] 40 units SQ TID 12/20/20 Lidocaine 5% [Lidocaine HCl] 1 audrey TOP BIDP PRN 12/20/20 Cetirizine HCl [Zyrtec*] 10 mg PO DAILY #20 tablet 03/06/21 Hydrocodone 7.5/APAP 325 [[place] 7.5/325 mg*] 1 tab PO Q6H PRN #20 tab 03/06/21 Carvedilol [Coreg] 3.125 mg PO BID 06/01/22 Semaglutide [Wegovy] 0.25 mg SQ EVERY 7TH DAY 06/01/22 Amox/Clavulanate [Augmentin 875-125 Tab] 875 mg PO BID #20 tab 06/02/22 Furosemide 80 mg PO BID #65 tab 06/02/22 Smz./Tmp. [Bactrim Ds 800 MG/160 MG] 1 tab PO BID #20 tab 06/02/22 New Medications: Amox/Clavulanate [Augmentin 875-125 Tab] 875 mg PO BID #20 tab Smz./Tmp. [Bactrim Ds 800 MG/160 MG] 1 tab PO BID #20 tab Furosemide 80 mg PO BID #65 tab Diet: ADA Activity: Ad leonor Time spent managing pt's care (in minutes): 33
[2022-06-02 10:06] VITALS: O2SAT 96
[2022-06-03] MEDS ORDERED: DRISDOL (VITAMIN D=ERGOCALCIFEROL) 50000 UNIT CAP PO SCH (09:00)
--- NOTE | 2022-06-04 15:20 | EKG ---
Test Date: 2022-05-31 Test Time: 18:55:32 Academic Coach: MATT MEASUREMENT RESULTS: Intervals: Rate: 86 OR: 180 QRSD: 108 QT: 394 QTc: 471 [place]: P: 55 OR: 180 QRS: 74 T: 76 INTERPRETIVE STATEMENTS: Normal sinus rhythm Normal ECG Compared to ECG 02/18/2022 21:38:14 No significant changes Electronically Signed On 06-04-22 15:17:01 CENSUS ENUMERATOR by Adam Perales
== END 2022-06-02 11:22 | disposition home or self-care (01) | DRG 602 ==
LOC: ER 17:32 → 4TH 22:19
PROVIDERS: ADMIT Internal Medicine; ATTEND Internal Medicine
DX: L03.116 Cellulitis of left lower limb (principal); I50.33 Acute on chronic diastolic (congestive) heart failure; I48.20 Chronic atrial fibrillation, unspecified; Z68.42 Body mass index [BMI] 45.0-49.9, adult; E66.2 Morbid (severe) obesity with alveolar hypoventilation; I25.810 Atherosclerosis of coronary artery bypass graft(s) without angina pectoris; L03.115 Cellulitis of right lower limb; I11.0 Hypertensive heart disease with heart failure; E11.65 Type 2 diabetes mellitus with hyperglycemia; E11.51 Type 2 diabetes mellitus with diabetic peripheral angiopathy without gangrene; E78.5 Hyperlipidemia, unspecified; J44.9 Chronic obstructive pulmonary disease, unspecified; I87.2 Venous insufficiency (chronic) (peripheral); D72.829 Elevated white blood cell count, unspecified; F17.210 Nicotine dependence, cigarettes, uncomplicated; Z95.1 Presence of aortocoronary bypass graft; Z79.4 Long term (current) use of insulin; Z79.01 Long term (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 anticoagulants; Z79.84 Long term (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 oral hypoglycemic drugs; Z79.82 Long term (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 aspirin; Z90.49 Acquired absence of other specified parts of digestive tract; Z79.52 Long term (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 systemic steroids; Z79.899 Other long term (current) drug therapy; Z20.822 Contact with and (suspected) exposure to COVID-19
CPT/HCPCS: 0240U; 36415; 71046; 80048; 80061; 81001; 82947; 83036; 83605; 83735; 83880; 84100; 84145; 84443; 84484; 85025; 85610; 87040; 93005; 93925; 93970; 94640; 96365; 96375; 99285; J0692; J1815; J1940; J3010; J3370; J7040; J7613; J7644

== ENCOUNTER 2022-11-08 22:10 | Emergency (ER) | payer OTHER ==
[2022-11-08] MEDS ORDERED: MORPHINE 4 MG/ML SYR ONE (23:05)
[2022-11-08] MEDS ORDERED: MORPHINE 2 MG/ML SYR ONE (23:06)
--- NOTE | 2022-11-09 01:54 | EDPHYS ---
Physician Documentation [facility] Name: Harvey Callahan Age: 62 yrs Sex: Male : 1960 Arrival Date: 11/08/2022 Time: 22:10 Bed 17 Private MD: ED Physician Alexander Espinoza HPI: 11/08 23:00 This 62 yrs old Male presents to ER via Wheelchair with complaints of Foot Pain, Wrist cp Pain, Knee Pain. 23:00 The patient or guardian complains of pain, that is chronic. The complaints affect the cp right wrist and right hand, left wrist and left hand. 23:00 Context: chronically. The patient presents with pain, that is chronic. The complaints cp affect the right foot and left foot and right lower leg and left lower leg. Context: the patient is able to ambulate, with moderate difficulty. Onset: The symptoms/episode began/occurred chronically. Historical: - Allergies: 23:09 No Known Allergies; aa9 - PMHx: 23:09 Arthritis; Atrial fibrillation; Cellulitis; CHF; Diabetes - IDDM; EDEMA; aa9 Hyperlipidemia; Hypertension; knee pain; - PSHx: 23:09 Appendectomy; Coronary Angioplasty; aa9 - Immunization history:: Client reports receiving the 2nd dose of the Covid vaccine. - Social history:: Smoking status: unknown. ROS: 23:05 Constitutional: Negative for body aches, chills, fever, poor PO intake. cp 23:05 Eyes: Negative for injury, pain, redness, and discharge. cp 23:05 ENT: Negative for drainage from ear(s), ear pain, sore throat, difficulty swallowing, difficulty handling secretions. 23:05 Cardiovascular: Negative for chest pain, palpitations. 23:05 Respiratory: Negative for cough, shortness of breath, wheezing. 23:05 Abdomen/GI: Negative for abdominal pain, nausea, vomiting, and diarrhea. 23:05 Back: Negative for pain at rest, pain with movement. 23:05 MS/extremity: Positive for pain, swelling, tenderness, of the right foot and left foot and right hand and right wrist and left hand and left wrist and left lower leg and right lower leg, Negative for injury or acute deformity. 23:05 Skin: Negative for cellulitis, rash. 23:05 Neuro: Negative for altered mental status, dizziness, headache, weakness. 23:05 All other systems are negative. Exam: 23:10 Constitutional: The patient appears in no acute distress, alert, awake, cp non-diaphoretic, non-toxic, well developed, well nourished, uncomfortable, overweight 23:10 Head/Face: Normocephalic, atraumatic. cp 23:10 Eyes: Periorbital structures: appear normal, Conjunctiva: normal, no exudate, no injection, Sclera: no appreciated abnormality, Lids and lashes: appear normal, bilaterally. 23:10 ENT: External ear(s): are unremarkable, Nose: is normal, Mouth: Lips: moist, Oral mucosa: pink and intact, moist, Posterior pharynx: is normal, airway is patent, no erythema, no exudate. 23:10 Neck: ROM/movement: is normal, is supple, without pain, no range of motions limitations. 23:10 Chest/axilla: Inspection: normal. 23:10 Cardiovascular: Rate: normal, Edema: ankle edema, that is very mild. 23:10 Respiratory: the patient does not display signs of respiratory distress, Respirations: normal, no use of accessory muscles, no retractions, labored breathing, is not present, Breath sounds: are clear throughout, no decreased breath sounds, no stridor, no wheezing. 23:10 Abdomen/GI: Exam negative for discomfort, distension, guarding, Inspection: abdomen appears normal. 23:10 Back: pain, is absent, ROM is normal. 23:10 Musculoskeletal/extremity: Extremities: noted in the right hand and left hand and right wrist and left wrist: pain, tenderness, There is no evidence of decreased ROM, deformity, noted in the right foot and left foot and left lower leg and right lower leg: pain, tenderness, dusky appearance of skin with no erythema, dorsalis pedis pulses weak bilaterally. 23:10 Skin: cellulitis, is not appreciated. Vital Signs: 23:07 BP 128 / 78; Pulse 98; Resp 18 S; Temp 98.5(O); Pulse Ox 99% on R/A; aa9 11/09 01:00 BP 127 / 72; Pulse 78; Resp 15; Pulse Ox 99% on R/A; aa9 MDM: 11/08 22:45 Patient medically screened. cp 23:15 Differential diagnosis: DVT, cellulitis, arterial occlusion, chronic pain, neuropathy. cp 11/09 01:52 Data reviewed: vital signs, nurses notes, radiologic studies, ultrasound. cp 01:52 Consideration of Admission/Observation Escalation of care including cp admission/observation considered. Care significantly affected by the following chronic conditions: Diabetes, Hypertension. Counseling: I had a detailed discussion with the patient and/or guardian regarding: the historical points, exam findings, and any diagnostic results supporting the discharge/admit diagnosis, radiology results, the need for outpatient follow up, vascular, to return to the emergency department if symptoms worsen or persist or if there are any questions or concerns that arise at home, smoking cessation. Response to treatment: the patient's symptoms have markedly improved after treatment, and as a result, I will discharge patient. 11/08 22:28 Order name: Extremity Venous W Compression Stefan cp 11/08 21:28 Order name: Lower Extremity Arterial Bilateral cp Administered Medications: 11/08 23:06 Drug: morphine IM 6 mg Route: IM; Site: right deltoid; aa9 Disposition Summary: 11/09/22 01:53 Discharge Ordered Location: Home cp Problem: an ongoing problem cp Symptoms: have improved cp Condition: Stable cp Diagnosis - Pain in unspecified knee cp - Pain in unspecified lower leg cp - Pain in unspecified wrist cp - Peripheral vascular disease, unspecified cp Followup: cp - With: Private Physician - When: 2 - 3 days - Reason: Recheck today's complaints Discharge Instructions: - Discharge Summary Sheet cp - Joint Pain cp - Peripheral Vascular Disease cp Forms: - Medication Reconciliation Form cp - Thank You Letter cp - Antibiotic Education cp - Prescription Opioid Use cp Prescriptions: - Mobic 7.5 mg Oral Tablet - take 1 tablet by ORAL route once daily take with food; 20 tablet; Refills: 0, cp Product Selection Permitted - Tramadol 50 mg Oral Tablet - take 1 tablet by ORAL route every 8 hours as needed; 12 tablet; Refills: 0, cp Product Selection Permitted Signatures: Dispatcher [employer] Jame Zepeda PA PA cp Avalos, Aylin, RN RN aa9
--- NOTE | 2022-11-09 01:54 | ER ---
Nurse's Notes [facility] Name: Harvey Callahan Age: 62 yrs Sex: Male : 1960 Arrival Date: 11/08/2022 Time: 22:10 Bed 17 Private MD: Diagnosis: Pain in unspecified knee;Pain in unspecified lower leg;Pain in unspecified wrist;Peripheral vascular disease, unspecified Presentation: 11/08 23:07 Chief complaint: Patient states: I have neuropathy in my lower legs and my feet just aa9 kind a went numb and they hurt. I tripped over the caret and it made it worse. both of my knees popped but I know they are okay, I just have arthritis. Coronavirus screen: Vaccine status: Patient reports receiving the 2nd dose of the covid vaccine. Ebola Screen: No symptoms or risks identified at this time. Initial Sepsis Screen: Does the patient meet any 2 criteria? No. Patient's initial sepsis screen is negative. Does the patient have a suspected source of infection? No. Patient's initial sepsis screen is negative. Risk Assessment: Do you want to hurt yourself or someone else? Patient reports no desire to harm self or others. Onset of symptoms was November 08, 2022. 23:07 Method Of Arrival: Wheelchair aa9 23:07 Acuity: DEYANIRA 4 aa9 Triage Assessment: 23:09 General: Appears uncomfortable, obese, unkempt, Behavior is cooperative, anxious. Pain: aa9 Complains of pain in sienna feet Pain currently is 11 out of 10 on a pain scale. Neuro: Level of Consciousness is awake, alert, obeys commands, Oriented to person, place, time, situation. Cardiovascular: Patient's skin is warm and dry. Respiratory: Airway is patent Respiratory effort is even, unlabored. GI: No signs and/or symptoms were reported involving the gastrointestinal system. : No signs and/or symptoms were reported regarding the genitourinary system. Derm: Skin is intact, is healthy with good turgor. Historical: - Allergies: 23:09 No Known Allergies; aa9 - PMHx: 23:09 Arthritis; Atrial fibrillation; Cellulitis; CHF; Diabetes - IDDM; EDEMA; aa9 Hyperlipidemia; Hypertension; knee pain; - PSHx: 23:09 Appendectomy; Coronary Angioplasty; aa9 - Immunization history:: Client reports receiving the 2nd dose of the Covid vaccine. - Social history:: Smoking status: unknown. Screenin/27 01:58 [facility] ED Fall Risk Assessment (Adult) History of falling in the last 3 months, aa9 including since admission No falls in past 3 months (0 pts) Confusion or Disorientation No (0 pts) Intoxicated or Sedated No (0 pts) Impaired Gait Yes (1 pt) Mobility Assist Device Used Yes (1 pt) Altered Elimination No (0 pt) Score/Fall Risk Level 3 or more points = High Risk Oriented to surroundings, Maintained a safe environment, Educated pt \T\ family on fall prevention, incl call for assistance when getting out of bed. Abuse screen: Denies threats or abuse. Denies injuries from another. Nutritional screening: No deficits noted. Tuberculosis screening: No symptoms or risk factors identified. Assessment: 01:00 Reassessment: Patient appears in no apparent distress at this time. Patient and/or aa9 family updated on plan of care and expected duration. Pain level reassessed. Patient is alert, oriented x 3, equal unlabored respirations, skin warm/dry/pink. 01:57 Reassessment: Patient appears in no apparent distress at this time. Patient and/or aa9 family updated on plan of care and expected duration. Pain level reassessed. Patient is alert, oriented x 3, equal unlabored respirations, skin warm/dry/pink. Vital Signs: 11/08 23:07 BP 128 / 78; Pulse 98; Resp 18 S; Temp 98.5(O); Pulse Ox 99% on R/A; aa9 11/09 01:00 BP 127 / 72; Pulse 78; Resp 15; Pulse Ox 99% on R/A; aa9 ED Course: 11/08 22:15 Patient arrived in ED. ja2 22:20 Jame Sharif PA is PHCP. cp 22:21 Alexander Espinoza DO is Attending Physician. cp 22:50 Marion Carrillo, REZA is Primary Nurse. aa9 23:09 Triage completed. aa9 23:10 Arm band placed on. 11/09 00:14 US Extremity Venous W Compression Sienna In Process Unspecified. EDMS 00:14 US Lower Extremity Arterial Bilateral In Process Unspecified. EDMS 01:00 Patient has correct armband on for positive identification. Call light in reach. Side aa9 rails up X2. Pulse ox on. NIBP on. 02:06 No provider procedures requiring assistance completed. Patient did not have IV access aa9 during this emergency room visit. Administered Medications: 11/08 23:06 Drug: morphine IM 6 mg Route: IM; Site: right deltoid; aa9 Medication: 11/09 01:58 VIS not applicable for this client. aa9 Outcome: 01:53 Discharge ordered by . jimmy 01:58 Condition: stable aa9 02:06 Discharged to home via wheelchair, with family. aa9 02:06 Discharge instructions given to patient, Instructed on discharge instructions, follow up and referral plans. Demonstrated understanding of instructions, follow-up care, medications, Prescriptions given X 2. 02:06 Patient left the ED. aa9 Signatures: Dispatcher [employer] EDMS Jame Sharif PA PA cp Alexander, Jessica ja2 Avalos, Aylin, RN RN aa9
[2022-11-09 02:17] VITALS: TEMP 98.5; O2SAT 99
[2022-11-09 02:19] VITALS: BP 127/72
--- NOTE | 2022-11-09 21:45 | RAD REPORT ---
EXAM DESCRIPTION: US - Lower Extremity Arterial Bilat - 11/09/2022 12:12 am CLINICAL HISTORY: PAIN TECHNIQUE: Real time images, spectral wave analysis, Doppler color flow analysis and measurement of the arterial velocities of the bilateral lower extremities was performed. COMPARISON: None available for comparison FINDINGS: The right common femoral artery shows normal triphasic tracings and a peak systolic veloci ty of 146 cm/s. Triphasic tracings are also obtained at the right superficial femoral, popliteal, posterior tibial ar teries. There are biphasic tracings at the right dorsalis pedis artery with spectral broadening. The left common femoral artery shows abnormal monophasic tracings with spectral broadening and a peak systolic velocity of 118 cm/s likely manifesting significant more proximal inflow disease. Monophasic tracings are also obtained at the left superficial femoral, popliteal, posterior tibial an d dorsalis pedis arteries with increasing spectral broadening distally. There are no focal areas of significant increase in systolic velocities. IMPRESSION: Abnormal monophasic tracings at the left common femoral artery and throughout the left l ower extremity consistent with significant more proximal inflow disease. Multiphasic tracings throughout the right lower extremity with no evidence of significant atheroscler otic disease. No focal areas of significant increase in systolic velocities to suggest critical stenosis. Electronically signed by: Rajinder Quigley MD 11/09/2022 12:38 AM CDT Due to temporary technical issues with the PACS/Fluency reporting system, reports are being signed by the in house radiologists without review as a courtesy to insure prompt reporting. The interpreting radiologist is fully responsible for the content of the report.
--- NOTE | 2022-11-09 22:26 | RAD REPORT ---
EXAM DESCRIPTION: US - Extrem Venous W Compress Stefan - 11/09/2022 12:12 am CLINICAL HISTORY: 62 years Male Numbness/tingling;Pain;Swelling COMPARISON: None TECHNIQUE: Spectral analysis and color/grayscale sonographic images of both legs were obtained utili zing a high-frequency linear array transducer supplemented with color Doppler, compression and augmen tation techniques. FINDINGS: Right leg veins: Common femoral: normal Greater saphenous: normal Superficial femoral: normal Popliteal: normal Calf Veins: normal Left leg veins: Common femoral: normal Greater saphenous: normal Superficial femoral: normal Popliteal: normal Calf Veins: normal Hypoechoic lesion in the left popliteal fossa without internal vascularity measuring up to 2.6 cm, li shree popliteal cyst. IMPRESSION: 1. No sonographic evidence for lower extremity deep venous thrombosis in either leg. 2. Hypoechoic lesion in the left popliteal fossa without internal vascularity measuring up to 2.6 c m, could represent popliteal cyst. Electronically signed by: Rosalie Cao MD 11/09/2022 12:32 AM CDT Due to temporary technical issues with the PACS/Fluency reporting system, reports are being signed by the in house radiologists without review as a courtesy to insure prompt reporting. The interpreting radiologist is fully responsible for the content of the report.
== END 2022-11-09 02:06 | disposition home or self-care (01) ==
LOC: ER 22:10
DX: I73.9 Peripheral vascular disease, unspecified (principal); M79.662 Pain in left lower leg; M25.532 Pain in left wrist; M25.531 Pain in right wrist
CPT/HCPCS: 93925; 93970; 96372; 99284; J2270

== ENCOUNTER 2023-05-27 18:13 | Emergency (ER) | payer OTHER ==
[2023-05-27] MEDS ORDERED: MORPHINE 4 MG/ML SYR ONE ×2 (18:50→20:32)
[2023-05-27] MEDS ORDERED: ONDANSETRON 4 MG/2 ML VIAL ONE (18:51)
[2023-05-27 18:54] LABS: Specific Gravity > 1.030 (1.005-1.030); Urine Bacteria None Seen /HPF (<20); Urine Bilirubin NEGATIVE (Negative); Urine Blood 1+ (Negative); Urine Clarity Clear (Clear); Urine Color Light-Yellow (Yellow); Urine Glucose 4+ (Over) (Negative); Urine Protein NEGATIVE (Negative); Urine Urobilinogen Normal (Normal)
[2023-05-27 18:59] LABS: Potassium 4.3 mEq/L (3.5-5.1)
[2023-05-27 19:04] LABS: Absolute Lymphocytes (CBC) 4.1 K/uL (0.7-4.9); Hematocrit 49.5 % (39.6-49.0); MCV 85.4 fL (80-100); MPV 7.8 fL (7.6-11.3); Platelets 315 thou/uL (152-406)
--- NOTE | 2023-05-27 19:49 | RAD REPORT ---
EXAM DESCRIPTION: CT - Stone Protocol - 05/27/2023 6:53 pm CLINICAL HISTORY: left scrotal pain COMPARISON: Stone Protocol dated 03/30/2021; CTSTONE PROTOCOL dated 09/26/2013; CT ABD PELVIS W CONTR AST dated 07/20/2008; CTABD PELVIS W CONTRAST dated 03/25/2002 TECHNIQUE: Thin cut axial CT imaging of the abdomen and pelvis was performed without IV contrast. Mu ltiplanar reformats were generated and reviewed. All CT scans are performed using dose optimization technique as appropriate and may include automated exposure control or mA/KV adjustment according to patient size. FINDINGS: No suspicious findings in the lung bases. The liver, spleen, adrenal glands, and pancreas show no suspicious findings. Gallbladder and biliary tree are also without suspicious finding. Symmetric renal contour, without suspicious parenchymal findings within limits of noncontrast techniq ue. No evidence of hydroureteronephrosis. Punctate bilateral caliceal calculi not exceeding 2 mm. Sta ble left interpolar 2.2 cm hypoattenuating lesion. No dilated bowel loops or bowel wall thickening. No free air, free fluid or inflammatory stranding. N o hernia, mass or bulky lymphadenopathy. The urinary bladder is without significant finding. No suspicious bony findings. IMPRESSION: Bilateral nonobstructing renal calculi not exceeding 2 mm. No other acute intra-abdomina l process.
--- NOTE | 2023-05-27 20:00 | RAD REPORT ---
EXAM DESCRIPTION: US - Scrotum Testicles - 05/27/2023 7:15 pm CLINICAL HISTORY: left testicular pain COMPARISON: Scrotum Testicles dated 03/30/2021 TECHNIQUE: Sonographic grayscale and color flow images of the scrotum were obtained. FINDINGS: The right testicle 8.7 x 2.3 x 3.1 cm. No intratesticular masses or evidence of testicular torsion. The left testicle 3.9 x 2.4 x 3.0 cm. No intratesticular masses or evidence of testicular torsion. Both epididymides are normal in size and appearance. No pathologic fluid collections. IMPRESSION: Unremarkable scrotal ultrasound.
--- NOTE | 2023-05-27 20:02 | EDPHYS ---
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 19:07 The patient presents with scrotal pain, of the left side, without swelling, without rn erythema. 19:08 Onset: The symptoms/episode began/occurred 3 day(s) ago. Modifying factors: The rn symptoms are alleviated by nothing, the symptoms are aggravated by nothing. Severity of symptoms: At their worst the symptoms were moderate, in the emergency department the symptoms are unchanged. The patient has experienced a previous episode. Patient reports left scrotal pain that began 3 days ago. Intermittent in nature, not worse or better with anything specifically. Reports mild left inguinal pain as well. Has both history of kidney stone in the past as well as a varicocele on the left side. Patient denies any trauma. No fever. No urinary symptoms. No vomiting. No chills.. Historical: - Allergies: 18:21 No Known Allergies; tl4 - PMHx: 18:21 Arthritis; Atrial fibrillation; Cellulitis; CHF; Diabetes - IDDM; Hyperlipidemia; tl4 Hypertension; knee pain; EDEMA; Neuropathy (EDEMA); - Immunization history:: Adult Immunizations unknown. - Social history:: Smoking status: Patient reports the use of cigarette tobacco products, smokes two packs cigarettes per day. - Family history:: not pertinent. - Hospitalizations: : No recent hospitalization is reported. ROS: 19:08 Constitutional: Negative for fever, chills, and weight loss, Cardiovascular: Negative rn for chest pain, palpitations, and edema, Respiratory: Negative for shortness of breath, cough, wheezing, and pleuritic chest pain, Abdomen/GI: Positive for left inguinal pain Back: Positive for left lower back pain : Positive for left testicular pain MS/Extremity: Negative for injury and deformity, Skin: Negative for injury, rash, and discoloration, Neuro: Negative for headache, weakness, numbness, tingling, and seizure, Exam: 19:08 Constitutional: This is a well developed, well nourished patient who is awake, alert, rn and in no acute distress. Cardiovascular: Regular rate and rhythm. No pulse deficits. Respiratory: No increased work of breathing, no retractions or nasal flaring. Abdomen/GI: Soft, mild tenderness to left inguinal canal. No peritoneal signs. No masses. No swelling. No skin changes. Back: No spinal tenderness. No costovertebral tenderness. Full range of motion. Male : Mild tenderness to the left hemiscrotum without swelling or erythema/warmth. Normal lie of testicle. Vital Signs: 18:18 BP 108 / 83; Pulse 97; Resp 18; Temp 98.2; Pulse Ox 100% on R/A; Weight 115.21 kg; tl4 Height 5 ft. 7 in. ; Pain 10/10; 19:15 BP 125 / 75; Pulse 87; Resp 16; Pulse Ox 97% on R/A; Pain 7/10; pf1 20:00 BP 129 / 87; Pulse 89; Resp 18; Pulse Ox 98% on R/A; Pain 7/10; pf1 18:18 Body Mass Index 39.78 (115.21 kg, 170.18 cm) tl4 18:18 Pain Scale: Adult tl4 19:15 Pain Scale: Adult pf1 20:00 Pain Scale: Adult pf1 MDM: 18:19 Patient medically screened. rn 20:01 Differential diagnosis: nonspecific abdominal pain, UTI, urinary retention, urethritis, rn Varicocele, hydrocele. Data reviewed: vital signs, nurses notes, lab test result(s), radiologic studies, CT scan, ultrasound, and as a result, I will discharge patient. Counseling: I had a detailed discussion with the patient and/or guardian regarding the historical points, exam findings, and any diagnostic results supporting the discharge/admit diagnosis, lab results, radiology results, the need for outpatient follow up, to return to the emergency department if symptoms worsen or persist or if there are any questions or concerns that arise at home. Special discussion: I discussed with the patient/guardian in detail that at this point there is no indication for admission to the hospital. It is understood, however, that if the symptoms persist or worsen the patient needs to return immediately for re-evaluation. 05/27 18:23 Order name: CBC with Diff; Complete Time: 19:18 rn 05/27 18:23 Order name: Basic Metabolic Panel; Complete Time: 19:05 rn 05/27 18:23 Order name: Urinalysis w/ reflexes; Complete Time: 19:05 rn 05/27 18:23 Order name: CT Stone Protocol; Complete Time: 19:51 rn 05/27 18:23 Order name: US Scrotum Testicles; Complete Time: 20:01 rn 05/27 18:23 Order name: IV Start; Complete Time: 18:32 rn Administered Medications: 18:43 Drug: morphine IVP or IV 4 mg IVP once over 4 mins Route: IVP; Infused Over: 4 mins; hb Site: right antecubital; 19:35 Follow up: Response: No adverse reaction; Marked relief of symptoms; Pain is decreased; pf1 RASS: Alert and Calm (0) 18:43 Drug: Ondansetron IVP 4 mg IVP once; over 2 minutes Route: IVP; Site: right antecubital;hb 19:30 Follow up: Response: No adverse reaction; Marked relief of symptoms pf1 20:20 Drug: morphine IVP or IV 4 mg IVP once over 4 mins Route: IVP; Infused Over: 4 mins; pf1 Site: right antecubital; 20:35 Follow up: Response: No adverse reaction; Marked relief of symptoms; Pain is decreased; pf1 RASS: Alert and Calm (0) Disposition Summary: 05/27/23 20:01 Discharge Ordered Notes: Location: Home rn Problem: new rn Symptoms: have improved rn Condition: Stable rn Diagnosis - Left testicular pain rn Followup: rn - With: Private Physician - When: As needed - Reason: Recheck today's complaints, Re-evaluation by your physician Discharge Instructions: - Kidney Stones rn - Testicular Self-Exam rn - Discharge Summary Sheet pf1 Forms: - Medication Reconciliation Form rn - Thank You Letter rn - Antibiotic call center rn - Prescription Opioid Use rn - Patient Portal Instructions rn - Leadership Thank You Letter rn - SBAR form pf1 Prescriptions: - Cipro 500 mg Oral tablet - take 1 tablet ORAL route every 12 hours for 10 days; 20 tablet; Refills: 0, rn Product Selection Permitted - Tramadol 50 mg Oral Tablet - take 1 tablet ORAL route every 8 hours as needed; 12 tablet; Refills: 0, rn Product Selection Permitted Signatures: Dispatcher [employer] Maulik Schreiber MD MD rn Baxter, Heather, RN RN hb Sarah Elena, RN RN pf1 Nick Beltrán 4
--- NOTE | 2023-05-27 20:02 | ER ---
Nurse's Notes [facility] Name: Harvey Callahan Age: 62 yrs Sex: Male : 1960 Arrival Date: 05/27/2023 Time: 18:13 Bed 17 Private MD: Diagnosis: Left testicular pain Presentation: 05/27 18:18 Chief complaint: Patient states: Left testicle pain onset 3 days ago. Pt states that he tl4 has some difficulty urinating. Pt states that he has had issues with his left testicle in the past. pt also complaining of pain to multiple parts of his body. Coronavirus screen: Vaccine status: Patient reports receiving the 2nd dose of the covid vaccine. Client denies travel out of the [place] in the last 14 days. Ebola Screen: Patient denies travel to an Ebola-affected area in the 21 days before illness onset. No symptoms or risks identified at this time. Initial Sepsis Screen: Does the patient meet any 2 criteria? No. Patient's initial sepsis screen is negative. Does the patient have a suspected source of infection? No. Patient's initial sepsis screen is negative. Risk Assessment: Do you want to hurt yourself or someone else? Patient reports no desire to harm self or others. Onset of symptoms was May 27, 2023. 18:18 Method Of Arrival: Wheelchair tl4 18:18 Acuity: DEYANIRA 3 tl4 Historical: - Allergies: 18:21 No Known Allergies; tl4 - PMHx: 18:21 Arthritis; Atrial fibrillation; Cellulitis; CHF; Diabetes - IDDM; Hyperlipidemia; tl4 Hypertension; knee pain; EDEMA; Neuropathy (EDEMA); - Immunization history:: Adult Immunizations unknown. - Social history:: Smoking status: Patient reports the use of cigarette tobacco products, smokes two packs cigarettes per day. - Family history:: not pertinent. - Hospitalizations: : No recent hospitalization is reported. Screenin:20 [facility] ED Fall Risk Assessment (Adult) Score/Fall Risk Level 0 - 2 = Low Risk ll1 Oriented to surroundings, Maintained a safe environment, Educated pt \T\ family on fall prevention, incl call for assistance when getting out of bed, Hourly rounding (assess needs \T\ fall precautionary measures) done. Abuse screen: Denies threats or abuse. Nutritional screening: No deficits noted. Tuberculosis screening: No symptoms or risk factors identified. Assessment: 18:30 General: Appears uncomfortable, Behavior is calm, cooperative, appropriate for age. ll1 Pain: Complains of pain in L scrotal area Quality of pain is described as aching, sharp. : Reports pain in left scrotum. 18:44 Reassessment: No changes from previously documented assessment. Patient and/or family hb updated on plan of care and expected duration. Pain level reassessed. Patient is alert, oriented x 3, equal unlabored respirations, skin warm/dry/pink. 19:10 Reassessment: No changes from previously documented assessment. Report given to Night ll1 shift RN at . 19:20 General: Appears in no apparent distress. uncomfortable, well developed, Behavior is pf1 calm, cooperative, appropriate for age, quiet. Pain: Complains of pain in scrotum and left knee Pain currently is 7 out of 10 on a pain scale. 19:20 Neuro: No deficits noted. Level of Consciousness is awake, alert, obeys commands, pf1 Oriented to person, place, time, situation. Cardiovascular: No deficits noted. Capillary refill < 3 seconds Patient's skin is warm and dry. Respiratory: No deficits noted. Airway is patent Respiratory effort is even, unlabored, Respiratory pattern is regular, symmetrical. GI: No deficits noted. No signs and/or symptoms were reported involving the gastrointestinal system. : Reports pain in left scrotum. EENT: No deficits noted. No signs and/or symptoms were reported regarding the EENT system. Musculoskeletal: Reports pain in left knee. 20:23 Reassessment: Patient appears in no apparent distress at this time. Patient and/or jb4 family updated on plan of care and expected duration. Pain level reassessed. Patient is alert, oriented x 3, equal unlabored respirations, skin warm/dry/pink. Pt verbalized understanding of d/c and follow up instructions. Denies questions or concerns. Ambulated out of ED with steady gait. Vital Signs: 18:18 BP 108 / 83; Pulse 97; Resp 18; Temp 98.2; Pulse Ox 100% on R/A; Weight 115.21 kg; tl4 Height 5 ft. 7 in. ; Pain 10/10; 19:15 BP 125 / 75; Pulse 87; Resp 16; Pulse Ox 97% on R/A; Pain 7/10; pf1 20:00 BP 129 / 87; Pulse 89; Resp 18; Pulse Ox 98% on R/A; Pain 7/10; pf1 18:18 Body Mass Index 39.78 (115.21 kg, 170.18 cm) tl4 18:18 Pain Scale: Adult tl4 19:15 Pain Scale: Adult pf1 20:00 Pain Scale: Adult pf1 ED Course: 18:18 Patient arrived in ED. tl4 18:19 Maulik Goodman MD is Attending Physician. rn 18:21 Triage completed. tl4 18:22 Arm band placed on Patient placed in an exam room, on a stretcher. tl4 18:30 Inserted saline lock: 22 gauge in right antecubital area, using aseptic technique. ll1 Blood collected. 18:43 Urinalysis w/ reflexes Sent. hb 18:43 CBC with Diff Sent. hb 18:43 Basic Metabolic Panel Sent. hb 18:55 CT Stone Protocol In Process Unspecified. EDMS 19:17 US Scrotum Testicles In Process Unspecified. EDMS 19:20 Patient has correct armband on for positive identification. Bed in low position. Call ll1 light in reach. Side rails up X 1. Cardiac monitoring not applicable on this patient. 19:26 Marisa Montiel, RN is Primary Nurse. ll1 20:23 No provider procedures requiring assistance completed. IV discontinued, intact, jb4 bleeding controlled, No redness/swelling at site. Pressure dressing applied. Administered Medications: 18:43 Drug: morphine IVP or IV 4 mg IVP once over 4 mins Route: IVP; Infused Over: 4 mins; hb Site: right antecubital; 19:35 Follow up: Response: No adverse reaction; Marked relief of symptoms; Pain is decreased; pf1 RASS: Alert and Calm (0) 18:43 Drug: Ondansetron IVP 4 mg IVP once; over 2 minutes Route: IVP; Site: right antecubital;hb 19:30 Follow up: Response: No adverse reaction; Marked relief of symptoms pf1 20:20 Drug: morphine IVP or IV 4 mg IVP once over 4 mins Route: IVP; Infused Over: 4 mins; pf1 Site: right antecubital; 20:35 Follow up: Response: No adverse reaction; Marked relief of symptoms; Pain is decreased; pf1 RASS: Alert and Calm (0) Medication: 19:20 VIS not applicable for this client. ll1 Outcome: 20:01 Discharge ordered by . olivia 20:23 Discharged to home ambulatory, cristo 20:23 Condition: stable 20:23 Discharge instructions given to patient, Instructed on discharge instructions, follow up and referral plans. medication usage, Demonstrated understanding of instructions, follow-up care, medications, Prescriptions given X 2, 20:35 Patient left the ED. pf1 Signatures: Dispatcher [employer] EDMS Maulik Goodman MD MD rn Baxter, Heather, RN RN hb Bryson, James, RN RN jb4 Marisa Montiel RN RN ll1 Sarah Elena RN RN pf1 Nick Beltrán4 Corrections: (The following items were deleted from the chart) 20:36 20:30 Patient left the ED. jb4 pf1
[2023-05-27 21:26] VITALS: BP 108/83; TEMP 98.2; O2SAT 100
== END 2023-05-27 20:30 | disposition home or self-care (01) ==
LOC: ER 18:13
DX: N50.812 Left testicular pain (principal); F17.210 Nicotine dependence, cigarettes, uncomplicated; Z87.442 Personal history of urinary calculi
CPT/HCPCS: 85025; 81001; 80048; 36415; 76377; 74176; 76870; 96375; 96374; 99284; J2405

== ENCOUNTER 2023-06-13 21:56 | Inpatient (IN) | payer OTHER ==
[2023-06-14] LABS: Absolute Lymphocytes (CBC) 4.3 K/uL (0.7-4.9); Hematocrit 49.6 % (39.6-49.0); Lymphocytes % 27.8 % (15.3-44.8); MCV 84.8 fL (80-100); MPV 7.7 fL (7.6-11.3); Platelets 273 thou/uL (152-406); RBC Red Blood Cell Count 5.85 M/uL (4.33-5.43)
[2023-06-14] MEDS ORDERED: NA CHLORIDE 0.9% 1,000 ML ONE (00:04)
[2023-06-14] MEDS ORDERED: MORPHINE 2 MG/ML SYR ONE ×3 (00:04→14:45)
[2023-06-14] MEDS ORDERED: ONDANSETRON 4 MG/2 ML VIAL ONE (00:04)
[2023-06-14 00:14] LABS: Protime INR 1.07
[2023-06-14 00:23] LABS: ALT/SGPT 20 U/L (16-61); AST/SGOT 9 U/L (15-37); Albumin 3.5 g/dL (3.4-5.0); Alkaline Phosphatase 72 U/L (45-117); BUN Blood Urea Nitrogen 13 mg/dL (7-18); Bicarbonate 30 mEq/L (21-32); Bilirubin Total 0.3 mg/dL (0.2-1.0); Glomerular Filtration Rate 98 ml/min (=/>90); Glucose Level 166 mg/dL (74-106); Lipase 49 U/L (13-75); Magnesium 2.3 mg/dL (1.6-2.4); NT PRO-BNP 35 pg/mL (<125); Potassium 3.6 mEq/L (3.5-5.1); Sodium Level 137 mEq/L (136-145); Troponin High Sensitivity 6.8 pg/mL (<58.9)
[2023-06-14 00:24] LABS: Bilirubin Direct < 0.1 mg/dL (0-0.2); Bilirubin Indirect, Calculated ND mg/dL (0.2-0.8)
[2023-06-14 00:31] LABS: Specific Gravity > 1.030 (1.005-1.030); Urine Bacteria None Seen /HPF (<20); Urine Bilirubin NEGATIVE (Negative); Urine Blood Trace (Negative); Urine Clarity Clear (Clear); Urine Color Light-Yellow (Yellow); Urine Glucose 4+ (Over) (Negative); Urine Protein NEGATIVE (Negative); Urine RBC <5 /HPF (None Seen); Urine Urobilinogen 1+ (Normal)
--- NOTE | 2023-06-14 00:58 | ER ---
Nurse's Notes 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 km8 Coronavirus screen: Client denies travel out of the [place] in the last 14 days. Ebola Screen: No symptoms or risks identified at this time. Risk Assessment: Do you want to hurt yourself or someone else? Patient reports no desire to harm self or others. Onset of symptoms was June 12, 2023. 22:15 Method Of Arrival: Ambulatory [facility] 22:15 Acuity: DEYANIRA 3 [facility] 22:20 Initial Sepsis Screen: Does the patient meet any 2 criteria? HR > 90 bpm. No. Patient's km8 initial sepsis screen is negative. Does the patient have a suspected source of infection? No. Patient's initial sepsis screen is negative. Triage Assessment: 22:17 General: Appears in no apparent distress. uncomfortable, Behavior is calm, cooperative, km8 appropriate for age. Pain: Complains of pain in right leg and left leg Pain currently is 10 out of 10 on a pain scale. EENT: No signs and/or symptoms were reported regarding the EENT system. Neuro: Level of Consciousness is awake, alert, obeys commands, Oriented to person, place, time, situation. Cardiovascular: Capillary refill < 3 seconds Patient's skin is warm and dry. Edema is 1+ to left ankle and right ankle. Respiratory: Airway is patent Respiratory effort is even, unlabored, Respiratory pattern is regular, symmetrical. GI: No signs and/or symptoms were reported involving the gastrointestinal system. : No signs and/or symptoms were reported regarding the genitourinary system. Derm: Skin is intact, Skin is dry, Skin is pink, warm \T\ dry. Skin temperature is warm. Musculoskeletal: Range of motion: limited in left hip and right hip Reports pain in right leg and left leg. Historical: - Allergies: 22:17 No Known Allergies; km8 - PMHx: 22:17 Arthritis; Atrial fibrillation; Cellulitis; CHF; Diabetes - IDDM; EDEMA; km8 Hyperlipidemia; Hypertension; knee pain; neuropathy (EDEMA); - Immunization history:: Client reports receiving the 2nd dose of the Covid vaccine, Flu vaccine is up to date. - Social history:: Smoking status: Patient reports the use of cigarette tobacco products, smokes two packs cigarettes per day. Patient/guardian denies using alcohol, street drugs. - Family history:: not pertinent. Screenin/30 00:12 [facility] ED Fall Risk Assessment (Adult) History of falling in the last 3 months, tm6 including since admission No falls in past 3 months (0 pts). Abuse screen: Denies threats or abuse. Denies injuries from another. Nutritional screening: No deficits noted. Tuberculosis screening: No symptoms or risk factors identified. Assessment: 00:12 General: Appears in no apparent distress. Behavior is calm, cooperative. Pain: tm6 Complains of pain in right leg and left leg. Neuro: Level of Consciousness is awake, alert, obeys commands, Oriented to person, place, time, situation. Cardiovascular: Capillary refill < 3 seconds Patient's skin is warm and dry. Respiratory: Airway is patent Respiratory effort is even, unlabored, Respiratory pattern is regular, symmetrical. GI: Abdomen is round non-distended. : No signs and/or symptoms were reported regarding the genitourinary system. EENT: No signs and/or symptoms were reported regarding the EENT system. Derm: Skin is purple bilateral LE. Musculoskeletal: No signs and/or symptoms reported regarding the musculoskeletal system. 00:30 Reassessment: left lower extremity warm to touch and reddish in color. Right lower tm6 extremity cool to touch and purple in color. 02:30 Reassessment: No changes from previously documented assessment. Patient and/or family tm6 updated on plan of care and expected duration. Pain level reassessed. Patient is alert, oriented x 3, equal unlabored respirations, skin warm/dry/pink. placed in hospital gown. Vital Signs: 06/13 22:17 BP 110 / 66; Pulse 105; Resp 18; Temp 97.5(IR); Pulse Ox 97% on R/A; Weight 115.21 kg km8 (R); Height 5 ft. 7 in. (R); Pain 10/10; 06/14 00:31 BP 122 / 79; Pulse 73; Resp 15; Pulse Ox 98% ; tm6 02:31 Pulse 97; Pulse Ox 95% on R/A; Pain 8/10; tm6 06/13 22:17 Body Mass Index 39.78 (115.21 kg, 170.18 cm) [facility] 06/13 22:17 Pain Scale: Adult km8 02:31 Pain Scale: Adult tm6 ED Course: 06/13 22:01 Patient arrived in ED. jj6 22:16 Triage completed. 8 22:19 Jame Torres MD is Attending Physician. janet 22:50 XRAY Chest (1 view) In Process Unspecified. EDMS 23:50 US Extremity Venous W Compression Stefan In Process Unspecified. EDMS 23:59 Starla Logan RN is Primary Nurse. 6 06/14 00:12 Patient has correct armband on for positive identification. Bed in low position. Call tm6 light in reach. Side rails up X2. Provided Education on: plan of care. Client placed on continuous cardiac and pulse oximetry monitoring. NIBP monitoring applied. 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 00:12 No provider procedures requiring assistance completed. Inserted saline lock: 20 gauge tm6 in right antecubital area, using aseptic technique. 00:55 Jorge Alberto Jimenez is Hospitalizing Provider. [facility] 07:06 Report given to Erna COBB. tm6 11:26 Primary Nurse role handed off by Starla Logan, REZA cp4 11:26 Peace Shrestha is Primary Nurse. cp4 19:49 Arm band placed on right wrist. Patient placed in the treatment room. cp4 19:51 Patient transferred, IV remains in place. cp4 Administered Medications: 00:12 Drug: morphine IVP or IV 2 mg IVP once over 4 mins Route: IVP; Infused Over: 4 mins; tm6 Site: right antecubital; 00:12 Drug: Ondansetron IVP 4 mg IVP once; over 2 minutes Route: IVP; Site: right antecubital;tm6 00:28 Drug: NS 0.9% IV 1000 ml IV at 75 ml/hr continuous Route: IV; Rate: 75 ml/hr; Site: tm6 left antecubital; 01:12 Drug: morphine IVP or IV 2 mg IVP once over 4 mins Route: IVP; Infused Over: 4 mins; tm6 Site: right antecubital; 01:12 Drug: ceFAZolin IVPB 2 grams IVPB once over 30 mins; (mix in 100 mL NS) Route: IVPB; tm6 Infused Over: 30 mins; Site: right antecubital; 02:30 Drug: vancoMYCIN IVPB 1 grams IVPB once over 2 hrs Route: IVPB; Infused Over: 2 hrs; tm6 Site: right antecubital; Medication: 00:12 VIS not applicable for this client. tm6 Outcome: 00:58 Decision to Hospitalize by Provider. janet 19:50 Admitted to Tele accompanied by tech, via wheelchair, Report called to Eliza acuña 19:50 Condition: stable 19:50 Instructed on the need for admit, Demonstrated understanding of instructions, 20:35 Patient left the ED. cp4 Signatures: Dispatcher [employer] EDJame Jones MD MD cha Jeffries, Jennifer jj6 Potter, Christina cp4 Flroa Sanchez, RN RN km8 Starla Logan, REZA RN tm6
--- NOTE | 2023-06-14 00:58 | EDPHYS ---
Physician Documentation [facility] Name: Harvey Callahan Age: 62 yrs Sex: Male : 1960 Arrival Date: 06/13/2023 Time: 21:56 Bed 20 Private MD: RAGHAV Physician Jame Torres HPI: 06/14 00:50 This 62 yrs old Male presents to ER via Ambulatory with complaints of jaent Swelling of Lower Extremity, Neuropathy in Low Ext. 00:50 The patient presents with decreased range of motion, pain, swelling, tenderness. The janet complaints affect the right leg and left leg. Context: resulted from an unknown cause, the patient can fully bear weight. Onset: The symptoms/episode began/occurred 3 day(s) ago. Modifying factors: The symptoms are alleviated by elevating leg, remaining still, the symptoms are aggravated by movement. Associated signs and symptoms: The patient has no apparent associated signs or symptoms. Severity of symptoms: At their worst the symptoms were mild, in the emergency department the symptoms are unchanged. The patient has experienced similar episodes in the past, a few times. Historical: - Allergies: 06/13 22:17 No Known Allergies; km8 - PMHx: 22:17 Arthritis; Atrial fibrillation; Cellulitis; CHF; Diabetes - IDDM; EDEMA; km8 Hyperlipidemia; Hypertension; knee pain; neuropathy (EDEMA); - Immunization history:: Client reports receiving the 2nd dose of the Covid vaccine, Flu vaccine is up to date. - Social history:: Smoking status: Patient reports the use of cigarette tobacco products, smokes two packs cigarettes per day. Patient/guardian denies using alcohol, street drugs. - Family history:: not pertinent. ROS: 06/14 00:50 Constitutional: Negative for fever, chills, and weight loss, Eyes: Negative for injury, janet pain, redness, and discharge, ENT: Negative for injury, pain, and discharge, Neck: Negative for injury, pain, and swelling, Cardiovascular: Negative for chest pain, palpitations, and edema, Respiratory: Negative for shortness of breath, cough, wheezing, and pleuritic chest pain, Abdomen/GI: Negative for abdominal pain, nausea, vomiting, diarrhea, and constipation, Back: Negative for injury and pain, : Negative for injury, bleeding, discharge, and swelling, Skin: Negative for injury, rash, and discoloration, Neuro: Negative for headache, weakness, numbness, tingling, and seizure, Psych: Negative for depression, anxiety, suicide ideation, homicidal ideation, and hallucinations, Allergy/Immunology: Negative for hives, rash, and allergies, Endocrine: Negative for neck swelling, polydipsia, polyuria, polyphagia, and marked weight changes, Hematologic/Lymphatic: Negative for swollen nodes, abnormal bleeding, and unusual bruising, MS/extremity: Positive for erythema, pain, swelling, tenderness, of the right leg and left leg, Exam: 00:50 Constitutional: This is a well developed, well nourished patient who is awake, alert, janet and in no acute distress. Head/Face: Normocephalic, atraumatic. Eyes: Pupils equal round and reactive to light, extra-ocular motions intact. Lids and lashes normal. Conjunctiva and sclera are non-icteric and not injected. Cornea within normal limits. Periorbital areas with no swelling, redness, or edema. ENT: Nares patent. No nasal discharge, no septal abnormalities noted. Tympanic membranes are normal and external auditory canals are clear. Oropharynx with no redness, swelling, or masses, exudates, or evidence of obstruction, uvula midline. Mucous membranes moist. Neck: Trachea midline, no thyromegaly or masses palpated, and no cervical lymphadenopathy. Supple, full range of motion without nuchal rigidity, or vertebral point tenderness. No Meningismus. Chest/axilla: Normal chest wall appearance and motion. Nontender with no deformity. No lesions are appreciated. Cardiovascular: Regular rate and rhythm with a normal S1 and S2. No gallops, murmurs, or rubs. Normal PMI, no JVD. No pulse deficits. Respiratory: Lungs have equal breath sounds bilaterally, clear to auscultation and percussion. No rales, rhonchi or wheezes noted. No increased work of breathing, no retractions or nasal flaring. Abdomen/GI: Soft, non-tender, with normal bowel sounds. No distension or tympany. No guarding or rebound. No evidence of tenderness throughout. Back: No spinal tenderness. No costovertebral tenderness. Full range of motion. Male : Normal genitalia with no discharge or lesions. Skin: Warm, dry with normal turgor. Normal color with no rashes, no lesions, and no evidence of cellulitis. Neuro: Awake and alert, GCS 15, oriented to person, place, time, and situation. Cranial nerves II-XII grossly intact. Motor strength 5/5 in all extremities. Sensory grossly intact. Cerebellar exam normal. Normal gait. Psych: Awake, alert, with orientation to person, place and time. Behavior, mood, and affect are within normal limits. 00:50 Musculoskeletal/extremity: ROM: limited active range of motion, limited passive range of motion, Pulses: noted to be 4+ in the bilateral radial, brachial, femoral, popliteal, posterior tibial and and dorsalis pedis arteries., Sensation intact. Compartment Syndrome exam of affected extremity: is normal. DVT Exam: negative Homans' sign noted on exam, no appreciated bluish discoloration, pain, swelling, tenderness, erythema, increased warmth, that is moderate, of the right leg and left leg, 01:01 ECG was reviewed by the Attending Physician. [facility] Vital Signs: 06/13 22:17 BP 110 / 66; Pulse 105; Resp 18; Temp 97.5(IR); Pulse Ox 97% on R/A; Weight 115.[address] [facility] (R); Height 5 ft. 7 in. (R); Pain 10/10; 06/14 00:31 BP 122 / 79; Pulse 73; Resp 15; Pulse Ox 98% ; tm6 02:31 Pulse 97; Pulse Ox 95% on R/A; Pain 8/10; tm6 06/13 22:17 Body Mass Index 39.78 (115.21 kg, 170.18 cm) [facility] 06/13 22:17 Pain Scale: Adult [facility] 02:31 Pain Scale: Adult 6 MDM: 06/13 22:19 Patient medically screened. [facility] 06/14 00:53 Differential diagnosis: contusion, tendonitis. Data reviewed: vital signs, nurses [facility] notes, lab test result(s), EKG, radiologic studies, doppler, plain films. Consideration of Admission/Observation Patient was admitted/placed on observation. Escalation of care including admission/observation considered. I considered the following discharge prescriptions or medication management in the emergency department Medications were administered in the Emergency Department. See MAR. Independent interpretation of the following test(s) in the Emergency Department EKG: See my EKG interpretation above. Test considered but Not performed: MRI: NO MRI LE. Care significantly affected by the following chronic conditions: Diabetes, Hypertension, Congestive Heart Failure, Obesity. Counseling: I had a detailed discussion with the patient and/or guardian regarding the historical points, exam findings, and any diagnostic results supporting the discharge/admit diagnosis, lab results, radiology results, the need for further work-up and treatment in the hospital. 06/13 22:26 Order name: Basic Metabolic Panel; Complete Time: 00:42 [facility] 06/13 22:26 Order name: CBC with Diff; Complete Time: 00:42 [facility] 06/13 22:26 Order name: LFT's; Complete Time: 00:42 [facility] 06/13 22:26 Order name: Magnesium; Complete Time: 00:42 [facility] 06/13 22:26 Order name: NT PRO-BNP; Complete Time: 00:42 [facility] 06/13 22:26 Order name: PT-INR; Complete Time: 00:42 [facility] 06/13 22:26 Order name: Troponin HS; Complete Time: 00:42 [facility] 06/13 22:26 Order name: Lipase; Complete Time: 00:42 [facility] 06/13 22:26 Order name: Urinalysis w/ reflexes; Complete Time: 00:42 [facility] 06/14 00:42 Order name: Troponin High Sensitivity: 1 AM [facility] 06/14 00:43 Order name: Blood Culture Adult (2) [facility] 06/14 00:43 Order name: Lactate w/ 2H reflex if indic. [facility] 06/14 01:59 Order name: Hemoglobin A1c [facility] 06/14 01:59 Order name: Urinalysis w/ reflexes [facility] 06/14 01:59 Order name: CBC with Automated Diff [facility] 06/14 01:59 Order name: CBC with Automated Diff EDMS 06/14 01:59 Order name: Comprehensive Metabolic Panel [facility] 06/14 01:59 Order name: Comprehensive Metabolic Panel [facility] 06/14 01:59 Order name: Lipid Profile [facility] 06/14 01:59 Order name: Lipid Profile [facility] 06/14 01:59 Order name: Magnesium [facility] 06/14 01:59 Order name: Magnesium [facility] 06/14 01:59 Order name: Phosphorus [facility] 06/14 01:59 Order name: Phosphorus [facility] 06/14 08:40 Order name: Glucose, Ancillary Testing [facility] 06/14 11:57 Order name: Glucose, Ancillary Testing [facility] 06/14 13:53 Order name: CBC with Automated Diff [facility] 06/14 17:09 Order name: Glucose, Ancillary Testing [facility] 06/13 22:26 Order name: XRAY Chest (1 view) [facility] 06/13 22:26 Order name: US Extremity Venous W Compression Stefan [facility] 06/14 01:46 Order name: Lower Extremity Artery [employer] [facility] 06/13 22:26 Order name: EKG; Complete Time: 22:27 [facility] 06/13 22:26 Order name: Cardiac monitoring; Complete Time: 00:29 [facility] 06/13 22:26 Order name: EKG - Nurse/Tech; Complete Time: 00:29 [facility] 06/13 22:26 Order name: IV Saline Lock; Complete Time: 23:55 [facility] 06/13 22:26 Order name: Labs collected and sent; Complete Time: 23:55 [facility] 06/13 22:26 Order name: O2 Per Protocol; Complete Time: 23:55 [facility] 06/13 22:26 Order name: O2 Sat Monitoring; Complete Time: 23:55 [facility] EC:01 Rate is 89 beats/min. Rhythm is regular. QRS [place] is Normal. [place] interval is normal. QRS janet interval is normal. QT interval is normal. No Q waves. T waves are Normal. No ST changes noted. Clinical impression: NSR w/ Non-specific ST/T Changes and No evidence of ischemia. Interpreted by me. Reviewed by me. Administered Medications: 00:12 Drug: morphine IVP or IV 2 mg IVP once over 4 mins Route: IVP; Infused Over: 4 mins; tm6 Site: right antecubital; 00:12 Drug: Ondansetron IVP 4 mg IVP once; over 2 minutes Route: IVP; Site: right antecubital;tm6 00:28 Drug: NS 0.9% IV 1000 ml IV at 75 ml/hr continuous Route: IV; Rate: 75 ml/hr; Site: tm6 left antecubital; 01:12 Drug: morphine IVP or IV 2 mg IVP once over 4 mins Route: IVP; Infused Over: 4 mins; tm6 Site: right antecubital; 01:12 Drug: ceFAZolin IVPB 2 grams IVPB once over 30 mins; (mix in 100 mL NS) Route: IVPB; tm6 Infused Over: 30 mins; Site: right antecubital; 02:30 Drug: vancoMYCIN IVPB 1 grams IVPB once over 2 hrs Route: IVPB; Infused Over: 2 hrs; tm6 Site: right antecubital; Disposition Summary: 06/14/23 00:58 Hospitalization Ordered Notes: Hospitalization Status: Inpatient Admission janet Provider: Jorge Alberto Jimenez cha Condition: Stable janet Problem: new janet Symptoms: have improved janet Bed/Room Type: Standard janet Location: Telemetry/MedSurg (Inpatient)(06/14/23 17:28) Room Assignment: [facility](06/14/23 19:29) [facility] Diagnosis - Cellulitis and acute lymphangitis of other parts of limb - LOWER EXT VENOUS STASIS janet - Obesity, unspecified janet - Elevated white blood cell count janet - Localized edema 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
[2023-06-14] MEDS ORDERED: VANCOMYCIN 1 GM/VIAL ONE ×4 (01:01→17:03)
[2023-06-14] MEDS ORDERED: CEFAZOLIN SODIUM 2 GM/VIAL ONE (01:01)
[2023-06-14] MEDS ORDERED: NA CHLORIDE 0.9% 100 ML ONE ×2 (01:01→08:55)
[2023-06-14] MEDS ORDERED: NA CHLORIDE 0.9% 250 ML ONE ×4 (01:01→17:03)
[2023-06-14] MEDS ORDERED: SODIUM CHLORIDE 0.9% 10ML INJ IV PRN (01:45)
[2023-06-14] MEDS ORDERED: VANCOMYCIN 1 GM in NA CHLORIDE 0.9% 250 ML IVPB ONE ×2 (02:00→04:00)
[2023-06-14] MEDS ORDERED: VANCOMYCIN 1 GM in NA CHLORIDE 0.9% 250 ML IVPB SCH (02:00)
[2023-06-14] MEDS ORDERED: ACETAMINOPHEN 500 MG TAB ONE ×2 (03:01→08:53)
[2023-06-14] MEDS: ACETAMINOPHEN 500 MG TAB PO PRN ×2 (03:02→09:30)
[2023-06-14] MEDS ORDERED: MORPHINE 4 MG/ML SYR IV ONE (03:09)
--- NOTE | 2023-06-14 03:12 | P.HP ---
Certification for Inpatient With expected LOS: >2 Midnights Patient will require the following post-hospital care: None Practitioner: I am a practitioner with admitting privileges, knowledge of patient current condition, hospital course, and medical plan of care. Services: Services provided to patient in accordance with Admission requirements found in Title 42 Section 412.3 of the Code of Federal Regulations Patient History Date of Service: 06/15/23 Primary Care Provider: [place] Reason for admission: cellulitis of lower extremities History of Present Illness: Mr. Callahan is a 62-year-old [facility] patient HTN, HLD, CHF, and coronary artery disease who presented to the ER with pain in both legs. There was concern for cellulitis and the patient was admitted for further management. Allergies No Known Allergies Allergy (Verified 12/19/20 04:11) Home medications list reviewed: Yes Home Medications: Amiodarone HCl [Cordarone*] 200 mg PO DAILY 09/13/18 Gabapentin [Neurontin] 600 mg PO BID 09/13/18 Metformin HCl [Glucophage] 1,000 mg PO BID 09/13/18 Omeprazole 20 mg PO DAILY 09/13/18 Potassium Chloride 20 meq PO BID 09/13/18 Apixaban [Eliquis] 1 tab PO BID 12/20/20 Atorvastatin Calcium [Lipitor] 0.5 tab PO DAILY 12/20/20 Cyanocobalamin (Vitamin B-12) [B-12] 2 tab PO DAILY 12/20/20 Ergocalciferol (Vitamin D2) [Vitamin D2] 1 cap PO Q7D 12/20/20 Cetirizine HCl [Zyrtec*] 10 mg PO DAILY #20 tablet 03/06/21 Carvedilol [Coreg] 6.25 mg PO BID 06/01/22 Semaglutide [Wegovy] 1 mg SQ EVERY 7TH DAY 06/01/22 Furosemide 80 mg PO BID #65 tab 06/02/22 Smz./Tmp. [Bactrim Ds 800 MG/160 MG] 1 tab PO BID #20 tab 06/02/22 Colchicine 0.6 mg PO DAILY 06/14/23 Empagliflozin [Jardiance] 25 mg PO DAILY 06/14/23 Lisinopril [Zestril] 5 mg PO DAILY 06/14/23 Meloxicam 15 mg PO DAILY 06/14/23 traMADol HCL [Ultram*] 100 mg PO TID 06/14/23 - Past Medical/Surgical History Diabetic: Yes -: Diabetes mellitus type 2 -: Hypertension -: CAD -: Congestive heart failure, systolic dysfunction-EF 40% -: Obstructive sleep apnea -: Hypoventilation obesity syndrome -: Morbid obesity -: Hyperlipidemia -: ARTHRITIS -: Tobacco abuse -: Atrial fibrillation, chronic anti coagulation-Coumadin -: Knee surgery -: Appendectomy -: Back surgery -: CORONARY ANGIOPALSTY -: CYST REMOVAL IN THE BUTTOCKS 2019- HAD BLOOD TRANSFUSION Psychosocial/ Personal History: Patient is a . He has 6 children. - Family History Mother -: Hypertension, Diabetes Notes: - Social History Smoking Status: Heavy Tobacco smoker (>10 cigarettes/day) Patient receptive to therapy: No Alcohol use: No CD- Drugs: No Caffeine use: Yes Place of Residence: Home Review of Systems 10-point ROS is otherwise unremarkable Integumentary: Other Physical Examination - Physical Exam General: Alert, In no apparent distress, Disheveled, Obese HEENT: Atraumatic, Normocephalic Neck: Supple, JVD not distended Respiratory: Clear to auscultation bilaterally Cardiovascular: Regular rate/rhythm, Edema Capillary refill: <2 Seconds Gastrointestinal: Normal bowel sounds, Soft and benign Musculoskeletal: No clubbing Integumentary: Skin lesion, Other (left mixing machine tender cork gasket, warm, reddened. Right foot cool/cold to touch, mildly cyanotic) Neurological: Normal speech, Normal tone Lymphatics: No axilla or inguinal lymphadenopathy External genitalia: Deferred Rectal: Deferred - Studies Laboratory Data (last 24 hrs) 06/13/23 06/13/23 06/13/23 23:51 23:51 23:51 WBC 15.50 H Hgb 16.4 Hct 49.6 H Plt Count 273 PT 11.7 INR 1.07 Sodium 137 Potassium 3.6 BUN 13 Creatinine 0.90 Glucose 166 H Magnesium 2.3 Total Bilirubin 0.3 AST 9 L ALT 20 Alkaline Phosphatase 72 Lipase 49 Assessment and Plan - Plan Cellulitis with Leukocytosis without shift -Cellulitis and acute lymphangitis of other parts of limb, LOWER EXT VENOUS STASIS (chronic) -Continue IV antibiotics, pt takes amiodarone so IV antibiotics started in ED are Unasyn and Vancomycin. Peripheral Arterial Disease Doppler of right lower extremity arteries -"Impression: "Impression: 1. No evidence of flow-limiting stenosis in the right common femoral, superficial femoral, or popliteal arteries. 2. Conversion to monophasic waveforms in the posterior tibial and dorsalis pedis arteries may indicate flow limiting stenosis in these vessels." Doppler of lower extremity veins - "Impression: No evidence of DVT in the bilateral lower extremity veins" Diabetes Mellitus Tight blood sugar, continue home medications. Discharge Plan: Home - Advance Directives Does patient have a Living Will: No Does patient have a Durable POA for Healthcare: No
[2023-06-14] MEDS ORDERED: MORPHINE 4 MG/ML SYR ONE (03:19)
[2023-06-14] MEDS: GABAPENTIN 300 MG CAP PO SCH ×4 (04:53→20:40)
[2023-06-14 04:56] VITALS: BMI 39.6
[2023-06-14] MEDS ORDERED: GABAPENTIN 300 MG CAP ONE ×3 (05:18→14:54)
[2023-06-14] MEDS: carvediloL 3.125 MG TAB PO SCH ×2 (06:00→17:28)
[2023-06-14] MEDS ORDERED: carvediloL 6.25 MG TAB ONE ×3 (06:00→17:26)
[2023-06-14] MEDS: INSULIN REGULAR (HUMAN) 100 UNIT/ML SQ SCH ×4 (07:30→20:40)
[2023-06-14] MEDS ORDERED: POTASSIUM CL SA 10 MEQ TAB PO ONE ×2 (08:01→08:54)
[2023-06-14] MEDS: ALBUTEROL 2.5 MG/3 ML NEB SOL NEB SCH ×3 (08:15→19:00)
[2023-06-14] MEDS ORDERED: ALBUTEROL 2.5 MG/3 ML NEB SOL ONE ×2 (08:25→14:06)
[2023-06-14] MEDS ORDERED: PANTOPRAZOLE 40 MG INJ ONE (08:52)
[2023-06-14] MEDS ORDERED: APIXABAN 5 MG TABLET ONE (08:53)
[2023-06-14] MEDS ORDERED: lisinopriL 5 MG TAB ONE (08:53)
[2023-06-14] MEDS ORDERED: CEFAZOLIN SODIUM 1 GM/VIAL ONE ×2 (08:54→18:49)
[2023-06-14] MEDS ORDERED: AMIODARONE HCL 200 MG TAB ONE (08:54)
[2023-06-14] MEDS ORDERED: FUROSEMIDE 40 MG/4 ML VIAL ONE ×2 (08:54→17:21)
[2023-06-14] MEDS: FUROSEMIDE 40 MG/4 ML VIAL IV SCH ×2 (09:00→17:00)
[2023-06-14] MEDS: PANTOPRAZOLE 40 MG INJ IVP SCH (09:00)
[2023-06-14] MEDS: CEFAZOLIN 1 GM in NA CHLORIDE 0.9% 50 ML IVPB SCH ×2 (09:00→17:00)
[2023-06-14] MEDS: lisinopriL 5 MG TAB PO SCH (09:00)
[2023-06-14] MEDS: AMIODARONE HCL 200 MG TAB PO SCH (09:00)
[2023-06-14] MEDS ORDERED: VANCOMYCIN 2 GM in NA CHLORIDE 0.9% 500 ML IVPB SCH (09:00)
[2023-06-14] MEDS: APIXABAN 5 MG TABLET PO SCH ×2 (09:00→20:40)
[2023-06-14 13:45] LABS: Absolute Lymphocytes (CBC) 2.5 K/uL (0.7-4.9); Hematocrit 43.9 % (39.6-49.0); Lymphocytes % 21.3 % (15.3-44.8); MCV 85.4 fL (80-100); MPV 7.6 fL (7.6-11.3); Platelets 232 thou/uL (152-406); RBC Red Blood Cell Count 5.14 M/uL (4.33-5.43)
--- NOTE | 2023-06-14 14:43 | P.PN ---
Date of Service: 06/14/23 Patient seen and examined. He has been complaining of bilateral leg pain. Repeat CBC shows mild leukocytosis. No fever. Bilateral lower extremity secondary to venous stasis hemosiderin staining. Plan: IV Lasix Keep legs elevated Antibiotics for now. Supportive measures.
[2023-06-14] MEDS: MORPHINE 2 MG/ML SYR IV PRN ×2 (14:58→21:20)
[2023-06-14] MEDS: VANCOMYCIN 2 GM in NA CHLORIDE 0.9% 500 ML IVPB SCH (16:00)
[2023-06-14] MEDS ORDERED: INFLUENZA VACCINE (for 6+ mo) 0.5 ML DOSE IMVAC ONE (16:00)
[2023-06-14] MEDS ORDERED: INSULIN REGULAR (HUMAN) 100 UNIT/ML ONE (17:07)
--- NOTE | 2023-06-14 19:19 | RAD REPORT ---
EXAM DESCRIPTION: RAD - Chest Single View - 06/13/2023 10:49 pm CLINICAL HISTORY: 62-year-old male with cough. TECHNIQUE: Single view, AP portable chest was obtained. COMPARISON: None. FINDINGS: Unremarkable cardiac and mediastinal silhouette. Heart size is normal. Diffuse interstitia l prominence may be secondary to viral/atypical infectious process versus mild pulmonary vascular con gestion. Low lung volumes grossly clear without focal opacity, pneumothorax or pleural effusions. The visual ized bones are within normal limits. IMPRESSION: No acute cardiopulmonary abnormalities. Electronically signed by: Denae Catalan MD 06/14/2023 12:11 AM OFFICE MACHINES SALES REPRESENTATIVE Due to temporary technical issues with the PACS/Fluency reporting system, reports are being signed by the in house radiologists without review as a courtesy to insure prompt reporting. The interpreting radiologist is fully responsible for the content of the report.
--- NOTE | 2023-06-14 20:11 | RAD REPORT ---
EXAM DESCRIPTION: US - Extrem Venous W Compress Stefan - 06/13/2023 11:48 pm CLINICAL HISTORY: The patient is 62 years old and is Male; Pain;Swelling TECHNIQUE: Real-time duplex ultrasound scan of the bilateral lower extremity veins integrating B-mod e two-dimensional vascular structure, Doppler spectral analysis, color flow Doppler imaging and Impre ssion. COMPARISON: No relevant prior studies available. FINDINGS: Right deep veins: Unremarkable. No DVT in the visualized common femoral, femoral, or p opliteal veins. The veins demonstrate normal color flow, are normally compressible where visualized , with normal phasic flow and/or augmentation response. Left deep veins: Unremarkable. No DVT in the visualized common femoral, femoral, or popliteal v eins. The veins demonstrate normal color flow, are normally compressible where visualized, with nor mal phasic flow and/or augmentation response. Soft tissues: No acute findings. IMPRESSION: No evidence of DVT in the bilateral lower extremity veins. Electronically signed by: Marty Hough MD 06/14/2023 01:51 AM ANTHROPOMETRIST Due to temporary technical issues with the PACS/Fluency reporting system, reports are being signed by the in house radiologists without review as a courtesy to insure prompt reporting. The interpreting radiologist is fully responsible for the content of the report.
--- NOTE | 2023-06-14 20:36 | RAD REPORT ---
EXAM DESCRIPTION: US - Lower Extremity Artery Uni Ltd - 06/14/2023 10:14 am CLINICAL HISTORY: 62 years Male, cold, cyanotic foot COMPARISON: Report from 11/08/2022 TECHNIQUE: Grayscale, color Doppler, and spectral Doppler imaging of the right lower extremity arter ies. FINDINGS: Velocities: (All velocities in centimeters per second) Right lower extremity- COBOL DEVELOPER: 132 Proximal SFA: 116 Mid SFA: 114 Distal SFA: 91 Popliteal: 101 BROOM MACHINE OPERATOR: 110 DPA: 121 Doppler imaging: Right leg: Multiphasic waveforms in the right common femoral, superficial femoral, popliteal artery . Mild atherosclerotic plaque. Conversion to monophasic waveforms with preserved velocity in the post erior tibial and dorsalis pedis arteries. IMPRESSION: 1. No evidence of flow-limiting stenosis in the right common femoral, superficial femo ral, or popliteal arteries. 2. Conversion to monophasic waveforms in the posterior tibial and dorsalis pedis arteries may indic ate flow-limiting stenosis in these vessels. Electronically signed by: Durga Davis DO 06/14/2023 05:02 AM LARYNGOLOGIST M Due to temporary technical issues with the PACS/Fluency reporting system, reports are being signed by the in house radiologists without review as a courtesy to insure prompt reporting. The interpreting radiologist is fully responsible for the content of the report.
[2023-06-14] MEDS ORDERED: ATORVASTATIN 40 MG TAB PO SCH (21:00)
[2023-06-15] MEDS: CEFAZOLIN 1 GM in NA CHLORIDE 0.9% 50 ML IVPB SCH ×2 (00:51→08:02)
[2023-06-15] MEDS ORDERED: ALBUTEROL 2.5 MG/3 ML NEB SOL ONE (03:32)
[2023-06-15] MEDS: ALBUTEROL 2.5 MG/3 ML NEB SOL NEB SCH ×2 (03:35→07:00)
[2023-06-15 04:05] LABS: Absolute Lymphocytes (CBC) 4.2 K/uL (0.7-4.9); Hematocrit 46.9 % (39.6-49.0); Lymphocytes % 27.1 % (15.3-44.8); MCV 85.4 fL (80-100); MPV 7.8 fL (7.6-11.3); Platelets 266 thou/uL (152-406)
[2023-06-15 04:13] VITALS: O2SAT 93
[2023-06-15 04:29] LABS: Albumin 3.3 g/dL (3.4-5.0); Bilirubin Total 0.4 mg/dL (0.2-1.0); Magnesium 2.4 mg/dL (1.6-2.4); Phosphorus 4.1 mg/dL (2.5-4.9); Potassium 4.1 mEq/L (3.5-5.1); Protein, Total 7.3 g/dL (6.4-8.2)
[2023-06-15] MEDS: VANCOMYCIN 2 GM in NA CHLORIDE 0.9% 500 ML IVPB SCH (04:54)
[2023-06-15] MEDS: carvediloL 3.125 MG TAB PO SCH (05:29)
[2023-06-15] MEDS: INSULIN REGULAR (HUMAN) 100 UNIT/ML SQ SCH (07:30)
[2023-06-15] MEDS ORDERED: FUROSEMIDE 40 MG/4 ML VIAL IV SCH (07:52)
[2023-06-15] MEDS: MORPHINE 2 MG/ML SYR IV PRN (08:01)
[2023-06-15] MEDS: GABAPENTIN 300 MG CAP PO SCH (08:03)
[2023-06-15] MEDS: PANTOPRAZOLE 40 MG INJ IVP SCH (08:03)
[2023-06-15] MEDS: APIXABAN 5 MG TABLET PO SCH (08:03)
[2023-06-15] MEDS: lisinopriL 5 MG TAB PO SCH (08:03)
[2023-06-15] MEDS: AMIODARONE HCL 200 MG TAB PO SCH (08:03)
[2023-06-15 08:15] VITALS: BP 118/62
[2023-06-15 09:15] VITALS: TEMP 97.5
--- NOTE | 2023-06-15 11:30 | P.DS ---
Admission Date: 06/14/23 Discharge Date: 06/15/23 Primary Care Provider: OK Disposition: ROUTINE DISCHARGE Discharge Condition: FAIR Reason for Admission: cellulitis of lower extremities - Problems (1) Lower extremity cellulitis Current Visit: Yes Status: Acute (2) Acute on chronic diastolic heart failure Current Visit: No Status: Acute (3) Edema Onset Date: 12/25/17 Current Visit: No Status: Acute Qualifiers: Edema type: unspecified Qualified Code(s): R60.9 - Edema, unspecified (4) Chronic anticoagulation Onset Date: 12/25/17 Current Visit: No Status: Chronic (5) Chronic atrial fibrillation Current Visit: No Status: Chronic Brief History of Present Illness: Mr. Callahan is a 62[facility]year-old [facility] patient HTN, HLD, CHF, and coronary artery disease, peripheral edema who presented to the ER with pain in both legs. There was concern for cellulitis. Blood work showed leukocytosis and bilateral legs were swollen. Patient was admitted for further management. Hospital Course: Patient was treated with antibiotics for possible cellulitis. He had leukocytosis by secondary to 15,000. He had no fever. He was placed on IV Lasix for diuresis. Patient diuresed significantly with the Lasix, bilateral lower extremity swelling improved. 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 He is clinically stable. Patient is discharged with oal Augmentin. He is informed to continue taking his Lasix 80 mg twice daily. Vital Signs/Physical Exam: Temp Pulse Resp BP Pulse Ox 97.5 F 82 18 118/62 95 06/15/23 08:00 06/15/23 08:02 06/15/23 08:31 06/15/23 08:03 06/15/23 08:31 General: Alert, In no apparent distress, Oriented x3 HEENT: Mucous membr. moist/pink Neck: Supple, JVD not distended Respiratory: Clear to auscultation bilaterally, Normal air movement Cardiovascular: Regular rate/rhythm, Normal S1 S2, Edema (Bilateral legs) Gastrointestinal: Soft and benign, Non-distended, No tenderness Musculoskeletal: No tenderness Integumentary: Other (Hemosiderin staining bilateral legs) Neurological: Normal strength at 5/5 x4 extr Laboratory Data at Discharge: WBC 15.40 thou/uL (4.3-10.9) H 06/15/23 03:51 Hgb 15.4 g/dL (13.6-17.9) 06/15/23 03:51 Hct 46.9 % (39.6-49.0) 06/15/23 03:51 Plt Count 266 thou/uL (152-406) 06/15/23 03:51 PT 11.7 SECONDS (9.5-12.5) 06/13/23 23:51 INR 1.07 06/13/23 23:51 Sodium 139 mEq/L (136-145) 06/15/23 03:51 Potassium 4.1 mEq/L (3.5-5.1) D 06/15/23 03:51 BUN 18 mg/dL (7-18) 06/15/23 03:51 Creatinine 1.03 mg/dL (0.70-1.30) 06/15/23 03:51 Glucose 150 mg/dL (74-106) H 06/15/23 03:51 Phosphorus 4.1 mg/dL (2.5-4.9) 06/15/23 03:51 Magnesium 2.4 mg/dL (1.6-2.4) 06/15/23 03:51 Total Bilirubin 0.4 mg/dL (0.2-1.0) 06/15/23 03:51 AST 6 U/L (15-37) L 06/15/23 03:51 ALT 20 U/L (16-61) 06/15/23 03:51 Alkaline Phosphatase 61 U/L (45-117) 06/15/23 03:51 Triglycerides 190 mg/dL (<150) H 06/15/23 03:51 Cholesterol 133 mg/dL (<200) 06/15/23 03:51 HDL Cholesterol 32 mg/dL (40-60) L 06/15/23 03:51 Cholesterol/HDL Ratio 4.16 06/15/23 03:51 Lipase 49 U/L (13-75) 06/13/23 23:51 Home Medications: Amiodarone HCl [Cordarone*] 200 mg PO DAILY 09/13/18 Gabapentin [Neurontin] 600 mg PO BID 09/13/18 Metformin HCl [Glucophage] 1,000 mg PO BID 09/13/18 Omeprazole 20 mg PO DAILY 09/13/18 Potassium Chloride 20 meq PO BID 09/13/18 Apixaban [Eliquis] 1 tab PO BID 12/20/20 Atorvastatin Calcium [Lipitor] 0.5 tab PO DAILY 12/20/20 Cyanocobalamin (Vitamin B-12) [B-12] 2 tab PO DAILY 12/20/20 Ergocalciferol (Vitamin D2) [Vitamin D2] 1 cap PO Q7D 12/20/20 Cetirizine HCl [Zyrtec*] 10 mg PO DAILY #20 tablet 03/06/21 Carvedilol [Coreg] 6.25 mg PO BID 06/01/22 Semaglutide [Wegovy] 1 mg SQ EVERY 7TH DAY 06/01/22 Furosemide 80 mg PO BID #65 tab 06/02/22 Colchicine 0.6 mg PO DAILY 06/14/23 Empagliflozin [Jardiance] 25 mg PO DAILY 06/14/23 Lisinopril [Zestril] 5 mg PO DAILY 06/14/23 Meloxicam 15 mg PO DAILY 06/14/23 Amox/Clavulanate [Augmentin 875-125 Tab] 1 each PO BID #14 tab 06/15/23 Hydrocodone 7.5/APAP 325 [[place] 7.5/325 mg] 1 tab PO Q6H PRN #20 tab 06/15/23 New Medications: Amox/Clavulanate [Augmentin 875-125 Tab] 1 each PO BID #14 tab Hydrocodone 7.5/APAP 325 [[place] 7.5/325 mg] 1 tab PO Q6H PRN #20 tab PRN Reason: Pain Diet: ADA Activity: Ad leonor [facility] [Primary Care Provider] - 1-2 Weeks Time spent managing pt's care (in minutes): 28
--- NOTE | 2023-06-20 14:02 | EKG ---
Test Date: 2023-06-14 Test Time: 00:25:[address] Researcher: ROSA MEASUREMENT RESULTS: Intervals: Rate: 89 VT: 204 QRSD: 106 QT: 372 QTc: 452 [place]: P: 57 VT: 204 QRS: 85 T: 66 INTERPRETIVE STATEMENTS: Normal sinus rhythm Normal ECG Compared to ECG 05/31/2022 18:55:32 No significant changes Electronically Signed On 06-20-23 13:47:34 DECAL MAKER by Adam Perales
== END 2023-06-15 13:08 | disposition home or self-care (01) | DRG 602 ==
LOC: ER 21:56 → ERHOLD 06-14 02:01 → 4TH 06-14 19:46
PROVIDERS: ADMIT Internal Medicine; ATTEND Internal Medicine
DX: L03.116 Cellulitis of left lower limb (principal); I50.33 Acute on chronic diastolic (congestive) heart failure; E66.2 Morbid (severe) obesity with alveolar hypoventilation; I48.19 Other persistent atrial fibrillation; L03.115 Cellulitis of right lower limb; I25.10 Atherosclerotic heart disease of native coronary artery without angina pectoris; E78.5 Hyperlipidemia, unspecified; I11.0 Hypertensive heart disease with heart failure; M19.90 Unspecified osteoarthritis, unspecified site; F17.210 Nicotine dependence, cigarettes, uncomplicated; E11.51 Type 2 diabetes mellitus with diabetic peripheral angiopathy without gangrene; Z79.01 Long term (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 anticoagulants
CPT/HCPCS: 36415; 71045; 80048; 80053; 80061; 80076; 80202; 81001; 82947; 83036; 83605; 83690; 83735; 83880; 84100; 84484; 85025; 85610; 87040; 93005; 93926; 93970; 94760; 96374; 96375; 99285; A4216; C9113; J0690; J1815; J1940; J2270; J2405; J7030; J7040; J7050; J7613

== ENCOUNTER 2024-01-07 14:31 | Emergency (ER) | payer OTHER ==
--- OUTSIDE RECORDS SUMMARY | 2024-01-07 14:36 | XMS REPORT | Continuity of Care Document ---
Author Name Unknown Address [address] [place] [address] [facility] thconnect Address [address] [place] [address] Care Team Providers Care Senior Data Warehouse Architect Name Role Phone [place] [place] [facility] Primary Car e Physician Unavailable AMAURY CORONADO Attending Clinician Unavailable Amaury Coronado MD Attending Clinician [phone] [place] [place] [facility] Admitting C linician Unavailable Payers Payer Name Policy Type Policy Number Effective Date Expirati on Date Source [facility] [id number] 2023 00:00:00 Allergies, Adverse Reactions, Alerts Allergy Name Allergy Type Status Severity Reaction(s) Onset Date Inactive Date Treating Clinician Comments Source NO KNOWN ALLERGIE S Drug Class Active [facility] Social History Social Habit Start Date Stop Date Quantity Comments Source Sexual orientation U [facility] Sex assigned at 1960 00:00:00 1960 00:00:00 [facility] Smoking Status Start Date Stop Date Source Tobacco smoking consumption unknown [facility] Medications Ordered Medication Name Filled Medication Name Start Date Stop Date Current Medication? Ordering Clinician Indication Dosage Frequency Signature (SIG) Comments Components Source perflutren protein-A microsphr (OPTISON) injection 3 mL 10-22 20:30: 00 10-22 20:28 :00 No [id number] 3mL 3 mL, IV Push, ONCE, 1 dose, On Stephanie 10/23/23 at 1530, Routine [facility] Procedures Procedure Date / Time Performed Performing Clinician Source TRANSTHORACIC ECHO (TTE) COMPLETE W/ CONTRAST 2023-10-23 20:01:00 Marty Domínguez [facility] Encounters Start Date/Time End Date/Time Encounter Type Admission Type Attending Clinicians Care Facility Care Department Encounter ID Source 2023-10-23 14:00:00 2023-10-23 23:59:00 [facility] [id number] 2023-10-23 14:00:00 2023-10-23 23:59:00 Hospital Encounter Amaury Coronado [facility] [id number] [facility] Results Test Description Test Time Test Comments Results Result Co mments Source [facility]
[2024-01-07] MEDS ORDERED: MORPHINE 4 MG/ML SYR ONE (15:38)
[2024-01-07] MEDS ORDERED: KETOROLAC 30 MG/ML INJ ONE (15:38)
--- NOTE | 2024-01-07 16:37 | EDPHYS ---
Physician Documentation [facility] Name: Harvey Callahan Age: 63 yrs Sex: Male : 1960 Arrival Date: 01/07/2024 Time: 14:31 Bed 16 Private MD: ED Physician Maulik Goodman HPI: 01/06 15:49 This 63 yrs old Male presents to ER via Wheelchair with complaints of Pain. rn 15:49 Patient reports pain to bilateral lower extremities, has had neuropathy for some time, rn takes gabapentin, feels similar to previous neuropathic pain. Seen here few days ago for this pain states still having pain. Denies fever or redness or signs of infection to lower extremities which she has had in the past.. Onset: The symptoms/episode began/occurred at an unknown time. Severity of symptoms: At their worst the symptoms were moderate in the emergency department the symptoms are unchanged. The patient has experienced similar episodes in the past. The patient has been recently seen by a physician: The patient has been recently seen at the [facility] Emergency Department. Historical: - Allergies: 15:02 No Known Allergies; cm10 - PMHx: 15:02 Arthritis; Atrial fibrillation; Atrial fibrillation; Cellulitis; CHF; Diabetes - IDDM; cm10 EDEMA; Hyperlipidemia; Hypertension; knee pain; neuropathy (EDEMA); - PSHx: 15:03 Appendectomy; back; hand; cm10 - Immunization history:: Adult Immunizations up to date. - Infectious Disease History:: Denies. - Social history:: Smoking status: Patient reports the use of cigarette tobacco products, smokes 1.5 packs per day. - Family history:: not pertinent. - Hospitalizations: : No recent hospitalization is reported. ROS: 15:49 Constitutional: Negative for fever, chills, and weight loss, Cardiovascular: Negative rn for chest pain, palpitations, and edema, Respiratory: Negative for shortness of breath, cough, wheezing, and pleuritic chest pain, Abdomen/GI: Negative for abdominal pain, nausea, vomiting, diarrhea, and constipation, MS/Extremity: + pain to bilateral legs Skin: Negative for injury, rash, and discoloration, Neuro: Negative for headache, weakness, numbness, tingling, and seizure, Exam: 15:49 Constitutional: This is a well developed, well nourished patient who is awake, alert, rn and in no acute distress. Cardiovascular: Regular rate and rhythm. No pulse deficits. Respiratory: No increased work of breathing, no retractions or nasal flaring. Abdomen/GI: Soft, non-tender MS/ Extremity: Pulses equal, no cyanosis. Neurovascular intact. Full, normal range of motion. Equal circumference. No evidence of infection. Neuro: Awake and alert, GCS 15 Vital Signs: 15:01 BP 96 / 62; Pulse 90; Resp 16; Temp 97.7(TE); Pulse Ox 95% on R/A; Weight 115.67 kg; cm10 Height 5 ft. 7 in. ; Pain 10/10; 16:48 BP 100 / 60; Pulse 85; Resp 16 S; Pulse Ox 96% on R/A; kc6 15:01 Body Mass Index 39.94 (115.67 kg, 170.18 cm) cm10 15:01 Pain Scale: Adult cm10 MDM: 14:43 Patient medically screened. rn 16:35 Differential Diagnosis Chronic pain, neuropathy. Data reviewed: vital signs, nurses rn notes, old medical records, Previous visit shows no acute findings and ultrasound of the venous or arterial system. and as a result, I will discharge patient. Counseling: I had a detailed discussion with the patient and/or guardian regarding the historical points, exam findings, and any diagnostic results supporting the discharge/admit diagnosis, the need for outpatient follow up, to return to the emergency department if symptoms worsen or persist or if there are any questions or concerns that arise at home. Special discussion: I discussed with the patient/guardian in detail that at this point there is no indication for admission to the hospital. It is understood, however, that if the symptoms persist or worsen the patient needs to return immediately for re-evaluation. Administered Medications: 15:44 Drug: morphine IM 4 mg IM once Route: IM; Site: left deltoid; kc6 16:49 Follow up: Response: No adverse reaction; RASS: Alert and Calm (0) kc6 15:44 Drug: Ketorolac IM 15 mg IM once Route: IM; Site: right deltoid; kc6 16:49 Follow up: Response: No adverse reaction kc6 Disposition Summary: 01/07/24 16:36 Discharge Ordered Notes: Location: Home rn Problem: chronic rn Symptoms: have improved rn Condition: Stable rn Diagnosis - Polyneuropathy, unspecified rn - Type 2 diabetes mellitus with diabetic neuropathy, unspecified rn Followup: rn - With: Private Physician - When: As needed - Reason: Recheck today's complaints, Re-evaluation by your physician Discharge Instructions: - Discharge Summary Sheet rn - Neuropathic Pain rn - Peripheral Neuropathy rn - Diabetic Neuropathy rn - Blood Glucose Monitoring, Adult rn Forms: - Medication Reconciliation Form rn - Antibiotic turner off - Prescription Opioid Use rn - Patient Portal Instructions rn - Leadership Thank You Letter rn Signatures: Maulik Goodman MD MD rn Campbell, Kaitlyn RN RN kc6 Madelyn Duran RN RN cm10
--- NOTE | 2024-01-07 16:37 | ER ---
Nurse's Notes [facility] [place] Name: Harvey Callahan Age: 63 yrs Sex: Male : 1960 Arrival Date: 01/07/2024 Time: 14:31 Bed 16 Private MD: Diagnosis: Polyneuropathy, unspecified;Type 2 diabetes mellitus with diabetic neuropathy, unspecified Presentation: 01/06 15:01 Chief complaint: Patient states: bilateral leg pain onset a few days ago. Pt states cm10 that he has a history of neuropathy. Coronavirus screen: Client denies travel out of the [place] in the last 14 days. At this time, the client does not indicate any symptoms associated with coronavirus-19. Ebola Screen: Patient denies travel to an Ebola-affected area in the 21 days before illness onset. No symptoms or risks identified at this time. Initial Sepsis Screen: Does the patient meet any 2 criteria? No. Patient's initial sepsis screen is negative. Does the patient have a suspected source of infection? No. Patient's initial sepsis screen is negative. Risk Assessment: Do you want to hurt yourself or someone else? Patient reports no desire to harm self or others. Onset of symptoms was January 07, 2024. 15:01 Method Of Arrival: Wheelchair cm10 15:01 Acuity: DEYANIRA 4 cm10 Triage Assessment: 15:03 General: Appears in no apparent distress. comfortable, Behavior is calm, cooperative. cm10 Pain: Complains of pain in right leg and left leg. Neuro: No deficits noted. Level of Consciousness is awake, alert, obeys commands, Oriented to person, place, time, situation, Appropriate for age. Respiratory: No deficits noted. Airway is patent Respiratory effort is even, unlabored, Respiratory pattern is regular, symmetrical. Historical: - Allergies: 15:02 No Known Allergies; cm10 - PMHx: 15:02 Arthritis; Atrial fibrillation; Atrial fibrillation; Cellulitis; CHF; Diabetes - IDDM; cm10 EDEMA; Hyperlipidemia; Hypertension; knee pain; neuropathy (EDEMA); - PSHx: 15:03 Appendectomy; back; hand; cm10 - Immunization history:: Adult Immunizations up to date. - Infectious Disease History:: Denies. - Social history:: Smoking status: Patient reports the use of cigarette tobacco products, smokes 1.5 packs per day. - Family history:: not pertinent. - Hospitalizations: : No recent hospitalization is reported. Screenin:44 [facility] ED Fall Risk Assessment (Adult) History of falling in the last 3 months, kc6 including since admission No falls in past 3 months (0 pts) Confusion or Disorientation No (0 pts) Intoxicated or Sedated No (0 pts) Impaired Gait Yes (1 pt) Mobility Assist Device Used Yes (1 pt) Altered Elimination No (0 pt) Score/Fall Risk Level 0 - 2 = Low Risk. Abuse screen: Denies threats or abuse. Denies injuries from another. Nutritional screening: No deficits noted. Tuberculosis screening: No symptoms or risk factors identified. Assessment: 15:44 General: Appears in no apparent distress. comfortable, obese, unkempt, well developed, kc6 Behavior is calm, cooperative, appropriate for age. Pain: Complains of pain in right leg and left leg. Neuro: Level of Consciousness is awake, alert, obeys commands, Oriented to person, place, time, situation, Appropriate for age. Cardiovascular: Capillary refill < 3 seconds. Respiratory: Airway is patent Trachea midline Respiratory effort is even, unlabored, Respiratory pattern is regular, symmetrical. GI: No signs and/or symptoms were reported involving the gastrointestinal system. : No signs and/or symptoms were reported regarding the genitourinary system. EENT: No signs and/or symptoms were reported regarding the EENT system. Derm: No signs and/or symptoms reported regarding the dermatologic system. Skin is healthy with good turgor, Skin is dry, Skin is normal, Skin temperature is warm. Musculoskeletal: No signs and/or symptoms reported regarding the musculoskeletal system. Circulation, motion, and sensation intact. Capillary refill < 3 seconds, Range of motion: intact in all extremities. 16:48 Reassessment: Patient appears in no apparent distress at this time. No changes from kc6 previously documented assessment. Patient and/or family updated on plan of care and expected duration. Pain level reassessed. Patient is alert, oriented x 3, equal unlabored respirations, skin warm/dry/pink. Vital Signs: 15:01 BP 96 / 62; Pulse 90; Resp 16; Temp 97.7(TE); Pulse Ox 95% on R/A; Weight 115.67 kg; cm10 Height 5 ft. 7 in. ; Pain 10/10; 16:48 BP 100 / 60; Pulse 85; Resp 16 S; Pulse Ox 96% on R/A; kc6 15:01 Body Mass Index 39.94 (115.67 kg, 170.18 cm) cm10 15:01 Pain Scale: Adult cm10 ED Course: 14:36 Patient arrived in ED. mg5 14:43 Maulik Goodman MD is Attending Physician. rn 15:02 Triage completed. cm10 15:03 Arm band placed on Patient placed in an exam room, on a stretcher. cm10 15:38 Tri Neri, RN is Primary Nurse. kc6 15:44 Patient has correct armband on for positive identification. Bed in low position. Call kc6 light in reach. Side rails up X 1. Pulse ox on. NIBP on. Pillow given. 16:56 No provider procedures requiring assistance completed. Patient did not have IV access kc6 during this emergency room visit. Administered Medications: 15:44 Drug: morphine IM 4 mg IM once Route: IM; Site: left deltoid; kc6 16:49 Follow up: Response: No adverse reaction; RASS: Alert and Calm (0) kc6 15:44 Drug: Ketorolac IM 15 mg IM once Route: IM; Site: right deltoid; kc6 16:49 Follow up: Response: No adverse reaction kc Medication: 16:57 VIS not applicable for this client. kc6 Outcome: 16:36 Discharge ordered by . rn 16:56 Discharged to home via wheelchair, kc6 16:56 Condition: good 16:56 Discharge instructions given to patient, Instructed on discharge instructions, follow up and referral plans. Demonstrated understanding of instructions, follow-up care, 16:57 Patient left the ED. kc6 Signatures: Maulik Goodman MD MD rn Campbell, Kaitlyn, RN RN kc6 Madelyn Duran RN RN [facility] Monika Lares [facility]
[2024-01-08 19:26] VITALS: BP 100/60; TEMP 97.7; O2SAT 96
== END 2024-01-07 16:57 | disposition home or self-care (01) ==
LOC: ER 14:31
DX: E11.42 Type 2 diabetes mellitus with diabetic polyneuropathy (principal); I48.91 Unspecified atrial fibrillation; M19.90 Unspecified osteoarthritis, unspecified site; E78.5 Hyperlipidemia, unspecified; F17.210 Nicotine dependence, cigarettes, uncomplicated
CPT/HCPCS: 96372; 99284

== ENCOUNTER 2024-02-03 16:14 | Emergency (ER) | payer OTHER ==
--- OUTSIDE RECORDS SUMMARY | 2024-02-03 16:17 | XMS REPORT | Continuity of Care Document ---
Author Name Unknown Address [address] [place] [address] [facility] thconnect Address [address] [place] [address] Care Team Providers Care Turbine Blade Assembler Name Role Phone [facility] Primary Car e Physician Unavailable AMAURY CORONADO Attending Clinician Unavailable Amaury Coronado MD Attending Clinician [phone] CADIZ, [place] MARTY [facility] Admitting C linician Unavailable Payers Payer Name Policy Type Policy Number Effective Date Expirati on Date Source FORMERLY [facility] [id number] 2023 00:00:00 Allergies, Adverse Reactions, Alerts Allergy Name Allergy Type Status Severity Reaction(s) Onset Date Inactive Date Treating Clinician Comments Source NO KNOWN ALLERGIE S Drug Class Active [facility] Social History Social Habit Start Date Stop Date Quantity Comments Source Sexual orientation [facility] Sex assigned at 1960 00:00:00 1960 00:00:00 [facility] Smoking Status Start Date Stop Date Source Tobacco smoking consumption unknown [facility] Medications Ordered Medication Name Filled Medication Name Start Date Stop Date Current Medication? Ordering Clinician Indication Dosage Frequency Signature (SIG) Comments Components Source perflutren protein-A microsphr (OPTISON) injection 3 mL 10-22 20:30: 00 10-22 20:28 :00 No [id number] 3mL 3 mL, IV Push, ONCE, 1 dose, On Stephanie 10/23/23 at 1530, Routine [facility] Procedures Procedure Date / Time Performed Performing Clinician Source TRANSTHORACIC ECHO (TTE) COMPLETE W/ CONTRAST 2023-10-23 20:01:00 Marty Domínguez [facility] Encounters Start Date/Time End Date/Time Encounter Type Admission Type Attending Clinicians Care Facility Care Department Encounter ID Source 2023-10-23 14:00:00 2023-10-23 23:59:00 [id number] 2023-10-23 14:00:00 2023-10-23 23:59:00 Hospital Encounter Amaury Coronado [facility] [id number] [facility] Results Test Description Test Time Test Comments Results Result Co mments Source [facility]
[2024-02-03] MEDS ORDERED: NA CHLORIDE 0.9% 1,000 ML ONE ×2 (16:48→18:33)
[2024-02-03] MEDS ORDERED: ACETAMINOPHEN 500 MG TAB ONE (16:48)
[2024-02-03] MEDS ORDERED: NA CHLORIDE 0.9% 100 ML ONE (16:48)
[2024-02-03] MEDS ORDERED: PIPERACIL/TAZO 3.375 GM VIAL IV ONE (16:48)
[2024-02-03 17:43] LABS: Absolute Lymphocytes (CBC) 1.2 K/uL (0.7-4.9); Absolute Monocytes 3.2 K/uL (0.1-1.3); Basophils % 0.1 % (0-1.3); Hematocrit 45.2 % (39.6-49.0); Hemoglobin 14.2 g/dL (13.6-17.9); Lymphocytes % 3.4 % (15.3-44.8); MCH 27.8 pg (27.0-35.0); MCHC 31.4 g/dL (32.0-36.0); MCV 88.4 fL (80-100); MPV 8.7 fL (7.6-11.3); Monocytes % 9.2 % (3.3-12.3); Neutrophils % 87.3 % (41.7-73.7); Platelets 284 thou/uL (152-406); RBC Red Blood Cell Count 5.11 M/uL (4.33-5.43); Red Cell Distribution Width 13.7 % (12.1-15.2)
[2024-02-03 18:01] LABS: Albumin 3.2 g/dL (3.4-5.0); Albumin/Globulin Ratio 0.7 (1.1-1.8); Anion Gap 12.4 mEq/L (5.0-15.0); Bilirubin Total 1.4 mg/dL (0.2-1.0); Globulin 4.8 g/dL (2.3-3.5); Potassium 3.4 mEq/L (3.5-5.1)
[2024-02-03 18:17] LABS: Specific Gravity > 1.030 (1.005-1.030); Sqamous Epithelial <5 /HPF (None Seen); Urine Bacteria None Seen /HPF (<20); Urine Bilirubin NEGATIVE (Negative); Urine Blood 1+ (Negative); Urine Clarity Clear (Clear); Urine Color Yellow (Yellow); Urine Culture Reflex Order NOT NEEDED; Urine Glucose 4+ (Over) (Negative); Urine Ketones 1+ (Negative); Urine Microscopic Reflex YN ORDER UMIC; Urine Nitrite NEGATIVE (Negative); Urine Protein NEGATIVE (Negative); Urine RBC <5 /HPF (None Seen); Urine Sperm Present (None Seen); Urine Urobilinogen Normal (Normal); Urine WBC <5 /HPF (<5); Urine pH 5.5 (5.0-7.0)
[2024-02-03] MEDS ORDERED: MORPHINE 4 MG/ML SYR ONE ×2 (18:17→20:48)
[2024-02-03] MEDS ORDERED: NA CHLORIDE 0.9% 250 ML ONE (18:33)
[2024-02-03] MEDS ORDERED: VANCOMYCIN 1 GM/VIAL ONE (18:33)
[2024-02-03 18:53] LABS: PT Prothrombin Time 17.7 SECONDS (9.4-12.5); Protime INR 1.6
--- NOTE | 2024-02-03 19:17 | RAD REPORT ---
EXAM DESCRIPTION: US - Scrotum Testicles - 02/03/2024 5:10 pm CLINICAL HISTORY: pain, erythema COMPARISON: Scrotum Testicles dated 05/27/2023 TECHNIQUE: Sonographic grayscale and color flow images of the scrotum were obtained. FINDINGS: The right testicle measures 3.6 x 2.0 x 2.5 cm. No intratesticular masses or evidence of t esticular torsion. The left testicle measures 3.8 x 2.2 x 2.1 cm. No intratesticular masses or evidence of testicular to rsion. Left epididymis is asymmetrically enlarged and heterogeneous with hypervascularity along its head and body. Incidentally noted small epididymal head 2 mm cyst. Diffuse skin thickening throughout the anterior scrotum. No pathologic fluid collections. Targeted sonographic evaluation of the area of concern along the right buttock reveals no suspicious focal abnormalities. IMPRESSION: Asymmetric enlargement and hypervascularity of the left epididymal head and adjacent bod y, suggesting infectious/ inflammatory epididymitis. Diffuse skin thickening throughout the anterior scrotum.
--- NOTE | 2024-02-03 19:43 | RAD REPORT ---
EXAM DESCRIPTION: CT - Abdomen Pelvis W Contrast - 02/03/2024 6:36 pm CLINICAL HISTORY: eval for perineal infection COMPARISON: CT ABD PELVIS W CONTRAST dated 07/20/2008 TECHNIQUE: Thin cut axial CT imaging of the abdomen and pelvis was performed following intravenous a dministration of iodinated contrast. Multiplanar reformats were generated and reviewed. All CT scans are performed using dose optimization technique as appropriate and may include automated exposure control or mA/KV adjustment according to patient size. FINDINGS: No suspicious findings in the lung bases. The liver, spleen, adrenal glands, and pancreas show no suspicious findings. Gallbladder and biliary tree are also without suspicious finding. Symmetric renal function is seen with no hydronephrosis or suspicious renal mass. Punctate bilateral renal calculi, not exceeding 2 mm. No dilated bowel loops or bowel wall thickening. No free air, free fluid or inflammatory stranding. N o hernia, mass or bulky lymphadenopathy. The urinary bladder is without significant finding. No suspicious bony findings. Degenerative lower lumbar spine changes with grade 1 retrolisthesis of L 5 over S1. Soft tissue swelling involving the posterior aspect of the scrotum on the left extending into the per ineum, with non loculated extensive soft tissue gas. No discrete fluid collections appreciated. IMPRESSION: Soft tissue swelling involving the posterior aspect of the scrotum on the left extending into the perineum, with non loculated extensive soft tissue gas. No discrete fluid collections appre ciated. No acute intra-abdominal process. Incidental findings as above.
--- NOTE | 2024-02-03 20:02 | EDPHYS ---
Physician Documentation [facility] Name: Harvey Callahan Age: 63 yrs Sex: Male : 1960 Arrival Date: 02/03/2024 Time: 16:14 Bed 6 Private MD: ED Physician Marcelo Mendez HPI: 02/02 16:30 This 63 yrs old Male presents to ER via Wheelchair with complaints of ec2 Testicular Swelling, groin swelling. 16:32 Patient arrives today for evaluation of groin swelling as well as groin pain. Patient ec2 reports no fevers or chills, nausea or vomiting. States has had previous boils. Patient reports no penile discharge or drainage from the perineum.. Historical: - Allergies: 16:29 No Known Allergies; db - PMHx: 16:29 Arthritis; Cellulitis; CHF; Diabetes - IDDM; EDEMA; Atrial fibrillation; Hypertension; db neuropathy (EDEMA); Hyperlipidemia; knee pain; - PSHx: 16:29 Appendectomy; back; hand; db - Immunization history:: Adult Immunizations unknown. - Infectious Disease History:: Denies. - Social history:: Smoking status: Patient reports the use of cigarette tobacco products, smokes one-half pack cigarettes per day. ROS: 16:32 Constitutional: as per hpi ec2 Exam: 16:32 Constitutional: GEN: NAD Head: atraumatic Eyes: EOMI Ears: External ears are ec2 normal. CV: regular rate LUNGS: no respiratory distress ABD: non-distended. : Erythema in the perineum, no obvious abscess appreciated, no fluctuance, TTP SKIN: no evidence of rashes MSK: no evidence of trauma Vital Signs: 16:27 BP 110 / 60; Pulse 84; Resp 16; Temp 101.5(O); Pulse Ox 96% ; Weight 109.77 kg; Height db 5 ft. 7 in. ; 18:56 BP 101 / 55; Pulse 105; Resp 18; Pulse Ox 93% ; ap3 19:36 BP 103 / 56; Pulse 100; Resp 18; Temp 99.5(O); Pulse Ox 92% on R/A; pc2 20:15 BP 92 / 51; Pulse 69; Resp 17 S; Pulse Ox 100% on R/A; ha1 21:20 BP 101 / 58; Pulse 71; Resp 17 S; Pulse Ox 100% on R/A; ha1 22:07 BP 114 / 57; Pulse 100; Resp 18; Pulse Ox 100% ; pc2 23:30 BP 106 / 59; Pulse 101; Resp 18; Pulse Ox 100% on R/A; pc2 02/03 01:00 BP 109 / 61; Pulse 91; Resp 18; Pulse Ox 100% on R/A; pc2 02/02 16:27 Body Mass Index 37.90 (109.77 kg, 170.18 cm) db MDM: 02/02 16:19 Patient medically screened. ec2 16:32 Data reviewed: vital signs. ED course: Patient arrives today for evaluation of perineal ec2 pain. Examination remarkable for findings as noted above. examination performed under nurse supervision, REZA Anderson. Will obtain lab work, urine studies, CT imaging, ultrasound. Differential includes necrotizing fasciitis, epididymitis, cellulitis. . 17:54 ED course: EKG independently reviewed and interpreted by me, shows sinus tachycardia, ec2 rate of 109, no acute ST segment elevations, intervals are nonconcerning.. 18:09 ED course: Will do gentle fluid resuscitation due to concern for possible precipitating ec2 volume overload with 3+ liters of fluid. However if patient tolerates may proceed.. 19:24 ED course: Ultrasound shows likely epididymitis and likely scrotal cellulitis. Pending ec2 CT imaging.. 20:59 ED course: I discussed the case with urology as well as surgical ICU physician who ec2 agrees to except this patient for transfer to [facility]. 02/02 16:30 Order name: Blood Culture Adult (2) ec2 02/02 16:30 Order name: CBC with Diff; Complete Time: 20:43 ec2 02/02 16:30 Order name: CMP; Complete Time: 18:15 ec2 02/02 16:30 Order name: Lactate w/ 2H reflex if indic.; Complete Time: 18:09 ec2 02/02 16:30 Order name: Protime (+inr); Complete Time: 18:53 ec2 02/02 16:30 Order name: Ptt, Activated; Complete Time: 18:53 ec2 02/02 16:30 Order name: Urinalysis w/ reflexes; Complete Time: 18:39 ec2 02/02 16:30 Order name: C-Reactive Protein; Complete Time: 18:15 ec2 02/02 20:00 Order name: Ghost Lactate-NO COLLECT Timer; Complete Time: 20:02 EDMS 02/02 20:36 Order name: CBC Smear Scan; Complete Time: 20:43 EDMS 02/02 23:42 Order name: Lactate Sepsis 2 HR Follow-up EDMS 02/02 16:30 Order name: US Scrotum Testicles; Complete Time: 19:23 ec2 02/02 16:30 Order name: CT Abd/Pelvis - IV Contrast Only; Complete Time: 19:51 ec2 02/02 16:30 Order name: Accucheck; Complete Time: 17:41 ec2 02/02 16:30 Order name: Cardiac monitoring; Complete Time: 17:41 ec2 02/02 16:30 Order name: EKG - Nurse/Tech; Complete Time: 17:31 ec2 02/02 16:30 Order name: IV Saline Lock - Large Bore; Complete Time: 17:41 ec2 02/02 16:30 Order name: Labs collected and sent; Complete Time: 17:41 ec2 02/02 16:30 Order name: O2 Per Protocol; Complete Time: 17:41 ec2 02/02 16:30 Order name: O2 Sat Monitoring; Complete Time: 17:41 ec2 02/02 16:30 Order name: Vital Signs; Complete Time: 17:41 ec2 02/02 17:54 Order name: Labs - recollect needed: recollect blue top and collect 2nd set of bd cultures; Complete Time: 18:31 Administered Medications: 17:41 Drug: Acetaminophen PO 1000 mg PO once Route: PO; tm6 18:31 Follow up: Response: No adverse reaction; Pain is unchanged, physician notified tm6 17:41 Drug: Piperacillin-Tazobactam IVPB 3.375 grams IVPB once over 60 mins; (mix in NS 100 tm6 mL) Route: IVPB; Infused Over: 60 mins; Site: right antecubital; 18:30 Follow up: Response: No adverse reaction; IV Status: Completed infusion; IV Intake: tm6 100ml 17:41 Drug: NS 0.9% IV 1000 ml IV at 1 bolus Per protocol; 1000 mL bolus Route: IV; Rate: 1 tm6 bolus; Site: right antecubital; 18:30 Follow up: Response: No adverse reaction; IV Status: Completed infusion; IV Intake: tm6 1000ml 18:30 Drug: morphine IVP or IV 4 mg IVP once over 4 mins Route: IVP; Infused Over: 4 mins; tm6 Site: right antecubital; 18:52 Follow up: Response: No adverse reaction; Pain is decreased tm6 18:52 Drug: NS 0.9% IV 1000 ml IV at 1 bolus Per protocol; 1000 mL bolus Route: IV; Rate: 1 tm6 bolus; Site: right antecubital; 19:30 Follow up: Response: No adverse reaction; IV Status: Completed infusion; IV Intake: pc2 1000ml 18:52 Drug: vancoMYCIN IVPB 1 grams IVPB once over 2 hrs Route: IVPB; Infused Over: 2 hrs; tm6 Site: right antecubital; 19:50 Follow up: IV Status: Completed infusion; IV Intake: 250ml pc2 20:54 Drug: morphine IVP or IV 4 mg IVP once over 4 mins Route: IVP; Infused Over: 4 mins; pc2 Site: right antecubital; 21:30 Follow up: Response: No adverse reaction pc2 21:43 Drug: Clindamycin IVPB 900 mg IVPB once over 30 mins; (mix in 50 mL) Route: IVPB; ha1 Infused Over: 30 mins; Site: right antecubital; 22:06 Follow up: IV Status: Completed infusion; IV Intake: 50ml pc2 Disposition Summary: 02/03/24 20:01 Transfer Ordered Notes: Transfer Location: Other Acute Care Facility ec2 Reason: Higher level of care ec2 Condition: Fair ec2 Problem: new ec2 Symptoms: have improved ec2 Accepting Physician: transferring doc(02/04/24 01:36) pc2 Diagnosis - Necrotizing fasciitis ec2 - Severe sepsis without septic shock ec2 Forms: - Medication Reconciliation Form ec2 - SBAR form ec2 Signatures: Dispatcher [employer] Kate Schumacher Heidy, RN RN ha1 Monica Sanchez RN RN Marcelo Parra MD MD ec2 Starla Logan RN RN tm6 Juliette Mccrary, RN RN pc2 Corrections: (The following items were deleted from the chart) 16:30 16:30 BLOOD CULTURE*+BA.LAB.BRZ ordered. EDMS EDMS 16:30 16:30 CBC+H.LAB.BRZ ordered. EDMS EDMS 16:30 16:30 COMPREHENSIVE METABOLIC PANEL+C.LAB.BRZ ordered. EDMS EDMS 16:30 16:30 LACTATE+C.LAB.BRZ ordered. EDMS EDMS 16:30 16:30 PROTIME (+INR)+COAG.LAB.BRZ ordered. EDMS EDMS 16:30 16:30 PTT, ACTIVATED+COAG.LAB.BRZ ordered. EDMS EDMS 16:30 16:30 Urinalysis+U.LAB.BRZ ordered. EDMS EDMS 16:30 16:30 C-REACTIVE PROTEIN+C.LAB.BRZ ordered. EDMS EDMS 16:30 16:30 Scrotum Testicles+US.RAD.BRZ ordered. EDMS EDMS 16:31 16:30 Abdomen Pelvis W Con+CT.RAD.BRZ ordered. EDMS EDMS 21:06 20:59 ED course: I discussed the case with urology as well as surgical ICU physician ec2 who agrees to except this patient for transfer. . ec2 02/03 01:36 02/02 20:01 transferring doc ec2 pc2
--- NOTE | 2024-02-03 20:02 | ER ---
Nurse's Notes [facility] Name: Harvey Callahan Age: 63 yrs Sex: Male : 1960 Arrival Date: 02/03/2024 Time: 16:14 Bed 6 Private MD: Diagnosis: Necrotizing fasciitis;Severe sepsis without septic shock Presentation: 02/02 16:26 Chief complaint: Patient states: COMPLAINS OF PAIN IN PERINEUM AREA TENDERNESS AND db SWELLING. X 2 OR 3 DAYS SWELLING INTO TESTICLES. PT IS SLIGHTLY DIAPHORETIC. DENIES FEVER AT HOME. 16:26 Method Of Arrival: Wheelchair db 16:27 Coronavirus screen: Client denies travel out of the [place] in the last 14 days. At this db time, the client does not indicate any symptoms associated with coronavirus-19. Ebola Screen: Patient negative for fever greater than or equal to 101.5 degrees Fahrenheit, and additional compatible Ebola Virus Disease symptoms Patient denies exposure to infectious person. Patient denies travel to an Ebola-affected area in the 21 days before illness onset. No symptoms or risks identified at this time. Initial Sepsis Screen: Does the patient meet any 2 criteria? Temp <36.0*C (96.8*F)) or > 38.3*C (100.9*F). No. Patient's initial sepsis screen is negative. Does the patient have a suspected source of infection? No. Patient's initial sepsis screen is negative. Risk Assessment: Do you want to hurt yourself or someone else? Patient reports no desire to harm self or others. Onset of symptoms was February 03, 2024. 16:27 Acuity: DEYANIRA 3 db Triage Assessment: 16:29 General: Appears in no apparent distress. uncomfortable, Behavior is calm, cooperative. db Pain: Complains of pain in pelvis. Neuro: Level of Consciousness is awake, alert, obeys commands, Oriented to person, place, time, situation. Respiratory: Airway is patent Respiratory effort is even, unlabored, Respiratory pattern is regular, symmetrical. Historical: - Allergies: 16:29 No Known Allergies; db - PMHx: 16:29 Arthritis; Cellulitis; CHF; Diabetes - IDDM; EDEMA; Atrial fibrillation; Hypertension; db neuropathy (EDEMA); Hyperlipidemia; knee pain; - PSHx: 16:29 Appendectomy; back; hand; db - Immunization history:: Adult Immunizations unknown. - Infectious Disease History:: Denies. - Social history:: Smoking status: Patient reports the use of cigarette tobacco products, smokes one-half pack cigarettes per day. Screenin:20 [facility] ED Fall Risk Assessment (Adult) History of falling in the last 3 months, tm6 including since admission Yes- fall prone (multiple falls) (3 pts) Confusion or Disorientation No (0 pts) Intoxicated or Sedated No (0 pts) Impaired Gait No (0 pts) Mobility Assist Device Used No (0 pt) Altered Elimination No (0 pt) Score/Fall Risk Level 0 - 2 = Low Risk Oriented to surroundings, Maintained a safe environment, Educated pt \T\ family on fall prevention, incl call for assistance when getting out of bed. Abuse screen: Denies threats or abuse. Denies injuries from another. Nutritional screening: No deficits noted. Tuberculosis screening: No symptoms or risk factors identified. Assessment: 17:20 General: Appears uncomfortable, Behavior is calm, cooperative. Pain: Complains of pain tm6 in pelvis Pain does not radiate. Pain currently is 10 out of 10 on a pain scale. Pain began 1 day ago. Neuro: Level of Consciousness is awake, alert, obeys commands, Oriented to person, place, time, situation. Cardiovascular: Patient's skin is warm and dry. Respiratory: Airway is patent Respiratory effort is even, unlabored, Respiratory pattern is regular, symmetrical. GI: No signs and/or symptoms were reported involving the gastrointestinal system. Abdomen is obese. : Swelling noted on scrotum Reports pain scrotum, testicle, Pain is 10 out of 10 on a pain scale. EENT: No signs and/or symptoms were reported regarding the EENT system. Derm: No signs and/or symptoms reported regarding the dermatologic system. Musculoskeletal: No signs and/or symptoms reported regarding the musculoskeletal system. 19:40 General: Appears uncomfortable, Behavior is cooperative. Pain: Complains of pain in ha1 groin Pain does not radiate. Pain currently is 9 out of 10 on a pain scale. Quality of pain is described as heavy, pressure, Pain began gradually, 1 day ago. Neuro: Level of Consciousness is awake, alert, obeys commands, Oriented to person, place, time, situation. Cardiovascular: Patient's skin is warm and dry. Respiratory: Airway is patent Respiratory effort is even, unlabored, Respiratory pattern is regular, symmetrical. GI: Abdomen is round non-distended, obese. : Swelling noted on scrotum Reports pain scrotum, testicle. Derm: Skin is normal. Musculoskeletal: Circulation, motion, and sensation intact. 20:30 Reassessment: Patient and/or family updated on plan of care and expected duration. Pain ha1 level reassessed. Patient is alert, oriented x 3, equal unlabored respirations, skin warm/dry/pink. notified care provider Patient states symptoms have not improved. 21:30 Reassessment: Patient appears in no apparent distress at this time. Patient and/or pc2 family updated on plan of care and expected duration. Pain level reassessed. 22:30 Reassessment: Patient appears in no apparent distress at this time. Patient and/or pc2 family updated on plan of care and expected duration. Pain level reassessed. Patient is alert, oriented x 3, equal unlabored respirations, skin warm/dry/pink. 23:30 Reassessment: Patient appears in no apparent distress at this time. Patient is alert, pc2 oriented x 3, equal unlabored respirations, skin warm/dry/pink. 02/03 00:30 Reassessment: Patient appears in no apparent distress at this time. pc2 Vital Signs: 02/02 16:27 BP 110 / 60; Pulse 84; Resp 16; Temp 101.5(O); Pulse Ox 96% ; Weight 109.77 kg; Height db 5 ft. 7 in. ; 18:56 BP 101 / 55; Pulse 105; Resp 18; Pulse Ox 93% ; ap3 19:36 BP 103 / 56; Pulse 100; Resp 18; Temp 99.5(O); Pulse Ox 92% on R/A; pc2 20:15 BP 92 / 51; Pulse 69; Resp 17 S; Pulse Ox 100% on R/A; ha1 21:20 BP 101 / 58; Pulse 71; Resp 17 S; Pulse Ox 100% on R/A; ha1 22:07 BP 114 / 57; Pulse 100; Resp 18; Pulse Ox 100% ; pc2 23:30 BP 106 / 59; Pulse 101; Resp 18; Pulse Ox 100% on R/A; pc2 02/03 01:00 BP 109 / 61; Pulse 91; Resp 18; Pulse Ox 100% on R/A; pc2 02/02 16:27 Body Mass Index 37.90 (109.77 kg, 170.18 cm) db ED Course: 02/02 16:17 Patient arrived in ED. im 16:18 Marcelo Mendez MD is Attending Physician. ec2 16:29 Triage completed. db 16:31 Arm band placed on Patient placed in waiting room. db 16:45 Starla Logan, RN is Primary Nurse. tm6 17:11 US Scrotum Testicles In Process Unspecified. EDMS 17:20 Patient has correct armband on for positive identification. Bed in low position. Call tm6 light in reach. Side rails up X 1. Provided Education on: use of call jimenez. Client placed on continuous cardiac and pulse oximetry monitoring. NIBP monitoring applied. adjunct instructor in economics on. Pulse ox on. NIBP on. Door closed. Noise minimized. Pillow given. 17:20 Initial lab(s) drawn, by me, sent to lab. Inserted saline lock: 20 gauge in right tm3 antecubital area, using aseptic technique. 17:25 First set of blood cultures drawn by me. tm3 17:31 EKG done, by ED staff. tm3 17:50 Second set of blood cultures drawn by me. tm3 18:08 Urinalysis w/ reflexes Sent. tm6 18:37 CT Abd/Pelvis - IV Contrast Only In Process Unspecified. EDMS 20:07 initiated transfer with Flori \T\ [facility]. kmf 20:23 doc to do \T\ 2022. kmf 20:51 doc to doc. kmf 22:00 jerry called pt was accepted , waiting for bed placement. kmf 22:50 Repeat lab(s) drawn. by me, sent to lab. lactic. pc2 23:37 called radha for update on bed placement still waiting. kmf 02/03 00:41 pt was accepted to Dr Muriel King 2057. Number for nurse to nurse report [phone]. PT kmf [facility] bed [facility]. AOC given by Jerry \T\[id number]. [facility] will transfer the pt. 01:31 No provider procedures requiring assistance completed. pc2 01:32 Patient transferred, IV remains in place. pc2 Administered Medications: 02/02 17:41 Drug: Acetaminophen PO 1000 mg PO once Route: PO; tm6 18:31 Follow up: Response: No adverse reaction; Pain is unchanged, physician notified tm6 17:41 Drug: Piperacillin-Tazobactam IVPB 3.375 grams IVPB once over 60 mins; (mix in NS 100 tm6 mL) Route: IVPB; Infused Over: 60 mins; Site: right antecubital; 18:30 Follow up: Response: No adverse reaction; IV Status: Completed infusion; IV Intake: tm6 100ml 17:41 Drug: NS 0.9% IV 1000 ml IV at 1 bolus Per protocol; 1000 mL bolus Route: IV; Rate: 1 tm6 bolus; Site: right antecubital; 18:30 Follow up: Response: No adverse reaction; IV Status: Completed infusion; IV Intake: tm6 1000ml 18:30 Drug: morphine IVP or IV 4 mg IVP once over 4 mins Route: IVP; Infused Over: 4 mins; tm6 Site: right antecubital; 18:52 Follow up: Response: No adverse reaction; Pain is decreased tm6 18:52 Drug: NS 0.9% IV 1000 ml IV at 1 bolus Per protocol; 1000 mL bolus Route: IV; Rate: 1 tm6 bolus; Site: right antecubital; 19:30 Follow up: Response: No adverse reaction; IV Status: Completed infusion; IV Intake: pc2 1000ml 18:52 Drug: vancoMYCIN IVPB 1 grams IVPB once over 2 hrs Route: IVPB; Infused Over: 2 hrs; tm6 Site: right antecubital; 19:50 Follow up: IV Status: Completed infusion; IV Intake: 250ml pc2 20:54 Drug: morphine IVP or IV 4 mg IVP once over 4 mins Route: IVP; Infused Over: 4 mins; pc2 Site: right antecubital; 21:30 Follow up: Response: No adverse reaction pc2 21:43 Drug: Clindamycin IVPB 900 mg IVPB once over 30 mins; (mix in 50 mL) Route: IVPB; ha1 Infused Over: 30 mins; Site: right antecubital; 22:06 Follow up: IV Status: Completed infusion; IV Intake: 50ml pc2 Medication: 17:20 VIS not applicable for this client. tm6 Intake: 18:30 IV: 100ml; Total: 100ml. tm6 18:30 IV: 1000ml; Total: 1100ml. tm6 19:30 IV: 1000ml; Total: 2100ml. pc2 19:50 IV: 250ml; Total: 2350ml. pc2 22:06 IV: 50ml; Total: 2400ml. pc2 Outcome: 20:01 ER care complete, transfer ordered by . ec2 02/03 01:31 Transferred by [facility] [place] to [facility], [facility], Transfer form pc2 completed. Condition: stable Instructed on the need for transfer, Demonstrated understanding of instructions, 01:36 Patient left the ED. pc2 Signatures: Dispatcher [employer] EDMS Marlenjanet Nick tm3 Nataliia Adams RN RN ap3 Tiffanie Jordan RN RN ha1 Monica Sanchez RN RN db Mikaela Stokes Edwin, MD MD ec2 Racheal Ramirez Tawney, RN RN tm6 Juliette Mccrary, RN RN pc2 Corrections: (The following items were deleted from the chart) 02/02 16:29 16:26 Chief complaint: Patient states: COMPLAINS OF PAIN IN PERINEUM AREA TENDERNESS db AND SWELLING. db 16:31 16:26 Chief complaint: Patient states: COMPLAINS OF PAIN IN PERINEUM AREA TENDERNESS db AND SWELLING. X 2 OR 3 DAYS db 18:30 18:30 Response: No adverse reaction; IV Status: Completed infusion; IV Intake: 1000ml tm6 tm6
[2024-02-03 20:35] LABS: White Blood Cell Scan OK (OK)
[2024-02-03 20:36] LABS: Anisocytosis 1+; Blood Morphology Comment NOTED (NOT SEEN); Platelet Estimate ADEQ; Poikilocytosis 1+
[2024-02-03] MEDS ORDERED: CLINDAMYCIN 900MG/D5W 900 MG/50 ML IVPB IV ONE (21:12)
[2024-02-04 02:00] VITALS: TEMP 99.5
[2024-02-04 02:01] VITALS: O2SAT 100
[2024-02-04 02:08] VITALS: BP 109/61
--- NOTE | 2024-02-04 16:58 | EKG ---
Test Date: 2024-02-03 Test Time: 17:30:14 Cigar Head Holer: ROSA MEASUREMENT RESULTS: Intervals: Rate: 109 IN: 200 QRSD: 118 QT: 338 QTc: 455 Athena: P: 56 IN: 200 QRS: 79 T: 8 INTERPRETIVE STATEMENTS: Sinus tachycardia with premature atrial complexes Incomplete left bundle branch block Nonspecific T wave abnormality Abnormal ECG Compared to ECG 12/09/2023 21:05:26 Atrial premature complex(es) now present Left bundle-branch block now present T-wave abnormality now present Sinus rhythm no longer present Electronically Signed On 02-04-24 16:56:18 CDT by Js Mcmahon
== END 2024-02-04 01:36 ==
LOC: ER 16:14
DX: M72.6 Necrotizing fasciitis (principal); R65.20 Severe sepsis without septic shock; I10 Essential (primary) hypertension; I50.9 Heart failure, unspecified; E11.9 Type 2 diabetes mellitus without complications; I48.91 Unspecified atrial fibrillation; F17.210 Nicotine dependence, cigarettes, uncomplicated
CPT/HCPCS: 93005; 87040 ×2; 85025; 81001; 36415; 85610; 83605 ×2; 85730; 80053; 86140; 74177; 76870; Q9967; J2543; J7050; J7030 ×2

== ENCOUNTER 2024-03-03 01:41 | Emergency (ER) | payer OTHER ==
[2024-03-03] MEDS ORDERED: HYDROCODONE/APAP 5/325 MG TAB ONE (02:28)
[2024-03-03] MEDS ORDERED: IBUPROFEN 400 MG TAB ONE (02:28)
--- NOTE | 2024-03-03 02:33 | ER ---
Nurse's Notes [facility] Name: Harvey Callahan Age: 63 yrs Sex: Male : 1960 Arrival Date: 03/03/2024 Time: 01:41 Bed 6 Private MD: Diagnosis: Dislodged surgical drain;Scrotal Drain complications Presentation: 03/03 01:49 Chief complaint: Patient states: I had sx a few weeks ago and the drain is really bm8 startiing to bug me, Can you take it out. Coronavirus screen: At this time, the client does not indicate any symptoms associated with coronavirus-19. Ebola Screen: Patient negative for fever greater than or equal to 101.5 degrees Fahrenheit, and additional compatible Ebola Virus Disease symptoms Patient denies exposure to infectious person. Patient denies travel to an Ebola-affected area in the 21 days before illness onset. No symptoms or risks identified at this time. Initial Sepsis Screen: Does the patient meet any 2 criteria? No. Patient's initial sepsis screen is negative. Does the patient have a suspected source of infection? No. Patient's initial sepsis screen is negative. Risk Assessment: Do you want to hurt yourself or someone else? Patient reports no desire to harm self or others. Onset of symptoms is unknown. 01:49 Method Of Arrival: Ambulatory bm8 01:49 Acuity: DEYANIRA 4 bm8 Triage Assessment: 01:49 General: Appears in no apparent distress. uncomfortable, Behavior is calm, cooperative, bm8 appropriate for age. Pain: Complains of pain in pelvis Pain does not radiate. Pain currently is 6 out of 10 on a pain scale. EENT: No deficits noted. No signs and/or symptoms were reported regarding the EENT system. Neuro: No deficits noted. Level of Consciousness is awake, alert, obeys commands, Oriented to person, place, time, situation, Appropriate for age. Cardiovascular: No deficits noted. Respiratory: No deficits noted. GI: No deficits noted. : Reports pain scrotum, testicle. Derm: Wound noted pelvis Reports pain that is 6 out of 10 on a pain scale. Musculoskeletal: No deficits noted. Historical: - Allergies: 02:04 No Known Allergies; bm8 - Home Meds: 02:04 Unable to obtain [Active]; bm8 - PMHx: 02:04 Arthritis; Atrial fibrillation; Cellulitis; CHF; Diabetes - IDDM; EDEMA; bm8 Hyperlipidemia; Hypertension; knee pain; neuropathy (EDEMA); - PSHx: 02:04 Appendectomy; hand; back; bm8 - Immunization history:: Adult Immunizations up to date. - Infectious Disease History:: Denies. - Social history:: Smoking status: Patient reports the use of cigarette tobacco products, recently quit. - Family history:: not pertinent. Screenin:06 [facility] ED Fall Risk Assessment (Adult) History of falling in the last 3 months, bm8 including since admission No falls in past 3 months (0 pts) Confusion or Disorientation No (0 pts) Intoxicated or Sedated No (0 pts) Impaired Gait No (0 pts) Mobility Assist Device Used No (0 pt) Altered Elimination No (0 pt) Score/Fall Risk Level 0 - 2 = Low Risk Oriented to surroundings, Maintained a safe environment, Educated pt \T\ family on fall prevention, incl call for assistance when getting out of bed, Assessed \T\ reinforced patient's understanding of fall precautions, Hourly rounding (assess needs \T\ fall precautionary measures) done, Used ambulatory aids as needed (educated on \T\ assisted with), Used gait belt as appropriate. Abuse screen: Denies threats or abuse. Nutritional screening: No deficits noted. Tuberculosis screening: No symptoms or risk factors identified. Assessment: 02:31 Reassessment: Patient appears in no apparent distress at this time. Patient and/or bm8 family updated on plan of care and expected duration. Pain level reassessed. Patient is alert, oriented x 3, equal unlabored respirations, skin warm/dry/pink. GROIN AREA WRAPPED FOR COMFORT WITH 4X4 AND KERLIX Patient denies pain at this time. Patient states feeling better. Patient states symptoms have improved. Vital Signs: 01:49 BP 130 / 70; Pulse 77; Resp 18; Temp 98.3; Pulse Ox 99% ; Weight 107.05 kg; Height 5 bm8 ft. 7 in. ; Pain 6/10; 02:31 BP 128 / 70; Pulse 78; Resp 17; Temp 98.3; Pulse Ox 99% ; Pain 0/10; bm8 01:49 Body Mass Index 36.96 (107.05 kg, 170.18 cm) bm8 01:49 Pain Scale: Adult bm8 02:31 Pain Scale: Adult bm8 Brooks Coma Score: 02:31 Eye Response: spontaneous(4). Motor Response: obeys commands(6). Verbal Response: bm8 oriented(5). Total: 15. 23:26 Eye Response: spontaneous(4). Motor Response: obeys commands(6). Verbal Response: sp4 oriented(5). Total: 15. ED Course: 01:47 Patient arrived in ED. gm2 01:49 Arm band placed on right wrist. bm8 02:02 Chan Jasso, RN is Primary Nurse. bm8 02:04 Triage completed. bm8 02:06 Patient has correct armband on for positive identification. Placed in gown. Bed in low bm8 position. Call light in reach. Provided Education on: post er care, NEED TO FOLLOW UP WITH HIS SURGEON FOR SUTURE REMOVAL. Client placed on continuous cardiac and pulse oximetry monitoring. NIBP monitoring applied. Pulse ox on. NIBP on. Door closed. Visitors limited. Pillow given. Verbal reassurance given. Head of bed lowered. 02:06 No provider procedures requiring assistance completed. Patient did not have IV access bm8 during this emergency room visit. Patient maintains SpO2 saturation greater than 95% on room air. 02:13 Geoff Hummel MD is Attending Physician. sp4 Administered Medications: 02:30 Drug: Ibuprofen PO 800 mg PO once Route: PO; bm8 02:46 Follow up: Response: No adverse reaction bm8 02:31 Drug: HYDROcodone-acetaminophen PO 5 mg-325 mg 2 tabs PO once Route: PO; bm8 02:46 Follow up: Response: No adverse reaction bm8 Medication: 02:06 VIS not applicable for this client. bm8 Outcome: 02:33 Discharge ordered by . sp4 02:46 Discharged to home via wheelchair, bm8 02:46 Condition: stable 02:46 Discharge instructions given to patient, family, Instructed on discharge instructions, follow up and referral plans. no drinking with medication, no driving heavy equipment, medication usage, Demonstrated understanding of instructions, follow-up care, medications, Prescriptions given X 1, 02:47 Patient left the ED. bm8 Signatures: Geoff Hummel MD MD sp4 Mariela Richmond 2 Chan Jasso, RN RN bm8
--- NOTE | 2024-03-03 02:33 | EDPHYS ---
Physician Documentation [facility] Name: Harvey Callahan Age: 63 yrs Sex: Male : 1960 Arrival Date: 03/03/2024 Time: 01:41 Bed 6 Private MD: ED Physician Geoff Hummel HPI: 03/03 02:32 This 63 yrs old Male presents to ER via Ambulatory with complaints of Suture sp4 Removal. 23:22 63 -year-old male presents with testicular discomfort and request for suture removal sp4 from his scrotum. Patient also states that his surgical drain came out of the scrotum. Patient had scrotal surgery scrotal abscess incision and drainage with revision of the wound at [facility]. Patient states he has surgery appointment tomorrow for suture removal. Does however state that he would like his sutures removed today. . Historical: - Allergies: 02:04 No Known Allergies; bm8 - Home Meds: 02:04 Unable to obtain [Active]; bm8 - PMHx: 02:04 Arthritis; Atrial fibrillation; Cellulitis; CHF; Diabetes - IDDM; EDEMA; bm8 Hyperlipidemia; Hypertension; knee pain; neuropathy (EDEMA); - PSHx: 02:04 Appendectomy; hand; back; bm8 - Immunization history:: Adult Immunizations up to date. - Infectious Disease History:: Denies. - Social history:: Smoking status: Patient reports the use of cigarette tobacco products, recently quit. - Family history:: not pertinent. ROS: 23:22 Constitutional: Negative for fever, chills, and weight loss, positive scrotal swelling sp4 and discomfort, positive scrotal sutures, positive dislodged surgical drain in the scrotum. 23:26 All other systems are negative, sp4 Exam: 23:26 Constitutional: This is a well developed, well nourished patient who is awake, alert, sp4 and in no acute distress. Head/Face: Normocephalic, atraumatic. Eyes: Pupils equal round and reactive to light, extra-ocular motions intact. Lids and lashes normal. Conjunctiva and sclera are not injected. Cornea within normal limits. Periorbital areas with no swelling, redness, or edema. ENT: Nares patent. No nasal discharge, no septal abnormalities noted. Tympanic membranes are normal and external auditory canals are clear. Oropharynx with no redness, swelling, or masses, exudates, or evidence of obstruction, uvula midline. Mucous membranes moist. Neck: Trachea midline, no thyromegaly or masses palpated, and no cervical lymphadenopathy. Supple, full range of motion without nuchal rigidity, or vertebral point tenderness. Chest/axilla: Normal chest wall appearance and motion. Nontender with no deformity. No lesions are appreciated. Cardiovascular: Regular rate and rhythm with a normal S1 and S2. No gallops, murmurs, or rubs. Normal PMI, no JVD. No pulse deficits. Respiratory: Lungs have equal breath sounds bilaterally, clear to auscultation and percussion. No rales, rhonchi or wheezes noted. No increased work of breathing, no retractions or nasal flaring. Abdomen/GI: Soft, with normal bowel sounds. No distension or tympany. No guarding or rebound. No evidence of tenderness throughout. Back: No spinal tenderness. No costovertebral tenderness. Male : Normal genitalia , positive postoperative incision left side of the scrotum with sutures present in incision. Incision does look clean dry and intact. No sign of purulence, also there is left-sided scrotal surgical drain that freshly and completely dislodged out of incision. Postoperative drain with the bulb was removed. Skin: Warm, dry with normal turgor. Normal color with no rashes, no lesions, and no evidence of cellulitis. MS/ Extremity: Pulses equal, no cyanosis. Neurovascular intact. Full, normal range of motion. Neuro: Awake and alert, GCS 15, oriented to person, place, time, and situation. Cranial nerves II-XII grossly intact. Motor strength 5/5 in all extremities. Sensory grossly intact. Psych: Awake, alert, with orientation to person, place and time. Behavior, mood, and affect are within normal limits Vital Signs: 01:49 BP 130 / 70; Pulse 77; Resp 18; Temp 98.3; Pulse Ox 99% ; Weight 107.05 kg; Height 5 bm8 ft. 7 in. ; Pain 6/10; 02:31 BP 128 / 70; Pulse 78; Resp 17; Temp 98.3; Pulse Ox 99% ; Pain 0/10; bm8 01:49 Body Mass Index 36.96 (107.05 kg, 170.18 cm) bm8 01:49 Pain Scale: Adult bm8 02:31 Pain Scale: Adult bm8 Geneva Coma Score: 02:31 Eye Response: spontaneous(4). Motor Response: obeys commands(6). Verbal Response: bm8 oriented(5). Total: 15. 23:26 Eye Response: spontaneous(4). Motor Response: obeys commands(6). Verbal Response: sp4 oriented(5). Total: 15. MDM: 02:13 Patient medically screened. sp4 23:26 Data reviewed: vital signs, nurses notes, old medical records. Consideration of sp4 Admission/Observation Escalation of care including admission/observation considered. ED course: Surgical drain has dislodged by itself. It was removed completely and patient advised to see his surgeon for incisional suture removal. Patient was informed we cannot remove incisions suture from the scrotum because it is outside of our scope of practice. Patient was prescribed pain medicine for scrotal pain.. Administered Medications: 02:30 Drug: Ibuprofen PO 800 mg PO once Route: PO; bm8 02:46 Follow up: Response: No adverse reaction bm8 02:31 Drug: HYDROcodone-acetaminophen PO 5 mg-325 mg 2 tabs PO once Route: PO; bm8 02:46 Follow up: Response: No adverse reaction bm8 Disposition Summary: 03/03/24 02:33 Discharge Ordered Notes: Location: Home sp4 Problem: new sp4 Symptoms: have improved sp4 Condition: Stable sp4 Diagnosis - Dislodged surgical drain sp4 - Scrotal Drain complications sp4 Followup: sp4 - With: Private Physician - When: 1 - 2 days - Reason: Recheck today's complaints Discharge Instructions: - Discharge Summary Sheet sp4 - Scrotal Swelling sp4 Forms: - Patient Portal Instructions sp4 Prescriptions: - acetaminophen-codeine 300-60 mg Oral tablet - take 1 tablet ORAL route every 8 hours PRN pain; 15 tablet; Refills: 0, Product sp4 Selection Permitted Signatures: Geoff Hummel MD MD sp4 Chan Jasso RN RN bm8
[2024-03-03 02:52] VITALS: TEMP 98.3; O2SAT 99
[2024-03-03 02:53] VITALS: BP 128/70
== END 2024-03-03 02:47 | disposition home or self-care (01) ==
LOC: ER 01:41
DX: T85.628A Displacement of other specified internal prosthetic devices, implants and grafts, initial encounter (principal); I10 Essential (primary) hypertension; E11.9 Type 2 diabetes mellitus without complications; I48.91 Unspecified atrial fibrillation; E78.5 Hyperlipidemia, unspecified; M19.90 Unspecified osteoarthritis, unspecified site; F17.210 Nicotine dependence, cigarettes, uncomplicated
CPT/HCPCS: 99284

== ENCOUNTER 2024-05-22 22:21 | Emergency (ER) | payer OTHER ==
[2024-05-22] MEDS ORDERED: MORPHINE 4 MG/ML SYR ONE (23:05)
[2024-05-22] MEDS ORDERED: NA CHLORIDE 0.9% 100 ML ONE (23:06)
[2024-05-22] MEDS ORDERED: PIPERACIL/TAZO 3.375 GM VIAL IV ONE (23:06)
[2024-05-22 23:18] LABS: Absolute Basophils 0.1 K/uL (0-0.5); Absolute Eosinophils 0.1 K/uL (0-0.5); Absolute Lymphocytes (CBC) 2.9 K/uL (0.7-4.9); Absolute Monocytes 1.4 K/uL (0.1-1.3); Absolute Neutrophil 14.4 K/uL (1.8-8.0); Basophils % 0.4 % (0-1.3); Eosinophils % 0.7 % (0-4.4); Hematocrit 45.8 % (39.6-49.0); Hemoglobin 14.9 g/dL (13.6-17.9); Lymphocytes % 15.2 % (15.3-44.8); MCH 26.5 pg (27.0-35.0); MCHC 32.6 g/dL (32.0-36.0); MCV 81.4 fL (80-100); MPV 7.8 fL (7.6-11.3); Monocytes % 7.2 % (3.3-12.3); Neutrophils % 76.5 % (41.7-73.7); Platelets 363 thou/uL (152-406); RBC Red Blood Cell Count 5.63 M/uL (4.33-5.43); Red Cell Distribution Width 15.2 % (12.1-15.2)
[2024-05-22 23:21] LABS: Sqamous Epithelial None Seen /HPF (None Seen); Urine Bacteria None Seen /HPF (<20); Urine Bilirubin NEGATIVE (Negative); Urine Blood Negative (Negative); Urine Clarity Clear (Clear); Urine Color Colorless (Yellow); Urine Culture Reflex Order NOT NEEDED; Urine Glucose 4+ (Over) (Negative); Urine Ketones NEGATIVE (Negative); Urine Micro Reflex YN NO BILL MICROSCOPIC; Urine Mucus Slight /HPF (None Seen); Urine Nitrite NEGATIVE (Negative); Urine Protein NEGATIVE (Negative); Urine RBC <5 /HPF (None Seen); Urine Urobilinogen Normal (Normal); Urine WBC <5 /HPF (<5); Urine pH 6.5 (5.0-7.0)
[2024-05-22 23:24] LABS: PT Prothrombin Time 14.5 SECONDS (9.4-12.5); PTT, Activated Partial Thromb 36.2 SECONDS (24.3-36.9); Protime INR 1.3
[2024-05-22 23:35] LABS: ALT/SGPT 22 U/L (16-61); Albumin 3.6 g/dL (3.4-5.0); Albumin/Globulin Ratio 0.7 (1.1-1.8); Alkaline Phosphatase 59 U/L (45-117); Anion Gap 11.7 mEq/L (5.0-15.0); BUN Blood Urea Nitrogen 17 mg/dL (7-18); Bicarbonate 27 mEq/L (21-32); Bilirubin Total 0.4 mg/dL (0.2-1.0); Glomerular Filtration Rate 66 ml/min (=/>90); Glucose Level 130 mg/dL (74-106); Potassium 3.7 mEq/L (3.5-5.1); Protein, Total 8.6 g/dL (6.4-8.2); Sodium Level 134 mEq/L (136-145)
[2024-05-22 23:37] LABS: AST/SGOT < 10 U/L (15-37)
--- NOTE | 2024-05-23 00:16 | EDPHYS ---
Physician Documentation [facility] Name: Harvey Callahan Age: 63 yrs Sex: Male : 1960 Arrival Date: 05/22/2024 Time: 22:21 Bed 7 Private MD: ED Physician Marcelo Mendez HPI: 05/22 22:46 This 63 yrs old Male presents to ER via Wheelchair with complaints of Knee ec2 Pain, Groin Pain. 22:46 Patient arrives today for scrotal pain. History of previous scrotal infections, states ec2 that he has some mild swelling and pain to the lower scrotum. No fevers or chills, no nausea or vomiting.. Historical: - Allergies: 22:38 No Known Allergies; me1 - PMHx: 22:38 Arthritis; Atrial fibrillation; Cellulitis; CHF; Diabetes - IDDM; EDEMA; me1 Hyperlipidemia; Hypertension; knee pain; neuropathy (EDEMA); - PSHx: 22:38 back; Appendectomy; hand; me1 - Immunization history:: Adult Immunizations up to date. - Infectious Disease History:: Denies. - Social history:: Smoking status: Patient/guardian denies using tobacco, Stopped _ months ago 3. ROS: 22:47 Constitutional: as per hpi ec2 Exam: 22:47 Constitutional: GEN: NAD Head: atraumatic Eyes: EOMI Ears: External ears are ec2 normal. CV: regular rate LUNGS: no respiratory distress ABD: non-distended. : Lower portion of the scrotum with induration and global redness, no fluctuance appreciated SKIN: no evidence of rashes MSK: no evidence of trauma Vital Signs: 22:37 BP 125 / 76; Pulse 108; Resp 20; Temp 98.8; Pulse Ox 97% ; Weight 106.14 kg; Height 5 me1 ft. 7 in. ; Pain 9/10; 23:12 BP 119 / 71; Pulse 109; Resp 18; Temp 98.8; Pulse Ox 97% ; Pain 8/10; bm8 05/23 00:06 BP 107 / 76; Pulse 102; Resp 17; Temp 97.9; Pulse Ox 95% ; Pain 6/10; bm8 05/22 22:37 Body Mass Index 36.65 (106.14 kg, 170.18 cm) me1 05/22 22:37 Pain Scale: Adult me1 23:12 Pain Scale: Adult bm8 05/23 00:06 Pain Scale: Adult bm8 Brooks Coma Score: 05/22 23:12 Eye Response: spontaneous(4). Motor Response: obeys commands(6). Verbal Response: bm8 oriented(5). Total: 15. 05/23 00:06 Eye Response: spontaneous(4). Motor Response: obeys commands(6). Verbal Response: bm8 oriented(5). Total: 15. MDM: 05/22 22:30 Medical Screening Exam initiated ec2 22:47 Data reviewed: vital signs, nurses notes. ED course: Patient arrives today due to ec2 concern for scrotal swelling. Examination remarkable for scrotal findings as above. Will obtain lab work and ultrasound.. 23:37 ED course: EKG independently reviewed and interpreted by me, shows sinus tachycardia, ec2 rate of 112, no acute ST segment elevation, intervals are nonactionable.. 23:37 ED course: CBC shows leukocytosis. Metabolic profile shows appropriate electrolytes and ec2 renal function. Lactate within normal ranges. Pending ultrasound.. 05/23 00:14 ED course: Ultrasound shows scrotal abscess. Will transfer for urologic capable ec2 facility. Patient already received Zosyn.. 01:02 ED course: Discussed case w/ urology at [facility] who will accept for tx. ec2 01:20 ED course: I discussed the case with the ER physician at [facility] who agrees ec2 to except the patient for transfer. Will send the patient ED to ED, urology will be in the ED.. 05/22 22:46 Order name: CBC with Diff; Complete Time: 23:32 ec2 05/22 22:46 Order name: CMP; Complete Time: 23:37 ec2 05/22 22:46 Order name: UAM; Complete Time: 23:32 ec2 05/22 22:46 Order name: Blood Culture Adult (2) ec2 05/22 22:46 Order name: Lactate w/ 2H reflex if indic.; Complete Time: 23:37 ec2 05/22 22:46 Order name: Protime (+inr); Complete Time: 23:32 ec2 05/22 22:46 Order name: Ptt, Activated; Complete Time: 23:32 ec2 05/23 01:00 Order name: CRP ec2 05/22 22:46 Order name: Scrotum Testicles US ec2 05/22 22:46 Order name: EKG; Complete Time: 22:47 ec2 05/22 22:46 Order name: Cardiac monitoring; Complete Time: 23:18 ec2 05/22 22:46 Order name: EKG - Nurse/Tech; Complete Time: 23:49 ec2 05/22 22:46 Order name: IV Saline Lock - Large Bore; Complete Time: 23:03 ec2 05/22 22:46 Order name: Labs collected and sent; Complete Time: 23:03 ec2 05/22 22:46 Order name: O2 Per Protocol; Complete Time: 23:03 ec2 05/22 22:46 Order name: O2 Sat Monitoring; Complete Time: 23:03 ec2 05/22 22:46 Order name: Vital Signs; Complete Time: 23:18 ec2 Administered Medications: 05/22 23:18 Drug: morphine IVP or IV 4 mg IVP once over 4 mins Route: IVP; Infused Over: 4 mins; bm8 Site: left antecubital; 05/23 00:05 Follow up: Response: No adverse reaction bm8 05/22 23:20 Drug: Piperacillin-Tazobactam IVPB 3.375 grams IVPB once over 60 mins; (mix in NS 100 bm8 mL) Route: IVPB; Infused Over: 60 mins; Site: left antecubital; 05/23 00:05 Follow up: Response: No adverse reaction; IV Status: Completed infusion; IV Intake: bm8 100ml 00:38 Drug: morphine IVP or IV 4 mg IVP once over 4 mins Route: IVP; Infused Over: 4 mins; bm8 Site: left antecubital; 01:39 Follow up: Response: No adverse reaction bm8 00:38 Drug: NS 0.9% IV 500 ml 500 ml IV at 1 bolus once; to be given as a bolus over 30 bm8 minutes Volume: 500 ml; Route: IV; Rate: 1 bolus; Site: left antecubital; 01:39 Follow up: Response: No adverse reaction; IV Status: Completed infusion; IV Intake: bm8 500ml 01:39 Drug: vancoMYCIN IVPB 1 grams IVPB once over 2 hrs Route: IVPB; Infused Over: 2 hrs; bm8 Site: left antecubital; 02:05 Follow up: Response: No adverse reaction; IV Status: Infusion continued upon transfer bm8 Disposition Summary: 05/23/24 00:15 Transfer Ordered Notes: Transfer Location: [facility] ec2 Reason: Higher level of care ec2 Condition: Stable ec2 Problem: an acute exacerbation ec2 Symptoms: have improved ec2 Accepting Physician: transferring doc(05/23/24 02:06) bm8 Diagnosis - Scrotal Abscess ec2 - Scrotal Cellulitis ec2 - Sepsis, unspecified organism ec2 Forms: - Medication Reconciliation Form ec2 - SBAR form ec2 Critical care time excluding procedures: 00:14 Critical care time: Bedside Care: 30 minutes, Consultation: 5 minutes. Total time: 35 ec2 minutes Signatures: Dispatcher [employer] Cheyanne Sullivan, RN RN me1 Marcelo Mendez MD MD ec2 Chan Jasso RN RN bm8 Corrections: (The following items were deleted from the chart) 05/22 23:17 22:46 Accucheck ordered. ec2 bm8 05/23 01:00 01:00 C-REACTIVE PROTEIN+C.LAB.BRZ ordered. EDMS EDMS 02:06 00:15 transferring doc ec2 bm8
--- NOTE | 2024-05-23 00:16 | ER ---
Nurse's Notes [facility] [place] Name: Harvey Callahan Age: 63 yrs Sex: Male : 1960 Arrival Date: 05/22/2024 Time: 22:21 Bed 7 Private MD: Diagnosis: Scrotal Abscess;Scrotal Cellulitis;Sepsis, unspecified organism Presentation: 05/22 22:37 Chief complaint: Patient states: pain to groin/periarea that started yesterday. Hx of me1 infections to this area. c/o pain to bilateral knees as well. Pain 9/10. Coronavirus screen: Vaccine status: Patient reports receiving the 2nd dose of the covid vaccine. Ebola Screen: No symptoms or risks identified at this time. Initial Sepsis Screen: Does the patient meet any 2 criteria? HR > 90 bpm. Risk Assessment: Do you want to hurt yourself or someone else? Patient reports no desire to harm self or others. Onset of symptoms was May 21, 2024. 22:37 Method Of Arrival: Wheelchair la1 22:37 Acuity: DEYANIRA 3 me1 05/23 02:06 Initial Sepsis Screen: Does the patient have a suspected source of infection? No. bm8 Patient's initial sepsis screen is negative. Historical: - Allergies: 05/22 22:38 No Known Allergies; me1 - PMHx: 22:38 Arthritis; Atrial fibrillation; Cellulitis; CHF; Diabetes - IDDM; EDEMA; me1 Hyperlipidemia; Hypertension; knee pain; neuropathy (EDEMA); - PSHx: 22:38 back; Appendectomy; hand; me1 - Immunization history:: Adult Immunizations up to date. - Infectious Disease History:: Denies. - Social history:: Smoking status: Patient/guardian denies using tobacco, Stopped _ months ago 3. Screenin:12 [facility] ED Fall Risk Assessment (Adult) History of falling in the last 3 months, bm8 including since admission No falls in past 3 months (0 pts) Confusion or Disorientation No (0 pts) Intoxicated or Sedated No (0 pts) Impaired Gait No (0 pts) Mobility Assist Device Used No (0 pt) Altered Elimination No (0 pt) Score/Fall Risk Level 0 - 2 = Low Risk Oriented to surroundings, Maintained a safe environment, Educated pt \T\ family on fall prevention, incl call for assistance when getting out of bed, Assessed \T\ reinforced patient's understanding of fall precautions, Hourly rounding (assess needs \T\ fall precautionary measures) done, Used ambulatory aids as needed (educated on \T\ assisted with), Used gait belt as appropriate. Abuse screen: Denies threats or abuse. Nutritional screening: No deficits noted. Tuberculosis screening: No symptoms or risk factors identified. Assessment: 23:12 General: Appears in no apparent distress. comfortable, Behavior is calm, cooperative, bm8 appropriate for age. Pain: Complains of pain in pelvis, right leg and left leg Pain currently is 9 out of 10 on a pain scale. Quality of pain is described as aching, crampy. Neuro: No deficits noted. Level of Consciousness is awake, alert, obeys commands, Oriented to person, place, time, situation, Appropriate for age. Cardiovascular: Denies chest pain, Heart tones S1 S2 present. Respiratory: Airway is patent Trachea midline Respiratory effort is even, unlabored, Respiratory pattern is regular, symmetrical, Breath sounds are clear bilaterally. GI: No signs and/or symptoms were reported involving the gastrointestinal system. : Reports pain testicle. EENT: No signs and/or symptoms were reported regarding the EENT system. Derm: appears to have poor circulation in lower exts evidenced by red purple hues in bilateral ankles and feet. Musculoskeletal: Reports pain in right leg and left leg. 05/23 00:06 Reassessment: Patient appears in no apparent distress at this time. Patient and/or bm8 family updated on plan of care and expected duration. Pain level reassessed. Patient is alert, oriented x 3, equal unlabored respirations, skin warm/dry/pink. Patient states symptoms have improved. 00:06 Pain: Pain currently is 6 out of 10 on a pain scale. bm8 Vital Signs: 05/22 22:37 BP 125 / 76; Pulse 108; Resp 20; Temp 98.8; Pulse Ox 97% ; Weight 106.14 kg; Height 5 me1 ft. 7 in. ; Pain 9/10; 23:12 BP 119 / 71; Pulse 109; Resp 18; Temp 98.8; Pulse Ox 97% ; Pain 8/10; bm8 05/23 00:06 BP 107 / 76; Pulse 102; Resp 17; Temp 97.9; Pulse Ox 95% ; Pain 6/10; bm8 05/22 22:37 Body Mass Index 36.65 (106.14 kg, 170.18 cm) me1 12 22:37 Pain Scale: Adult me1 23:12 Pain Scale: Adult bm8 05/23 00:06 Pain Scale: Adult bm8 [place] Coma Score: 05/22 23:12 Eye Response: spontaneous(4). Motor Response: obeys commands(6). Verbal Response: bm8 oriented(5). Total: 15. 05/23 00:06 Eye Response: spontaneous(4). Motor Response: obeys commands(6). Verbal Response: bm8 oriented(5). Total: 15. ED Course: 05/22 22:25 Patient arrived in ED. gm2 22:29 Marcelo Mendez MD is Attending Physician. ec2 22:38 Triage completed. me1 22:38 Arm band placed on Patient placed in an exam room. me1 23:00 No provider procedures requiring assistance completed. bm8 23:00 Initial lab(s) drawn, by la, sent to lab. First set of blood cultures drawn by la, [facility] Urine collected: clean catch specimen, clear. Inserted saline lock: 20 gauge in left antecubital area, using aseptic technique. Blood collected. Flushed with 10 mL NS. Patient maintains SpO2 saturation greater than 95% on room air. 23:11 Chan Jasso, RN is Primary Nurse. bm8 23:12 Patient has correct armband on for positive identification. Bed in low position. Call bm8 light in reach. Side rails up X 1. Client placed on continuous cardiac and pulse oximetry monitoring. NIBP monitoring applied. Pulse ox on. NIBP on. Door closed. Noise minimized. Pillow given. Verbal reassurance given. Head of bed elevated. 23:31 Scrotum Testicles US In Process Unspecified. EDMS 23:48 EKG done, by ED staff. 05/23 02:05 Provided Education on: need for transfer. bm8 02:05 Patient transferred, IV remains in place. bm8 Administered Medications: 05/22 23:18 Drug: morphine IVP or IV 4 mg IVP once over 4 mins Route: IVP; Infused Over: 4 mins; bm8 Site: left antecubital; 05/23 00:05 Follow up: Response: No adverse reaction bm8 05/22 23:20 Drug: Piperacillin-Tazobactam IVPB 3.375 grams IVPB once over 60 mins; (mix in NS 100 bm8 mL) Route: IVPB; Infused Over: 60 mins; Site: left antecubital; 05/23 00:05 Follow up: Response: No adverse reaction; IV Status: Completed infusion; IV Intake: bm8 100ml 00:38 Drug: morphine IVP or IV 4 mg IVP once over 4 mins Route: IVP; Infused Over: 4 mins; bm8 Site: left antecubital; 01:39 Follow up: Response: No adverse reaction bm8 00:38 Drug: NS 0.9% IV 500 ml 500 ml IV at 1 bolus once; to be given as a bolus over 30 bm8 minutes Volume: 500 ml; Route: IV; Rate: 1 bolus; Site: left antecubital; 01:39 Follow up: Response: No adverse reaction; IV Status: Completed infusion; IV Intake: bm8 500ml 01:39 Drug: vancoMYCIN IVPB 1 grams IVPB once over 2 hrs Route: IVPB; Infused Over: 2 hrs; bm8 Site: left antecubital; 02:05 Follow up: Response: No adverse reaction; IV Status: Infusion continued upon transfer bm8 Medication: 05/22 23:12 VIS not applicable for this client. bm8 Intake: 05/23 00:05 IV: 100ml; Total: 100ml. bm8 01:39 IV: 500ml; Total: 600ml. bm8 Outcome: 00:15 ER care complete, transfer ordered by . ec2 02:05 Transferred by ground EMS to [facility], Transfer form completed. bm8 X-rays sent w/ patient. 02:05 Condition: stable 02:05 Instructed on the need for transfer, Demonstrated understanding of instructions, follow-up care, 02:06 Patient left the ED. bm8 Signatures: Dispatcher [employer] Cheyanne Sullivan, RN RN me1 Marcelo Mendez MD MD ec2 Mariela Richmond 2 Chan Jasso RN RN bm8 Eula Harper
[2024-05-23] MEDS ORDERED: MORPHINE 4 MG/ML SYR ONE (00:30)
[2024-05-23] MEDS ORDERED: NA CHLORIDE 0.9% 0 ML ONE (00:30)
--- NOTE | 2024-05-23 00:32 | RAD REPORT ---
US SCROTUM INDICATION: Swelling at perineum. COMPARISON: None TECHNIQUE: Ovalle scale imaging and duplex Doppler ultrasound examination of the scrotum and its conten ts were performed. FINDINGS: SCROTUM: The scrotal skin thickness is normal and there is no hyperemia. RIGHT TESTIS: Size: 4.3 x 1.8 x 2.8 cm. Echotexture: Normal. Blood flow: Normal. Epididymus: Normal in size and echogenicity. The epididymal head measures 0.6 x 0.9 cm. Hydrocele: None. Varicocele: None. Inguinal: Normal. Masses: None. LEFT TESTIS: Size: 3.9 x 1.6 x 2.5 cm. Echotexture: Normal. Blood flow: Normal. Epididymus: Normal in size and echogenicity. The epididymal head measures 0.8 x 1.0 cm. Hydrocele: None. Varicocele: None. Inguinal: Normal. Masses: None. OTHER: In the concerning area at the perineum, there is a 4.2 x 1.4 x 3.4 cm complex collection with internal debris, suggesting abscess. The surrounding soft tissues are echogenic and edematous with increased color flow, in keeping with cellulitis. IMPRESSION: 1. Peroneal cellulitis with a 4.2 cm abscess collection. 2. No testicular torsion or epididymoorchitis. Electronically signed by: Tammy Burnett MD 05/23/2024 12:10 AM [facility] Due to temporary technical issues with the PACS/Glook[employer] scribe reporting system, reports are being sign ed by the in-house radiologist without review as a courtesy to ensure prompt reporting the interpreting rad iologist is fully responsible for the content of the report. Transcribed Date/Time: 05/23/2024 12:32 AM
[2024-05-23] MEDS ORDERED: NA CHLORIDE 0.9% 500 ML ONE (00:33)
[2024-05-23] MEDS ORDERED: VANCOMYCIN 1 GM/VIAL ONE (01:12)
[2024-05-23] MEDS ORDERED: NA CHLORIDE 0.9% 250 ML ONE (01:13)
[2024-05-23 07:41] VITALS: BP 107/76; TEMP 97.9; O2SAT 95
== END 2024-05-23 02:06 | disposition short-term general hospital (02) ==
LOC: ER 22:21
DX: N49.2 Inflammatory disorders of scrotum (principal); A41.9 Sepsis, unspecified organism; E11.9 Type 2 diabetes mellitus without complications; I10 Essential (primary) hypertension
CPT/HCPCS: 96365; 96367; 96361; 87040 ×2; 85025; 81001; 36415; 85610; 83605; 85730; 80053; 86140; 76870; 96375; 99285; J2543; J7050; J7040; J7030

== ENCOUNTER 2024-10-15 21:37 | Emergency (ER) | payer OTHER ==
[2024-10-16] MEDS ORDERED: FENTANYL CITR 100 MCG/2 ML ONE (00:32)
[2024-10-16] MEDS ORDERED: NA CHLORIDE 0.9% 1,000 ML ONE (00:33)
[2024-10-16 00:53] LABS: Absolute Eosinophils 0.2 K/uL (0-0.5); Absolute Lymphocytes (CBC) 4.1 K/uL (0.7-4.9); Absolute Monocytes 1.2 K/uL (0.1-1.3); Absolute Neutrophil 8.2 K/uL (1.8-8.0); Basophils % 0.3 % (0-1.3); Eosinophils % 1.1 % (0-4.4); Hematocrit 44.5 % (39.6-49.0); Hemoglobin 14.8 g/dL (13.6-17.9); Lymphocytes % 29.9 % (15.3-44.8); MCH 27.3 pg (27.0-35.0); MCHC 33.4 g/dL (32.0-36.0); MCV 81.9 fL (80-100); MPV 7.9 fL (7.6-11.3); Monocytes % 8.5 % (3.3-12.3); Neutrophils % 60.2 % (41.7-73.7); Platelets 349 thou/uL (152-406); RBC Red Blood Cell Count 5.43 M/uL (4.33-5.43); Red Cell Distribution Width 15.2 % (12.1-15.2)
[2024-10-16 00:55] LABS: ALT/SGPT 20 U/L (16-61); Albumin 3.4 g/dL (3.4-5.0); Albumin/Globulin Ratio 0.8 (1.1-1.8); Alkaline Phosphatase 42 U/L (45-117); BUN Blood Urea Nitrogen 15 mg/dL (7-18); Bicarbonate 26 mEq/L (21-32); Bilirubin Total 0.3 mg/dL (0.2-1.0); Globulin 4.3 g/dL (2.3-3.5); Glomerular Filtration Rate 72 ml/min (=/>90); Glucose Level 114 mg/dL (74-106); Protein, Total 7.7 g/dL (6.4-8.2); Sodium Level 138 mEq/L (136-145)
[2024-10-16 00:56] LABS: AST/SGOT < 10 U/L (15-37)
[2024-10-16] MEDS ORDERED: CLINDAMYCIN 900MG/D5W 900 MG/50 ML IVPB IV ONE (01:20)
[2024-10-16] MEDS ORDERED: SMZ./TMP. 800/160 MG TABLET ONE (01:25)
--- NOTE | 2024-10-16 01:31 | ER ---
Nurse's Notes [facility] [place] Name: Harvey Callahan Age: 64 yrs Sex: Male : 1960 Arrival Date: 10/15/2024 Time: 21:37 Bed 8 Private MD: Diagnosis: Perineal Cellulitis Presentation: 10/15 22:29 Chief complaint: Patient states: RIGHT TESTICULAR PAIN AND SWELLING ...ABSCESS lg3 "BURSTED" AND HAS BEEN DRAINAGE...THIS BEGAN 3 DAYS AGO. Coronavirus screen: Client denies travel out of the [place] in the last 14 days. Ebola Screen: Patient denies exposure to infectious person. Initial Sepsis Screen: Does the patient meet any 2 criteria? No. Patient's initial sepsis screen is negative. Does the patient have a suspected source of infection? No. Patient's initial sepsis screen is negative. Risk Assessment: Do you want to hurt yourself or someone else? Patient reports no desire to harm self or others. Onset of symptoms was October 12, 2024. 22:29 Method Of Arrival: Wheelchair lg3 22:29 Acuity: DEYANIRA 3 lg3 Triage Assessment: 22:33 General: Appears uncomfortable, Behavior is calm, cooperative. Pain: Complains of pain lg3 in groin Pain does not radiate. Pain currently is 8 out of 10 on a pain scale. Historical: - Allergies: 22:33 No Known Allergies; lg3 - PMHx: 22:33 Arthritis; Atrial fibrillation; CHF; Diabetes - IDDM; Hyperlipidemia; Hypertension; lg3 neuropathy (EDEMA); - Immunization history:: Adult Immunizations up to date. - Infectious Disease History:: Denies. - Social history:: Smoking status: Patient reports the use of cigarette tobacco products, smokes two packs cigarettes per day. Patient/guardian denies using alcohol, street drugs. Screenin:53 [facility] ED Fall Risk Assessment (Adult) History of falling in the last 3 months, cp4 including since admission No falls in past 3 months (0 pts) Confusion or Disorientation No (0 pts) Intoxicated or Sedated No (0 pts) Impaired Gait No (0 pts) Mobility Assist Device Used No (0 pt) Altered Elimination No (0 pt) Score/Fall Risk Level 0 - 2 = Low Risk Oriented to surroundings, Maintained a safe environment, Assessed \\T\\ reinforced patient's understanding of fall precautions, Hourly rounding (assess needs \\T\\ fall precautionary measures) done. Abuse screen: Denies threats or abuse. Denies injuries from another. Nutritional screening: No deficits noted. Tuberculosis screening: No symptoms or risk factors identified. Assessment: 23:53 General: Appears in no apparent distress. uncomfortable, Behavior is calm, cooperative, cp4 appropriate for age. Pain: Complains of pain in groin Pain does not radiate. Pain currently is 8 out of 10 on a pain scale. Pain began 2-3 days ago. Neuro: Level of Consciousness is awake, alert, obeys commands, Oriented to person, place, time, situation. Cardiovascular: Patient's skin is warm and dry. Respiratory: Airway is patent Respiratory effort is even, unlabored. GI: No signs and/or symptoms were reported involving the gastrointestinal system. : No signs and/or symptoms were reported regarding the genitourinary system. EENT: No signs and/or symptoms were reported regarding the EENT system. Derm: Abscess located on groin. Musculoskeletal: No signs and/or symptoms reported regarding the musculoskeletal system. 10/16 01:32 Reassessment: Disposition pending IV antibiotics. cp4 Vital Signs: 10/15 22:29 BP 105 / 66; Pulse 80; Resp 18; Pulse Ox 99% ; Weight 107.05 kg; Height 5 ft. 7 in. ; lg3 Pain 8/10; 23:56 BP 105 / 66; Pulse 77; Resp 18; Pulse Ox 98% ; cp4 10/16 01:13 BP 109 / 68; Pulse 76; Resp 18; Pulse Ox 99% ; cp4 10/15 22:29 Body Mass Index 36.96 (107.05 kg, 170.18 cm) lg3 10/15 22:29 Pain Scale: Adult lg3 ED Course: 10/15 21:43 Patient arrived in ED. gm2 22:15 Jame Sharif PA is PHCP. cp 22:15 Alana Howell MD is Attending Physician. cp 22:33 Triage completed. lg3 23:53 Bed in low position. Call light in reach. Side rails up X 1. cp4 10/16 00:19 Peace Shrestha is Primary Nurse. cp4 00:36 No provider procedures requiring assistance completed. Inserted saline lock: 20 gauge cp4 in right antecubital area, using aseptic technique. Blood collected. Flushed with 10 mL NS. 01:58 Removal of peripheral IV. Catheter intact, dressing applied. td1 02:04 Provided Education on: cellulitis. cp4 02:04 intact, bleeding controlled, No redness/swelling at site. Pressure dressing applied. cp4 02:05 Arm band placed on right wrist. Patient placed in waiting room. cp4 Administered Medications: 00:36 Drug: fentaNYL (PF) IVP 25 mcg IVP once Route: IVP; Site: right antecubital; cp4 01:27 Follow up: Response: No adverse reaction cp4 00:36 Drug: NS 0.9% IV 1000 ml IV at 1000 ml once; to be given as a bolus over 60 minutes cp4 Route: IV; Rate: 1000 ml; Site: right antecubital; 01:27 Follow up: IV Status: Completed infusion cp4 01:24 Drug: Clindamycin IVPB 900 mg IVPB once over 30 mins; (mix in 50 mL) Route: IVPB; cp4 Infused Over: 30 mins; Site: right antecubital; 02:04 Follow up: IV Status: Completed infusion cp4 01:27 Drug: Trimethoprim-Sulfamethoxazole PO (160 mg-800 mg (DS) 2 tablet PO once Route: PO; cp4 02:04 Follow up: Response: No adverse reaction cp4 Medication: 05 23:53 VIS not applicable for this client. cp4 Outcome: 10/16 01:31 Discharge ordered by MD. cp 02:04 Discharged to home via wheelchair, cp4 02:04 Condition: stable 02:04 Discharge instructions given to patient, family, Instructed on discharge instructions, follow up and referral plans. medication usage, Demonstrated understanding of instructions, follow-up care, medications, Prescriptions given X 2, 02:05 Patient left the ED. cp4 Signatures: Jame Sharif PA PA cp Able, Lacie, RN RN tl3 Peace Shrestha cp4 Mariela Richmond 2 Toño Yeung td1
--- NOTE | 2024-10-16 01:31 | EDPHYS ---
Physician Documentation [facility] Name: Harvey Callahan Age: 64 yrs Sex: Male : 1960 Arrival Date: 10/15/2024 Time: 21:37 Bed 8 Private MD: ED Physician Alana Howell HPI: 10/15 22:35 This 64 yrs old Male presents to ER via Wheelchair with complaints of Groin Pain. cp 22:35 The patient presents with Patient is a 64-year-old male with past medical history cp significant for diabetes, CHF and hypertension. Patient presents to the emergency department with complaints of pain to the perineal area and the base of the scrotum. Patient is concerned about another infection or abscess. Patient reports in the past she has had to have surgical intervention due to an abscess in the same area. The patient reports pain started 3 days ago and that today he did notice some drainage from that area. Patient denies fevers. Patient denies abdominal pain. 22:35 Associated signs and symptoms: Pertinent negatives: abdominal pain, constipation, cp diarrhea, fever, vomiting. Historical: - Allergies: 22:33 No Known Allergies; lg3 - PMHx: 22:33 Arthritis; Atrial fibrillation; CHF; Diabetes - IDDM; Hyperlipidemia; Hypertension; lg3 neuropathy (EDEMA); - Immunization history:: Adult Immunizations up to date. - Infectious Disease History:: Denies. - Social history:: Smoking status: Patient reports the use of cigarette tobacco products, smokes two packs cigarettes per day. Patient/guardian denies using alcohol, street drugs. ROS: 22:40 Constitutional: Negative for body aches, chills, fever, cp 22:40 Abdomen/GI: Negative for abdominal pain, nausea, vomiting, and diarrhea, cp 22:40 Back: Negative for pain at rest, pain with movement, 22:40 Skin: Positive for swelling, of the perineal area, drainage, 22:40 Neuro: Negative for altered mental status, dizziness, headache, weakness, 22:40 All other systems are negative, Exam: 22:45 Constitutional: The patient appears in no acute distress, alert, awake, non-toxic, well cp developed, well nourished, obese, 22:45 Head/Face: Normocephalic, atraumatic. cp 22:45 Eyes: Periorbital structures: appear normal, Conjunctiva: normal, no exudate, no injection, Sclera: no appreciated abnormality, Lids and lashes: appear normal, bilaterally, 22:45 ENT: External ear(s): are unremarkable, Nose: is normal, Mouth: Lips: moist, Oral mucosa: moist, Posterior pharynx: Airway: no evidence of obstruction, patent, 22:45 Chest/axilla: Inspection: normal, 22:45 Cardiovascular: Rate: normal, 22:45 Respiratory: the patient does not display signs of respiratory distress, Respirations: normal, no use of accessory muscles, no retractions, labored breathing, is not present, Breath sounds: are clear throughout, no decreased breath sounds, no stridor, no wheezing, 22:45 Abdomen/GI: Inspection: obese Palpation: abdomen is soft and non-tender, in all quadrants, 22:45 Skin: Examination of the perineal area: Mild erythema, tenderness to palpation, small opening at the base of the scrotum, no drainage expressed. Vital Signs: 22:29 BP 105 / 66; Pulse 80; Resp 18; Pulse Ox 99% ; Weight 107.05 kg; Height 5 ft. 7 in. ; lg3 Pain 8/10; 23:56 BP 105 / 66; Pulse 77; Resp 18; Pulse Ox 98% ; cp4 05/ 01:13 BP 109 / 68; Pulse 76; Resp 18; Pulse Ox 99% ; cp4 10/15 22:29 Body Mass Index 36.96 (107.05 kg, 170.18 cm) lg3 10/15 22:29 Pain Scale: Adult lg3 MDM: 10/15 22:28 Medical Screening Exam initiated cp 10/16 01:30 Data reviewed: vital signs, nurses notes, lab test result(s), and as a result, I will cp discharge patient. 01:30 Differential diagnosis: UTI, prostatitis, urethritis, abscess, cellulitis, sepsis. I cp considered the following discharge prescriptions or medication management in the emergency department Medications were administered in the Emergency Department. See MAR. Counseling: I had a detailed discussion with the patient and/or guardian regarding the historical points, exam findings, and any diagnostic results supporting the discharge/admit diagnosis, lab results, to return to the emergency department if symptoms worsen or persist or if there are any questions or concerns that arise at home. Response to treatment: the patient's symptoms have mildly improved after treatment, and as a result, I will discharge patient. 10/16 00:18 Order name: CBC with Diff; Complete Time: 01:15 cp 10/16 01:15 Interpretation: Normal except: WBC 13.60; NEUT A 8.2. cp 10/16 00:18 Order name: CMP; Complete Time: 01:15 cp 10/16 00:18 Order name: CRP; Complete Time: 01:15 cp 10/16 00:18 Order name: Lactate w/ 2H reflex if indic.; Complete Time: 01:15 cp 10/16 00:18 Order name: Wound Culture cp 10/16 00:18 Order name: IV; Complete Time: 00:36 cp Administered Medications: 00:36 Drug: fentaNYL (PF) IVP 25 mcg IVP once Route: IVP; Site: right antecubital; cp4 01:27 Follow up: Response: No adverse reaction cp4 00:36 Drug: NS 0.9% IV 1000 ml IV at 1000 ml once; to be given as a bolus over 60 minutes cp4 Route: IV; Rate: 1000 ml; Site: right antecubital; 01:27 Follow up: IV Status: Completed infusion cp4 01:24 Drug: Clindamycin IVPB 900 mg IVPB once over 30 mins; (mix in 50 mL) Route: IVPB; cp4 Infused Over: 30 mins; Site: right antecubital; 02:04 Follow up: IV Status: Completed infusion cp4 01:27 Drug: Trimethoprim-Sulfamethoxazole PO (160 mg-800 mg (DS) 2 tablet PO once Route: PO; cp4 02:04 Follow up: Response: No adverse reaction cp4 Disposition: 10/17 01:07 Chart complete. cp Disposition Summary: 10/16/24 01:31 Discharge Ordered Notes: Location: Home cp Problem: an ongoing problem cp Symptoms: have improved cp Condition: Stable cp Diagnosis - Perineal Cellulitis cp Followup: cp - With: Private Physician - When: 2 - 3 days - Reason: Recheck today's complaints Discharge Instructions: - Discharge Summary Sheet cp - Cellulitis, Adult cp Forms: - Medication Reconciliation Form cp - Antibiotic Education cp - Prescription Opioid Use cp - Patient Portal Instructions cp - Leadership Thank You Letter cp Prescriptions: - Clindamycin HCl 300 mg Oral Capsule - take 1 capsule ORAL route every 6 hours for 10 days; 40 capsule; Refills: 0, cp Product Selection Permitted - Bactrim DS 800-160 mg Oral Tablet - take 1 tablet ORAL route every 12 hours for 10 days; 20 tablet; Refills: 0, cp Product Selection Permitted Signatures: Dispatcher [employer] Jame Zepeda PA PA cp Able, Lacie, RN RN lg3 Peace Shrestha cp4 Corrections: (The following items were deleted from the chart) 10/16 01:15 01:15 Normal except: WBC 13.60. cp cp
[2024-10-16 03:46] VITALS: O2SAT 99
[2024-10-16 03:48] VITALS: BP 109/68
== END 2024-10-16 02:05 | disposition home or self-care (01) ==
LOC: ER 21:37
DX: L03.315 Cellulitis of perineum (principal); F17.210 Nicotine dependence, cigarettes, uncomplicated
CPT/HCPCS: 96365; 96361; 87070; 85025; 36415; 87205; 83605; 80053; 86140; 96375; 99284; J3010; J7030